=== PATIENT | male | born 1955 | race Caucasian/White ===

== ENCOUNTER 2017-08-19 23:14 | Inpatient (IN) | payer OTHER ==
[~2017-08-19] VITALS: Ht 175.3 cm; Wt 88.0 kg
--- NOTE | 2017-08-19 23:42 | ED GENERAL ADULT ---
History of Present Illness General Chief Complaint: Lower Extremity Problems Stated Complaint: BLEEDING RT LEG Source: patient Exam Limitations: no limitations Vital Signs & Intake/Output Vital Signs & Intake/Output Vital Signs Date Time Temp Pulse Resp B/P B/P Pulse O2 O2 Flow FiO2 Mean Ox Delivery Rate 08/20 0227 97 Room Air 08/19 2318 98.0 98 18 128/86 98 Room Air ED Intake and Output 08/20 0000 08/19 1200 Intake Total Output Total Balance Patient 195 lb Weight Allergies Coded Allergies: NO KNOWN ALLERGIES (11/24/11) NKA PER ANTIBIOTIC ORDER SHEET - S Triage Note: BIBA SPONTANEOUS BLEEDING FROM EXISTING LOWER LEG WOUND RIGHT LOWER LEG Triage Nurses Notes Reviewed? yes Onset: Gradual Duration: day(s): (1), changing over time, continues in ED, getting worse Timing: recent history Injury Environment: home Severity: moderate, severe Severity Numbers: 8 No Modifying Factors: none HPI: 62-year-old male past medical history of peripheral vascular disease and chronic right lower extremity wound presents for evaluation of uncontrolled bleeding to the right lower extremity. Patient states that he has had a wound on his right lower extremity for many years. He has been seen by vascular and wound care as well as plastic surgery. He has had multiple surgeries on the right lower extremity including angioplasties and skin grafts. He states that he has not been seen by a doctor for his leg since 2012. He states that from time to time it will start to bleed but usually he can control the bleeding with pressure. This time the bleeding started several hours ago and was more severe than usual. He was unable to stop it with pressure and elevation. He states that he keeps it dressed at home and changes it daily. He states that recently it has become more swollen than usual. He denies any fevers chest pain shortness of breath numbness or tingling. He walks with a walker. (Contreras Foster) Past History Travel History Traveled to [place] past 21 day No Medical History Any Pertinent Medical History? see below for history Surgical History Surgical History: vascular/plasitc surgery Psychosocial History What is your primary language Macanese Tobacco Use: Current Not Daily ETOH Use: occasional use Illicit Drug Use: denies illicit drug use Family History Hx Contributory? No (Contreras Foster) Review of Systems Review of Systems Constitutional: Reports: no symptoms. EENTM: Reports: no symptoms. Respiratory: Reports: no symptoms. Cardiovascular: Reports: no symptoms. GI: Reports: no symptoms. Genitourinary: Reports: no symptoms. Musculoskeletal: Reports: see HPI. Skin: Reports: see HPI (chronic wound ). Neurological/Psychological: Reports: no symptoms. Hematologic/Endocrine: Reports: no symptoms. Immunologic/Allergic: Reports: no symptoms. All Other Systems: Reviewed and Negative (Contreras Foster) Physical Exam Physical Exam General Appearance: well developed/nourished, no apparent distress, alert, awake Head: atraumatic, normal appearance Eyes: Bilateral: normal appearance, EOMI. Ears, Nose, Throat: normal pharynx, hearing grossly normal Neck: normal inspection, supple, full range of motion Respiratory: normal breath sounds, chest non-tender, no respiratory distress, lungs clear Cardiovascular: regular rate/rhythm Gastrointestinal: normal bowel sounds, soft, non-tender, no organomegaly Back: normal inspection, normal range of motion Extremities: right lower extremity: There is a large over 6 inches in verticle length circumferential ulcerated wound on the right lower extremity. There is exposed subcutaneous tissue no exposed bone. There are multiple areas of necrotic tissue. The right foot is edematous with 2+ pitting edema. The DP pulse is not palpable. Range of motion of the foot and ankle is intact. Remaining extremities are within normal limits Neurologic/Psych: no motor/sensory deficits, awake, alert, oriented x 3 Skin: intact, normal color, warm/dry, see extremities Core Measures ACS in differential dx? No CVA/TIA Diagnosis: No Sepsis Present: No Sepsis Focused Exam Completed? No (Contreras Foster) Progress Differential Diagnoses I considered the following diagnoses in my evaluation of the patient: [Chronic wound, infected wound, osteomyelitis, peripheral vascular disease, cellulitis, abscess, gas gangrene, necrotizing fasciitis] Plan of Care: Orders Procedure Date/time Status Nothing by Mouth 08/20 B Active CBC WITHOUT DIFFERENTIAL 08/20 0700 Active BASIC ELECTROLYTES PLUS BUN&CR 08/20 0700 Active LACTIC ACID 08/20 0237 Active Saline Lock 08/20 199 Active Pathway - chart 08/20 199 Active House Staff 08/20 199 Active PROTHROMBIN TIME 08/20 199 Active Saline Lock 08/20 144 Active Misc Message 08/20 144 Active ED Holding Orders 08/20 144 Active Admit to inpatient 01/13 0145 Active Vital Signs 08/20 0145 Active Code Status 08/20 0145 Active Patient Data 08/20 0141 Active Add-on Test (ER Only) 08/20 0126 Active BLOOD CULTURE 08/20 012 Active EKG 08/20 012 Active Intake & Output 08/20 0111 Active TROPONIN LEVEL 08/20 0027 Complete VTE Mechanical Prophylaxis 08/20 UNK Active LACTIC ACID 08/19 2337 Complete WESTERGREN SED RATE 08/19 2337 Complete C-REACTIVE PROTEIN 08/19 233 Complete COMPREHENSIVE METABOLIC PANEL 08/19 233 Complete CBC WITHOUT DIFFERENTIAL 08/19 2336 Complete Current Medications Sig/Alexus Start time Last Medication Dose Stop Time Status Admin Sodium Chloride 1,000 ML Q13H 08/20 0215 AC 08/20 (Normal Saline 0.9%) 0230 Laboratory Tests 08/20/17 0027: Anion Gap 14, Estimated GFR > 60, BUN/Creatinine Ratio 6.0 L, Glucose 112 H, Lactic Acid 5.1 H, Calcium 8.3 L, Total Bilirubin 0.3, AST 11 L, ALT 24, Alkaline Phosphatase 99, Troponin I < 0.01, C-Reactive Prot, Quant 3.8 H, Total Protein 5.9 L, Albumin 2.6 L, Globulin 3.3, Albumin/Globulin Ratio 0.8 L, CBC w Diff MAN DIFF ORDERED, RBC 2.95 L, MCV 98.9 H, MCH 33.4 H, RDW 15.2 H, MPV 7.6, Gran % 84.4 H, Lymphocytes % 11.6 L, Monocytes % 2.8, Eosinophils % 0.9, Basophils % 0.3, Absolute Granulocytes 10.1 H, Absolute Lymphocytes 1.4, Absolute Monocytes 0.3, Absolute Eosinophils 0.1, Absolute Basophils 0, Platelet Estimate ADEQUATE, Normocytic RBCs VERIFIED, Normochromic RBCs VERIFIED, PUBS MCHC 33.8, ESR Westergren 50 H Microbiology 08/20 0203 BLOOD: Blood Culture - RECD 08/20 156 BLOOD: Blood Culture - RECD Patient seen and evaluated. he is currently actively bleeding. He has been applying pressure for greater than 3 hours without improvement. Blood is soaking through the dressing. Dressing was removed and calastat was placed over the bleeding part of the wound with good effect. Bleeding is controlled. He remains hemodynamically stable He has an extensive severe wound to the right lower extremity. It is likely related to chronic venous insufficiency/venous stasis. Patient has an extensive history of plastic surgery wound care and vascular surgery however he has not been seen in years. Patient is currently afebrile and nontoxic appearing however he has a lactic acidosis and leukocytosis. X-ray shows periosteal thickening. CRP is significantly elevated. Sedimentation rate is pending. He will require infectious disease consult, vascular surgery consult, wound care consult, general surgery consult, IV fluids, IV antibiotics, IV pain control, serial labs, MRI, CTA. The wound was dressed with Xeroform Kerlix and Lewis wrap. IV fluids and IV Tylenol started for pain control. Considered starting antibiotics however felt that it was better to wait for infectious disease consultation/follow-up cultures/possible bone biopsy. Case discussed with Dr. Palencia he agrees. Diagnostic Imaging: Viewed by Me: Radiology Read. Discussed w/RAD: Radiology Read. Radiology Impression: PATIENT: GRABIEL LIMON PRESENT AGE: 62 PATIENT ACCOUNT NO: [id number] : 56 LOCATION: [facility] ORDERING PHYSICIAN: Contreras PORTILLO SERVICE DATE: 08/19/17 EXAM TYPE: RAD - [id number], RIGHT EXAMINATION: XR TIBIA AND FIBULA, RIGHT CLINICAL INFORMATION: Chronic wound, getting worse. COMPARISON: None TECHNIQUE: AP and lateral views of the right tibia and fibula were obtained. FINDINGS: Soft tissue irregularity of the mid to distal lower leg. There is smooth periosteal thickening along the distal tibia and fibula with no erosive osseous changes. No acute fracture. Alignment at the knee and ankle is grossly anatomic. No definite soft tissue gas. IMPRESSION: Diffuse soft tissue irregularity at the mid to distal lower leg. Smooth periosteal thickening of the tibia and fibula is nonspecific, likely reactive. This can be seen in chronic infective process. No acute erosion or focal osseous abnormality. DICTATED BY: Ashley ROTHMAN,Amandeep DATE/TIME DICTATED:08/20/1710 COMPLIANCE ANALYST:LOLIS DATE/TIME TRANSCRIBED:08/20/1710 CONFIDENTIAL, DO NOT COPY WITHOUT APPROPRIATE AUTHORIZATION. Initial ED EKG: none (pending ) (Josef PORTILLO,Contreras) Initial ED EKG: borderline prolonged qt, no acute changes, nsr. (Slime ROTHMAN,Damian Milian) Departure Departure Disposition: STILL A PATIENT Condition: Stable Clinical Impression Primary Impression: Chronic wound of extremity Secondary Impressions: Lactic acidosis Referrals: Stanton Flannery MD (PCP/Family) Departure Forms: Customer Survey General Discharge Information Admission Note Spoke With: Bradley ROTHMAN,Pierre Serrano Documentation of Exam: Documentation of any treatments & extenuating circumstances including Concerns Regarding Discharge (functional status, medication knowledge or non-compliance, living conditions, etc.) that warrant an admission rather than observation: [ He will require infectious disease consult, vascular surgery consult, wound care consult, general surgery consult, IV fluids, IV antibiotics, IV pain control, serial labs, MRI, CTA. ] (Contreras Foster) PA/DISHWASHER BUSSER Co-Sign Statement Statement: ED Attending supervision documentation- [x] I saw and evaluated the patient. I have also reviewed all the pertinent lab results and diagnostic results. I agree with the findings and the plan of care as documented in the PA's/DISHWASHER BUSSER's documentation. 08/20/17, 0:40... pt with foul smelling open circumferential chronic wound with likely superimposed infection. Clinical concern for osteomyelitis. Pt merits admission for bone bx, id consult, consider abx. [] I have reviewed the ED Record and agree with the PA's/DISHWASHER BUSSER's documentation. [] Additions or exceptions (if any) to the PAs/DISHWASHER BUSSER's note and plan are summarized below: [] (Slime ROTHMAN,Damian Milian) Critical Care Note Critical Care Note Critical Care Time: non-applicable (Contreras Foster)
--- NOTE | 2017-08-20 00:16 | RADIOLOGY REPORT ---
EXAMINATION: XR TIBIA AND FIBULA, RIGHT CLINICAL INFORMATION: Chronic wound, getting worse. COMPARISON: None TECHNIQUE: AP and lateral views of the right tibia and fibula were obtained. FINDINGS: Soft tissue irregularity of the mid to distal lower leg. There is smooth periosteal thickening along the distal tibia and fibula with no erosive osseous changes. No acute fracture. Alignment at the knee and ankle is grossly anatomic. No definite soft tissue gas. IMPRESSION: Diffuse soft tissue irregularity at the mid to distal lower leg. Smooth periosteal thickening of the tibia and fibula is nonspecific, likely reactive. This can be seen in chronic infective process. No acute erosion or focal osseous abnormality.
[2017-08-20 00:40] LABS: ABSOLUTE BASOPHIL COUNT 0 /CUMM (0.0-0.2); ABSOLUTE EOSINOPHIL COUNT 0.1 /CUMM (0.0-0.7); ABSOLUTE GRANULOCYTE CT 10.1 /CUMM (1.4-6.5); ABSOLUTE LYMPH COUNT 1.4 /CUMM (1.2-3.4); ABSOLUTE MONOCYTE COUNT 0.3 /CUMM (0.10-0.60); BASOPHIL % 0.3 % (0.0-2.0); EOSINOPHIL % 0.9 % (0-5); GRANULOCYTE % 84.4 % (42.2-75.2); HEMATOCRIT 29.2 % (42-52); MEAN CORPUSCULAR HGB 33.4 PG (27.0-31.0); MEAN CORPUSCULAR HGB CONC 33.8 G/DL (33.0-37.0); MEAN CORPUSCULAR VOLUME 98.9 FL (80.0-94.0); MEAN PLATELET VOLUME 7.6 FL (7.4-10.4); PLATELET COUNT 291 /CUMM (130-400); RBC DISTRIBUTION WIDTH 15.2 % (11.5-14.5); RED BLOOD CELL CT 2.95 /CUMM (4.70-6.10); WHITE BLOOD CELL COUNT 11.9 /CUMM (4.8-10.8)
--- NOTE | 2017-08-20 01:55 | History & Physical ---
[facility]: General Information and HPI MD Statement: I have seen and personally examined GRABIEL LIMON and documented this H&P. The patient is a 62 year old M who presented with a patient stated chief complaint of [RIGHT lower extrimity bleeding]. Source of Information: patient, old records Exam Limitations: no limitations History of Present Illness: Mr. Limon is a 62 yo man with PMHx of PVD, BPH, postnasal drip, mediterrian anemia Hx. of debridement and skin graft, left lower leg wound, chronic right lower extrimity ulcer presented to ED with a c/o bleeding from multiple vein at the right lower extrimity. Patient is accompanied by his , history obtained from both of them, they report that the patient has bleeding from his right lower extrimity on and off over the last month, they have been managing that by themselves, he didn't follow with a vascular surgeon, he report that he has this chronic ulcer on his right lower extrmity for years, today he noticed that his right lower extrimity edema is getting worse and all of the sudden he started to bleed, his applied pressure on the spot but then another spot started to bleed, every time she tried to stop the bleed at one spot another spot will start bleeding so they decided to come to ED. He report pain in the area, no fever, chills BUT he throw up once today. No chest pain, dizziness, SOB, trauma and there is no change in urinary or bowel habits. He actively drinks beers every day, about 4-5 beers, denies any history of alcohol withdrawal. Offnote: Patient only see's his PCP , Last year he was seen by Dr. Santiago for BPH and was started on Flomax. He denies any other medical illness, no chronic disease such as DM, or HTN. Allergies/Medications Allergies: Coded Allergies: NO KNOWN ALLERGIES (11/24/11) NKA PER ANTIBIOTIC ORDER SHEET - [facility] Home Med list Fluoxetine HCl (Prozac) 10 MG CAPSULE 1 CAP PO DAILY ANXIETY (Reported) Tamsulosin HCl (Flomax) 0.4 MG CAP.ER.24H 1 CAP PO DAILY BPH (Reported) Past History Travel History Traveled to [place] past 21 day No Medical History Blood Transfusion Hx: No Neurological: NONE EENT: Postnasal drip Cardiovascular: NONE Respiratory: NONE Gastrointestinal: NONE Hepatic: NONE Renal: NONE Musculoskeletal: NONE Blood Disorders: anemia Surgical History Surgical History: vascular/plasitc surgery Past Family/Social History Psychosocial History ETOH Use: occasional use Illicit Drug Use: denies illicit drug use Review of Systems Review of Systems Constitutional: Reports: no symptoms. EENTM: Reports: no symptoms. Cardiovascular: Reports: no symptoms. Respiratory: Reports: no symptoms. GI: Reports: vomiting. Genitourinary: Reports: no symptoms. Musculoskeletal: Reports: no symptoms. Skin: Reports: change in skin color. Neurological/Psychological: Reports: no symptoms. Hematologic/Endocrine: Reports: see HPI. Immunologic/Allergic: Reports: no symptoms. Exam & Diagnostic Data Last 24 Hrs of Vital Signs/I&O Vital Signs Date Time Temp Pulse Resp B/P B/P Pulse O2 O2 Flow FiO2 Mean Ox Delivery Rate 08/20 0231 98.4 101 18 116/82 96 Room Air 08/20 0227 97 Room Air 08/19 2318 98.0 98 18 128/86 98 Room Air Intake & Output 08/20 0800 08/20 0000 08/19 1600 Intake Total Output Total Balance Patient 195 lb Weight Physical Exam General Appearance Alert, Oriented X3, Cooperative, Mild Distress Last 24 Hrs of Labs/Lukas: Laboratory Tests 08/20/17 0027: Anion Gap 14, Estimated GFR > 60, BUN/Creatinine Ratio 6.0 L, Glucose 112 H, Lactic Acid 5.1 H, Calcium 8.3 L, Total Bilirubin 0.3, AST 11 L, ALT 24, Alkaline Phosphatase 99, Troponin I < 0.01, C-Reactive Prot, Quant 3.8 H, Total Protein 5.9 L, Albumin 2.6 L, Globulin 3.3, Albumin/Globulin Ratio 0.8 L, CBC w Diff MAN DIFF ORDERED, RBC 2.95 L, MCV 98.9 H, MCH 33.4 H, RDW 15.2 H, MPV 7.6, Gran % 84.4 H, Lymphocytes % 11.6 L, Monocytes % 2.8, Eosinophils % 0.9, Basophils % 0.3, Absolute Granulocytes 10.1 H, Absolute Lymphocytes 1.4, Absolute Monocytes 0.3, Absolute Eosinophils 0.1, Absolute Basophils 0, Platelet Estimate ADEQUATE, Normocytic RBCs VERIFIED, Normochromic RBCs VERIFIED, PUBS MCHC 33.8, ESR Westergren 50 H Microbiology 08/20 0203 BLOOD: Blood Culture - RECD 08/20 015 BLOOD: Blood Culture - RECD Assessment/Plan Assessment: Mr. Limon is a 62 yo man with PMHx of PVD, BPH, postnasal drip, mediterrian anemia Hx. of debridement and skin graft, left lower leg wound, chronic right lower extrimity ulcer presented to ED with a c/o bleeding from multiple vein at the right lower extrimity. Admitted for PVD with chronic ulcer actively bleeding Assessment: #Chronic Rt. lower extrmity ulcer and edema, now actively bleeding: #Lactic acidosis #Hx. of mediterrian anemia (Thalassemia) #BPH * Patient admitted to general medicine floor * Will place a vasculr surgery consult * Will hold on giving antibiotic for now, till ID evaluate the patient, as he may needs some bone biopsy * Blood culture was sent will f/u * Vascular surgery consult * Wound care * Will hydrate with NS * Will check Lactic acid again and trend if needed * Will order LE arterial doppler, his feet is pale and cold to touch with difficulty to assess the pulse * Will continue Flomax * Will continue prozac 20 mg daily DVT ppx: ALPS Full code As Ranked By This Provider Problem List: 1. Chronic wound of extremity 2. Lactic acidosis Core Measures/Misc (04/24) Acute Coronary Syndrome ACS Diagnosis: No Congestive Heart Failure Congestive Heart Failure Diagnosis No Cerebrovascular Accident CVA/TIA Diagnosis: No VTE (View Protocol) VTE Risk Factors Age>40 No Mechanical VTE Prophylaxis d/t N/A MechProphylax Ordered No VTE Pharm Prophylaxis d/t Bleeding (Active) Sepsis (View protocol) Sepsis Present: No [facility]: Attending MD Review Statement Attending Statement Attending MD Statement: examined this patient, discuss w/resident/PA/DIRECT CARE SUPERVISOR, agreed w/resident/PA/DIRECT CARE SUPERVISOR, discussed with family, reviewed EMR data (avail), discussed with nursing, discussed with case mgmt, reviewed images, amended to note Attending Assessment/Plan: Seen and examined independently Discussed with family at the bedside Real Estate Attorney notes reviewed and appretiated Ultrasound IMPRESSION: - No evidence of occlusion or focal high-grade stenosis of the femoral arteries. - Within the right lower extremity, the arterial waveforms become abnormal at the level of the popliteal artery and within the anterior tibial artery, consistent with hemodynamically significant disease. The right dorsalis pedis artery was not evaluated due to overlying bandage. - Within the left lower extremity, the waveforms are abnormal within the popliteal, anterior and posterior tibial arteries, consistent with hemodynamically significant peripheral vascular disease. For a more complete anatomic assessment of peripheral vessels, CT angiography-runoff examination could be performed. To further evaluate severity of peripheral vascular disease, CHUYITA measurements and pulse volume recordings may be obtained at a dedicated vascular lab. IMPRESSION 62-year-old man with a history of "Mediterranean anemia", peripheral vascular disease, venous insufficiency, and bilateral lower extremity ulcers for 10 years , status post debridement and skin grafts 5 years prior to admission, with healing on the left but with nonhealing on the right, with chronic edema and stinging pain of the right lower extremity, admitted on August 20 because of uncontrolled bleeding from the right leg wounds, with no change in his chronic "stinging" pain, fevers or chills, found to be afebrile with a mild leukocytosis. ISSUES Sig cellulitis of the leg NEcrotic ulcer leg which would need debridement soon and vascular surg has seen the patient PVD with sig hemodynamically sig stenosis BPH Mediterranian anemia Depression Anemia of chronic disease PLAN Cont iv abx Elevate leg Necrotic ulcer debridement and PVD mgt per vascular surg Start high dose statin PT would need asa for pvd, however due to sig bleed hold asa for today and start asa if vascular thinks he needs it IF he develops sig foot pain and worsening ischemia would need to go to the or emergently WIll follow
[2017-08-20 04:08] VITALS: BP 142/64
[2017-08-20 04:15] LABS: ABSOLUTE BASOPHIL COUNT 0 /CUMM (0.0-0.2); ABSOLUTE EOSINOPHIL COUNT 0 /CUMM (0.0-0.7); ABSOLUTE GRANULOCYTE CT 9.8 /CUMM (1.4-6.5); ABSOLUTE LYMPH COUNT 0.7 /CUMM (1.2-3.4); ABSOLUTE MONOCYTE COUNT 0.5 /CUMM (0.10-0.60); BASOPHIL % 0.3 % (0.0-2.0); EOSINOPHIL % 0.2 % (0-5); GRANULOCYTE % 88.5 % (42.2-75.2); HEMATOCRIT 27.2 % (42-52); MEAN CORPUSCULAR HGB 32.9 PG (27.0-31.0); MEAN CORPUSCULAR VOLUME 99.7 FL (80.0-94.0); MEAN PLATELET VOLUME 7.9 FL (7.4-10.4); PLATELET COUNT 289 /CUMM (130-400); RBC DISTRIBUTION WIDTH 15.3 % (11.5-14.5); RED BLOOD CELL CT 2.73 /CUMM (4.70-6.10); WHITE BLOOD CELL COUNT 11.1 /CUMM (4.8-10.8)
[2017-08-20] MEDS ORDERED: FLOMAX0.4 M1 PO (04:19)
[2017-08-20] MEDS ORDERED: PROZAC10 M1 PO (04:19)
[2017-08-20 04:26] LABS: PT 11.9 SEC (9.4-12.5)
[2017-08-20 07:05] VITALS: BP 114/60
[2017-08-20 08:00] VITALS: BP 144/78
--- NOTE | 2017-08-20 09:01 | Cons- Vascular Surgery ---
Damien Antoine 08/20/17 0856: General Information and HPI Consulting Request Date of Consult: 08/20/17 Requested By: Bradley ROTHMAN,Pierre Serrano Reason for Consult: RLE bleeding ulceration, chronic wound Source of Information: patient, old records Exam Limitations: no limitations History of Present Illness: This is 62-year-old male limited to the medical service to the emergency department with a chronic nonhealing ulcerative wound to the right medial lower leg that was bleeding uncontrollably started yesterday evening. Pressure dressing was applied he was admitted overnight for further evaluation. Vascular surgery was consulted for management of his bleeding and wound. Patient states approximately 10 years ago he started having chronic venous insufficiency with skin breakdown. This went approximately 5 years before he sought treatment. He was seen by Dr. Desai in 2011 who performed bilateral debridements of the wounds. He was then seen by Dr. Hernandez later in the year 2011 for skin grafts both sides and also treated in the wound care center. The left side heal well, he states the right side never completely healed and he did not continue with follow-up. He states over the last 5 years and is chronically been open and intermittently losing with skin breakdown. It has gotten larger, has a foul odor, it is impaired his activities of daily living, he no longer can walk for long distances, and avoids going at the public places because of the wound. He came into the emergency room last night, urged by his to get it evaluated due to the increased bleeding that they could not stop. He usually puts dressings on it himself and wash his wound with soap and water at home but has not had any previous medical care in the last 4-5 years. He denies any fever or flulike illness, he states that the right leg is always chronically swollen and is no worse. He denies any redness streaking up the leg Allergies/Medications Allergies: Coded Allergies: NO KNOWN ALLERGIES (11/24/11) NKA PER ANTIBIOTIC ORDER SHEET - [facility] Home Med List: Fluoxetine HCl (Prozac) 10 MG CAPSULE 1 CAP PO DAILY ANXIETY (Reported) Tamsulosin HCl (Flomax) 0.4 MG CAP.ER.24H 1 CAP PO DAILY BPH (Reported) Past History Medical History Blood Transfusion Hx: No Neurological: NONE EENT: Postnasal drip Cardiovascular: NONE Respiratory: NONE Gastrointestinal: NONE Hepatic: NONE Renal: NONE Musculoskeletal: NONE Blood Disorders: anemia Other Medical Hx: Chronic venous insufficiency, history of venous stasis ulcers, history of debridements and skin grafting bilateral lower extremity Surgical History Pertinent Surgical History: vascular/plasitc surgery Psychosocial History Where Do You Live? Home Smoking Status: Never Smoked ETOH Use: heavy use Illicit Drug Use: denies illicit drug use Functional Ability ADLs Independent: dressing, eating, toileting, bathing. Review of Systems Review of Systems: Review of systems: See HPI, all other systems negative. Constitutional: No chills fever or weight loss HEENT: No visual changes no sore throat no congestion Cardiovascular: No chest pain ,palpitation Skin: See HPI Respiratory: No dyspnea cough sputum or hemoptysis GI: No nausea no vomiting : No dysuria no hematuria Musclulo skeletal: No back pain no neck pain, Neurologic: No numbness no confusion Psych: No stress anxiety or depression,. Heme/endocrine: No bruising no bleeding no polyuria or polydipsia Immunology: No splenectomy or history of AIDS Exam & Diagnostic Data Vital Signs and I&O Vital Signs Date Time Temp Pulse Resp B/P B/P Pulse O2 O2 Flow FiO2 Mean Ox Delivery Rate 08/20 0705 98.5 72 18 114/60 93 Room Air 08/20 0408 98.3 67 20 142/64 97 Room Air 08/20 0231 98.4 101 18 116/82 96 Room Air 08/20 0227 97 Room Air 08/19 2318 98.0 98 18 128/86 98 Room Air Intake & Output 08/20 1600 08/20 0800 08/20 0000 08/19 1600 08/19 0800 08/19 0000 Intake Total 300 Output Total 400 Balance -100 Intake, IV 300 Number 1 Bowel Movements Output, Stool 200 Output, Urine 200 Patient 194 lb 195 lb Weight Weight Reported by Patient Measurement Method Physical Exam: Well-developed well-nourished no apparent distress. HEENT: Atraumatic, extraocular motion intact Neck: Supple, no lymphadenopathy Respiratory: No respiratory distress Extremities: Right lower extremity is edematous, 2+ pitting, there is a compression wrap to the right lower leg which was removed. Dressing in place with Kaltostat and Xeroform. There is no active bleeding. The wound is approximately 15 cm in length and 8 cm in width with irregular borders and large amounts of necrotic and purulent appearing tissue with a foul odor and thin serous sanguinous discharge. There is a mild surrounding induration. There is no significant erythema. There is mild warmth. The neurovascular status is that of the foot is intact with dorsal pedal 2+ pulse and capillary refill less than 2 seconds. Posterior tibial pulses could not be palpated due to the location of the wound. Neuro: Alert and oriented x3 Psych: Mood affect normal, normal memory normal judgment. Skin: Warm and dry, no rash on exposed skin Last 24 Hours of Labs: Laboratory Tests 08/20 08/20 0320 0320 Chemistry Sodium (137 - 145 mmol/L) 138 Potassium (3.5 - 5.1 mmol/L) 3.4 L Chloride (98 - 107 mmol/L) 106 Carbon Dioxide (22 - 30 mmol/L) 18 L Anion Gap (5 - 16) 14 BUN (9 - 20 mg/dL) 6 L Creatinine (0.7 - 1.2 mg/dL) 0.9 Estimated GFR (>60 ml/min) > 60 BUN/Creatinine Ratio (7 - 25 %) 6.7 L Lactic Acid (0.7 - 2.1 mmol/L) 2.1 Coagulation PT (9.4 - 12.5 SEC) 11.9 INR (0.90 - 1.17) 1.13 Hematology CBC w Diff MAN DIFF ORDERED WBC (4.8 - 10.8 /CUMM) 11.1 H RBC (4.70 - 6.10 /CUMM) 2.73 L Hgb (14.0 - 18.0 G/DL) 9.0 L Hct (42 - 52 %) 27.2 L MCV (80.0 - 94.0 FL) 99.7 H MCH (27.0 - 31.0 PG) 32.9 H RDW (11.5 - 14.5 %) 15.3 H Plt Count (130 - 400 /CUMM) 289 MPV (7.4 - 10.4 FL) 7.9 Gran % (42.2 - 75.2 %) 88.5 H Lymphocytes % (20.5 - 51.1 %) 6.7 L Monocytes % (1.7 - 9.3 %) 4.3 Eosinophils % (0 - 5 %) 0.2 Basophils % (0.0 - 2.0 %) 0.3 Absolute Granulocytes (1.4 - 6.5 /CUMM) 9.8 H Segmented Neutrophils (42.2 - 75.2 %) 97 H Band Neutrophils (0.0 - 5.0 %) 2 Absolute Lymphocytes (1.2 - 3.4 /CUMM) 0.7 L Lymphocytes (20.5 - 51.1 %) 1 L Absolute Monocytes (0.10 - 0.60 /CUMM) 0.5 Absolute Eosinophils (0.0 - 0.7 /CUMM) 0 Absolute Basophils (0.0 - 0.2 /CUMM) 0 Platelet Estimate (ADEQUATE) ADEQUATE Hypochromic-Microcytic 1+ Anisocytosis 1+ PUBS MCHC (33.0 - 37.0 G/DL) 33.0 08/20 0027 Chemistry Sodium (137 - 145 mmol/L) 134 L Potassium (3.5 - 5.1 mmol/L) 3.5 Chloride (98 - 107 mmol/L) 101 Carbon Dioxide (22 - 30 mmol/L) 19 L Anion Gap (5 - 16) 14 BUN (9 - 20 mg/dL) 6 L Creatinine (0.7 - 1.2 mg/dL) 1.0 Estimated GFR (>60 ml/min) > 60 BUN/Creatinine Ratio (7 - 25 %) 6.0 L Glucose (65 - 99 mg/dL) 112 H Hemoglobin A1c (4.2 - 5.8 %) Pending Lactic Acid (0.7 - 2.1 mmol/L) 5.1 H Calcium (8.4 - 10.2 mg/dL) 8.3 L Total Bilirubin (0.2 - 1.3 mg/dL) 0.3 AST (17 - 59 U/L) 11 L ALT (21 - 72 U/L) 24 Alkaline Phosphatase (< 127 U/L) 99 Troponin I (<0.11 ng/ml) < 0.01 C-Reactive Prot, Quant (<1.0 mg/dL) 3.8 H Total Protein (6.3 - 8.2 g/dL) 5.9 L Albumin (3.5 - 5.0 g/dL) 2.6 L Globulin (1.9 - 4.2 gm/dL) 3.3 Albumin/Globulin Ratio (1.1 - 2.2 %) 0.8 L Hematology CBC w Diff MAN DIFF ORDERED WBC (4.8 - 10.8 /CUMM) 11.9 H RBC (4.70 - 6.10 /CUMM) 2.95 L Hgb (14.0 - 18.0 G/DL) 9.9 L Hct (42 - 52 %) 29.2 L MCV (80.0 - 94.0 FL) 98.9 H MCH (27.0 - 31.0 PG) 33.4 H RDW (11.5 - 14.5 %) 15.2 H Plt Count (130 - 400 /CUMM) 291 MPV (7.4 - 10.4 FL) 7.6 Gran % (42.2 - 75.2 %) 84.4 H Lymphocytes % (20.5 - 51.1 %) 11.6 L Monocytes % (1.7 - 9.3 %) 2.8 Eosinophils % (0 - 5 %) 0.9 Basophils % (0.0 - 2.0 %) 0.3 Absolute Granulocytes (1.4 - 6.5 /CUMM) 10.1 H Absolute Lymphocytes (1.2 - 3.4 /CUMM) 1.4 Absolute Monocytes (0.10 - 0.60 /CUMM) 0.3 Absolute Eosinophils (0.0 - 0.7 /CUMM) 0.1 Absolute Basophils (0.0 - 0.2 /CUMM) 0 Platelet Estimate (ADEQUATE) ADEQUATE Normocytic RBCs VERIFIED Normochromic RBCs VERIFIED PUBS MCHC (33.0 - 37.0 G/DL) 33.8 ESR Westergren (0 - 10 MM) 50 H Imaging Results: PATIENT: GRABIEL LIMON PRESENT AGE: 62 PATIENT ACCOUNT NO: [id number] : 56 LOCATION: [facility] ORDERING PHYSICIAN: Contreras PORTILLO SERVICE DATE: 08/19/17 EXAM TYPE: RAD - [id number], RIGHT EXAMINATION: XR TIBIA AND FIBULA, RIGHT CLINICAL INFORMATION: Chronic wound, getting worse. COMPARISON: None TECHNIQUE: AP and lateral views of the right tibia and fibula were obtained. FINDINGS: Soft tissue irregularity of the mid to distal lower leg. There is smooth periosteal thickening along the distal tibia and fibula with no erosive osseous changes. No acute fracture. Alignment at the knee and ankle is grossly anatomic. No definite soft tissue gas. IMPRESSION: Diffuse soft tissue irregularity at the mid to distal lower leg. Smooth periosteal thickening of the tibia and fibula is nonspecific, likely reactive. This can be seen in chronic infective process. No acute erosion or focal osseous abnormality. Assessment/Plan Assessment/Plan Right lower extremity chronic venous insufficiency ulceration with necrotic foul -smelling tissue. Arterial Doppler pending to further evaluate arterial flow although appears though he clinically has adequate flow Continue compression wrap and elevation Discussed with Dr. Martínez due to the odor of the wound, he feels as though it may be Pseudomonas and would recommend Cipro 500 mg by mouth twice a day. ID consult pending wound care recommendations are for Kerlix dressings to the wound and Lewis wrap's from the toes to the knee, dressings to be changed twice daily When the clinical signs of infection and edema have subsided, he may be discharged per medicine and patient should follow-up in the office for further wound management and possible debridement at that time. No vascular surgical or debridement recommended at this time per Dr. Martínez Problem List: 1. Chronic wound of extremity 2. Stasis ulcer of right lower extremity Consult Acknowledgment - Thank you for your consult request. Allen Martínez MD 08/21/17 4216: Assessment/Plan Consult Acknowledgment - Thank you for your consult request. Attending MD Review Statement Attending Statement Attending MD Statement: examined this patient Attending Assessment/Plan: He has right leg edema with stasis skin changes and active stasis ulcer. He has malodor of the wound bed without evidence of systemic infection. He clearly has wound colonization, possibly pseudomonas based on odor. To heal his stasis ulcers, he needs control of edema, reduction in bacterial load, and meticulous wound care. Treat with suppressive antibiotics, he may benefit from intermediate term antibiotic suppression as an outpatient. Twice daily dressing changes with Kerlix. LEWIS wrap from foot to knee to control edema. Once edema and bacterial colonization has been controlled, he should notice progressive wound healing. I will follow him as outpatient.
--- NOTE | 2017-08-20 11:10 | ULTRASOUND REPORT ---
EXAMINATION: US LOWER EXTREMITY ARTERIAL DOPPLER, BILATERAL CLINICAL INFORMATION: 62-year-old male with pale, cold bleeding lower extremities. COMPARISON: None TECHNIQUE: Grayscale and pulsed color Doppler imaging with spectral waveform analysis of major vessels of lower extremities was performed using a linear 9 MHz transducer. FINDINGS: The peak systolic velocity measurements provided below are in cm/s. RIGHT - Common femoral artery, triphasic waveform - 212 Profunda femoris artery, biphasic waveform - 156 SFA proximal, triphasic waveform - 148 SFA mid, triphasic waveform - 152 SFA distal, biphasic waveform - 73 Popliteal proximal, triphasic waveform - 90 Popliteal distal, monophasic waveform - 51 Anterior tibial artery, monophasic waveform - 43 Posterior tibial artery, biphasic waveform - 94 Dorsalis pedis cannot be evaluated due to overlying bandage. LEFT: Common femoral artery, biphasic waveform - 259 Profunda femoris artery, biphasic waveform - 181 SFA proximal, triphasic waveform - 187 SFA mid, triphasic waveform - 168 SFA distal, triphasic waveform - 137 Popliteal proximal, biphasic waveform - 63 Popliteal distal, biphasic waveform - 51 Anterior tibial artery, monophasic waveform - 51 Posterior tibial artery, monophasic waveform - 41 Dorsalis pedis, monophasic waveform - 43 IMPRESSION: - No evidence of occlusion or focal high-grade stenosis of the femoral arteries. - Within the right lower extremity, the arterial waveforms become abnormal at the level of the popliteal artery and within the anterior tibial artery, consistent with hemodynamically significant disease. The right dorsalis pedis artery was not evaluated due to overlying bandage. - Within the left lower extremity, the waveforms are abnormal within the popliteal, anterior and posterior tibial arteries, consistent with hemodynamically significant peripheral vascular disease. For a more complete anatomic assessment of peripheral vessels, CT angiography-runoff examination could be performed. To further evaluate severity of peripheral vascular disease, CHUYITA measurements and pulse volume recordings may be obtained at a dedicated vascular lab.
--- NOTE | 2017-08-20 12:56 | Cons- Infect Disease ---
General Information and HPI Consulting Request Date of Consult: 08/20/17 Requested By: Bradley ROTHMAN,Pierre Serrano Reason for Consult: Nonhealing, bleeding ulcers on the right lower extremity Source of Information: patient, family History of Present Illness: This is a 62-year-old man with a history of "Mediterranean anemia", peripheral vascular disease, venous insufficiency, with bilateral lower extremity ulcers for 10 years, status post debridement and skin grafts 5 years prior to admission , with healing on the left but with nonhealing on the right, managed by his with local wound care and with no medical evaluation over the past 5 years, with chronic "stinging" pain and edema of the right lower extremity, admitted on August 20 because of uncontrolled bleeding from the right leg wounds, with no history of fevers or chills. On admission he was afebrile. Laboratory data revealed a white blood cell count of 12,000, BUN/creatinine 6 and 1.0, lactic acid 5.1, with normal liver enzymes, INR 1.13. X-ray of the right tibia/fibula revealed diffuse soft tissue irregularity at the mid to distal lower leg, with no acute erosion or focal osseous abnormality. He was followed off antibiotics and has remained afebrile overnight. The bleeding appears to have stopped and he offers no new complaints at this time. Allergies/Medications Allergies: Coded Allergies: NO KNOWN ALLERGIES (11/24/11) NKA PER ANTIBIOTIC ORDER SHEET - [facility] Home Med List: Fluoxetine HCl (Prozac) 10 MG CAPSULE 1 CAP PO DAILY ANXIETY (Reported) Tamsulosin HCl (Flomax) 0.4 MG CAP.ER.24H 1 CAP PO DAILY BPH (Reported) Past History Travel History Traveled to [place] past 21 day No Medical History Blood Transfusion Hx: No Neurological: NONE EENT: Postnasal drip Cardiovascular: chronic venous insuff, PVD Respiratory: NONE Gastrointestinal: NONE Hepatic: NONE Renal: NONE Musculoskeletal: NONE Blood Disorders: anemia Other Medical Hx: Chronic venous insufficiency, history of venous stasis ulcers, history of debridements and skin grafting bilateral lower extremity Isolation History: Standard Surgical History Surgical History: vascular/plasitc surgery Psychosocial History Where Do You Live? Home Smoking Status: Never Smoked ETOH Use: heavy use Illicit Drug Use: denies illicit drug use Functional Ability ADLs Independent: dressing, eating, toileting, bathing. Review of Systems Review of Systems Constitutional: Denies: chills, fever, malaise. Exam & Diagnostic Data Last 24 Hrs of Vital Signs/I&O Vital Signs Date Time Temp Pulse Resp B/P B/P Pulse O2 O2 Flow FiO2 Mean Ox Delivery Rate 08/20 1131 98.2 80 14 144/78 08/20 0800 98.2 80 14 144/78 08/20 0705 98.5 72 18 114/60 93 Room Air 08/20 0408 98.3 67 20 142/64 97 Room Air 08/20 0231 98.4 101 18 116/82 96 Room Air 08/20 0227 97 Room Air 08/19 2318 98.0 98 18 128/86 98 Room Air Intake & Output 08/20 1600 08/20 0800 08/20 0000 Intake Total 300 Output Total 400 Balance -100 Intake, IV 300 Number 1 Bowel Movements Output, Stool 200 Output, Urine 200 Patient 194 lb 195 lb Weight Weight Reported by Patient Measurement Method Physical Exam Other Physical Findings: Afebrile. He is awake and alert in no acute distress. Skin reveals no rash. HEENT negative. Neck is supple with no adenopathy. Lungs are clear. Heart regular rhythm with no murmur. Abdomen is soft, nontender with positive bowel sounds. Back no CVA tenderness. Extremities right leg swelling, with mild warmth compared to the left, minimal erythema, with a large ulcerating wound, with some necrosis and with a foul odor reported; pulses 1+ and equal; chronic venous stasis changes to both lower extremities. Neuro is without focality. Last 24 Hours of Lab Results: Laboratory Tests 08/20 08/20 0320 0320 Chemistry Sodium (137 - 145 mmol/L) 138 Potassium (3.5 - 5.1 mmol/L) 3.4 L Chloride (98 - 107 mmol/L) 106 Carbon Dioxide (22 - 30 mmol/L) 18 L Anion Gap (5 - 16) 14 BUN (9 - 20 mg/dL) 6 L Creatinine (0.7 - 1.2 mg/dL) 0.9 Estimated GFR (>60 ml/min) > 60 BUN/Creatinine Ratio (7 - 25 %) 6.7 L Lactic Acid (0.7 - 2.1 mmol/L) 2.1 Coagulation PT (9.4 - 12.5 SEC) 11.9 INR (0.90 - 1.17) 1.13 Hematology CBC w Diff MAN DIFF ORDERED WBC (4.8 - 10.8 /CUMM) 11.1 H RBC (4.70 - 6.10 /CUMM) 2.73 L Hgb (14.0 - 18.0 G/DL) 9.0 L Hct (42 - 52 %) 27.2 L MCV (80.0 - 94.0 FL) 99.7 H MCH (27.0 - 31.0 PG) 32.9 H RDW (11.5 - 14.5 %) 15.3 H Plt Count (130 - 400 /CUMM) 289 MPV (7.4 - 10.4 FL) 7.9 Gran % (42.2 - 75.2 %) 88.5 H Lymphocytes % (20.5 - 51.1 %) 6.7 L Monocytes % (1.7 - 9.3 %) 4.3 Eosinophils % (0 - 5 %) 0.2 Basophils % (0.0 - 2.0 %) 0.3 Absolute Granulocytes (1.4 - 6.5 /CUMM) 9.8 H Segmented Neutrophils (42.2 - 75.2 %) 97 H Band Neutrophils (0.0 - 5.0 %) 2 Absolute Lymphocytes (1.2 - 3.4 /CUMM) 0.7 L Lymphocytes (20.5 - 51.1 %) 1 L Absolute Monocytes (0.10 - 0.60 /CUMM) 0.5 Absolute Eosinophils (0.0 - 0.7 /CUMM) 0 Absolute Basophils (0.0 - 0.2 /CUMM) 0 Platelet Estimate (ADEQUATE) ADEQUATE Hypochromic-Microcytic 1+ Anisocytosis 1+ PUBS MCHC (33.0 - 37.0 G/DL) 33.0 08/20 0027 Chemistry Sodium (137 - 145 mmol/L) 134 L Potassium (3.5 - 5.1 mmol/L) 3.5 Chloride (98 - 107 mmol/L) 101 Carbon Dioxide (22 - 30 mmol/L) 19 L Anion Gap (5 - 16) 14 BUN (9 - 20 mg/dL) 6 L Creatinine (0.7 - 1.2 mg/dL) 1.0 Estimated GFR (>60 ml/min) > 60 BUN/Creatinine Ratio (7 - 25 %) 6.0 L Glucose (65 - 99 mg/dL) 112 H Hemoglobin A1c (4.2 - 5.8 %) Pending Lactic Acid (0.7 - 2.1 mmol/L) 5.1 H Calcium (8.4 - 10.2 mg/dL) 8.3 L Total Bilirubin (0.2 - 1.3 mg/dL) 0.3 AST (17 - 59 U/L) 11 L ALT (21 - 72 U/L) 24 Alkaline Phosphatase (< 127 U/L) 99 Troponin I (<0.11 ng/ml) < 0.01 C-Reactive Prot, Quant (<1.0 mg/dL) 3.8 H Total Protein (6.3 - 8.2 g/dL) 5.9 L Albumin (3.5 - 5.0 g/dL) 2.6 L Globulin (1.9 - 4.2 gm/dL) 3.3 Albumin/Globulin Ratio (1.1 - 2.2 %) 0.8 L Hematology CBC w Diff MAN DIFF ORDERED WBC (4.8 - 10.8 /CUMM) 11.9 H RBC (4.70 - 6.10 /CUMM) 2.95 L Hgb (14.0 - 18.0 G/DL) 9.9 L Hct (42 - 52 %) 29.2 L MCV (80.0 - 94.0 FL) 98.9 H MCH (27.0 - 31.0 PG) 33.4 H RDW (11.5 - 14.5 %) 15.2 H Plt Count (130 - 400 /CUMM) 291 MPV (7.4 - 10.4 FL) 7.6 Gran % (42.2 - 75.2 %) 84.4 H Lymphocytes % (20.5 - 51.1 %) 11.6 L Monocytes % (1.7 - 9.3 %) 2.8 Eosinophils % (0 - 5 %) 0.9 Basophils % (0.0 - 2.0 %) 0.3 Absolute Granulocytes (1.4 - 6.5 /CUMM) 10.1 H Absolute Lymphocytes (1.2 - 3.4 /CUMM) 1.4 Absolute Monocytes (0.10 - 0.60 /CUMM) 0.3 Absolute Eosinophils (0.0 - 0.7 /CUMM) 0.1 Absolute Basophils (0.0 - 0.2 /CUMM) 0 Platelet Estimate (ADEQUATE) ADEQUATE Normocytic RBCs VERIFIED Normochromic RBCs VERIFIED PUBS MCHC (33.0 - 37.0 G/DL) 33.8 ESR Westergren (0 - 10 MM) 50 H Last 24 Hours of [place] Results: Blood cultures 2 August 20 pending Diagnostic Data Recent Imaging Findings: X-ray of the right tibia/fibula August 19 reveals diffuse soft tissue irregularity at the mid to distal lower leg, with no acute erosion or focal osseous abnormality Bilateral arterial Dopplers August 20 reveals no evidence of occlusion or focal high-grade stenosis of the femoral artery; hemodynamically significant disease at the level of the popliteal artery and within the anterior tibial artery of the right leg; hemodynamically significant disease involving the popliteal, anterior and posterior tibial arteries of the left leg Assessment/Plan Assessment/Plan Impression: This is a 62-year-old man with a history of "Mediterranean anemia", peripheral vascular disease, venous insufficiency, and bilateral lower extremity ulcers for 10 years, status post debridement and skin grafts 5 years prior to admission, with healing on the left but with nonhealing on the right, with chronic edema and stinging pain of the right lower extremity, admitted on August 20 because of uncontrolled bleeding from the right leg wounds, with no change in his chronic "stinging" pain, fevers or chills, found to be afebrile with a mild leukocytosis. He does have mild warmth to the right lower extremity and, with his mild leukocytosis and foul odor, a superimposed cellulitis is possible. He may ultimately require debridement of the necrosis and will defer this to Vascular surgery, who has evaluated him. Of note his arterial Dopplers suggest hemodynamically significant stenosis, which may also warrant further evaluation. Suggestion: 1. Further management of his necrotic ulcers and evaluation of his peripheral vascular disease per Vascular Surgery 2. Elevation of the right leg 3. Begin Unasyn 1.5 g IV every 6 hours Consult Acknowledgment - Thank you for your consult request.
--- NOTE | 2017-08-20 13:27 | Admission Certification ---
Admission Certification Certification Statement - As attending physician, I certify that at the time of - admission, based on clinical presentation, severity of - symptoms, need for further diagnostic testing and - therapeutic interventions, and risk of adverse outcomes - without in-hospital treatment, in my clinical assessment, - this patient requires an acute hospital stay for a minimum - of two nights or longer. I have also considered psychsocial - factors such as support system, advanced age, financial - issues, cognitive issues, and failed out-patient treatments, - past re-admission history, safety of patient, and lack of - compliance as applicable. Specific rationale supporting this admission is: Sepsis and cellulitis
[2017-08-20 14:45] VITALS: BP 118/60
[2017-08-20 22:38] VITALS: BP 124/60
[2017-08-21 06:48] VITALS: BP 136/70
[2017-08-21 09:38] LABS: ABSOLUTE BASOPHIL COUNT 0 /CUMM (0.0-0.2); ABSOLUTE EOSINOPHIL COUNT 0.1 /CUMM (0.0-0.7); ABSOLUTE GRANULOCYTE CT 5.5 /CUMM (1.4-6.5); ABSOLUTE MONOCYTE COUNT 0.4 /CUMM (0.10-0.60); BASOPHIL % 0.6 % (0.0-2.0); EOSINOPHIL % 1.3 % (0-5); GRANULOCYTE % 79.2 % (42.2-75.2); HEMATOCRIT 24.6 % (42-52); MEAN CORPUSCULAR HGB 33.7 PG (27.0-31.0); MEAN CORPUSCULAR HGB CONC 33.9 G/DL (33.0-37.0); MEAN CORPUSCULAR VOLUME 99.2 FL (80.0-94.0); MEAN PLATELET VOLUME 7.8 FL (7.4-10.4); PLATELET COUNT 274 /CUMM (130-400); RBC DISTRIBUTION WIDTH 15.9 % (11.5-14.5); RED BLOOD CELL CT 2.48 /CUMM (4.70-6.10)
--- NOTE | 2017-08-21 12:54 | PN- Infect Dx ---
Subjective Subjective: No fever or new c/o. Denies n/v. one small loose BM today. Review of Systems Comments: 12 points reviewed as noted, otherwise negative. Objective Last 24 Hrs of Vital Signs/I&O Vital Signs Date Time Temp Pulse Resp B/P B/P Pulse O2 O2 Flow FiO2 Mean Ox Delivery Rate 08/21 1000 97.6 20 14 136/70 08/21 0648 97.6 77 20 136/70 99 Room Air 08/20 2238 98.0 78 20 124/60 99 Room Air 08/20 1445 98.5 75 20 118/60 100 Intake & Output 08/21 1600 08/21 0800 08/21 0000 Intake Total 500 500 150 Output Total 200 Balance 300 500 150 Intake, IV 500 150 Intake, Oral 500 Number 1 2 Bowel Movements Output, Urine 200 Physical Exam Other Physical Findings: Afebrile. He is awake and alert in no acute distress. Skin reveals no rash. HEENT negative. Neck is supple with no adenopathy. Lungs are clear. Heart regular rhythm with no murmur. Abdomen is soft, nontender with positive bowel sounds. Back no CVA tenderness. Extremities right leg swelling, with mild warmth compared to the left, minimal erythema, with a large ulcerating wound, The wound described approximately 15 cm in length and 8 cm in width with irregular borders and large amounts of necrotic and purulent appearing tissue with a foul odor and thin serous sanguinous discharge. There is a mild surrounding induration. There is no significant erythema. There is mild warmth. The neurovascular status is that of the foot is intact with dorsal pedal 2+ pulse and capillary refill less than 2 seconds. ; pulses 1+ and equal; chronic venous stasis changes to both lower extremities. Neuro is without focality. Results Last 24 Hours of Lab Results: Laboratory Tests 08/21 0813 Chemistry Sodium (137 - 145 mmol/L) 139 Potassium (3.5 - 5.1 mmol/L) 3.5 Chloride (98 - 107 mmol/L) 107 Carbon Dioxide (22 - 30 mmol/L) 23 Anion Gap (5 - 16) 9 BUN (9 - 20 mg/dL) 7 L Creatinine (0.7 - 1.2 mg/dL) 1.0 Estimated GFR (>60 ml/min) > 60 BUN/Creatinine Ratio (7 - 25 %) 7.0 Hematology CBC w Diff NO MAN DIFF REQ WBC (4.8 - 10.8 /CUMM) 7.0 RBC (4.70 - 6.10 /CUMM) 2.48 L Hgb (14.0 - 18.0 G/DL) 8.3 L Hct (42 - 52 %) 24.6 L MCV (80.0 - 94.0 FL) 99.2 H MCH (27.0 - 31.0 PG) 33.7 H RDW (11.5 - 14.5 %) 15.9 H Plt Count (130 - 400 /CUMM) 274 MPV (7.4 - 10.4 FL) 7.8 Gran % (42.2 - 75.2 %) 79.2 H Lymphocytes % (20.5 - 51.1 %) 13.8 L Monocytes % (1.7 - 9.3 %) 5.1 Eosinophils % (0 - 5 %) 1.3 Basophils % (0.0 - 2.0 %) 0.6 Absolute Granulocytes (1.4 - 6.5 /CUMM) 5.5 Absolute Lymphocytes (1.2 - 3.4 /CUMM) 1.0 L Absolute Monocytes (0.10 - 0.60 /CUMM) 0.4 Absolute Eosinophils (0.0 - 0.7 /CUMM) 0.1 Absolute Basophils (0.0 - 0.2 /CUMM) 0 PUBS MCHC (33.0 - 37.0 G/DL) 33.9 Last 24 Hours of Lukas Results: SPEC #: [id number] SINTIA: 08/21/17 STATUS: ORD RECD: - SUBM DR: Jose Angel ROTHMAN,[facility] SOURCE: STOOL ENTR: 08/21/17 [facility] [address]: Bradley [facility] SPD[facility] Prudencio ROTHMAN Stanton ORDERED: C.DIFFICILE EIA COMMENT: Has pt had antimicrobial/antineoplastic rx in past 4-6wks? N Has pt had abd pain, fever, or constipation? Y Procedure Result C.DIFFICILE EIA PENDING RECEIPT Recent Imaging Studies: IMPRESSION: Diffuse soft tissue irregularity at the mid to distal lower leg. Smooth periosteal thickening of the tibia and fibula is nonspecific, likely reactive. This can be seen in chronic infective process. No acute erosion or focal osseous abnormality. DICTATED BY: Ashley ROTHMAN,Amandeep DATE/TIME DICTATED:08/20/1710 PUNCH FINISHER:LOLIS DATE/TIME TRANSCRIBED:08/20/1710 Assessment/Plan Impression: 62-year-old man with a history of "Mediterranean anemia", peripheral vascular disease, venous insufficiency, and bilateral lower extremity ulcers for 10 years , status post debridement and skin grafts 5 years prior to admission, with healing on the left but with nonhealing on the right, with chronic edema and stinging pain of the right lower extremity, admitted on August 19 because of uncontrolled bleeding from the right leg wounds, with no change in his chronic "stinging" pain, fevers or chills, found to be afebrile with a mild leukocytosis. He does have mild warmth to the right lower extremity and, with his mild leukocytosis (now resolved) and foul odor, a superimposed cellulitis is possible. He may ultimately require debridement of the necrosis and will defer this to Vascular surgery, who has evaluated him. Of note his arterial Dopplers suggest hemodynamically significant stenosis, which may also warrant further evaluation. Suggestion: 1. Further management of his necrotic ulcers and evaluation of his peripheral vascular disease per Vascular Surgery 2. Elevation of the right leg 3. Cont Unasyn 1.5 g IV every 6 hours
--- NOTE | 2017-08-21 13:10 | PN- Pulmonary ---
Subjective HPI/Critical Care Issues: No fever or new c/o. Review of Systems Comments: 12 points reviewed as noted, otherwise negative. Objective Current Medications: Current Medications Sig/Alexus Start time Last Medication Dose Route Stop Time Status Admin Acetaminophen 1,000 MG Q6 08/20 0600 AC 08/21 IV 0508 Acetaminophen 650 MG Q6P PRN 08/20 0330 AC PO Ampicillin Sodium/ 1,500 MG Q6H 08/20 2100 AC 08/21 Sulbactam Sodium IV 0952 Sodium Chloride 100 ML Ampicillin Sodium/ 1,500 MG Q6 08/20 1309 DC 08/20 Sulbactam Sodium IV 1442 Sodium Chloride 100 ML Atorvastatin Calcium 40 MG 1700 08/20 1700 DC PO Atorvastatin Calcium 80 MG 1700 08/20 1700 AC 08/20 PO 1813 Fluoxetine HCl 20 MG DAILY 08/20 1000 AC 08/21 PO 1000 Sodium Chloride 1,000 ML Q13H 08/20 0215 DC 08/20 IV 0230 Tamsulosin HCl 0.4 MG DAILY 08/20 1000 AC 08/21 PO 1000 Trimethobenzamide HCl 200 MG ONCE ONE 08/21 1200 DC IM 08/21 1201 Vital Signs & I&O Last 24 Hrs of Vitals and I&O: Vital Signs Date Time Temp Pulse Resp B/P B/P Pulse O2 O2 Flow FiO2 Mean Ox Delivery Rate 08/21 1000 97.6 20 14 136/70 08/21 0648 97.6 77 20 136/70 99 Room Air 08/20 2238 98.0 78 20 124/60 99 Room Air 08/20 1445 98.5 75 20 118/60 100 Intake & Output 08/21 1600 08/21 0800 08/21 0000 Intake Total 500 500 150 Output Total 200 Balance 300 500 150 Intake, IV 500 150 Intake, Oral 500 Number 1 2 Bowel Movements Output, Urine 200 Laboratory Tests 08/21 08/20 0813 0320 Chemistry Sodium (137 - 145 mmol/L) 139 Potassium (3.5 - 5.1 mmol/L) 3.5 Chloride (98 - 107 mmol/L) 107 Carbon Dioxide (22 - 30 mmol/L) 23 Anion Gap (5 - 16) 9 BUN (9 - 20 mg/dL) 7 L Creatinine (0.7 - 1.2 mg/dL) 1.0 Estimated GFR (>60 ml/min) > 60 BUN/Creatinine Ratio (7 - 25 %) 7.0 Lactic Acid (0.7 - 2.1 mmol/L) 2.1 Hematology CBC w Diff NO MAN DIFF REQ WBC (4.8 - 10.8 /CUMM) 7.0 RBC (4.70 - 6.10 /CUMM) 2.48 L Hgb (14.0 - 18.0 G/DL) 8.3 L Hct (42 - 52 %) 24.6 L MCV (80.0 - 94.0 FL) 99.2 H MCH (27.0 - 31.0 PG) 33.7 H RDW (11.5 - 14.5 %) 15.9 H Plt Count (130 - 400 /CUMM) 274 MPV (7.4 - 10.4 FL) 7.8 Gran % (42.2 - 75.2 %) 79.2 H Lymphocytes % (20.5 - 51.1 %) 13.8 L Monocytes % (1.7 - 9.3 %) 5.1 Eosinophils % (0 - 5 %) 1.3 Basophils % (0.0 - 2.0 %) 0.6 Absolute Granulocytes (1.4 - 6.5 /CUMM) 5.5 Absolute Lymphocytes (1.2 - 3.4 /CUMM) 1.0 L Absolute Monocytes (0.10 - 0.60 /CUMM) 0.4 Absolute Eosinophils (0.0 - 0.7 /CUMM) 0.1 Absolute Basophils (0.0 - 0.2 /CUMM) 0 PUBS MCHC (33.0 - 37.0 G/DL) 33.9 08/20 08/20 0320 0027 Chemistry Sodium (137 - 145 mmol/L) 138 134 L Potassium (3.5 - 5.1 mmol/L) 3.4 L 3.5 Chloride (98 - 107 mmol/L) 106 101 Carbon Dioxide (22 - 30 mmol/L) 18 L 19 L Anion Gap (5 - 16) 14 14 BUN (9 - 20 mg/dL) 6 L 6 L Creatinine (0.7 - 1.2 mg/dL) 0.9 1.0 Estimated GFR (>60 ml/min) > 60 > 60 BUN/Creatinine Ratio (7 - 25 %) 6.7 L 6.0 L Glucose (65 - 99 mg/dL) 112 H Hemoglobin A1c (4.2 - 5.8 %) Pending Lactic Acid (0.7 - 2.1 mmol/L) 5.1 H Calcium (8.4 - 10.2 mg/dL) 8.3 L Total Bilirubin (0.2 - 1.3 mg/dL) 0.3 AST (17 - 59 U/L) 11 L ALT (21 - 72 U/L) 24 Alkaline Phosphatase (< 127 U/L) 99 Troponin I (<0.11 ng/ml) < 0.01 C-Reactive Prot, Quant (<1.0 mg/dL) 3.8 H Total Protein (6.3 - 8.2 g/dL) 5.9 L Albumin (3.5 - 5.0 g/dL) 2.6 L Globulin (1.9 - 4.2 gm/dL) 3.3 Albumin/Globulin Ratio (1.1 - 2.2 %) 0.8 L Coagulation PT (9.4 - 12.5 SEC) 11.9 INR (0.90 - 1.17) 1.13 Hematology CBC w Diff MAN DIFF ORDERED MAN DIFF ORDERED WBC (4.8 - 10.8 /CUMM) 11.1 H 11.9 H RBC (4.70 - 6.10 /CUMM) 2.73 L 2.95 L Hgb (14.0 - 18.0 G/DL) 9.0 L 9.9 L Hct (42 - 52 %) 27.2 L 29.2 L MCV (80.0 - 94.0 FL) 99.7 H 98.9 H MCH (27.0 - 31.0 PG) 32.9 H 33.4 H RDW (11.5 - 14.5 %) 15.3 H 15.2 H Plt Count (130 - 400 /CUMM) 289 291 MPV (7.4 - 10.4 FL) 7.9 7.6 Gran % (42.2 - 75.2 %) 88.5 H 84.4 H Lymphocytes % (20.5 - 51.1 %) 6.7 L 11.6 L Monocytes % (1.7 - 9.3 %) 4.3 2.8 Eosinophils % (0 - 5 %) 0.2 0.9 Basophils % (0.0 - 2.0 %) 0.3 0.3 Absolute Granulocytes (1.4 - 6.5 /CUMM) 9.8 H 10.1 H Segmented Neutrophils (42.2 - 75.2 %) 97 H Band Neutrophils (0.0 - 5.0 %) 2 Absolute Lymphocytes (1.2 - 3.4 /CUMM) 0.7 L 1.4 Lymphocytes (20.5 - 51.1 %) 1 L Absolute Monocytes (0.10 - 0.60 /CUMM) 0.5 0.3 Absolute Eosinophils (0.0 - 0.7 /CUMM) 0 0.1 Absolute Basophils (0.0 - 0.2 /CUMM) 0 0 Platelet Estimate (ADEQUATE) ADEQUATE ADEQUATE Normocytic RBCs VERIFIED Normochromic RBCs VERIFIED Hypochromic-Microcytic 1+ Anisocytosis 1+ PUBS MCHC (33.0 - 37.0 G/DL) 33.0 33.8 ESR Westergren (0 - 10 MM) 50 H Microbiology Date/Time Procedure - Status Source Growth 08/21 1151 Clostridium difficile Toxin A & B - ORD STOOL 08/20 0203 Blood Culture - RES BLOOD 08/20 0157 Blood Culture - RES BLOOD Impression/Plan Impression/Plan Impression/Plan: Afebrile. He is awake and alert in no acute distress. Skin reveals no rash. HEENT negative. Neck is supple with no adenopathy. Lungs are clear. Heart regular rhythm with no murmur. Abdomen is soft, nontender with positive bowel sounds. Back no CVA tenderness. Extremities right leg swelling, with mild warmth compared to the left, minimal erythema, with a large ulcerating wound, The wound described approximately 15 cm in length and 8 cm in width with irregular borders and large amounts of necrotic and purulent appearing tissue with a foul odor and thin serous sanguinous discharge. There is a mild surrounding induration. There is no significant erythema. There is mild warmth. The neurovascular status is that of the foot is intact with dorsal pedal 2+ pulse and capillary refill less than 2 seconds. ; pulses 1+ and equal; chronic venous stasis changes to both lower extremities. Neuro is without focality. IMPRESSION 62-year-old man with a history of "Mediterranean anemia", peripheral vascular disease, venous insufficiency, and bilateral lower extremity ulcers for 10 years , status post debridement and skin grafts 5 years prior to admission, with healing on the left but with nonhealing on the right, with chronic edema and stinging pain of the right lower extremity, admitted on August 20 because of uncontrolled bleeding from the right leg wounds, with no change in his chronic "stinging" pain, fevers or chills, found to be afebrile with a mild leukocytosis. ISSUES Sig cellulitis of the leg NEcrotic ulcer leg which would need debridement soon and vascular surg has seen the patient PVD with sig hemodynamically sig stenosis BPH Mediterranian anemia Depression Anemia of chronic disease PLAN Cont iv abx Elevate leg Necrotic ulcer debridement and PVD mgt per vascular surg Start high dose statin Start asa for pvd, however due to sig bleed hold asa for today and start asa if vascular thinks he needs it IF he develops sig foot pain and worsening ischemia would need to go to the or emergently WIll follow
--- NOTE | 2017-08-21 15:28 | PN- Vascular Surgery ---
Subjective Subjective: Patient was seen by Dr. Martínez earlier today. Objective Vital Signs and I&Os Vital Signs Date Time Temp Pulse Resp B/P B/P Pulse O2 O2 Flow FiO2 Mean Ox Delivery Rate 08/21 1000 97.6 20 14 136/70 08/21 0648 97.6 77 20 136/70 99 Room Air 08/20 2238 98.0 78 20 124/60 99 Room Air Intake & Output 08/21 1600 08/21 0800 08/21 0000 08/20 1600 08/20 0800 08/20 0000 Intake Total 860 500 150 160 300 Output Total 200 400 Balance 660 500 150 160 -100 Intake, IV 500 150 100 300 Intake, Oral 860 60 Number 1 2 1 Bowel Movements Output, Stool 200 Output, Urine 200 200 Patient 194 lb 195 lb Weight Weight Reported by Patient Measurement Method Assessment/Plan Assessment/Plan Per Dr. Martínez patient can be discharged on po keflex for a period of two weeks. He would like the patient to follow up in his office in one week from hospital discharge.
[2017-08-21 15:49] VITALS: BP 140/60
[2017-08-21 22:45] VITALS: BP 138/80
[2017-08-22 06:30] VITALS: BP 146/78
--- NOTE | 2017-08-22 07:35 | PN- Housestaff ---
[facility] 0735: Subjective Follow-up For: Right leg cellilitis with chronic venous ulcers Subjective: No overnight events. Patient remained afebrile overnight. Seen and examined this morning. Patient denied any chest pain, short of breath, nausea, vomiting, chills, fever, abdominal pain and dysuria. Patient has right leg dressing. He denied any pain in the right leg. Review of Systems Constitutional: Reports: no symptoms. EENTM: Reports: no symptoms. Cardiovascular: Reports: no symptoms. Respiratory: Reports: no symptoms. Gastrointestinal: Reports: no symptoms. Genitourinary: Reports: no symptoms. Musculoskeletal: Reports: no symptoms. Neurological/Psychological: Reports: no symptoms. Objective Last 24 Hrs of Vital Signs/I&O Vital Signs Date Time Temp Pulse Resp B/P B/P Pulse O2 O2 Flow FiO2 Mean Ox Delivery Rate 08/22 0811 98.1 70 16 146/78 08/22 0630 98.1 70 20 146/78 99 Room Air 08/21 2245 98.3 76 19 138/80 98 Room Air 08/21 1549 98.0 79 20 140/60 99 Intake & Output 08/22 1600 08/22 0800 08/22 0000 Intake Total 400 780 Output Total 250 400 Balance 150 380 Intake, IV 400 300 Intake, Oral 480 Number 1 1 Bowel Movements Output, Urine 250 400 Physical Exam General Appearance: Alert, Oriented X3, Cooperative, No Acute Distress Skin Temp/Moisture Exam: Warm/Dry HEENT: Atraumatic, PERRLA, EOMI Neck: Supple Cardiovascular: Normal S1, Normal S2 Lungs: Clear to Auscultation Abdomen: Soft, No Tenderness Neurological: Normal Speech, Normal Tone, Sensation Intact Extremities: right leg edema Assessment/Plan Assessment: 62-year-old man with a history of "Mediterranean anemia", peripheral vascular disease, venous insufficiency, and bilateral lower extremity ulcers for 10 years , status post debridement and skin grafts 5 years prior to admission, with healing on the left but with nonhealing on the right, with chronic edema and stinging pain of the right lower extremity, admitted on August 20 because of uncontrolled bleeding from the right leg wounds, with no change in his chronic "stinging" pain, fevers or chills, found to be afebrile with a mild leukocytosis. Right leg cellulitis with chronic venous ulcers with PVD: -We will continue IV Unasyn -Right leg elevation to decrease the swelling. -Daily dressing -Cleaning of wound -We will follow vascular surgery recommendations. -If patient develops severe right leg pain due to worsening ischemia then patient may need an emergency procedure. -We'll continue atorvastatin high-dose considering his peripheral vascular disease. -Patient was asked to stay one more day for iv antibiotics but he refused to stay and he wants to leave today. We already discussed all risks of leaving today but patient wants to leave anyways. History of BPH: -Continue Flomax DVT prophylaxis: Mechanical CODE STATUS: Full code Problem List: 1. Cellulitis of right leg Pain Ratin Pain Location: none Pain Goal: Remain pain free Pain Plan: tyelnol for mild pain Tomorrow's Labs & Rationales: none Bradley ROTHMAN,Pierre 08/22/17 1353: Attending MD Review Statement Attending Statement Attending MD Statement: examined this patient, discuss w/resident/PA/CALENDER ROLL OPERATOR, agreed w/resident/PA/CALENDER ROLL OPERATOR, discussed with family, reviewed EMR data (avail), discussed with nursing, discussed with case mgmt, reviewed images, amended to note Attending Assessment/Plan: Seen and examined discussed with pt and in detail Afebrile. He is awake and alert in no acute distress. Skin reveals no rash. HEENT negative. Neck is supple with no adenopathy. Lungs are clear. Heart regular rhythm with no murmur. Abdomen is soft, nontender with positive bowel sounds. Back no CVA tenderness. Extremities right leg swelling, with mild warmth compared to the left, minimal erythema, with a large ulcerating wound, The wound described approximately 15 cm in length and 8 cm in width with irregular borders and large amounts of necrotic and purulent appearing tissue with a foul odor and thin serous sanguinous discharge. There is a mild surrounding induration. There is no significant erythema. There is mild warmth. The neurovascular status is that of the foot is intact with dorsal pedal 2+ pulse and capillary refill less than 2 seconds. ; pulses 1+ and equal; chronic venous stasis changes to both lower extremities. Neuro is without focality. IMPRESSION 62-year-old man with a history of "Mediterranean anemia", peripheral vascular disease, venous insufficiency, and bilateral lower extremity ulcers for 10 years , status post debridement and skin grafts 5 years prior to admission, with healing on the left but with nonhealing on the right, with chronic edema and stinging pain of the right lower extremity, admitted on August 20 because of uncontrolled bleeding from the right leg wounds, with no change in his chronic "stinging" pain, fevers or chills, found to be afebrile with a mild leukocytosis. ISSUES Sig cellulitis of the leg from a nonhealing ulcer NEcrotic ulcer leg which is followed by vascular surg and they feel that this is chronic and should be followed as out pt PVD with sig hemodynamically sig stenosis BPH Mediterranian anemia Depression Anemia of chronic disease PLAN I recommended to Cont iv abx for one more day and pt and wishes to be dcd home and they wish to go on po abx per vascular rec. They understands the risks and benefits of my decision but wishes to go home per vasc rec. They accepts all risks about the decision Elevate leg Necrotic ulcer debridement and PVD mgt per vascular surg Start high dose statin aand asa on dc IF he develops sig foot pain and worsening ischemia would need to comeback to the hospital emergently Will follow Follow up with PCP, vascular, and ID
[2017-08-22 08:11] VITALS: BP 146/78
[2017-08-22 09:25] LABS: ABSOLUTE BASOPHIL COUNT 0.1 /CUMM (0.0-0.2); ABSOLUTE EOSINOPHIL COUNT 0.2 /CUMM (0.0-0.7); ABSOLUTE GRANULOCYTE CT 3.8 /CUMM (1.4-6.5); ABSOLUTE LYMPH COUNT 1.1 /CUMM (1.2-3.4); ABSOLUTE MONOCYTE COUNT 0.2 /CUMM (0.10-0.60); BASOPHIL % 2.3 % (0.0-2.0); EOSINOPHIL % 2.8 % (0-5); GRANULOCYTE % 71.3 % (42.2-75.2); HEMATOCRIT 25.5 % (42-52); MEAN CORPUSCULAR HGB 33.3 PG (27.0-31.0); MEAN CORPUSCULAR HGB CONC 33.7 G/DL (33.0-37.0); MEAN CORPUSCULAR VOLUME 98.8 FL (80.0-94.0); MEAN PLATELET VOLUME 8.2 FL (7.4-10.4); PLATELET COUNT 286 /CUMM (130-400); RBC DISTRIBUTION WIDTH 14.9 % (11.5-14.5); RED BLOOD CELL CT 2.58 /CUMM (4.70-6.10); WHITE BLOOD CELL COUNT 5.4 /CUMM (4.8-10.8)
[2017-08-22] MEDS ORDERED: AUGMENTIN 875-1 EACH PO (11:40)
[2017-08-22] MEDS ORDERED: ATORVASTATIN CA80 M1 PO ×2 (11:41→13:50)
[2017-08-22] MEDS ORDERED: KEFLEX500 M1 PO ×2 (11:44→13:50)
--- NOTE | 2017-08-22 11:50 | Patient Discharge Instructions ---
Discharge Instructions General Discharge Information You were seen/treated for: Right leg cellulitis with chronic leg ulcers. PVD Watch for these problems: Pain in right leg, redness and swelling, increased pain in right leg with change in color, fever and chills. If you experience any of these symptoms call to pcp or come to ED. Special Instructions: Follow up with vascular surgery in one week. Follow up with pcp in one week. Elevation of right leg. Diet Recommended Diet: Regular Activity Activity Self Limited: Yes Acute Coronary Syndrome Inclusion Criteria At DC or during hospital stay patient has or had the following: ACS DIAGNOSIS No Discharge Core Measures Meds if any: Prescribed or Continued at Discharge Meds if any: NOT Prescribed or Continued at Discharge Congestive Heart Failure Inclusion Criteria At DC or during hospital stay patient has or had the following: CHF DIAGNOSIS No Discharge Core Measures Meds if any: Prescribed or Continued at Discharge Meds if any: NOT Prescribed or Continued at Discharge Cerebrovascular accident Inclusion Criteria At DC or during hospital stay patient has or had the following: CVA/TIA Diagnosis No Discharge Core Measures Meds if any: Prescribed or Continued at Discharge Meds if any: NOT Prescribed or Continued at Discharge Venous thromboembolism Inclusion Criteria VTE Diagnosis No VTE Type NONE VTE Confirmed by (Test) NONE Discharge Core Measures - Per Current guidelines, there needs to be overlap - treatment for the first 5 days of Warfarin therapy. - If discharged on Warfarin prior to 5 days of - overlap therapy, the patient will need to be - assessed for post discharge needs including - *Post discharge parental anticoagulation - *Warfarin and/or parental anticoagulation education - *Follow up date to check INR post discharge At least 5 days overlap therapy as Inpatient No Meds if any: Prescribed or Continued at Discharge Note: Overlap Therapy is Warfarin and Anticoagulant Meds if any: NOT Prescribed or Continued at Discharge
--- NOTE | 2017-08-22 14:52 | PN- Infect Dx ---
Subjective Subjective: Feeling better; decreased drainage. No fever. Review of Systems Comments: 12 points reviewed as notyed, otherwise negative. Objective Last 24 Hrs of Vital Signs/I&O Vital Signs Date Time Temp Pulse Resp B/P B/P Pulse O2 O2 Flow FiO2 Mean Ox Delivery Rate 08/22 0811 98.1 70 16 146/78 08/22 0630 98.1 70 20 146/78 99 Room Air 08/21 2245 98.3 76 19 138/80 98 Room Air 08/21 1549 98.0 79 20 140/60 99 Intake & Output 08/22 1600 08/22 0800 08/22 0000 Intake Total 360 400 780 Output Total 250 400 Balance 360 150 380 Intake, IV 400 300 Intake, Oral 360 480 Number 1 1 Bowel Movements Output, Urine 250 400 Physical Exam Other Physical Findings: Afebrile. He is awake and alert in no acute distress. Skin reveals no rash. HEENT negative. Neck is supple with no adenopathy. Lungs are clear. Heart regular rhythm with no murmur. Abdomen is soft, nontender with positive bowel sounds. Back no CVA tenderness. Extremities right leg swelling, with mild warmth compared to the left, minimal erythema, with a large ulcerating wound, The wound described approximately 15 cm in length and 8 cm in width and thin serous sanguinous discharge. There is a mild surrounding induration. There is no significant erythema. There is mild warmth. Chronic venous stasis changes to both lower extremities. Neuro is without focality. Results Last 24 Hours of Lab Results: Laboratory Tests 08/22 0800 Chemistry Sodium (137 - 145 mmol/L) 137 Potassium (3.5 - 5.1 mmol/L) 3.4 L Chloride (98 - 107 mmol/L) 106 Carbon Dioxide (22 - 30 mmol/L) 20 L Anion Gap (5 - 16) 11 BUN (9 - 20 mg/dL) 5 L Creatinine (0.7 - 1.2 mg/dL) 1.0 Estimated GFR (>60 ml/min) > 60 BUN/Creatinine Ratio (7 - 25 %) 5.0 L Hematology CBC w Diff NO MAN DIFF REQ WBC (4.8 - 10.8 /CUMM) 5.4 RBC (4.70 - 6.10 /CUMM) 2.58 L Hgb (14.0 - 18.0 G/DL) 8.6 L Hct (42 - 52 %) 25.5 L MCV (80.0 - 94.0 FL) 98.8 H MCH (27.0 - 31.0 PG) 33.3 H RDW (11.5 - 14.5 %) 14.9 H Plt Count (130 - 400 /CUMM) 286 MPV (7.4 - 10.4 FL) 8.2 Gran % (42.2 - 75.2 %) 71.3 Lymphocytes % (20.5 - 51.1 %) 19.6 L Monocytes % (1.7 - 9.3 %) 4.0 Eosinophils % (0 - 5 %) 2.8 Basophils % (0.0 - 2.0 %) 2.3 H Absolute Granulocytes (1.4 - 6.5 /CUMM) 3.8 Absolute Lymphocytes (1.2 - 3.4 /CUMM) 1.1 L Absolute Monocytes (0.10 - 0.60 /CUMM) 0.2 Absolute Eosinophils (0.0 - 0.7 /CUMM) 0.2 Absolute Basophils (0.0 - 0.2 /CUMM) 0.1 PUBS MCHC (33.0 - 37.0 G/DL) 33.7 Last 24 Hours of Lukas Results: SPEC #: [id number] SINTIA: 08/21/17 STATUS: COMP RECD: 08/21/[address]: Jose Angel ROTHMAN,[facility] SOURCE: STOOL ENTR: 08/21/17-[address] [facility] [address]: Bradley ROTHMAN,[facility] Zach SPDESC: Prudencio ROTHMAN, Toyah ORDERED: C.DIFFICILE EIA COMMENT: Has pt had antimicrobial/antineoplastic rx in past 4-6wks? N Has pt had abd pain, fever, or constipation? Y Procedure Result > C. DIFFICILE TOXIN A & B EIA Final 08/22/17-1243 NEGATIVE FOR CLOSTRIDIUM DIFFICILE TOXINS A & B BY EIA Recent Imaging Studies: IMPRESSION: - No evidence of occlusion or focal high-grade stenosis of the femoral arteries. Within the right lower extremity, the arterial waveforms become abnormal at the level of the popliteal artery and within the anterior tibial artery, consistent with hemodynamically significant disease. The right dorsalis pedis artery was not evaluated due to overlying bandage. - Within the left lower extremity, the waveforms are abnormal within the popliteal, anterior and posterior tibial arteries, consistent with hemodynamically significant peripheral vascular disease. For a more complete anatomic assessment of peripheral vessels, CT angiography-runoff examination could be performed. To further evaluate severity of peripheral vascular disease, CHUYITA measurements and pulse volume recordings may be obtained at a dedicated vascular lab. DICTATED BY: Jordy Bo MD DATE/TIME DICTATED:08/20/174 MANAGER MATERIALS MANAGEMENT:LOLIS Assessment/Plan Impression: 62-year-old man with a history of "Mediterranean anemia", peripheral vascular disease, venous insufficiency, and bilateral lower extremity ulcers for 10 years , status post debridement and skin grafts 5 years prior to admission, with healing on the left but with nonhealing on the right, with chronic edema and stinging pain of the right lower extremity, admitted on August 19 because of uncontrolled bleeding from the right leg wounds, with no change in his chronic "stinging" pain, fevers or chills, found to be afebrile with a mild leukocytosis. He does have mild warmth to the right lower extremity and, leukocytosis resolved. Suggestion: 1. Further management of his necrotic ulcers and evaluation of his peripheral vascular disease per Vascular Surgery; of note his arterial Dopplers findings warrant further evaluation. 2. Elevation of the right leg 3. Per vasc sx patient d/c home on oral Keflex; if developing diarrhea he is to notify his PCP.
== END 2017-08-22 15:00 | DRG 603 ==
LOC: ERH 23:14 → ERHI 08-20 01:45 → 2NA 08-20 01:45 → ENRESERV 08-20 02:28 → 2NA 08-20 03:12 → ENPENDDIS 08-22 13:56 → ENTRNSPT 08-22 14:41 → 2NA 08-22 15:00 → EDTRNSPTSTS 08-23 07:07 → CMPTRNSPT 08-23 07:08
PROVIDERS: Physician Assistant Medical; Student in an Organized Health Care Education/Training Program
DX: L03.115 Cellulitis of right lower limb (principal); E87.2 Acidosis; L97.819 Non-pressure chronic ulcer of other part of right lower leg with unspecified severity; I87.2 Venous insufficiency (chronic) (peripheral); I73.9 Peripheral vascular disease, unspecified; N40.0 Benign prostatic hyperplasia without lower urinary tract symptoms; D56.9 Thalassemia, unspecified; F32.9 Major depressive disorder, single episode, unspecified
CPT/HCPCS: 2NASP; 36415; 73590-RT; 82436; 87040; 93005; 93010; 93925; 96374; J0131; J3250; Q2036

== ENCOUNTER 2018-01-05 18:20 | Inpatient (IN) | payer OTHER ==
[~2018-01-05] VITALS: Ht 175.3 cm; Wt 90.7 kg
[~2018-01-05 18:20] MED LIST: ATORVASTATIN CA80 M1 PO; AUGMENTIN 875-1 EACH PO; FLOMAX0.4 M1 PO; KEFLEX500 M1 PO; PROZAC10 M1 PO
--- NOTE | 2018-01-05 18:47 | ED UPPER/LOWER EXTREMITY COMPL ---
History of Present Illness General Chief Complaint: Lower Extremity Problems Stated Complaint: BIBA FOR INFECTION R LEG,L HIP PAIN Source: patient, family, old records Exam Limitations: no limitations Allergies Coded Allergies: NO KNOWN ALLERGIES (11/24/11) NKA PER ANTIBIOTIC ORDER SHEET - [facility] Triage Nurses Notes Reviewed? yes Onset: Abrupt Duration: YEARS Timing: recent history Severity: moderate, severe Pain/Injury Location: Right: Leg. No Modifying Factors: none HPI: 62-year-old male comes into the emergency room for further evaluation of open wounds to right lower extremity. Patient has had open wounds there for many years. He's had skin grafts previously. The family reports that it looks significantly better. Patient has had increased swelling to the right lower leg. No fever. No vomiting. (Elliott PORTILLO,Magdi) Vital Signs & Intake/Output Vital Signs & Intake/Output Vital Signs Date Time Temp Pulse Resp B/P B/P Pulse O2 O2 Flow FiO2 Mean Ox Delivery Rate 01/06 0702 97.8 98 20 112/62 100 01/06 0042 97.6 100 20 113/66 91 01/05 2357 100 Room Air 01/05 2344 97.3 87 18 132/71 99 Room Air 01/05 1827 98.3 86 20 138/83 100 Room Air ED Intake and Output 01/06 0000 01/05 1200 Intake Total 280 Output Total 300 Balance -20 Intake, Oral 280 Output, Urine 300 Reconcile Medications Aspirin (Ecotrin*) 81 MG TABLET.DR 1 TAB PO DAILY HEART/BLOOD (Reported) Atorvastatin Calcium 80 MG TABLET 1 TAB PO 1700 PVD . Fluoxetine HCl 20 MG CAPSULE 1 CAP PO DAILY MENTAL HEALTH (Reported) Ibuprofen 800 MG TABLET 1 TAB PO BID PAIN/INFLAMMATION (Reported) Oxycodone HCl 5 MG TABLET 1-2 TAB PO Q4-6H PRN PAIN (Reported) Tamsulosin HCl (Flomax) 0.4 MG CAP.ER.24H 1 CAP PO DAILY BPH (Reported) (Elba ROTHMAN,Hong Werner) Past History Travel History Traveled to [place] past 21 day No Medical History Any Pertinent Medical History? see below for history Neurological: NONE EENT: Postnasal drip Cardiovascular: chronic venous insuff, PVD Respiratory: NONE Gastrointestinal: NONE Hepatic: NONE Renal: NONE Musculoskeletal: NONE Blood Disorders: anemia Other Medical Hx: Chronic venous insufficiency, history of venous stasis ulcers, history of debridements and skin grafting bilateral lower extremity History of MRSA: No History of VRE: No History of CDIFF: No Influenza Vaccine: 08/20/17 Surgical History Surgical History: vascular/plasitc surgery Psychosocial History Who do you live with Spouse What is your primary language Montserratian Family History Hx Contributory? No (Magdi Bartholomew) Review of Systems Review of Systems Constitutional: Reports: no symptoms. EENTM: Reports: no symptoms. Respiratory: Reports: no symptoms. Cardiovascular: Reports: no symptoms. Gastrointestinal/Abdominal: Reports: no symptoms. Genitourinary: Reports: no symptoms. Musculoskeletal: Reports: see HPI. Skin: Reports: see HPI. Neurological/Psychological: Reports: no symptoms. Hematologic/Endocrine: Reports: no symptoms. Immunological: Reports: no symptoms. All Other Systems: Reviewed and Negative (Magdi Bartholomew) Physical Exam Physical Exam General Appearance: well developed/nourished, mild distress Head: atraumatic Eyes: Bilateral: normal appearance. Ears, Nose, Throat: normal ENT inspection, hearing grossly normal Neck: normal inspection Cardiovascular/Respiratory: no respiratory distress Back: normal inspection Leg Left: 3+ PEDAL EDEMA LEFT FOOT Leg Right: OPEN WOUNDS TO RIGHT LOWER LEG, ERYTHEMA, PITTING EDEMA IN FOOT 3+, 3 + PITTING EDEMA AND RIGHT UPPER CALF, OPEN WOUNDS EXTENDING FROM BELOW THE KNEE DOWN TO ANKLE, TISSUE GRANULATION, SOME DISCHARGE, Skin: intact, normal color, warm/dry (Magdi Bartholomew) Progress Differential Diagnosis: CHF, contusion, dislocation, DVT, fracture, gout, septic arthritis, sprain, tendon injury Diagnostic Imaging: Viewed by Me: Radiology Read, Ultrasound. Discussed w/RAD: Radiology Read, Ultrasound. Comments: 01/05/2018 7:53:24 PM Spoke with the vascular surgeon Dr. youssef. He agrees with plan of admitting the patient for IV antibiotics and IV diuresis. (Magdi Bartholomew) Plan of Care: Orders Procedure Date/time Status Heart Healthy Diet 01/06 B Active CORTISOL AM 01/06 600 Active CBC WITHOUT DIFFERENTIAL 01/06 600 Active BASIC ELECTROLYTES PLUS BUN&CR 01/06 600 Active Skin/Pressure Ulcer Assess (Sk 01/06 0254 Active Turn and Reposition 01/06 247 Active Skin Integrity Protocol 01/06 247 Active Weight 01/06 0150 Active Vital Signs 01/06 0150 Complete Teach/Educate 01/06 015 Active Pain Treatment and Response 01/06 0150 Active Nutritional Intake, Monitor 01/06 015 Active Isolation 01/06 015 Active Intake & Output 01/06 0150 Active Patient Care Conference 01/06 0150 Active Activity/Ambulation 01/06 0150 Active Lab Add-on Test 01/06 UNK Active Pathway - chart 01/05 2314 Active URINE OSMOLALITY 01/05 231 Complete URINE LYTES, SPOT 01/05 2314 Complete URINALYSIS 01/05 2314 Complete Pathway - chart 01/05 2249 Active House Staff 01/05 224 Active Intake & Output 01/06 2128 Active Misc Message 01/05 2119 Active ED Holding Orders 01/05 2119 Active Admit to inpatient 01/05 2119 Active Vital Signs 01/05 2119 Active Code Status 01/05 2119 Active Patient Data 01/06 2116 Active THYROID STIMULATING HORMONE 01/06 1952 Complete SERUM OSMOLALITY 01/05 195 Complete FREE T4 01/06 1952 Complete BLOOD CULTURE 01/05 184 Active WESTERGREN SED RATE 01/05 1845 Complete C-REACTIVE PROTEIN 01/05 184 Complete COMPREHENSIVE METABOLIC PANEL 01/05 184 Complete CBC WITHOUT DIFFERENTIAL 01/05 184 Complete EKG 01/05 184 Active Lab Add-on Test 01/05 UNK Active Nursing Misc 01/05 UNK Active Elevate 01/05 UNK Active PHYSICIAN CONSULT 01/05 UNK Active Current Medications Sig/Alexus Start time Last Medication Dose Stop Time Status Admin Atorvastatin Calcium 80 MG 1700 01/06 1700 AC (Lipitor) Aspirin Buffered 81 MG DAILY 01/06 09 AC (Ecotrin) Enoxaparin Sodium 40 MG DAILY 01/06 09 AC (Lovenox) Fluoxetine HCl 20 MG DAILY 01/06 09 AC (Prozac) Tamsulosin HCl 0.4 MG DAILY 01/06 900 AC (Flomax) Acetaminophen 650 MG Q6 01/05 2359 AC 01/06 (Tylenol) 0555 Furosemide 20 MG ONCE ONE 01/05 2345 CAN (Lasix) 01/05 2346 Ibuprofen 600 MG Q6P PRN 01/05 2315 AC (Motrin) Oxycodone/ 1 TAB Q6P PRN 01/05 2315 AC Acetaminophen (Percocet) Laboratory Tests 01/06/18 0310: Urine Color STRAW, Urine Clarity HAZY H, Urine pH 6.0, Ur Specific Blaine <= 1.005, Urine Protein NEG, Urine Ketones NEG, Urine Nitrite POS H, Urine Bilirubin NEG, Urine Urobilinogen 0.2, Ur Leukocyte Esterase MOD H, Ur Microscopic SEDIMENT EXAMINED, Urine RBC RARE, Urine WBC 15-25 H, Ur Epithelial Cells FEW, Urine Bacteria PACKD H, Urine Mucus RARE, Urine Hemoglobin TRACE- INTACT H, Urine Glucose NEG 01/06/18309: Urine Osmolality 133 L, Ur Random Creatinine 18.3, Ur Random Sodium 28 L, Ur Random Potassium 12.6, Fraction Sodium Excret 1.0 01/05/181951: Anion Gap 13, Estimated GFR > 60, BUN/Creatinine Ratio 6.3 L, Glucose 94, Serum Osmolality 274 L, Calcium 8.6, Total Bilirubin 0.8, AST 10 L, ALT 23, Alkaline Phosphatase 125, C-Reactive Prot, Quant 4.0 H, Total Protein 6.5, Albumin 2.7 L, Globulin 3.8, Albumin/Globulin Ratio 0.7 L, TSH 2.750, Free T4 2.41, CBC w Diff NO MAN DIFF REQ, RBC 3.05 L, MCV 94.0, MCH 31.1 H, MCHC 33.1, RDW 16.8 H , MPV 7.2 L, Gran % 80.3 H, Lymphocytes % 11.0 L, Monocytes % 7.0, Eosinophils % 0.9, Basophils % 0.8, Absolute Granulocytes 7.4 H, Absolute Lymphocytes 1.0 L, Absolute Monocytes 0.6, Absolute Eosinophils 0.1, Absolute Basophils 0.1, ESR Westergren 73 H Microbiology 01/05 2038 BLOOD: Blood Culture - RECD 01/06 1952 BLOOD: Blood Culture - RECD Comments: 01/05/2018 8:33:08 PM patient signed out 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 Correction to the above note, the surgeon's name is Martínez. 01/05/2018 8:46:30 PM patient's case discussed with Dr. Flannery. (Elba ROTHMAN,Hong Werner) Departure Departure Condition: Stable Referrals: Stanton Flannery MD (PCP/Family) Departure Forms: Customer Survey General Discharge Information (Magdi Bartholomew) Departure Disposition: STILL A PATIENT Clinical Impression Primary Impression: Osteomyelitis Qualifiers: Osteomyelitis type: other chronic Osteomyelitis location: tibia Laterality: right Qualified Code: M86.661 - Other chronic osteomyelitis, right tibia and fibula Secondary Impressions: Hyponatremia, Peripheral edema Admission Note Spoke With: Stanton Flannery MD Documentation of Exam: Documentation of any treatments & extenuating circumstances including Concerns Regarding Discharge (functional status, medication knowledge or non-compliance, living conditions, etc.) that warrant an admission rather than observation: Patient presents for evaluation of worsening swelling associated with a chronic right anterior leg wound. Patient is having increasing pain as well. His evaluation reveals worsening subperiosteal reaction of the tibia and fibula consistent with chronic osteomyelitis. The patient also has chronic peripheral edema that is inhibiting his healing process. In addition the patient also has hyponatremia placing him at risk of generalized weakness, muscle fasciculations and spasms and possible seizures. I do not feel he is a good candidate for outpatient management at this time. I feel he would have great difficulty in compliance with outpatient treatment and would likely return in worse clinical condition. I feel he now requires a more aggressive management of his chronic osteomyelitis and peripheral edema to enhance wound healing (both the chronic osteomyelitis and chronic peripheral edema will inhibit his healing pacing him and ongoing risk of cellulitis, abscess worsening osteomyelitis and sepsis). Vascular surgical consultation should be considered (for the peripheral edema and possible peripheral vascular disease) along with orthopedic consultation for the treatment of the osteomyelitis. If the patient's hyponatremia does not respond to normal saline then nephrology consultation should be considered. I feel this patient will require a multiple day hospitalization. (Elba ROTHMAN,Hong Wenrer) Critical Care Note Critical Care Note Critical Care Time: 30-74 min (Hong Arreola MD)
[2018-01-05 20:05] LABS: ABSOLUTE BASOPHIL COUNT 0.1 /CUMM (0.0-0.2); ABSOLUTE EOSINOPHIL COUNT 0.1 /CUMM (0.0-0.7); ABSOLUTE GRANULOCYTE CT 7.4 /CUMM (1.4-6.5); ABSOLUTE MONOCYTE COUNT 0.6 /CUMM (0.10-0.60); BASOPHIL % 0.8 % (0.0-2.0); EOSINOPHIL % 0.9 % (0-5); GRANULOCYTE % 80.3 % (42.2-75.2); HEMATOCRIT 28.7 % (42-52); MEAN CORPUSCULAR HGB 31.1 PG (27.0-31.0); MEAN CORPUSCULAR HGB CONC 33.1 G/DL (33.0-37.0); MEAN PLATELET VOLUME 7.2 FL (7.4-10.4); PLATELET COUNT 418 /CUMM (130-400); RBC DISTRIBUTION WIDTH 16.8 % (11.5-14.5); RED BLOOD CELL CT 3.05 /CUMM (4.70-6.10); WHITE BLOOD CELL COUNT 9.2 /CUMM (4.8-10.8)
--- NOTE | 2018-01-05 20:12 | RADIOLOGY REPORT ---
EXAMINATION: XR TIBIA AND FIBULA, RIGHT CLINICAL INFORMATION: Chronic wound. Concern for osteomyelitis. COMPARISON: 08/19/2017. TECHNIQUE: AP and lateral views of the right tibia and fibula were obtained. FINDINGS: There is again noted to be subperiosteal new bone formation along the shafts of the tibia and fibula. This is slightly progressed in comparison to prior exam. No acute bony destruction is identified. There is no ankle joint effusion. IMPRESSION: More prominent subperiosteal new bone formation along the shafts of the right tibia and fibula. There is no demonstrable bony destruction. This appearance is nonspecific, though could be indicative of chronic osteomyelitis. If there is clinical concern for osteomyelitis, consider correlation with MRI.
--- NOTE | 2018-01-05 20:53 | ULTRASOUND REPORT ---
EXAMINATION: US TRIPLEX LOWER EXTREMITY, RIGHT CLINICAL INFORMATION: 62-year-old man with right leg swelling. COMPARISON: None TECHNIQUE: Color-flow triplex imaging with spectral analysis and compression Doppler were performed on the lower extremity. FINDINGS: The study is felt to be extremely limited. Respiratory variation, normal compression and augmented flow are noted throughout the lower extremity. The visualized common femoral vein, superficial femoral vein, and profunda femoral vein show no evidence of deep venous thrombosis. The popliteal vein and calf veins were not well visualized. There is no Grimaldo's cyst. IMPRESSION: Limited exam demonstrates no evidence of deep venous thrombosis.
[2018-01-05] MEDS ORDERED: IBUPROFEN800 M1 PO (21:14)
[2018-01-05] MEDS ORDERED: ASPIRIN EC81 M1 PO (21:15)
[2018-01-05] MEDS ORDERED: FLUOXETINE HCL20 M2 PO (21:16)
[2018-01-05] MEDS ORDERED: OXYCODONE HCL5 M1 PO (21:16)
--- NOTE | 2018-01-05 21:24 | History & Physical ---
Neeraj ROTHMAN,Contreras 01/05/182123: General Information and HPI History of Present Illness: Mr. Jaimes is a 62-year-old male with past medical history of peripheral vascular disease, Mediterranean anemia, chronic bilateral lower extremity ulcer status post debridement and skin graft 5 years [address] Dr[address] Saini, and steroid-induced avascular necrosis of bilateral hips followed by Dr. Han who presents with leg ulcers. The patient notes that he has had these leg ulcers for many years but that in the past week they have been getting worse. He started noticing green discharge. He has been immobile for the past month mostly sitting in a chair with his legs not elevated. His helps him wrap his legs twice a day. He denies any fever, chills, nausea, vomiting, dysuria, or pain in the leg. He is a never smoker but does drink 2-3 beers per day and occasionally uses cannabis but no other recreational drugs. Allergies/Medications Allergies: Coded Allergies: NO KNOWN ALLERGIES (11/24/11) NKA PER ANTIBIOTIC ORDER SHEET - [facility] Home Med list Aspirin (Ecotrin*) 81 MG TABLET.DR 1 TAB PO DAILY HEART/BLOOD (Reported) Atorvastatin Calcium 80 MG TABLET 1 TAB PO 1700 PVD . Fluoxetine HCl 20 MG CAPSULE 1 CAP PO DAILY MENTAL HEALTH (Reported) Ibuprofen 800 MG TABLET 1 TAB PO BID PAIN/INFLAMMATION (Reported) Oxycodone HCl 5 MG TABLET 1-2 TAB PO Q4-6H PRN PAIN (Reported) Tamsulosin HCl (Flomax) 0.4 MG CAP.ER.24H 1 CAP PO DAILY BPH (Reported) Past History Travel History Traveled to [place] past 21 day No Medical History Neurological: NONE EENT: Postnasal drip Cardiovascular: chronic venous insuff, PVD Respiratory: NONE Gastrointestinal: NONE Hepatic: NONE Renal: NONE Musculoskeletal: NONE Blood Disorders: anemia Other Medical Hx: Chronic venous insufficiency, history of venous stasis ulcers, history of debridements and skin grafting bilateral lower extremity History of MRSA: No History of VRE: No History of CDIFF: No Surgical History Surgical History: vascular/plasitc surgery Past Family/Social History Functional Ability ADLs Independent: dressing, eating, toileting, bathing. Review of Systems Review of Systems Constitutional: Reports: no symptoms. EENTM: Reports: no symptoms. Cardiovascular: Reports: no symptoms. Respiratory: Reports: no symptoms. GI: Reports: no symptoms. Genitourinary: Reports: no symptoms. Musculoskeletal: Reports: no symptoms, see HPI. Skin: Reports: no symptoms. Neurological/Psychological: Reports: no symptoms. Hematologic/Endocrine: Reports: no symptoms. Immunologic/Allergic: Reports: no symptoms. All Other Systems: Reviewed and Negative Exam & Diagnostic Data Last 24 Hrs of Vital Signs/I&O Vital Signs Date Time Temp Pulse Resp B/P B/P Pulse O2 O2 Flow FiO2 Mean Ox Delivery Rate 01/05 1827 98.3 86 20 138/83 100 Room Air Physical Exam General Appearance Alert, Oriented X3, Cooperative, No Acute Distress Skin Extensive circumferential ucleration extending from R ankle to below R knee with evidence of necrosis and edema. HEENT Atraumatic, PERRLA, EOMI Cardiovascular Regular Rate, Normal S1, Normal S2 Lungs Clear to Auscultation Abdomen Normal Bowel Sounds, Soft, No Tenderness Extremities Bilateral pitting edema Last 24 Hrs of Labs/Lukas: Laboratory Tests 01/05/181951: Anion Gap 13, Estimated GFR > 60, BUN/Creatinine Ratio 6.3 L, Glucose 94, Calcium 8.6, Total Bilirubin 0.8, AST 10 L, ALT 23, Alkaline Phosphatase 125, C -Reactive Prot, Quant 4.0 H, Total Protein 6.5, Albumin 2.7 L, Globulin 3.8, Albumin/Globulin Ratio 0.7 L, CBC w Diff NO MAN DIFF REQ, RBC 3.05 L, MCV 94.0 , MCH 31.1 H, MCHC 33.1, RDW 16.8 H, MPV 7.2 L, Gran % 80.3 H, Lymphocytes % 11.0 L, Monocytes % 7.0, Eosinophils % 0.9, Basophils % 0.8, Absolute Granulocytes 7.4 H, Absolute Lymphocytes 1.0 L, Absolute Monocytes 0.6, Absolute Eosinophils 0.1, Absolute Basophils 0.1, ESR Westergren 73 H Microbiology 01/05 2038 BLOOD: Blood Culture - RECD 01/06 1952 BLOOD: Blood Culture - RECD Assessment/Plan Assessment: Mr. Jaimes is a 62-year-old male with past medical history of peripheral vascular disease, Mediterranean anemia, chronic bilateral lower extremity ulcer status post debridement and skin graft 5 years ago followed by Dr. Saini, and steroid-induced avascular necrosis of bilateral hips followed by Dr. Han who presents with leg ulcers. On presentation, vital signs were T 98.3, HR 86, RR 20, BP 130/83, saturating 100% room air. Records are significant for hemoglobin 9.5, MCV 94.0, ESR 73, sodium 124, chloride 91, carbon dioxide 20, LFTs negative, CRP 4.0. X-ray of the right tibia/fibula shows questionable chronic osteomyelitis and Doppler of the right lower extremity shows negative DVT. He will be admitted to general medicine and treated for the following problems: 1. Right lower extremity ulceration with necrosis 2. Acute hyponatremia #Right lower extremity ulceration with necrosis: Patient has history of chronic leg ulcerations and has received debridement with skin graft 5 years ago. He is followed by Dr. Saini. He is afebrile without leukocytosis and his legs do not seem infected at this time. However there is concern for chronic osteomyelitis given imaging and elevated ESR/CRP. -Consider MRI tomorrow -Vascular surgery consult -Hold antibiotics for now -Wound consult -ID consult -Leg elevation #Acute hyponatremia: Sodium 124, unclear etiology. Patient is asymptomatic. -Urine analysis, urine electrolytes, urine osmolality, TSH, free T4, a.m. cortisol -IV furosemide 20 mg 1 #Chronic medical problems: -Continue other medications DVT prophylaxis with enoxaparin Regular diet Full code As Ranked By This Provider Problem List: 1. Chronic wound of extremity Core Measures/Misc (04/24) Acute Coronary Syndrome ACS Diagnosis: No Congestive Heart Failure Congestive Heart Failure Diagnosis No Cerebrovascular Accident CVA/TIA Diagnosis: No VTE (View Protocol) VTE Risk Factors Age>40 No Mechanical VTE Prophylaxis d/t Medical Contraindication No VTE Pharm Prophylaxis d/t NA PharmProphylax ordered Sepsis (View protocol) Sepsis Present: No If YES complete Sepsis Event Note If YES complete Sepsis Event Note Michael Bonilla 01/06/18 0025: Core Measures/Misc (04/24) Sepsis (View protocol) If YES complete Sepsis Event Note If YES complete Sepsis Event Note Resident Review Statement Resident Statement: examined this patient, discussed with risk management internship, agreed with risk management internship, discussed with family, reviewed EMR data (avail), reviewed images, amended to note Other Findings: This is a 62 years old man who presented to [facility] because he does not like the way his legs look. He has past medical history of peripheral vascular disease, BPH, Mediterranean anemia, lower limb ulcers for many years which he has been following up with vascular surgeon Dr. Saini. Patient reports that for the past couple of weeks his legs has been getting worse appearing swollen more than usual and releasing a greenish discharge. He has also been experiencing hip pain mostly on his left hip which he sustained avascular necrosis of the head of the acetabulum many years ago and about 1 month he tweaked the hip joint and ever since has been very tender and because of that he has been predominantly seeking even spending the night seated on the couch with his legs in dependent position. She denies any fevers chills nausea vomiting he is eating and tolerating his meals very well. She has no urinary symptoms abdominal pain dizziness or lightheadedness. On presentation the patient was afebrile 98.3 heart rate of 86 respiration of 20 blood pressure 138/83 and saturating 100% on room were. Physical examination: Patient seated comfortably on the bed by bedside noting an acute distress a later and oriented to time place and person. Extremities: The right lower limb is more swollen than the left there is a circumferential wound extending from the ankle joint to fdc on the leg about 25 cm in length, it sloughs, dark in color with some greenish discharge the edema is pitting and the dorsalis pulse is very weak Head and neck: Multiple dental caries weight mucous membrane nondistended neck vessels CVS: Regular rate and rhythm normal S1-S2 no murmurs Chest: Clear lungs bilaterally Labs: Has no leukocytosis WBC of 9.2 anemia with H&H of 9.5 and 28.7 normal renal function with creatinine of 0.8, ESR 73 Doppler ultrasound: No evidence of DVT X-ray of tibia and fibula no evidence of osteomyelitis Problem list Worsening right lower extremity ulcer Peripheral vascular disease Hyponatremia Admit the patient to general medicine floor Vitals every shift Elevate the leg at all times when the patient on bed Mild diuresis with Lasix 20 mg IV Wound care consult ID consult Vascular surgery consult Heart health diet Continue home medication atorvastatin 80 mg daily, Flovent presenting 20 mg daily and tamsulosin 0.4 mg daily Patient is full code Lovenox for DVT prophylaxis
[2018-01-06 00:42] VITALS: BP 113/66
[2018-01-06 07:02] VITALS: BP 112/62
--- NOTE | 2018-01-06 07:23 | PN- Housestaff ---
Subjective Follow-up For: -R LE cullulitis -Right suspected OM -hyponatremia -HL Complaints: no complaints Subjective: I have seen and examined the patient today morning, examined his open wounds, the wounds look very dirty with circumferential ulceration around the right lower extremity, overlying pus present. Review of Systems Constitutional: Reports: see HPI. Objective Last 24 Hrs of Vital Signs/I&O Vital Signs Date Time Temp Pulse Resp B/P B/P Pulse O2 O2 Flow FiO2 Mean Ox Delivery Rate 01/06 0702 97.8 98 20 112/62 100 01/06 0042 97.6 100 20 113/66 91 01/05 2357 100 Room Air 01/05 2344 97.3 87 18 132/71 99 Room Air 01/05 1827 98.3 86 20 138/83 100 Room Air Intake & Output 01/06 0800 01/06 0000 01/05 1600 Intake Total 280 Output Total 300 300 Balance -300 -20 Intake, Oral 280 Output, Urine 300 300 Patient 90.718 kg Weight Physical Exam General Appearance: Alert, Oriented X3, Mild Distress Skin: superficial ulceration all aroudn the right lower extremtiy below the knee ,overlyign pus present, surroundign swelling + HEENT: Atraumatic, PERRLA, EOMI Neck: Supple, No JVD Cardiovascular: Normal S1, Normal S2, No Murmurs Lungs: Clear to Auscultation, Normal Air Movement Abdomen: Normal Bowel Sounds, Soft, No Tenderness Extremities: as above Vascular: Normal Pulses Current Medications: Current Medications Sig/Alexus Start time Last Medication Dose Route Stop Time Status Admin Acetaminophen 1,000 MG ONCE ONE 01/06 215 DC 01/06 N/A 1 UNIT IV 01/06 229 0215 Acetaminophen 650 MG Q6 01/05 2359 AC 01/06 PO 0555 Aspirin Buffered 81 MG DAILY 01/06 900 AC PO Atorvastatin Calcium 80 MG 1700 01/06 1700 AC PO Enoxaparin Sodium 40 MG DAILY 01/06 900 AC SC Fluoxetine HCl 20 MG DAILY 01/06 900 AC PO Furosemide 20 MG ONCE ONE 01/05 2345 CAN PO 01/05 234 Furosemide 20 MG ONCE ONE 01/05 2345 DC 01/06 IV 01/05 234 0122 Ibuprofen 600 MG Q6P PRN 01/05 2315 AC PO Oxycodone/ 1 TAB Q6P PRN 01/05 2315 AC Acetaminophen PO Oxycodone/ 0 .STK-MED ONE 01/05 2129 DC Acetaminophen PO Oxycodone/ 1 TAB ONCE ONE 01/05 2045 DC 01/05 Acetaminophen PO 01/05 Sodium Chloride 1,000 ML ONCE ONE 01/05 2045 DC 01/05 IV 01/06 Tamsulosin HCl 0.4 MG DAILY 01/06 0900 AC PO Last 24 Hrs of Lab/Lukas Results Last 24 Hrs of Labs/Mics: Laboratory Tests 01/06/18 0310: Urine Color STRAW, Urine Clarity HAZY H, Urine pH 6.0, Ur Specific [place] <= 1.005, Urine Protein NEG, Urine Ketones NEG, Urine Nitrite POS H, Urine Bilirubin NEG, Urine Urobilinogen 0.2, Ur Leukocyte Esterase MOD H, Ur Microscopic SEDIMENT EXAMINED, Urine RBC RARE, Urine WBC 15-25 H, Ur Epithelial Cells FEW, Urine Bacteria PACKD H, Urine Mucus RARE, Urine Hemoglobin TRACE- INTACT H, Urine Glucose NEG 01/06/18309: Urine Osmolality 133 L, Ur Random Creatinine 18.3, Ur Random Sodium 28 L, Ur Random Potassium 12.6, Fraction Sodium Excret 1.0 01/05/181951: Anion Gap 13, Estimated GFR > 60, BUN/Creatinine Ratio 6.3 L, Glucose 94, Serum Osmolality 274 L, Calcium 8.6, Total Bilirubin 0.8, AST 10 L, ALT 23, Alkaline Phosphatase 125, C-Reactive Prot, Quant 4.0 H, Total Protein 6.5, Albumin 2.7 L, Globulin 3.8, Albumin/Globulin Ratio 0.7 L, TSH 2.750, Free T4 2.41, CBC w Diff NO MAN DIFF REQ, RBC 3.05 L, MCV 94.0, MCH 31.1 H, MCHC 33.1, RDW 16.8 H , MPV 7.2 L, Gran % 80.3 H, Lymphocytes % 11.0 L, Monocytes % 7.0, Eosinophils % 0.9, Basophils % 0.8, Absolute Granulocytes 7.4 H, Absolute Lymphocytes 1.0 L, Absolute Monocytes 0.6, Absolute Eosinophils 0.1, Absolute Basophils 0.1, ESR Westergren 73 H Microbiology 01/05 2038 BLOOD: Blood Culture - RECD 01/06 1952 BLOOD: Blood Culture - RECD Lines/Diet/Fluids Restraints: none Assessment/Plan Assessment: Mr leal is 62-year-old male with past medical history of peripheral vascular disease, Mediterranean anemia, chronic bilateral lower extremity ulcers status post a and skin graft 5 years ago followed by dr Saini, 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 Han came in with chief complaint of worsening leg ulcers since a few weeks prior to presentation associated with greenish discharge. He was afebrile, pulse of 86, respiration of 20, blood pressure 138/83, he was saturating 100% on room air. On presentation he had a white count of 9.2, with 80% granulocytes, ESR of 73, C -reactive protein of 4, electrolytes sodium of 124, potassium of 4, urine/ creatinine of 5/0.8 X-ray tibia/fibula showed or prominent subperiosteal new bone formation along the shaft of the right tibia and fibula demonstrating bony destruction, indicative of chronic osteomyelitis. Lower extremity venous Doppler did not show any evidence of deep vein thrombosis. He was admitted to general medicine floor for treatment of following problems. Problem #1 right lower extremity ulceration with necrosis, possible cellulitis. We will start the patient on IV Unasyn, continue to follow cultures, we will also get vascular surgery consult for chronic venous ulcers. Continue wound care. # suspected osteomyelitis. As per the x-ray, findings were suggestive of chronic osteomyelitis, we will obtain an MRI of the right lower extremities to rule out osteomyelitis. Baseline ESR and CRP elevated. Will obtain MRI report and further management based on the findings on MRI. Continue to elevate legs. Continue local wound care. #3 hyponatremia : He was found to be 124, patient did not have any symptoms, and time IV furosemide 20 mg was given, continue to monitor sodium, get urinary lites, serum osmolality to find out the etiology of hyponatremia. #4 hyperlipidemia : ct lipitor Ct prozac, flomax,ecotrin that are home medications. DVT Px with enoxaparin. Regular diet. Full code. Problem List: 1. Peripheral edema 2. Hyponatremia 3. Osteomyelitis 4. Cellulitis of right leg 5. Stasis ulcer of right lower extremity 6. Lactic acidosis 7. Chronic wound of extremity Pain Ratin Pain Location: rle Pain Goal: Remain pain free Pain Plan: current plan Tomorrow's Labs & Rationales: cbc. bep
--- NOTE | 2018-01-06 08:48 | Cons- Wound Care ---
General Information and HPI Consulting Request Date of Consult: 01/06/18 Requested By: Stanton Flannery MD Reason for Consult: Right lower extremity ulcer present on admission History of Present Illness: Patient is a 62-year-old nondiabetic with history of chronic venous insufficiency peripheral vaccines disease admitted with worsening right lower extremity ulcer which has been present for many years. Patient was hospitalized in August at which time his found to have peripheral vascular disease and nonhealing right lower extremity ulcer. Reports having been followed by vascular surgery but is not been seen in over a month and has been sedentary without effective elevation or compression. He is admitted because of increasing drainage or odor and pain. X-ray continues to show abnormal bony findings of uncertain significance raising the possibility of osteomyelitis in view of sedimentation rate of 73 Allergies/Medications Allergies: Coded Allergies: NO KNOWN ALLERGIES (11/24/11) NKA PER ANTIBIOTIC ORDER SHEET - [facility] Home Med List: Aspirin (Ecotrin*) 81 MG TABLET.DR 1 TAB PO DAILY HEART/BLOOD (Reported) Atorvastatin Calcium 80 MG TABLET 1 TAB PO 1700 PVD . Fluoxetine HCl 20 MG CAPSULE 1 CAP PO DAILY MENTAL HEALTH (Reported) Ibuprofen 800 MG TABLET 1 TAB PO BID PAIN/INFLAMMATION (Reported) Oxycodone HCl 5 MG TABLET 1-2 TAB PO Q4-6H PRN PAIN (Reported) Tamsulosin HCl (Flomax) 0.4 MG CAP.ER.24H 1 CAP PO DAILY BPH (Reported) Review of Systems Review of Systems: Patient is for the most part nonambulatory secondary to avascular necrosis of the hips Past History Travel History Traveled to [place] past 21 day No Medical History Blood Transfusion Hx: No Neurological: NONE EENT: Postnasal drip Cardiovascular: chronic venous insuff, PVD Respiratory: NONE Gastrointestinal: NONE Hepatic: NONE Renal: NONE Musculoskeletal: NONE Psychiatric: NONE Endocrine: NONE Blood Disorders: anemia Cancer(s): NONE Other Medical Hx: Chronic venous insufficiency, history of venous stasis ulcers, history of debridements and skin grafting bilateral lower extremity Surgical History Surgical History: vascular/plasitc surgery Psychosocial History Where Do You Live? Home Smoking Status: Never Smoked Functional Ability ADLs Independent: dressing, eating, toileting, bathing. Exam & Diagnostic Data Vital Signs and I&O Vital Signs Result Date Time Pulse Ox 100 01/06 702 B/P 112/62 01/06 07 Temp 97.8 06/01 0702 Pulse 98 01/06 0702 Resp 20 01/06 0702 O2 Delivery Room Air 01/05 2357 Intake & Output 01/06 0000 01/05 1600 01/05 0800 Intake Total 280 Output Total 300 Balance -20 Intake, Oral 280 Output, Urine 300 Physical Exam: Distal pulses are unable to be palpated. There is extensive right lower extremity ulceration measuring approximately 20 cm by circumferential, the wound has 100% yellow slough and adherent black eschar, there is periwound erythema, there is significant serous drainage, Assessment/Plan Impression/Plan: 62-year-old with chronic lower extremity ulcer of mixed etiology. There is evidence of venous insufficiency and peripheral arterial disease. Whether there is complicating osteomyelitis present is uncertain. Recommend aggressive leg elevation. Vascular surgery evaluation for debridement and evaluation of distal circulation. Patient will require further imaging to exclude osteomyelitis such as MRI or 3-phase bone scan. Full nutritional evaluation in view of reduced albumin. Recommend wound cleansing cover with Adaptic and then quarter strength Dakin moistened gauze changed twice daily pending vascular evaluation for debridement. Consult Acknowledgment - Thank you for your consult request.
[2018-01-06 09:52] LABS: ABSOLUTE BASOPHIL COUNT 0 /CUMM (0.0-0.2); ABSOLUTE EOSINOPHIL COUNT 0 /CUMM (0.0-0.7); ABSOLUTE GRANULOCYTE CT 13.1 /CUMM (1.4-6.5); ABSOLUTE LYMPH COUNT 0.3 /CUMM (1.2-3.4); ABSOLUTE MONOCYTE COUNT 0 /CUMM (0.10-0.60); BASOPHIL % 0 % (0.0-2.0); EOSINOPHIL % 0.1 % (0-5); GRANULOCYTE % 97.3 % (42.2-75.2); MEAN CORPUSCULAR HGB 31.7 PG (27.0-31.0); MEAN CORPUSCULAR HGB CONC 33.9 G/DL (33.0-37.0); MEAN CORPUSCULAR VOLUME 93.4 FL (80.0-94.0); MEAN PLATELET VOLUME 8.1 FL (7.4-10.4); PLATELET COUNT 378 /CUMM (130-400); RBC DISTRIBUTION WIDTH 17.3 % (11.5-14.5); RED BLOOD CELL CT 3.21 /CUMM (4.70-6.10); WHITE BLOOD CELL COUNT 13.4 /CUMM (4.8-10.8)
--- NOTE | 2018-01-06 11:25 | Admission Certification ---
Admission Certification Certification Statement - As attending physician, I certify that at the time of - admission, based on clinical presentation, severity of - symptoms, need for further diagnostic testing and - therapeutic interventions, and risk of adverse outcomes - without in-hospital treatment, in my clinical assessment, - this patient requires an acute hospital stay for a minimum - of two nights or longer. I have also considered psychsocial - factors such as support system, advanced age, financial - issues, cognitive issues, and failed out-patient treatments, - past re-admission history, safety of patient, and lack of - compliance as applicable. Specific rationale supporting this admission is: Leg ulcers, progressively worse, hyponatremia and now also a decubitus ulcer in the sacrum
--- NOTE | 2018-01-06 11:29 | PN- Att Addend ---
Attending Addendum Attending Brief Note 62-year-old white male with chronic problems with his legs follows with specialists and has been less active for the last month or so. Now comes in with the legs looking worse, also found to be hyponatremic in the emergency room , weak, normal white count on admission but the next morning slightly elevated appreciate also follows with vascular issue will be admitted will have a wound consult infectious diseases consultation, probably vascular follow-up to assess what kind of x-rays he needs to rule out any osteomyelitis, and assess if he needs any antibiotic therapy patient also has a decubitus in his coccyx area Current Medications Sig/Alexus Start time Last Medication Dose Route Stop Time Status Admin Acetaminophen 1,000 MG ONCE ONE 01/06 021 DC 01/06 N/A 1 UNIT IV 01/06 022 021 Acetaminophen 650 MG Q6 01/05 2359 AC 01/06 PO 1113 Aspirin Buffered 81 MG DAILY 01/06 09 AC 01/06 PO 0845 Atorvastatin Calcium 80 MG 1700 01/06 1700 AC PO Enoxaparin Sodium 40 MG DAILY 01/06 09 AC 01/06 SC 0845 Fluoxetine HCl 20 MG DAILY 01/06 09 AC 01/06 PO 0845 Furosemide 40 MG .STK-MED ONE 01/06 0118 DC IV 01/06 0119 Furosemide 20 MG ONCE ONE 01/05 2345 CAN PO 01/05 2346 Furosemide 20 MG ONCE ONE 01/05 2345 DC 01/06 IV 01/05 2346 0122 Ibuprofen 600 MG Q6P PRN 01/05 2315 AC 01/06 PO 0845 Oxycodone/ 1 TAB Q6P PRN 01/05 2315 AC Acetaminophen PO Oxycodone/ 0 .STK-MED ONE 01/05 2129 DC Acetaminophen PO Oxycodone/ 1 TAB ONCE ONE 01/05 2045 DC 01/05 Acetaminophen PO 01/05 2046 2148 Sodium Chloride 1,000 ML ONCE ONE 01/05 2045 DC 01/05 IV 01/06 0324 2148 Sodium Hypochlorite 1 JANAE DAILY 01/06 1024 AC TOP Tamsulosin HCl 0.4 MG DAILY 01/06 09 AC 01/06 PO 0845 Laboratory Tests 01/06/18 0804: Anion Gap 14, Estimated GFR > 60, BUN/Creatinine Ratio 7.8, Cortisol AM Sample 31.0 H, CBC w Diff MAN DIFF ORDERED, RBC 3.21 L, MCV 93.4, MCH 31.7 H, MCHC 33.9, RDW 17.3 H, MPV 8.1, Gran % 97.3 H, Lymphocytes % 2.4 L, Monocytes % 0.2 L, Eosinophils % 0.1, Basophils % 0, Absolute Granulocytes 13.1 H, Segmented Neutrophils 85 H, Band Neutrophils 12 H, Absolute Lymphocytes 0.3 L , Lymphocytes 3 L, Absolute Monocytes 0 L, Absolute Eosinophils 0, Absolute Basophils 0, Platelet Estimate VERIFIED BY SMEAR, Polychromasia 1+, Poikilocytosis 1+, Anisocytosis 1+ 01/06/18309: Urine Color STRAW, Urine Clarity HAZY H, Urine pH 6.0, Ur Specific [place] <= 1.005, Urine Protein NEG, Urine Ketones NEG, Urine Nitrite POS H, Urine Bilirubin NEG, Urine Urobilinogen 0.2, Ur Leukocyte Esterase MOD H, Ur Microscopic SEDIMENT EXAMINED, Urine RBC RARE, Urine WBC 15-25 H, Ur Epithelial Cells FEW, Urine Bacteria PACKD H, Urine Mucus RARE, Urine Hemoglobin TRACE- INTACT H, Urine Glucose NEG 01/06/18309: Urine Osmolality 133 L, Ur Random Creatinine 18.3, Ur Random Sodium 28 L, Ur Random Potassium 12.6, Fraction Sodium Excret 1.0 01/05/181951: Anion Gap 13, Estimated GFR > 60, BUN/Creatinine Ratio 6.3 L, Glucose 94, Serum Osmolality 274 L, Calcium 8.6, Total Bilirubin 0.8, AST 10 L, ALT 23, Alkaline Phosphatase 125, C-Reactive Prot, Quant 4.0 H, Total Protein 6.5, Albumin 2.7 L, Globulin 3.8, Albumin/Globulin Ratio 0.7 L, TSH 2.750, Free T4 2.41, CBC w Diff NO MAN DIFF REQ, RBC 3.05 L, MCV 94.0, MCH 31.1 H, MCHC 33.1, RDW 16.8 H , MPV 7.2 L, Gran % 80.3 H, Lymphocytes % 11.0 L, Monocytes % 7.0, Eosinophils % 0.9, Basophils % 0.8, Absolute Granulocytes 7.4 H, Absolute Lymphocytes 1.0 L, Absolute Monocytes 0.6, Absolute Eosinophils 0.1, Absolute Basophils 0.1, ESR Westergren 73 H Vital Signs Date Time Temp Pulse Resp B/P B/P Pulse O2 O2 Flow FiO2 Mean Ox Delivery Rate 01/06 0845 98 112/62 01/06 0702 97.8 98 20 100 Patient also would have some diuresis to see if we can decrease some of the edema.
--- NOTE | 2018-01-06 13:21 | Cons- Infect Disease ---
General Information and HPI Consulting Request Date of Consult: 01/06/18 Requested By: Stanton Flannery MD Reason for Consult: Rule out cellulitis of the right leg Source of Information: patient, family, old records History of Present Illness: This is a 62-year-old male with a history of chronic venous insufficiency, with bilateral lower extremity ulcers for over 10 years, status post debridement and skin grafts over 5 years prior to admission with eventual healing on the left but with a nonhealing ulcer on the right, hospitalized nearly 6 months prior to admission with bleeding from the right leg ulcer, treated for a cellulitis, followed by Vascular surgery since then with local wound care, admitted on January 05 with discoloration and edema of the right leg, associated with increased pain and drainage, with no fevers, chills or other constitutional symptoms. On admission he was afebrile. Laboratory data revealed a white blood cell count of 9000, BUN/creatinine 5 and 0.8, sodium 124, with normal liver enzymes. Urinalysis rare RBC/15-25 WBCs. X-ray of the right tibia and fibula revealed more prominent subperiosteal new bone formation along the shafts of the right tibia and fibula, with no bone destruction. Doppler of the right leg was negative. He was followed off antibiotics and has remained afebrile overnight with no new complaints. Allergies/Medications Allergies: Coded Allergies: NO KNOWN ALLERGIES (11/24/11) NKA PER ANTIBIOTIC ORDER SHEET - [facility] Home Med List: Aspirin (Ecotrin*) 81 MG TABLET.DR 1 TAB PO DAILY HEART/BLOOD (Reported) Atorvastatin Calcium 80 MG TABLET 1 TAB PO 1700 PVD . Fluoxetine HCl 20 MG CAPSULE 1 CAP PO DAILY MENTAL HEALTH (Reported) Ibuprofen 800 MG TABLET 1 TAB PO BID PAIN/INFLAMMATION (Reported) Oxycodone HCl 5 MG TABLET 1-2 TAB PO Q4-6H PRN PAIN (Reported) Tamsulosin HCl (Flomax) 0.4 MG CAP.ER.24H 1 CAP PO DAILY BPH (Reported) Past History Travel History Traveled to [place] past 21 day No Medical History Blood Transfusion Hx: No Neurological: Arreola's palsy Cardiovascular: chronic venous insuff, PVD Respiratory: NONE Gastrointestinal: NONE Hepatic: NONE Renal: NONE Musculoskeletal: Avascular necrosis both hips Psychiatric: NONE Endocrine: NONE Blood Disorders: anemia Cancer(s): NONE History of MRSA: No History of VRE: No History of CDIFF: No Isolation History: Standard Surgical History Surgical History: vascular/plasitc surgery Psychosocial History Where Do You Live? Home Smoking Status: Never Smoked Functional Ability ADLs Independent: dressing, eating, toileting, bathing. Review of Systems Review of Systems All Other Systems: Reviewed and Negative Exam & Diagnostic Data Last 24 Hrs of Vital Signs/I&O Vital Signs Date Time Temp Pulse Resp B/P B/P Pulse O2 O2 Flow FiO2 Mean Ox Delivery Rate 01/06 0845 98 112/62 01/06 0702 97.8 98 20 112/62 100 01/06 0042 97.6 100 20 113/66 91 01/05 2357 100 Room Air 01/05 2344 97.3 87 18 132/71 99 Room Air 01/05 1827 98.3 86 20 138/83 100 Room Air Intake & Output 01/06 1600 01/06 0800 01/06 0000 Intake Total 280 Output Total 1000 300 Balance -1000 -20 Intake, Oral 280 Output, Urine 1000 300 Patient 200 lb Weight Physical Exam Other Physical Findings: He is awake and alert in no acute distress. He is afebrile. Skin reveals no rash. HEENT exam is negative. Neck is supple with no adenopathy. Lungs are clear. Heart regular rhythm with no murmur. Abdomen is soft, nontender with positive bowel sounds. Back no CVA tenderness. Extremities right leg edema with mild erythema, tender to palpation, with a large circumferential ulceration above the ankle, with necrotic eschars laterally. Neuro is without focality. Last 24 Hours of Lab Results: Laboratory Tests 01/06 0804 Chemistry Sodium (137 - 145 mmol/L) 128 L Potassium (3.5 - 5.1 mmol/L) 3.5 Chloride (98 - 107 mmol/L) 93 L Carbon Dioxide (22 - 30 mmol/L) 21 L Anion Gap (5 - 16) 14 BUN (9 - 20 mg/dL) 7 L Creatinine (0.7 - 1.2 mg/dL) 0.9 Estimated GFR (>60 ml/min) > 60 BUN/Creatinine Ratio (7 - 25 %) 7.8 Cortisol AM Sample (4.46 - 22.7 ug/dL) 31.0 H Hematology CBC w Diff MAN DIFF ORDERED WBC (4.8 - 10.8 /CUMM) 13.4 H RBC (4.70 - 6.10 /CUMM) 3.21 L Hgb (14.0 - 18.0 G/DL) 10.2 L Hct (42 - 52 %) 30.0 L MCV (80.0 - 94.0 FL) 93.4 MCH (27.0 - 31.0 PG) 31.7 H MCHC (33.0 - 37.0 G/DL) 33.9 RDW (11.5 - 14.5 %) 17.3 H Plt Count (130 - 400 /CUMM) 378 MPV (7.4 - 10.4 FL) 8.1 Gran % (42.2 - 75.2 %) 97.3 H Lymphocytes % (20.5 - 51.1 %) 2.4 L Monocytes % (1.7 - 9.3 %) 0.2 L Eosinophils % (0 - 5 %) 0.1 Basophils % (0.0 - 2.0 %) 0 Absolute Granulocytes (1.4 - 6.5 /CUMM) 13.1 H Segmented Neutrophils (42.2 - 75.2 %) 85 H Band Neutrophils (0.0 - 5.0 %) 12 H Absolute Lymphocytes (1.2 - 3.4 /CUMM) 0.3 L Lymphocytes (20.5 - 51.1 %) 3 L Absolute Monocytes (0.10 - 0.60 /CUMM) 0 L Absolute Eosinophils (0.0 - 0.7 /CUMM) 0 Absolute Basophils (0.0 - 0.2 /CUMM) 0 Platelet Estimate (ADEQUATE) VERIFIED BY SMEAR Polychromasia 1+ Poikilocytosis 1+ Anisocytosis 1+ 01/06 01/06 0310 0310 Urines Urine Color (YEL,AMB,STR) STRAW Urine Clarity (CLEAR) HAZY H Urine pH (5.0 - 8.0) 6.0 Ur Specific [place] (1.001 - 1.035) <= 1.005 Urine Protein (NEG,<30 MG/DL) NEG Urine Ketones (NEG) NEG Urine Nitrite (NEG) POS H Urine Bilirubin (NEG) NEG Urine Urobilinogen (0.1 - 1.0 EU/dl) 0.2 Ur Leukocyte Esterase (NEG) MOD H Ur Microscopic SEDIMENT EXAMINED Urine RBC (0 - 5 /HPF) RARE Urine WBC (0 - 2 /HPF) 15-25 H Ur Epithelial Cells (NONE,FEW) FEW Urine Bacteria (NEG/NONE) PACKD H Urine Mucus (FEW,NONE) RARE Urine Hemoglobin (NEG) TRACE-INTACT H Urine Osmolality (300 - 1000 MOSM/KG) 133 L Ur Random Creatinine (mg/dL) 18.3 Ur Random Sodium (30 - 90 mmol/L) 28 L Ur Random Potassium (mmol/L) 12.6 Fraction Sodium Excret (<1% %) 1.0 Urine Glucose (N MG/DL) NEG 01/06 1952 Chemistry Sodium (137 - 145 mmol/L) 124 L Potassium (3.5 - 5.1 mmol/L) 4.0 Chloride (98 - 107 mmol/L) 91 L Carbon Dioxide (22 - 30 mmol/L) 20 L Anion Gap (5 - 16) 13 BUN (9 - 20 mg/dL) 5 L Creatinine (0.7 - 1.2 mg/dL) 0.8 Estimated GFR (>60 ml/min) > 60 BUN/Creatinine Ratio (7 - 25 %) 6.3 L Glucose (65 - 99 mg/dL) 94 Serum Osmolality (285 - 295 MOSM/KG) 274 L Calcium (8.4 - 10.2 mg/dL) 8.6 Total Bilirubin (0.2 - 1.3 mg/dL) 0.8 AST (17 - 59 U/L) 10 L ALT (21 - 72 U/L) 23 Alkaline Phosphatase (< 127 U/L) 125 C-Reactive Prot, Quant (<1.0 mg/dL) 4.0 H Total Protein (6.3 - 8.2 g/dL) 6.5 Albumin (3.5 - 5.0 g/dL) 2.7 L Globulin (1.9 - 4.2 gm/dL) 3.8 Albumin/Globulin Ratio (1.1 - 2.2 %) 0.7 L TSH (0.270 - 4.200 uIU/mL) 2.750 Free T4 (0.78 - 2.44 ng/dL) 2.41 Hematology CBC w Diff NO MAN DIFF REQ WBC (4.8 - 10.8 /CUMM) 9.2 RBC (4.70 - 6.10 /CUMM) 3.05 L Hgb (14.0 - 18.0 G/DL) 9.5 L Hct (42 - 52 %) 28.7 L MCV (80.0 - 94.0 FL) 94.0 MCH (27.0 - 31.0 PG) 31.1 H MCHC (33.0 - 37.0 G/DL) 33.1 RDW (11.5 - 14.5 %) 16.8 H Plt Count (130 - 400 /CUMM) 418 H MPV (7.4 - 10.4 FL) 7.2 L Gran % (42.2 - 75.2 %) 80.3 H Lymphocytes % (20.5 - 51.1 %) 11.0 L Monocytes % (1.7 - 9.3 %) 7.0 Eosinophils % (0 - 5 %) 0.9 Basophils % (0.0 - 2.0 %) 0.8 Absolute Granulocytes (1.4 - 6.5 /CUMM) 7.4 H Absolute Lymphocytes (1.2 - 3.4 /CUMM) 1.0 L Absolute Monocytes (0.10 - 0.60 /CUMM) 0.6 Absolute Eosinophils (0.0 - 0.7 /CUMM) 0.1 Absolute Basophils (0.0 - 0.2 /CUMM) 0.1 ESR Westergren (0 - 10 MM) 73 H Last 24 Hours of Lukas Results: Blood cultures 2 January 05 negative Diagnostic Data Recent Imaging Findings: X-ray of the right tibia and fibula revealed more prominent subperiosteal new bone formation along the shafts of the right tibia and fibula, with no bone destruction. Doppler of the right leg was negative. Assessment/Plan Assessment/Plan Impression: This is a 62-year-old male with a history of chronic venous insufficiency, with a nonhealing right leg ulcer for over 10 years, managed with local wound care, admitted on January 05 with discoloration and edema of the right leg, associated with increased pain and drainage, found to be afebrile with a normal white blood cell count but with an increase in his white blood cell count with bandemia today. I am concerned about a cellulitis of his right lower extremity given the erythema and edema, and, given his increased white blood cell count with bandemia, feel that antibiotics should be started. He may require debridement of the necrotic eschars and vascular surgery evaluation would be helpful. The plain x-rays suggest the possibility of chronic osteomyelitis and, though this is unusual with venous ulcers, an MRI could be considered. Suggestion: 1. Vascular surgery evaluation 2. Would pursue an MRI of the right leg 3. Elevation of the right leg 4. Local wound care for his coccygeal decubitus 5. Begin Unasyn 1.5 g IV every 6 hours Consult Acknowledgment - Thank you for your consult request.
[2018-01-06 14:47] VITALS: BP 99/55
[2018-01-06 14:50] VITALS: BP 107/55
--- NOTE | 2018-01-06 19:31 | PN- Vascular Surgery ---
Surgical Brief Attending Note Brief Attending Note: Patient seen on behalf of Dr Allen Martínez. This is a 62yo male with a Hx of Longstanding Chronic Venous and Lymphatic insufficiency with a Nonhealing Circumferential Right LE wound. Pt had been treated with Unna boot compression with noted contracture of his wound prior to being lost to follow up over the last month. He is currently admitted to [facility] for managment of a RLE cellulits after presenting with worening pain, edema, and malodorous drainage. Pt seen upon return from MRI which was obtained to r/o tibial Osteo...Radiologist interpretation is still pending. He complains of RLE tibial/calf pain. He denies pedal rest pain or claudication. He denies fever, chills, Chest pain, SOB, Nausea, vomiting, diarrhea, dysuria, or arthralgias. Pt is Afebrile with WBC of 13.2 RLE is moderately edematous upon exam. Circumferential tibal/calf wound observed. Significant exudate observed across the wound base with areas of Eschar. +Malodorous drainage Periwound indurated, erythemaous...No necrosis. No Ascending Erythema. Despite absence of pedal pulses, Distal extremity is warm with gross sensory motor fxn intact. Care discussed with Dr Martínez Continue existing local wound care and suppressive Antibiotics per infectious disease. Elevate Legs at rest No acute vascular intevention Pt should f/u wiht Dr Martínez in the [place] office once discharged. Please call with any Questions
--- NOTE | 2018-01-06 20:50 | MRI REPORT ---
EXAMINATION: MRI RIGHT TIB-FIB WITHOUT GADOLINIUM CLINICAL INFORMATION: Infection. Assess for osteomyelitis COMPARISON: Radiographs 01/05/2018 TECHNIQUE: Multiplanar multisequence MRI of the right tib-fib without contrast. FINDINGS: Lack of contrast limits evaluation. There is no bone marrow signal edema or periosteal reaction to indicate osteomyelitis. T1 signal is preserved throughout. There is considerable atrophy of the musculature as well as significant edema subcutaneously especially posteriorly without any organized fluid collection. No soft tissue mass. IMPRESSION: Limited imaging as above without IV contrast. There is no bone marrow edema or replacement to suggest infection or focal lesion. Nonspecific subcutaneous edema which may related to soft tissue infection. No fluid collection. The recent plain radiographic finding may related to periosteal new bone formation secondary to venous stasis disease as well as possiblyhypertrophic pulmonary osteopathy.
[2018-01-06 22:00] VITALS: BP 101/61
[2018-01-07 06:34] VITALS: BP 112/62
[2018-01-07 09:13] LABS: ABSOLUTE BASOPHIL COUNT 0 /CUMM (0.0-0.2); ABSOLUTE EOSINOPHIL COUNT 0.1 /CUMM (0.0-0.7); ABSOLUTE GRANULOCYTE CT 31.2 /CUMM (1.4-6.5); ABSOLUTE LYMPH COUNT 0.4 /CUMM (1.2-3.4); ABSOLUTE MONOCYTE COUNT 0.3 /CUMM (0.10-0.60); BASOPHIL % 0 % (0.0-2.0); EOSINOPHIL % 0.3 % (0-5); GRANULOCYTE % 97.5 % (42.2-75.2); HEMATOCRIT 26.1 % (42-52); MEAN CORPUSCULAR HGB 31.5 PG (27.0-31.0); MEAN CORPUSCULAR HGB CONC 34.2 G/DL (33.0-37.0); MEAN PLATELET VOLUME 8.2 FL (7.4-10.4); PLATELET COUNT 374 /CUMM (130-400); RBC DISTRIBUTION WIDTH 17.5 % (11.5-14.5); RED BLOOD CELL CT 2.84 /CUMM (4.70-6.10)
--- NOTE | 2018-01-07 11:43 | PN- Pulmonary ---
Subjective HPI/Critical Care Issues: Had a bowel movement today. Appears loose. Still has pain in the leg. No other significant complaints. Vital signs have been stable afebrile Blood work reviewed showed that the sodium is low still at 127 anion gap is normal white count up to 32 from 13 stool for C. difficile pending blood culture so far negative MR Stephany showed no bone marrow edema nonspecific subcutaneous edema probable soft tissue infection Objective Current Medications: Current Medications Sig/Alexus Start time Last Medication Dose Route Stop Time Status Admin Acetaminophen 650 MG Q6 01/05 2359 AC 01/07 PO 0628 Ampicillin Sodium/ 1,500 MG Q6H 01/07 0100 AC 01/07 Sulbactam Sodium IV 0629 Sodium Chloride 100 ML Ampicillin Sodium/ 1,500 MG Q6H 01/06 1700 DC 01/06 Sulbactam Sodium IV 1914 Sodium Chloride 100 ML Ampicillin Sodium/ 1,500 MG Q6H 01/06 1424 DC Sulbactam Sodium IV Sodium Chloride 100 ML Aspirin Buffered 81 MG DAILY 01/06 09 AC 01/07 PO 0917 Atorvastatin Calcium 80 MG 1700 01/06 1700 AC 01/06 PO 1544 Enoxaparin Sodium 40 MG DAILY 01/06 0900 AC 01/07 SC 0917 Fluoxetine HCl 20 MG DAILY 01/06 0900 AC 01/07 PO 0917 Ibuprofen 600 MG Q6P PRN 01/05 2315 AC 01/07 PO 0918 Oxycodone/ 1 TAB Q6P PRN 01/05 2315 AC 01/06 Acetaminophen PO 1954 Patient Medication 1 ED ONE ONE 01/06 1530 DC Teaching ED 01/06 1531 Sodium Hypochlorite 1 JANAE DAILY 01/06 1024 01/07 TOP 0918 Tamsulosin HCl 0.4 MG DAILY 01/06 0900 AC 01/07 PO 0917 Vital Signs & I&O Last 24 Hrs of Vitals and I&O: Vital Signs Date Time Temp Pulse Resp B/P B/P Pulse O2 O2 Flow FiO2 Mean Ox Delivery Rate 01/07 0917 80 112/62 06/02 0634 97.6 80 20 112/62 99 /01 2200 98.3 80 18 101/61 100 06/01 1450 97.6 90 16 107/55 100 Room Air Intake & Output 01/07 1600 / 0800 06 0000 Intake Total 100 580 Output Total 250 Balance 100 330 Intake, IV 100 100 Intake, Oral 480 Number 1 Bowel Movements Output, Urine 250 Impression/Plan Impression/Plan Impression/Plan: This is a 62yo male with a Hx of Longstanding Chronic Venous and Lymphatic insufficiency, with a Nonhealing Circumferential Right LE wound. Has sig cellulitis of his leg Sacral decub Djd Hip Ongoing cellulitis with sepsis MRI non revealing BPH, depression stable PLAN Cont all meds Stool for cdiff Cont wound care ID/vascular/Wound care team involved
[2018-01-07 14:40] VITALS: BP 122/70
[2018-01-07 22:00] VITALS: BP 106/58
[2018-01-08 06:54] VITALS: BP 115/63
[2018-01-08 08:17] LABS: ABSOLUTE BASOPHIL COUNT 0 /CUMM (0.0-0.2); ABSOLUTE EOSINOPHIL COUNT 0.1 /CUMM (0.0-0.7); ABSOLUTE GRANULOCYTE CT 16.8 /CUMM (1.4-6.5); ABSOLUTE LYMPH COUNT 0.8 /CUMM (1.2-3.4); ABSOLUTE MONOCYTE COUNT 0.6 /CUMM (0.10-0.60); BASOPHIL % 0.1 % (0.0-2.0); EOSINOPHIL % 0.8 % (0-5); GRANULOCYTE % 91.8 % (42.2-75.2); HEMATOCRIT 25.2 % (42-52); MEAN CORPUSCULAR HGB 32.2 PG (27.0-31.0); MEAN CORPUSCULAR HGB CONC 35.1 G/DL (33.0-37.0); MEAN CORPUSCULAR VOLUME 91.7 FL (80.0-94.0); MEAN PLATELET VOLUME 7.9 FL (7.4-10.4); PLATELET COUNT 366 /CUMM (130-400); RBC DISTRIBUTION WIDTH 17.3 % (11.5-14.5); RED BLOOD CELL CT 2.75 /CUMM (4.70-6.10); WHITE BLOOD CELL COUNT 18.3 /CUMM (4.8-10.8)
--- NOTE | 2018-01-08 08:35 | PN- Infect Dx ---
Subjective Subjective: Afebrile without complaints. He had one loose stool reported yesterday but denies any further diarrhea and has had no nausea, vomiting or abdominal pain. He has no dysuria but reports decreased urine output. He does not report any significant pain in his right leg. Objective Last 24 Hrs of Vital Signs/I&O Vital Signs Date Time Temp Pulse Resp B/P B/P Pulse O2 O2 Flow FiO2 Mean Ox Delivery Rate 01/08 0654 97.7 73 20 115/63 92 Room Air 01/07 2200 97.7 72 20 106/58 100 Room Air 01/07 1440 98.3 88 20 122/70 100 Room Air 01/07 0917 80 112/62 Intake & Output 01/08 1600 01/08 0800 01/08 0000 Intake Total 540 240 Output Total 400 350 Balance 140 -110 Intake, IV 300 Intake, Oral 240 240 Output, Urine 400 350 Patient 200 lb Weight Physical Exam Other Physical Findings: He appears comfortable in no acute distress Lungs are clear Heart regular rhythm with no murmur Abdomen is soft, nontender with positive bowel sounds Extremities right leg with decreased edema and erythema; ulcer unchanged Results Last 24 Hours of Lab Results: Laboratory Tests 01/08 0720 Chemistry Sodium Pending Potassium Pending Chloride Pending Carbon Dioxide Pending Anion Gap Pending BUN Pending Creatinine Pending BUN/Creatinine Ratio Pending Hematology CBC w Diff Pending WBC Pending RBC Pending Hgb Pending Hct Pending MCV Pending MCH Pending MCHC Pending RDW Pending Plt Count Pending MPV Pending Gran % Pending Lymphocytes % Pending Monocytes % Pending Eosinophils % Pending Basophils % Pending Absolute Granulocytes Pending Absolute Lymphocytes Pending Absolute Monocytes Pending Absolute Eosinophils Pending Absolute Basophils Pending Last 24 Hours of [place] Results: Blood cultures January 05 negative Stool C. difficile January 07 pending Recent Imaging Studies: MRI of the right tibia/fibula January 06 no evidence for osteomyelitis or fluid collection Assessment/Plan ID Impression: Stable, with temperatures remaining normal, on Unasyn Day 2 of treatment for cellulitis of the right leg secondary to a chronic, nonhealing ulcer. His white blood cell count yesterday was markedly elevated, with no obvious explanation, and a repeat CBC from today is pending. He did have one episode of diarrhea yesterday and a C. difficile is also pending. Suggestion: 1. Follow-up today's CBC 2. Follow-up stool for C. difficile 3. Further management of his right leg ulcer per Vascular surgery 4. Continue Unasyn
--- NOTE | 2018-01-08 09:39 | PN- Pulmonary ---
Subjective HPI/Critical Care Issues: Afebrile without complaints. He had one loose stool reported yesterday but denies any further diarrhea and has had no nausea, vomiting or abdominal pain. He has no dysuria but reports decreased urine output. He does not report any significant pain in his right leg. Objective Current Medications: Current Medications Sig/Alexus Start time Last Medication Dose Route Stop Time Status Admin Acetaminophen 650 MG Q6 01/05 2359 AC 01/08 PO 0617 Ampicillin Sodium/ 1,500 MG Q6H 01/07 0100 AC 01/08 Sulbactam Sodium IV 0616 Sodium Chloride 100 ML Aspirin Buffered 81 MG DAILY 01/06 09 AC 01/08 PO 0906 Atorvastatin Calcium 80 MG 1700 01/06 1700 AC 01/07 PO 1711 Enoxaparin Sodium 40 MG DAILY 01/06 09 AC 01/08 SC 0906 Fluoxetine HCl 20 MG DAILY 01/06 0900 AC 01/08 PO 0906 Ibuprofen 600 MG Q6P PRN 01/05 2315 AC 01/08 PO 0906 Oxycodone/ 1 TAB Q6P PRN 01/05 2315 AC 01/07 Acetaminophen PO 2134 Sodium Hypochlorite 1 JANAE BID 01/08 2100 AC TOP Sodium Hypochlorite 1 JANAE DAILY 01/06 1024 DC 01/08 TOP 0907 Tamsulosin HCl 0.4 MG DAILY 01/06 09 AC 01/08 PO 0906 Vital Signs & I&O Last 24 Hrs of Vitals and I&O: Vital Signs Date Time Temp Pulse Resp B/P B/P Pulse O2 O2 Flow FiO2 Mean Ox Delivery Rate 01/08 0906 73 115/63 / 0654 97.7 73 20 115/63 92 Room Air 01/07 2200 97.7 72 20 106/58 100 Room Air 01/07 1440 98.3 88 20 122/70 100 Room Air Intake & Output 01/08 1600 / 0800 01/08 0000 Intake Total 540 240 Output Total 400 350 Balance 140 -110 Intake, IV 300 Intake, Oral 240 240 Output, Urine 400 350 Patient 200 lb Weight Laboratory Tests 01/08 0720 Chemistry Sodium (137 - 145 mmol/L) 133 L Potassium (3.5 - 5.1 mmol/L) 3.4 L Chloride (98 - 107 mmol/L) 98 Carbon Dioxide (22 - 30 mmol/L) 24 Anion Gap (5 - 16) 11 BUN (9 - 20 mg/dL) 18 Creatinine (0.7 - 1.2 mg/dL) 1.0 Estimated GFR (>60 ml/min) > 60 BUN/Creatinine Ratio (7 - 25 %) 18.0 Hematology CBC w Diff MAN DIFF ORDERED WBC (4.8 - 10.8 /CUMM) 18.3 H RBC (4.70 - 6.10 /CUMM) 2.75 L Hgb (14.0 - 18.0 G/DL) 8.8 L Hct (42 - 52 %) 25.2 L MCV (80.0 - 94.0 FL) 91.7 MCH (27.0 - 31.0 PG) 32.2 H MCHC (33.0 - 37.0 G/DL) 35.1 RDW (11.5 - 14.5 %) 17.3 H Plt Count (130 - 400 /CUMM) 366 MPV (7.4 - 10.4 FL) 7.9 Gran % (42.2 - 75.2 %) 91.8 H Lymphocytes % (20.5 - 51.1 %) 4.1 L Monocytes % (1.7 - 9.3 %) 3.2 Eosinophils % (0 - 5 %) 0.8 Basophils % (0.0 - 2.0 %) 0.1 Absolute Granulocytes (1.4 - 6.5 /CUMM) 16.8 H Segmented Neutrophils (42.2 - 75.2 %) 85 H Band Neutrophils (0.0 - 5.0 %) 8 H Absolute Lymphocytes (1.2 - 3.4 /CUMM) 0.8 L Lymphocytes (20.5 - 51.1 %) 5 L Monocytes (1.7 - 9.3 %) 2 Absolute Monocytes (0.10 - 0.60 /CUMM) 0.6 Absolute Eosinophils (0.0 - 0.7 /CUMM) 0.1 Absolute Basophils (0.0 - 0.2 /CUMM) 0 Platelet Estimate (ADEQUATE) VERIFIED BY SMEAR Polychromasia 1+ Poikilocytosis 2+ Anisocytosis 1+ Jarrod Cells 2+ / 0830 Chemistry Sodium (137 - 145 mmol/L) 127 L Potassium (3.5 - 5.1 mmol/L) 3.6 Chloride (98 - 107 mmol/L) 94 L Carbon Dioxide (22 - 30 mmol/L) 21 L Anion Gap (5 - 16) 12 BUN (9 - 20 mg/dL) 14 Creatinine (0.7 - 1.2 mg/dL) 1.2 Estimated GFR (>60 ml/min) > 60 BUN/Creatinine Ratio (7 - 25 %) 11.7 Hematology CBC w Diff MAN DIFF ORDERED WBC (4.8 - 10.8 /CUMM) 32.0 *H RBC (4.70 - 6.10 /CUMM) 2.84 L Hgb (14.0 - 18.0 G/DL) 8.9 L Hct (42 - 52 %) 26.1 L MCV (80.0 - 94.0 FL) 92.0 MCH (27.0 - 31.0 PG) 31.5 H MCHC (33.0 - 37.0 G/DL) 34.2 RDW (11.5 - 14.5 %) 17.5 H Plt Count (130 - 400 /CUMM) 374 MPV (7.4 - 10.4 FL) 8.2 Gran % (42.2 - 75.2 %) 97.5 H Lymphocytes % (20.5 - 51.1 %) 1.3 L Monocytes % (1.7 - 9.3 %) 0.9 L Eosinophils % (0 - 5 %) 0.3 Basophils % (0.0 - 2.0 %) 0 Absolute Granulocytes (1.4 - 6.5 /CUMM) 31.2 H Segmented Neutrophils (42.2 - 75.2 %) 81 H Band Neutrophils (0.0 - 5.0 %) 14 H Absolute Lymphocytes (1.2 - 3.4 /CUMM) 0.4 L Lymphocytes (20.5 - 51.1 %) 4 L Monocytes (1.7 - 9.3 %) 1 L Absolute Monocytes (0.10 - 0.60 /CUMM) 0.3 Absolute Eosinophils (0.0 - 0.7 /CUMM) 0.1 Absolute Basophils (0.0 - 0.2 /CUMM) 0 Platelet Estimate (ADEQUATE) VERIFIED BY SMEAR Polychromasia 1+ Poikilocytosis 2+ Anisocytosis 1+ [place] Cells 2+ Microbiology Date/Time Procedure - Status Source Growth 01/07 1416 Clostridium difficile Toxin A & B - COLB STOOL 01/07 1131 Clostridium difficile Toxin A & B - RECD STOOL 01/05 2038 Blood Culture - RES BLOOD 01/06 1952 Blood Culture - RES BLOOD Impression/Plan Impression/Plan Impression/Plan: This is a 62yo male with a Hx of Longstanding Chronic Venous and Lymphatic insufficiency, with a Nonhealing Circumferential Right LE wound. Has sig cellulitis of his leg Sacral decub Djd Hip Ongoing cellulitis with sepsis MRI non revealing BPH, depression stable Elevated wbc Loose stool yesterday PLAN Cont all meds and unasyn Stool for cdiff Cont wound care ID/vascular/Wound care team involved
--- NOTE | 2018-01-08 12:56 | PN- Housestaff ---
Subjective Follow-up For: -R LE cullulitis -Right suspected OM -hyponatremia -HL Subjective: Seen and examined be resting comfortably. White count improving. Afebrile overnight.He had one loose stool reported yesterday but denies any further diarrhea and has had no nausea, vomiting or abdominal pain. Review of Systems Constitutional: Reports: see HPI. Objective Last 24 Hrs of Vital Signs/I&O Vital Signs Date Time Temp Pulse Resp B/P B/P Pulse O2 O2 Flow FiO2 Mean Ox Delivery Rate 01/08 0906 73 115/63 01/08 0654 97.7 73 20 115/63 92 Room Air 01/07 2200 97.7 72 20 106/58 100 Room Air 01/07 1440 98.3 88 20 122/70 100 Room Air Intake & Output 01/08 1600 01/08 0800 01/08 0000 Intake Total 540 240 Output Total 400 350 Balance 140 -110 Intake, IV 300 Intake, Oral 240 240 Output, Urine 400 350 Patient 200 lb Weight Physical Exam General Appearance: Alert, Oriented X3, Cooperative Other Physical Findings: Lungs are clear Heart regular rhythm with no murmur Abdomen is soft, nontender with positive bowel sounds Extremities right leg with decreased edema and erythema; ulcer unchanged Last 24 Hrs of Lab/Lukas Results Last 24 Hrs of Labs/Mics: Laboratory Tests 01/08/18 0720: Anion Gap 11, Estimated GFR > 60, BUN/Creatinine Ratio 18.0, CBC w Diff MAN DIFF ORDERED, RBC 2.75 L, MCV 91.7, MCH 32.2 H, MCHC 35.1, RDW 17.3 H, MPV 7.9, Gran % 91.8 H, Lymphocytes % 4.1 L, Monocytes % 3.2, Eosinophils % 0.8, Basophils % 0.1, Absolute Granulocytes 16.8 H, Segmented Neutrophils 85 H, Band Neutrophils 8 H, Absolute Lymphocytes 0.8 L, Lymphocytes 5 L, Monocytes 2, Absolute Monocytes 0.6, Absolute Eosinophils 0.1, Absolute Basophils 0, Platelet Estimate VERIFIED BY SMEAR, Polychromasia 1+, Poikilocytosis 2+, Anisocytosis 1+, Jarrod Cells 2+ Microbiology 01/07 1416 STOOL: Clostridium difficile Toxin A & B - COLB Assessment/Plan Assessment: He was admitted to general medicine floor for treatment of following problems. # right lower extremity ulceration with necrosis, possible cellulitis. suspected osteomyelitis. As per the x-ray, findings were suggestive of chronic osteomyelitis, we will obtain an MRI of the right lower extremities to rule out osteomyelitis. -Baseline ESR and CRP elevated. - Continue IV Unasyn -MRI negative for osteoarthritis -Continue to elevate legs. Continue local wound care. #hyponatremia He was found to be 124, patient did not have any symptoms, and time IV furosemide 20 mg was given, continue to monitor sodium, get urinary lites, serum osmolality to find out the etiology of hyponatremia. -Today's sodium is 133 #hyperlipidemia : ct lipitor Ct prozac, flomax,ecotrin that are home medications. Problem List: 1. Chronic wound of extremity Pain Ratin Pain Location: legs Pain Goal: Pain 4 or less Pain Plan: prn Tomorrow's Labs & Rationales: cbc bep
[2018-01-08 14:49] VITALS: BP 120/60
[2018-01-08 21:44] VITALS: BP 130/50
[2018-01-09 07:00] VITALS: BP 135/63
[2018-01-09 08:44] LABS: ABSOLUTE BASOPHIL COUNT 0.1 /CUMM (0.0-0.2); ABSOLUTE EOSINOPHIL COUNT 0.1 /CUMM (0.0-0.7); ABSOLUTE LYMPH COUNT 0.9 /CUMM (1.2-3.4); ABSOLUTE MONOCYTE COUNT 0.5 /CUMM (0.10-0.60); BASOPHIL % 0.5 % (0.0-2.0); EOSINOPHIL % 0.9 % (0-5); GRANULOCYTE % 85.6 % (42.2-75.2); HEMATOCRIT 24.3 % (42-52); MEAN CORPUSCULAR HGB 30.9 PG (27.0-31.0); MEAN CORPUSCULAR HGB CONC 33.7 G/DL (33.0-37.0); MEAN CORPUSCULAR VOLUME 91.8 FL (80.0-94.0); MEAN PLATELET VOLUME 7.6 FL (7.4-10.4); PLATELET COUNT 355 /CUMM (130-400); RBC DISTRIBUTION WIDTH 17.5 % (11.5-14.5); RED BLOOD CELL CT 2.65 /CUMM (4.70-6.10); WHITE BLOOD CELL COUNT 10.5 /CUMM (4.8-10.8)
--- NOTE | 2018-01-09 11:11 | PN- Att Addend ---
Attending Addendum Attending Brief Note No major issues over the weekend. Vital signs are stable no fever last white count 10,500. Appreciate Dr. Neumann's input and recommendations. Vascular Dr. to see patient before discharge to write a note so he can be able later on to have orthopedic procedure for his hip problem. Check with ID regarding if the patient needs home antibiotic therapy patient also to follow with wound Center patient wishes no rehabilitation despite being weak and one half physical therapy check the patient before discharge. Intake & Output 01/09 1600 01/09 0400 01/08 1600 01/08 0400 01/07 1600 01/07 0400 Intake Total 149 920 5960 240 1010 580 Output Total 350 350 925 350 550 250 Balance 250 -100 525 -110 460 330 Intake, IV 200 130 410 210 100 Intake, Oral 128 101 7137 240 800 480 Number 1 1 1 Bowel Movements Output, Urine 350 350 925 350 550 250 Patient 200 lb Weight Current Medications Sig/Alexus Start time Last Medication Dose Route Stop Time Status Admin Acetaminophen 650 MG Q6 01/05 2359 AC 01/09 PO 0609 Ampicillin Sodium/ 1,500 MG Q6H 01/07 0100 AC 01/09 Sulbactam Sodium IV 0609 Sodium Chloride 100 ML Aspirin Buffered 81 MG DAILY 01/06 09 AC 01/09 PO 0920 Atorvastatin Calcium 80 MG 1700 01/06 1700 AC 01/08 PO 1650 Enoxaparin Sodium 40 MG DAILY 01/06 0900 AC 01/09 SC 0920 Fluoxetine HCl 20 MG DAILY 01/06 0900 AC 01/09 PO 0920 Ibuprofen 600 MG .STK-MED ONE 01/09 0258 DC PO 01/09 0259 Ibuprofen 600 MG .STK-MED ONE 01/08 1649 DC PO 01/08 1650 Ibuprofen 600 MG Q6P PRN 01/05 2315 AC 01/09 PO 0920 Oxycodone/ 1 TAB Q6P PRN 01/05 2315 AC 01/08 Acetaminophen PO 2114 Potassium Chloride 60 MEQ 1115 01/09 1115 AC PO 01/09 1116 Potassium Chloride 40 MEQ ONCE ONE 01/09 0715 DC 01/09 PO 01/09 0716 0920 Sodium Hypochlorite 1 JANAE BID 01/08 2100 AC 01/09 TOP 0922 Tamsulosin HCl 0.4 MG DAILY 01/06 09 AC 01/09 PO 0920 Laboratory Tests 01/09/18 0656: Anion Gap 9, Estimated GFR > 60, BUN/Creatinine Ratio 16.7, CBC w Diff NO MAN DIFF REQ, RBC 2.65 L, MCV 91.8, MCH 30.9, MCHC 33.7, RDW 17.5 H, MPV 7.6, Gran % 85.6 H, Lymphocytes % 8.5 L, Monocytes % 4.5, Eosinophils % 0.9, Basophils % 0.5, Absolute Granulocytes 9.0 H, Absolute Lymphocytes 0.9 L, Absolute Monocytes 0.5, Absolute Eosinophils 0.1, Absolute Basophils 0.1 01/08/18 0720: Anion Gap 11, Estimated GFR > 60, BUN/Creatinine Ratio 18.0, CBC w Diff MAN DIFF ORDERED, RBC 2.75 L, MCV 91.7, MCH 32.2 H, MCHC 35.1, RDW 17.3 H, MPV 7.9, Gran % 91.8 H, Lymphocytes % 4.1 L, Monocytes % 3.2, Eosinophils % 0.8, Basophils % 0.1, Absolute Granulocytes 16.8 H, Segmented Neutrophils 85 H, Band Neutrophils 8 H, Absolute Lymphocytes 0.8 L, Lymphocytes 5 L, Monocytes 2, Absolute Monocytes 0.6, Absolute Eosinophils 0.1, Absolute Basophils 0, Platelet Estimate VERIFIED BY SMEAR, Polychromasia 1+, Poikilocytosis 2+, Anisocytosis 1+, [place] Cells 2+ 01/07/18 0830: Anion Gap 12, Estimated GFR > 60, BUN/Creatinine Ratio 11.7, CBC w Diff MAN DIFF ORDERED, RBC 2.84 L, MCV 92.0, MCH 31.5 H, MCHC 34.2, RDW 17.5 H, MPV 8.2, Gran % 97.5 H, Lymphocytes % 1.3 L, Monocytes % 0.9 L, Eosinophils % 0.3, Basophils % 0, Absolute Granulocytes 31.2 H, Segmented Neutrophils 81 H, Band Neutrophils 14 H, Absolute Lymphocytes 0.4 L, Lymphocytes 4 L, Monocytes 1 L , Absolute Monocytes 0.3, Absolute Eosinophils 0.1, Absolute Basophils 0, Platelet Estimate VERIFIED BY SMEAR, Polychromasia 1+, Poikilocytosis 2+, Anisocytosis 1+, [place] Cells 2+ Microbiology 01/07 1416 STOOL: Clostridium difficile Toxin A & B - CAN Cancelled: 01/07 113 STOOL: Clostridium difficile Toxin A & B - COMP Microbiology 01/07 1416 STOOL: Clostridium difficile Toxin A & B - CAN Cancelled: 01/07 1131 STOOL: Clostridium difficile Toxin A & B - COMP Vital Signs Date Time Temp Pulse Resp B/P B/P Pulse O2 O2 Flow FiO2 Mean Ox Delivery Rate 01/09 0920 71 135/63 01/09 0700 97.6 71 20 135/63 100 Room Air 01/08 2144 97.6 81 20 130/50 98 Room Air 01/08 1449 98.0 81 20 120/60 100 Room Air
--- NOTE | 2018-01-09 11:34 | PN- Housestaff ---
Subjective Follow-up For: -R LE cullulitis -Right suspected OM -hyponatremia -HL -chronic venous insufficiency b/l LE -Chronic venour ulcers - nonhealing Subjective: I have seen and examined the patient today morning. He seems to be doing okay ,however is adamant not to go to STR, even though he is assist of 2 and doesn't have any help. Mysleves along with kennel manager Zaki and her Najma has an extensive discussion, about how unsafe it is for him to go home and he needs to seriously consider STR for physical therapy to get him more stronger, and then go home. After prolonged discussion , he was agreeable and anticpate d/c to STR tmrw. Review of Systems Constitutional: Reports: see HPI. Objective Last 24 Hrs of Vital Signs/I&O Vital Signs Date Time Temp Pulse Resp B/P B/P Pulse O2 O2 Flow FiO2 Mean Ox Delivery Rate 01/09 0920 71 135/63 01/09 0700 97.6 71 20 135/63 100 Room Air 01/08 2144 97.6 81 20 130/50 98 Room Air 01/08 1449 98.0 81 20 120/60 100 Room Air Intake & Output 01/09 1600 04 0800 06/ 0000 Intake Total 600 250 Output Total 350 350 Balance 250 -100 Intake, IV 200 130 Intake, Oral 400 120 Number 1 Bowel Movements Output, Urine 350 350 Physical Exam General Appearance: Alert, Oriented X3, Cooperative, No Acute Distress Skin: superficial ulceration all around the right lower extremity below the knee , overlyign pus,surrounding swelling +, stage 1 pressure ulcers at the coccygeal area Neck: Supple, No JVD Lymphatic: Axillary nl Cardiovascular: Regular Rate, Normal S1, Normal S2, No Murmurs Lungs: Clear to Auscultation, Normal Air Movement Abdomen: Normal Bowel Sounds, Soft, No Tenderness Extremities: No Clubbing, No Cyanosis, No Edema, Normal Pulses Current Medications: Current Medications Sig/Alexus Start time Last Medication Dose Route Stop Time Status Admin Acetaminophen 650 MG Q6 01/05 2359 AC 01/09 PO 1703 Amoxicillin/ 875 MG Q12 01/09 1300 AC / Clavulanate Potassium PO 1435 Ampicillin Sodium/ 1,500 MG Q6H 01/07 0100 DC 01/09 Sulbactam Sodium IV 1239 Sodium Chloride 100 ML Aspirin Buffered 81 MG DAILY 06/01 0900 AC 01/09 PO 0920 Atorvastatin Calcium 80 MG 1700 01/06 1700 AC 01/09 PO 1702 Enoxaparin Sodium 40 MG DAILY 01/06 900 AC 01/09 SC 0920 Fluoxetine HCl 20 MG DAILY 01/06 09 AC 01/09 PO 0920 Ibuprofen 600 MG .STK-MED ONE 01/09 0917 DC PO 01/09 0918 Ibuprofen 600 MG .STK-MED ONE 01/09 0258 DC PO 01/09 0259 Ibuprofen 600 MG Q6P PRN 01/05 2315 AC 01/09 PO 0920 Oxycodone/ 1 TAB Q6P PRN 01/05 2315 AC 01/09 Acetaminophen PO 1439 Potassium Chloride 40 MEQ ONCE ONE 01/09 1145 DC 01/09 PO 01/09 1146 1142 Potassium Chloride 60 MEQ 1115 01/09 1115 DC PO 01/09 1116 Potassium Chloride 40 MEQ ONCE ONE 01/09 0715 DC 01/09 PO 01/09 0716 0920 Sodium Hypochlorite 1 JANAE BID 01/08 2100 AC 01/09 TOP 0922 Tamsulosin HCl 0.4 MG DAILY 01/06 09 AC 01/09 PO 0920 Last 24 Hrs of Lab/Lukas Results Last 24 Hrs of Labs/Mics: Laboratory Tests 01/09/18 0656: Anion Gap 9, Estimated GFR > 60, BUN/Creatinine Ratio 16.7, CBC w Diff NO MAN DIFF REQ, RBC 2.65 L, MCV 91.8, MCH 30.9, MCHC 33.7, RDW 17.5 H, MPV 7.6, Gran % 85.6 H, Lymphocytes % 8.5 L, Monocytes % 4.5, Eosinophils % 0.9, Basophils % 0.5, Absolute Granulocytes 9.0 H, Absolute Lymphocytes 0.9 L, Absolute Monocytes 0.5, Absolute Eosinophils 0.1, Absolute Basophils 0.1 Lines/Diet/Fluids Restraints: none Assessment/Plan Assessment: Mr leal is 62-year-old male with past medical history of peripheral vascular disease, Mediterranean anemia, chronic bilateral lower extremity ulcers status post a and skin graft 5 years ago followed by dr Saini, 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 Han came in with chief complaint of worsening leg ulcers since a few weeks prior to presentation associated with greenish discharge. He was afebrile, pulse of 86, respiration of 20, blood pressure 138/83, he was saturating 100% on room air. On presentation he had a white count of 9.2, with 80% granulocytes, ESR of 73, C -reactive protein of 4, electrolytes sodium of 124, potassium of 4, urine/ creatinine of 5/0.8 X-ray tibia/fibula showed or prominent subperiosteal new bone formation along the shaft of the right tibia and fibula demonstrating bony destruction, indicative of chronic osteomyelitis. Lower extremity venous Doppler did not show any evidence of deep vein thrombosis. He was admitted to general medicine floor for treatment of following problems. Problem #1 right lower extremity ulceration with necrosis associated cellulitis. * continue to follow cultures * Vascular surgery consult appreciated for chronic venous ulcers. * They recommend venography and intravascular ultrasound of his deep venous system as OP as recent venous ultrasoudn didnot show any superficial reflex. #2 Avascular necrosis of B/l Hip 2/2 to steroid Usage * Vascular surgery saw him today. * As per Dr Desai - He will be high risk for hip surgery due to open wound and therefore risks benefits and alternatives would need to be weighed by the orthopedic service and the patient, however this will done as OP and they recommend a tissue culture prior to intervention in addition to a course at the wound Center to help the wound granulate better if surgery can be deferred. #3 Right Lower extremity Cellultis * continue local wound care by placing Aquacel on the wounds and wrapping the patient circumferentially with Kerlix and Lewis. * to be changed every 2 days. * Ct iv Ax, will switch to PO to complete total of 5 days * ID consult appreciated. #4 suspected osteomyelitis - ruled out by MRI * As per the x-ray, findings were suggestive of chronic osteomyelitis, we will obtain an MRI of the right lower extremities to rule out osteomyelitis. Baseline ESR and CRP elevated. Will obtain MRI report and further management based on the findings on MRI. Continue to elevate legs. Continue local wound care. #5 hyponatremia * He was found to be 124, patient did not have any symptoms, and time IV furosemide 20 mg was given, continue to monitor sodium, get urinary lites, serum osmolality to find out the etiology of hyponatremia. #6 hyperlipidemia : ct lipitor Ct prozac, flomax,ecotrin that are home medications. DVT Px with enoxaparin. Regular diet. Full code. Problem List: 1. Peripheral edema 2. Hyponatremia 3. Osteomyelitis 4. Cellulitis of right leg 5. Stasis ulcer of right lower extremity 6. Chronic wound of extremity Pain Ratin Pain Location: lower extremity Pain Goal: Remain pain free Pain Plan: current mx Tomorrow's Labs & Rationales: hypokalemia Discharge Plan Discharge Disposition: STR/NH Stable for Discharge? No Anticipated Discharge (Day): tomorrow If Discharged Today/In 24 Hrs: enter [facility] discharge ord, W-10/discharge paper done, DC summary done, CMR done
--- NOTE | 2018-01-09 11:52 | PN- Infect Dx ---
Subjective Subjective: Afebrile without complaints Objective Last 24 Hrs of Vital Signs/I&O Vital Signs Date Time Temp Pulse Resp B/P B/P Pulse O2 O2 Flow FiO2 Mean Ox Delivery Rate 01/09 0920 71 135/63 01/09 0700 97.6 71 20 135/63 100 Room Air 01/08 2144 97.6 81 20 130/50 98 Room Air 01/08 1449 98.0 81 20 120/60 100 Room Air Intake & Output 01/09 1600 01/09 0800 01/09 0000 Intake Total 600 250 Output Total 350 350 Balance 250 -100 Intake, IV 200 130 Intake, Oral 400 120 Number 1 Bowel Movements Output, Urine 350 350 Physical Exam Other Physical Findings: He appears comfortable in no acute distress Extremities right leg ulcer clean, with no surrounding erythema and with decreased edema; necrotic eschars remain Results Last 24 Hours of Lab Results: Laboratory Tests 01/09 0656 Chemistry Sodium (137 - 145 mmol/L) 133 L Potassium (3.5 - 5.1 mmol/L) 3.2 L Chloride (98 - 107 mmol/L) 102 Carbon Dioxide (22 - 30 mmol/L) 23 Anion Gap (5 - 16) 9 BUN (9 - 20 mg/dL) 15 Creatinine (0.7 - 1.2 mg/dL) 0.9 Estimated GFR (>60 ml/min) > 60 BUN/Creatinine Ratio (7 - 25 %) 16.7 Hematology CBC w Diff NO MAN DIFF REQ WBC (4.8 - 10.8 /CUMM) 10.5 RBC (4.70 - 6.10 /CUMM) 2.65 L Hgb (14.0 - 18.0 G/DL) 8.2 L Hct (42 - 52 %) 24.3 L MCV (80.0 - 94.0 FL) 91.8 MCH (27.0 - 31.0 PG) 30.9 MCHC (33.0 - 37.0 G/DL) 33.7 RDW (11.5 - 14.5 %) 17.5 H Plt Count (130 - 400 /CUMM) 355 MPV (7.4 - 10.4 FL) 7.6 Gran % (42.2 - 75.2 %) 85.6 H Lymphocytes % (20.5 - 51.1 %) 8.5 L Monocytes % (1.7 - 9.3 %) 4.5 Eosinophils % (0 - 5 %) 0.9 Basophils % (0.0 - 2.0 %) 0.5 Absolute Granulocytes (1.4 - 6.5 /CUMM) 9.0 H Absolute Lymphocytes (1.2 - 3.4 /CUMM) 0.9 L Absolute Monocytes (0.10 - 0.60 /CUMM) 0.5 Absolute Eosinophils (0.0 - 0.7 /CUMM) 0.1 Absolute Basophils (0.0 - 0.2 /CUMM) 0.1 Last 24 Hours of Lukas Results: Blood cultures January 05 negative Stool C. difficile January 07 negative Assessment/Plan ID Impression: Stable, with temperatures remaining normal and white blood cell count also now normal, on Unasyn Day 3 of treatment for cellulitis of the right leg secondary to a chronic, nonhealing ulcer. The elevated white blood cell count over 30,000 2 days ago is difficult to explain but suspect that it was real as it remained elevated, though decreased, yesterday and, therefore, suspect that it was secondary to his right leg inflammation. Suggestion: 1. Discontinue Unasyn 2. Begin Augmentin 875 mg p.o. every 12 hours for 4 days
[2018-01-09] MEDS ORDERED: AUGMENTIN 875-1 EACH PO (12:53)
--- NOTE | 2018-01-09 12:54 | Patient Discharge Instructions ---
Discharge Instructions General Discharge Information You were seen/treated for: cellulitis Special Instructions: please follow up with your PCP within one week of discharge. please continue to take your antibiocis as prescribed. please continue wound care. Diet Continue normal diet: Yes Acute Coronary Syndrome Inclusion Criteria At DC or during hospital stay patient has or had the following: ACS DIAGNOSIS No Discharge Core Measures Meds if any: Prescribed or Continued at Discharge Meds if any: NOT Prescribed or Continued at Discharge Congestive Heart Failure Inclusion Criteria At DC or during hospital stay patient has or had the following: CHF DIAGNOSIS No Discharge Core Measures Meds if any: Prescribed or Continued at Discharge Meds if any: NOT Prescribed or Continued at Discharge Cerebrovascular accident Inclusion Criteria At DC or during hospital stay patient has or had the following: CVA/TIA Diagnosis No Discharge Core Measures Meds if any: Prescribed or Continued at Discharge Meds if any: NOT Prescribed or Continued at Discharge Venous thromboembolism Inclusion Criteria VTE Diagnosis No VTE Type NONE VTE Confirmed by (Test) NONE Discharge Core Measures - Per Current guidelines, there needs to be overlap - treatment for the first 5 days of Warfarin therapy. - If discharged on Warfarin prior to 5 days of - overlap therapy, the patient will need to be - assessed for post discharge needs including - *Post discharge parental anticoagulation - *Warfarin and/or parental anticoagulation education - *Follow up date to check INR post discharge At least 5 days overlap therapy as Inpatient No Meds if any: Prescribed or Continued at Discharge Note: Overlap Therapy is Warfarin and Anticoagulant Meds if any: NOT Prescribed or Continued at Discharge
--- NOTE | 2018-01-09 13:28 | Discharge Summary ---
Visit Information Visit Dates Admission Date: 01/05/18 Discharge Date: 01/10 Hospital Course Course Attending Physician: Stanton Flannery MD Primary Care Physician: Stanton Flannery MD Hospital Course: Mr. Jaimes is a 62-year-old man with past medical history of peripheral vascular disease, Mediterranean anemia chronic bilateral lower extremity ulcer status post debridement and skin graft 5 years [address] followed by Dr. Saini , and steroid-induced avascular necrosis of bilateral hips followed by Dr. Han, presented to [place] emergency department with chronic leg ulcers bilaterally with the right lower extremity ulceration and worsening swelling associated with greenish discharge. On presentation he was afebrile with temperature of 98.3, heart rate of 86, respiratory rate of 20, blood pressure 130/83, he was saturating 100% on room air. He was found to have a white count of 13.4, H/H of 10.2/13.0, platelet of 378. He was also found to have a sodium of 124, bicarbonate of 91, carbon dioxide of 20, LFTs were negative, C-reactive protein was 4.0, H/H was 9.5. X-ray of the right tibia and fibula showed questionable chronic osteomyelitis. Doppler of the right lower extremity ruled out any deep vein thrombosis. He was admitted to general medicine floor for the treatment of following problems. Problem #1 right lower extremity ulceration with necrosis, possible cellulitis. Patient's right lower extremities was found to be swollen with pus along the circumferential Chronic venous ulceration that he had below the right knee almost onto the ankle in a circumferential manner. Due to infected-looking wound and slightly elevated white count he was started on IV Unasyn for treatment of right lower extremity cellulitis. Infectious disease was consulted. There was a concern for osteomyelitis therefore an MRI tibia/fibula was done. The MRI did not show any bone marrow edema or any fluid collection and did not show any evidence of osteomyelitis, even though the study was limited due to being done without contrast. Repeat CBCs on day 2 did show an elevated white count up to 32.0, however there was no obvious explanation and subsequent white count continued to trend down while on IV Unasyn. He did not show any growth on blood cultures until day 1 and the cultures will be monitored continuously for a total of 5 days. The Unasyn was changed to by mouth by mouth Augmentin to complete reamaining two and half days for a total of 7 days of antibiotic course. #2 Suspected osteomyelitis. As per x-ray tibia fibula of the right side, there was finding suggestive of chronic osteomyelitis however MRI without contrast did not show any specific findings indicating osteomyelitis. Baseline ESR and CRP were elevated however in absence of any bone involvement, he was treated for cellulitis and suspicion of osteomyelitis was ruled out. #3 hyponatremia. He was found to be hyponatremic with a sodium of 124, on presentation he was given one time of IV Lasix, he was continued on IV hydration, sodium continued to improve and was elevated up to 133 on the day of discharge. #4 hypokalemia. Patient was found to be hypokalemic during the hospital course was repleted and continuously monitored for hypokalemia. The reason for hypokalemia was not very clear, his kidney functions were within normal limits, potassium was monitored and repleted as needed. He was full code while in hospital. DVT prophylaxis was given with Lovenox. He was continued on heart healthy diet. Allergies: Coded Allergies: NO KNOWN ALLERGIES (11/24/11) NKA PER ANTIBIOTIC ORDER SHEET - SJS Pertinent Lab Results: SERVICE DATE: 01/05/18 EXAM TYPE: RAD - [id number], RIGHT EXAMINATION: XR TIBIA AND FIBULA, RIGHT CLINICAL INFORMATION: Chronic wound. Concern for osteomyelitis. COMPARISON: 08/19/2017. TECHNIQUE: AP and lateral views of the right tibia and fibula were obtained. FINDINGS: There is again noted to be subperiosteal new bone formation along the shafts of the tibia and fibula. This is slightly progressed in comparison to prior exam. No acute bony destruction is identified. There is no ankle joint effusion. IMPRESSION: More prominent subperiosteal new bone formation along the shafts of the right tibia and fibula. There is no demonstrable bony destruction. This appearance is nonspecific, though could be indicative of chronic osteomyelitis. If there is clinical concern for osteomyelitis, consider correlation with MRI. SERVICE DATE: 01/05/18 EXAM TYPE: US - US-UNILATERAL VENOUS DOPPLER EXAMINATION: US TRIPLEX LOWER EXTREMITY, RIGHT CLINICAL INFORMATION: 62-year-old man with right leg swelling. COMPARISON: None TECHNIQUE: Color-flow triplex imaging with spectral analysis and compression Doppler were performed on the lower extremity. FINDINGS: The study is felt to be extremely limited. Respiratory variation, normal compression and augmented flow are noted throughout the lower extremity. The visualized common femoral vein, superficial femoral vein, and profunda femoral vein show no evidence of deep venous thrombosis. The popliteal vein and calf veins were not well visualized. There is no Grimaldo's cyst. IMPRESSION: Limited exam demonstrates no evidence of deep venous thrombosis. SERVICE DATE: 01/06/18- EXAM TYPE: MRI - MRI-RT TIBIA-FIBULA W/O CAR EXAMINATION: MRI RIGHT TIB-FIB WITHOUT GADOLINIUM CLINICAL INFORMATION: Infection. Assess for osteomyelitis COMPARISON: Radiographs 01/05/2018 TECHNIQUE: Multiplanar multisequence MRI of the right tib-fib without contrast. FINDINGS: Lack of contrast limits evaluation. There is no bone marrow signal edema or periosteal reaction to indicate osteomyelitis. T1 signal is preserved throughout. There is considerable atrophy of the musculature as well as significant edema subcutaneously especially posteriorly without any organized fluid collection. No soft tissue mass. IMPRESSION: Limited imaging as above without IV contrast. There is no bone marrow edema or replacement to suggest infection or focal lesion. Nonspecific subcutaneous edema which may related to soft tissue infection. No fluid collection. The recent plain radiographic finding may related to periosteal new bone formation secondary to venous stasis disease as well as possiblyhypertrophic pulmonary osteopathy. Disposition Summary Disposition Principal Diagnosis: #Right lower extremtiy cellultis #chronic venous ulceration b/l #hyponatremia #hypokalemia Additional Diagnosis: #hyperlipidemia Discharge Disposition: SNF Discharge Instructions General Discharge Information Code Status: Full Code Patient's Diet: heart healthy diet Patient's Activity: As Tolerated. Follow-Up Instructions/Appts: please follow up with your PCP within one week of discharge. please follow up with vscular surgery as outpatient. please continue to take your medications as prescribed. Medications at Discharge Discharge Medications: Continue taking these medications: Tamsulosin HCl (Flomax) 0.4 MG CAP.ER.24H 1 Capsule ORAL DAILY Comments: Last Taken: 08/22/17 Time: 0811 Atorvastatin Calcium (Atorvastatin Calcium) 80 MG TABLET 1 Tablet ORAL 5 PM Qty = 60 Instructions: . Comments: Last Taken: 08/21/17 Time: 1635 Ibuprofen (Ibuprofen) 800 MG TABLET 1 Tablet ORAL TWICE DAILY Qty = 60 Aspirin (Ecotrin*) 81 MG TABLET.DR 1 Tablet ORAL DAILY Fluoxetine HCl (Fluoxetine HCl) 20 MG CAPSULE 1 Capsule ORAL DAILY Qty = 90 Oxycodone HCl (Oxycodone HCl) 5 MG TABLET 1-2 Tablet ORAL Q4-6H as needed for PAIN Qty = 36 Start taking the following new medications: Amoxicillin/Potassium Clav (Augmentin 875-125 Tablet) 875 MG-125 MG TABLET 1 Tablet ORAL TWICE DAILY Qty = 2 No Refills Copies To: Erlinda ROTHMAN,Sukhi Deng; Stanton Flannery MD; Lloyd ROTHMAN,Damien Attending MD Review Statement Documenting Attending: Stanton Flannery MD, MD, Carlos
[2018-01-09 14:00] VITALS: BP 135/70
--- NOTE | 2018-01-09 15:44 | PN- Vascular Surgery ---
Subjective Subjective: 62-year-old male with a history of extensive venous insufficiency here for evaluation. He has had a normal arterial workup in the past. He has been admitted with cellulitis and necrosis of his right leg wound. He was seen by my services several years ago and did not follow-up. He now presents for continued wound care . He states his wound began several months ago and is been seen by our services recently. He denies claudication or rest pain. He also is being considered for hip surgery due to degenerative joint disease. There is concern for ongoing infection. He was seen by Dr. Martínez recently in our [place] office. Objective Vital Signs and I&Os Vital Signs Date Time Temp Pulse Resp B/P B/P Pulse O2 O2 Flow FiO2 Mean Ox Delivery Rate 01/09 1141 Room Air 01/09 0920 71 135/63 01/09 0700 97.6 71 20 135/63 100 Room Air 01/08 2144 97.6 81 20 130/50 98 Room Air Intake & Output 01/09 1600 01/09 0800 01/09 0000 01/08 1600 01/08 0800 01/08 0000 Intake Total 800 600 250 910 540 240 Output Total 700 350 350 525 400 350 Balance 100 250 -100 385 140 -110 Intake, IV 200 130 110 300 Intake, Oral 800 400 120 800 240 240 Number 1 1 Bowel Movements Output, Urine 700 350 350 525 400 350 Patient 200 lb Weight Physical Exam: Physical exam reveals a male in no apparent distress. Bilateral lower extremities are well perfused. He has extensive venous stasis changes. He has a near circumferential right leg wound with demented areas of necrosis. He has lipodermatosclerosis consistent with severe venous insufficiency. Assessment/Plan Assessment/Plan 62-year-old male with progressive venous insufficiency and ulceration. 1.) He will be high risk for hip surgery due to open wound. Risks benefits and alternatives would need to be weighed by the orthopedic service and the patient. 2.) Would recommend a tissue culture prior to intervention in addition to a course at the wound Center to help the wound granulate better if surgery can be deferred 3.) Recent venous ultrasound has demonstrated no major superficial reflux. Would benefit from venography and intravascular ultrasound of his deep venous system. If the patient is to be discharged this can be done as an outpatient. 4.) Would continue local wound care by placing Aquacel on the wounds and wrapping the patient circumferentially with Kerlix and Lewis. This likely will need to be changed every 2 days. 5.) This care was discussed with the patient and his who wish to consider these options and follow-up with their decision with Dr. Martínez or at the [facility] [place].
[2018-01-09 22:47] VITALS: BP 130/73
[2018-01-10 07:11] VITALS: BP 138/64
--- NOTE | 2018-01-10 08:07 | PN- Housestaff ---
Subjective Follow-up For: LE cellulitis Complaints: no complaints Subjective: I have seen and examined the patient today morning. stable on po ax today, d/c to STR. Review of Systems Constitutional: Reports: see HPI. Objective Last 24 Hrs of Vital Signs/I&O Vital Signs Date Time Temp Pulse Resp B/P B/P Pulse O2 O2 Flow FiO2 Mean Ox Delivery Rate 01/10 1225 98.0 79 20 138/64 06/05 0922 79 138/64 06/05 0711 98.0 79 20 138/64 100 06/04 2247 98.0 81 20 130/73 100 Room Air Intake & Output 01/10 1600 06/ 0800 06/05 0000 Intake Total 740 240 840 Output Total 700 400 300 Balance 40 -160 540 Intake, Oral 740 240 840 Number 4 Bowel Movements Output, Urine 700 400 300 Physical Exam General Appearance: Alert, Oriented X3, Cooperative Skin: No Significant Lesion Cardiovascular: Normal S1, Normal S2, No Murmurs Lungs: Clear to Auscultation, Normal Air Movement Abdomen: Normal Bowel Sounds, Soft, No Tenderness Extremities: No Clubbing, No Cyanosis, No Edema, Normal Pulses Vascular: Normal Pulses Current Medications: Current Medications Sig/Alxeus Start time Last Medication Dose Route Stop Time Status Admin Acetaminophen 650 MG Q6 01/05 2359 DCD 01/10 PO 1200 Amoxicillin/ 875 MG Q12 01/09 1300 DCD 06 Clavulanate Potassium PO 0921 Aspirin Buffered 81 MG DAILY 01/06 0900 DCD 06 PO 0922 Atorvastatin Calcium 80 MG 1700 01/06 1700 DCD 01/09 PO 1702 Enoxaparin Sodium 40 MG DAILY 01/06 09 DCD 01/10 SC 0923 Fluoxetine HCl 20 MG DAILY 01/06 0900 DCD 06 PO 0921 Ibuprofen 600 MG Q6P PRN 01/05 2315 DCD 01/10 PO 0902 Oxycodone/ 1 TAB Q6P PRN 01/05 2315 DCD 01/10 Acetaminophen PO 0507 Sodium Hypochlorite 1 JANAE BID 01/08 2100 DCD 01/10 TOP 0922 Tamsulosin HCl 0.4 MG DAILY 01/06 0900 DCD 01/10 PO 0922 Assessment/Plan Assessment: Mr leal is 62-year-old male with past medical history of peripheral vascular disease, Mediterranean anemia, chronic bilateral lower extremity ulcers status post a and skin graft 5 years ago followed by dr Saini, 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 Han came in with chief complaint of worsening leg ulcers since a few weeks prior to presentation associated with greenish discharge. He was afebrile, pulse of 86, respiration of 20, blood pressure 138/83, he was saturating 100% on room air. On presentation he had a white count of 9.2, with 80% granulocytes, ESR of 73, C -reactive protein of 4, electrolytes sodium of 124, potassium of 4, urine/ creatinine of 5/0.8 X-ray tibia/fibula showed or prominent subperiosteal new bone formation along the shaft of the right tibia and fibula demonstrating bony destruction, indicative of chronic osteomyelitis. Lower extremity venous Doppler did not show any evidence of deep vein thrombosis. He was admitted to general medicine floor for treatment of following problems. Problem #1 right lower extremity ulceration with necrosis associated cellulitis. * continue to follow cultures * Vascular surgery consult appreciated for chronic venous ulcers. * They recommend venography and intravascular ultrasound of his deep venous system as OP as recent venous ultrasoudn didnot show any superficial reflex. #2 Avascular necrosis of B/l Hip 2/2 to steroid Usage * Vascular surgery saw him today. * As per Dr Desai - He will be high risk for hip surgery due to open wound and therefore risks benefits and alternatives would need to be weighed by the orthopedic service and the patient, however this will done as OP and they recommend a tissue culture prior to intervention in addition to a course at the wound Center to help the wound granulate better if surgery can be deferred. #3 Right Lower extremity Cellultis * continue local wound care by placing Aquacel on the wounds and wrapping the patient circumferentially with Kerlix and Lewis. * to be changed every 2 days. * Ct iv Ax, will switch to PO augmentin to complete total of 7 days * ID consult appreciated. #4 suspected osteomyelitis - ruled out by MRI * As per the x-ray, findings were suggestive of chronic osteomyelitis, we will obtain an MRI of the right lower extremities to rule out osteomyelitis. Baseline ESR and CRP elevated. Will obtain MRI report and further management based on the findings on MRI. Continue to elevate legs. Continue local wound care. #6 hyperlipidemia : ct lipitor Ct prozac, flomax,ecotrin that are home medications. FC heart healthy diet dvt px lovenox Problem List: 1. Peripheral edema 2. Hyponatremia 3. Cellulitis of right leg 4. Stasis ulcer of right lower extremity 5. Chronic wound of extremity Pain Ratin Pain Location: .. Pain Goal: Remain pain free Pain Plan: .. Tomorrow's Labs & Rationales: .. Discharge Plan Discharge Disposition: STR/NH Stable for Discharge? Yes Anticipated Discharge (Day): today If Discharged Today/In 24 Hrs: enter [facility] discharge ord, W-10/discharge paper done, DC summary done, CMR done
--- NOTE | 2018-01-10 10:11 | PN- Att Addend ---
Attending Addendum Attending Brief Note Patient comfortable in bed Vital signs are stable and no fever. Major changes on physical. Patient did not leave the hospital yesterday because physical therapy but it wasn't safe for him to go home area case resolution specialist resident had a long discussion with the patient , and now he agrees to short-term rehabilitation, as soon as bed is available will transfer so will follow sent to the vascular and infectious diseases recommendations Intake & Output 01/10 1600 01/10 0400 01/09 1600 01/09 04001/08 1600 01/08 0400 Intake Total 090 748 1240 250 1450 240 Output Total 789 248 3651 350 925 350 Balance -160 540 350 -100 525 -110 Intake, IV 200 130 410 Intake, Oral 214 103 3490 120 1040 240 Number 1 1 Bowel Movements Output, Urine 218 417 0862 350 925 350 Patient 200 lb Weight Current Medications Sig/Alexus Start time Last Medication Dose Route Stop Time Status Admin Acetaminophen 650 MG Q6 01/05 2359 AC 01/10 PO 0036 Amoxicillin/ 875 MG Q12 01/09 1300 AC 01/10 Clavulanate Potassium PO 0921 Ampicillin Sodium/ 1,500 MG Q6H 01/07 0100 DC 01/09 Sulbactam Sodium IV 1239 Sodium Chloride 100 ML Aspirin Buffered 81 MG DAILY 01/06 09 AC 01/10 PO 0922 Atorvastatin Calcium 80 MG 1700 01/06 1700 AC 01/09 PO 1702 Enoxaparin Sodium 40 MG DAILY 01/06 09 AC 01/10 SC 0923 Fluoxetine HCl 20 MG DAILY 01/06 09 AC 01/10 PO 0921 Ibuprofen 600 MG Q6P PRN 01/05 2315 01/10 PO 0902 Oxycodone/ 1 TAB Q6P PRN 01/05 2315 AC 01/10 Acetaminophen PO 0507 Potassium Chloride 40 MEQ ONCE ONE 01/09 1145 DC 01/09 PO 01/09 1146 1142 Potassium Chloride 60 MEQ 1115 01/09 1115 DC PO 01/09 1116 Sodium Hypochlorite 1 JANAE BID 01/08 2100 01/10 TOP 0922 Tamsulosin HCl 0.4 MG DAILY 01/06 09 AC 01/10 PO 0922 Laboratory Tests 01/09/18 0656: Anion Gap 9, Estimated GFR > 60, BUN/Creatinine Ratio 16.7, CBC w Diff NO MAN DIFF REQ, RBC 2.65 L, MCV 91.8, MCH 30.9, MCHC 33.7, RDW 17.5 H, MPV 7.6, Gran % 85.6 H, Lymphocytes % 8.5 L, Monocytes % 4.5, Eosinophils % 0.9, Basophils % 0.5, Absolute Granulocytes 9.0 H, Absolute Lymphocytes 0.9 L, Absolute Monocytes 0.5, Absolute Eosinophils 0.1, Absolute Basophils 0.1 01/08/18 0720: Anion Gap 11, Estimated GFR > 60, BUN/Creatinine Ratio 18.0, CBC w Diff MAN DIFF ORDERED, RBC 2.75 L, MCV 91.7, MCH 32.2 H, MCHC 35.1, RDW 17.3 H, MPV 7.9, Gran % 91.8 H, Lymphocytes % 4.1 L, Monocytes % 3.2, Eosinophils % 0.8, Basophils % 0.1, Absolute Granulocytes 16.8 H, Segmented Neutrophils 85 H, Band Neutrophils 8 H, Absolute Lymphocytes 0.8 L, Lymphocytes 5 L, Monocytes 2, Absolute Monocytes 0.6, Absolute Eosinophils 0.1, Absolute Basophils 0, Platelet Estimate VERIFIED BY SMEAR, Polychromasia 1+, Poikilocytosis 2+, Anisocytosis 1+, Jarrod Cells 2+ Microbiology 01/07 1416 STOOL: Clostridium difficile Toxin A & B - CAN Cancelled: 01/07 113 STOOL: Clostridium difficile Toxin A & B - COMP Microbiology 01/07 141 STOOL: Clostridium difficile Toxin A & B - CAN Cancelled: 01/07 113 STOOL: Clostridium difficile Toxin A & B - COMP Vital Signs Date Time Temp Pulse Resp B/P B/P Pulse O2 O2 Flow FiO2 Mean Ox Delivery Rate 01/10 0922 79 138/64 01/10 0711 98.0 79 20 138/64 100 /04 2247 98.0 81 20 130/73 100 Room Air / 1400 97.6 79 20 135/70 100 Room Air 01/09 1141 Room Air Follow-up his potassium.
[2018-01-10] MEDS ORDERED: AUGMENTIN 875-1 EACH PO ×2 (10:15→12:11)
--- NOTE | 2018-01-10 11:57 | PN- Infect Dx ---
Subjective Subjective: Afebrile without complaints Objective Last 24 Hrs of Vital Signs/I&O Vital Signs Date Time Temp Pulse Resp B/P B/P Pulse O2 O2 Flow FiO2 Mean Ox Delivery Rate 01/10 0922 79 138/64 01/10 0711 98.0 79 20 138/64 100 01/09 2247 98.0 81 20 130/73 100 Room Air 01/09 1400 97.6 79 20 135/70 100 Room Air Intake & Output 01/10 1600 01/10 0800 01/10 0000 Intake Total 240 840 Output Total 200 400 300 Balance -200 -160 540 Intake, Oral 240 840 Number 1 Bowel Movements Output, Urine 200 400 300 Physical Exam Other Physical Findings: He appears comfortable in no acute distress Extremities right ankle dressing intact; no significant erythema or edema of the right leg, but with some bilateral venous stasis changes Results Last 24 Hours of Lab Results: Laboratory Tests 01/10 1038 Chemistry Sodium (137 - 145 mmol/L) 129 L Potassium (3.5 - 5.1 mmol/L) 3.8 Chloride (98 - 107 mmol/L) 99 Carbon Dioxide (22 - 30 mmol/L) 22 Anion Gap (5 - 16) 8 BUN (9 - 20 mg/dL) 15 Creatinine (0.7 - 1.2 mg/dL) 0.8 Estimated GFR (>60 ml/min) > 60 BUN/Creatinine Ratio (7 - 25 %) 18.8 Last 24 Hours of Lukas Results: No recent cultures Assessment/Plan ID Impression: Stable, with temperatures and white blood cell count normal, now on Augmentin, Day 4 of treatment for cellulitis of the right leg secondary to a chronic, nonhealing ulcer. Vascular surgery evaluation noted and appreciated. Suggestion: 1. Continue Augmentin for 3 more days
[2018-01-10 12:25] VITALS: BP 138/64
== END 2018-01-10 15:00 | DRG 603 ==
LOC: ERH 18:20 → 2NB 21:19 → ERHI 21:19 → ENRESERV 21:54 → 2NB 01-06 00:27 → ENPENDDIS 01-10 13:13 → 2NB 01-10 15:00
PROVIDERS: Internal Medicine; Physician Assistant Medical; Preventive Medicine Public Health & General Preventive Medicine
DX: L03.115 Cellulitis of right lower limb (principal); L97.819 Non-pressure chronic ulcer of other part of right lower leg with unspecified severity; E87.1 Hypo-osmolality and hyponatremia; I83.218 Varicose veins of right lower extremity with both ulcer of other part of lower extremity and inflammation; M86.661 Other chronic osteomyelitis, right tibia and fibula; E78.5 Hyperlipidemia, unspecified; E87.6 Hypokalemia; Z79.82 Long term (current) use of aspirin; D56.9 Thalassemia, unspecified; I73.9 Peripheral vascular disease, unspecified; I87.2 Venous insufficiency (chronic) (peripheral); L89.309 Pressure ulcer of unspecified buttock, unspecified stage; F12.90 Cannabis use, unspecified, uncomplicated; N40.0 Benign prostatic hyperplasia without lower urinary tract symptoms
CPT/HCPCS: 2NBP; 75654; 84133; 84300; ERO; 36415; 36592; 73590-RT; 81001; 82436; 82570; 87040; 93005; 93010; 97110-GO; 97162-GP; 97530-GO; 99291; J0131; J1650; J1940

== ENCOUNTER 2018-02-13 18:03 | Inpatient (IN) | payer OTHER ==
[~2018-02-13] VITALS: Ht 175.3 cm; Wt 79.4 kg
[~2018-02-13 18:03] MED LIST changes: +ASPIRIN EC81 M1 PO; +FLUOXETINE HCL20 M2 PO; +IBUPROFEN800 M1 PO; +OXYCODONE HCL5 M1 PO
--- NOTE | 2018-02-13 18:28 | ED GENERAL ADULT ---
History of Present Illness General Chief Complaint: General Adult Stated Complaint: ANEMIA/LOW NA Source: patient, family, old records, PCP Exam Limitations: no limitations Vital Signs & Intake/Output Vital Signs & Intake/Output Vital Signs Date Time Temp Pulse Resp B/P B/P Pulse O2 O2 Flow FiO2 Mean Ox Delivery Rate 02/13 1901 Room Air 02/13 1859 75 119/57 02/13 1810 97.5 78 16 125/68 100 Allergies Coded Allergies: NO KNOWN ALLERGIES (11/24/11) NKA PER ANTIBIOTIC ORDER SHEET - SJS Reconcile Medications Amoxicillin/Potassium Clav (Augmentin 875-125 Tablet) 875 MG-125 MG TABLET 1 TAB PO BID cellulitis Aspirin (Ecotrin*) 81 MG TABLET.DR 1 TAB PO DAILY HEART/BLOOD (Reported) Atorvastatin Calcium 80 MG TABLET 1 TAB PO 1700 PVD . Fluoxetine HCl 20 MG CAPSULE 1 CAP PO DAILY MENTAL HEALTH (Reported) Ibuprofen 800 MG TABLET 1 TAB PO BID PAIN/INFLAMMATION (Reported) Oxycodone HCl 5 MG TABLET 1-2 TAB PO Q4-6H PRN PAIN (Reported) Tamsulosin HCl (Flomax) 0.4 MG CAP.ER.24H 1 CAP PO DAILY BPH (Reported) Core Measure Meds Pre-Hospital aspirin Triage Note: PT BIBA A/P DR JACOBO CALLED TO TELL PT TO GO TO THE ER FOR SEVER ANEMIA AND SEVER LOW SODIUM.. PT IS PALE ON ARRIVAL AND [place] PER .. PT ALSO STATES THAT PT HAS HAD DARK BLACK LOOSE STOOL FOR 3 DAYS.. EASILY BRUISING AND LOSS OF APPETITE. PT STATES HE FEELS LIKE ALL HIS BED SORES ARE BACK... PT IS BEDBOUND MONTHS PER DUE TO NEEDING A HIP REPLACEMENT. PT WENT TO PCP TO CLEAR FOR SURGERY. Triage Nurses Notes Reviewed? yes Onset: Just prior to arrival Duration: minute(s):, constant, continues in ED Timing: recent history Injury Environment: home Severity: severe No Modifying Factors: none HPI: Prior to admission patient was at his physician's office for preoperative check. Labs performed and patient called with abnormalities of sodium 117 hemoglobin 15. The patient reports difficulties moving about secondary to hip pain with frequent falls due to inability family to properly assist him. He has also had black tarry stools. He denies fever chills nausea vomiting diarrhea abdominal pain chest pain shortness breath headache dysuria rash. Past History Travel History Traveled to [place] past 21 day No Medical History Any Pertinent Medical History? see below for history Neurological: Arreola's palsy Cardiovascular: chronic venous insuff, PVD Respiratory: NONE Gastrointestinal: NONE Hepatic: NONE Renal: NONE Musculoskeletal: Avascular necrosis both hips Psychiatric: NONE Endocrine: NONE Blood Disorders: anemia Cancer(s): NONE History of MRSA: No History of VRE: No History of CDIFF: No Surgical History Surgical History: vascular/plasitc surgery Psychosocial History Who do you live with Spouse What is your primary language Sammarinese Tobacco Use: Never used Family History Hx Contributory? No Review of Systems Review of Systems Constitutional: Reports: see HPI, weakness. EENTM: Reports: no symptoms. Respiratory: Reports: no symptoms. Cardiovascular: Reports: no symptoms. GI: Reports: see HPI, melena, changes in stool. Genitourinary: Reports: no symptoms. Musculoskeletal: Reports: see HPI, joint pain. Skin: Reports: see HPI. Neurological/Psychological: Reports: no symptoms. Hematologic/Endocrine: Reports: no symptoms. Immunologic/Allergic: Reports: no symptoms. All Other Systems: Reviewed and Negative Physical Exam Physical Exam General Appearance: well developed/nourished, alert, awake, moderate distress Head: atraumatic, normal appearance Eyes: Bilateral: PERRL, EOMI, other (pale conjunctiva). Ears, Nose, Throat: normal pharynx, normal ENT inspection Neck: normal inspection, supple, full range of motion, no midline tenderness Respiratory: normal breath sounds, chest non-tender, no respiratory distress, quiet respiration, lungs clear Cardiovascular: regular rate/rhythm, normal peripheral pulses, norml femoral pulses equa Peripheral Pulses: 4+ carotid (R), 4+ carotid (L) Gastrointestinal: normal bowel sounds, soft, non-tender, no organomegaly Back: decreased range of motion, no vertebral tenderness Extremities: limited range of motion, pedal edema Neurologic/Psych: awake, alert, oriented x 3, normal mood/affect Reflexes: 2+: bicep (R), bicep (L). Skin: ecchymosis, scattered ecchymosis and bruising to forearms legs knees pretibial areas Lymphatic: no anterior cervical chris Core Measures ACS in differential dx? No CVA/TIA Diagnosis: No Sepsis Present: No Sepsis Focused Exam Completed? No Progress Differential Diagnoses I considered the following diagnoses in my evaluation of the patient: Hyponatremia anemia GI bleed Plan of Care: Orders Procedure Date/time Status TYPE & SCREEN (NOT X-MATCH) 02/13 184 Active Patient Data 02/13 1835 Active Admit to inpatient 02/13 1823 Active Current Medications Sig/Alexus Start time Last Medication Dose Stop Time Status Admin Pantoprazole Sodium 40 MG Q5H 02/13 183 UNVr 02/13 (Protonix) 184 Sodium Chloride 100 ML (Normal Saline 0.9%) Sodium Chloride 1,000 ML BOLUS ONE 02/13 1830 AC 02/13 (Normal Saline 0.9%) 02/13 192 184 Diagnostic Imaging: Viewed by Me: Radiology Read. Discussed w/RAD: Radiology Read. Radiology Impression: no acute abnormality Initial ED EKG: none Departure Departure Time of Disposition: 1918 Disposition: HOME OR SELF CARE Condition: Stable Clinical Impression Primary Impression: Hyponatremia Secondary Impressions: JOVANY (acute kidney injury), GI bleed, Symptomatic anemia Referrals: Stanton Flannery MD (PCP/Family) Departure Forms: Customer Survey General Discharge Information Admission Note Spoke With: Stanton Flannery MD Documentation of Exam: Documentation of any treatments & extenuating circumstances including Concerns Regarding Discharge (functional status, medication knowledge or non-compliance, living conditions, etc.) that warrant an admission rather than observation: Transfusion packed red blood cells electrolyte replacement serial lab exam medication adjustment physical therapy ICU monitoring continuing care discharge planning Critical Care Note Critical Care Note Critical Care Time: 30-74 min (40)
--- NOTE | 2018-02-13 18:35 | History & Physical ---
General Information and HPI MD Statement: I have seen and personally examined GRABIEL LIMON and documented this H&P. The patient is a 62 year old M who presented with a patient stated chief complaint of [low sodium and Hb]. Source of Information: patient, family Exam Limitations: no limitations History of Present Illness: Mr. Limon is a 62-year-old man with past medical history of peripheral vascular disease, Mediterranean anemia, chronic bilateral lower extremity ulcer status post debridement and skin graft 5 years [address] Dr[address] Saini , and steroid-induced avascular necrosis of bilateral hips followed by Dr. Han was sent in to [facility] by his PCP after he was found to low H&H and Na on his blood work. Most of the history has been obtained from the . The patient apparently went today to his PCP for a preop clearance for hip replacement for which he was ordered blood work. At baseline, the patient is mostly bed and wheelchair bound due to his hips. The patient was admitted to [facility] last month where he was seen for lower extremity ulceration/cellulitis. He was discharged to [facility] for 2 weeks and he was doing better after that. He has visiting nurses twice/week to change his dressings for his ulcers on lower extremities. For the past week, however, the patient has had a poor appetite and oral intake. He has also been experiencing loose foul smelling black stools for the past week. States taking Ibuprofen and Tramadol for his hip pain. Allergies/Medications Allergies: Coded Allergies: NO KNOWN ALLERGIES (11/24/11) NKA PER ANTIBIOTIC ORDER SHEET - S Home Med list Aspirin (Ecotrin*) 81 MG TABLET.DR 1 TAB PO DAILY HEART/BLOOD (Reported) Atorvastatin Calcium 80 MG TABLET 1 TAB PO 1700 PVD . Fluoxetine HCl 20 MG CAPSULE 1 CAP PO DAILY MENTAL HEALTH (Reported) Ibuprofen 800 MG TABLET 1 TAB PO BID PAIN/INFLAMMATION (Reported) Tamsulosin HCl (Flomax) 0.4 MG CAP.ER.24H 1 CAP PO DAILY BPH (Reported) Tramadol HCl 50 MG TABLET 1 TAB PO Q6P PRN Hip Pain (Reported) Past History Travel History Traveled to [place] past 21 day No Medical History Cardiovascular: chronic venous insuff, PVD Respiratory: NONE Gastrointestinal: NONE Hepatic: NONE Renal: NONE Musculoskeletal: Avascular necrosis both hips Psychiatric: NONE Endocrine: NONE Blood Disorders: anemia Cancer(s): NONE History of MRSA: No History of VRE: No History of CDIFF: No Surgical History Surgical History: vascular/plasitc surgery Past Family/Social History Functional Ability ADLs Independent: dressing, eating, toileting, bathing. Review of Systems Review of Systems Constitutional: Reports: weakness. Denies: chills, fever. EENTM: Reports: no symptoms. Cardiovascular: Reports: peripheral edema. Denies: chest pain. Respiratory: Denies: cough, short of breath. GI: Denies: abdominal pain. Genitourinary: Reports: no symptoms. Musculoskeletal: Reports: joint pain. Skin: Reports: change in skin color, lesions. Neurological/Psychological: Reports: no symptoms. Exam & Diagnostic Data Last 24 Hrs of Vital Signs/I&O Vital Signs Date Time Temp Pulse Resp B/P B/P Pulse O2 O2 Flow FiO2 Mean Ox Delivery Rate 02/13 190 Room Air 02/13 1859 75 119/57 02/13 1810 97.5 78 16 125/68 100 Physical Exam General Appearance Alert, Oriented X3, Cooperative, Mild Distress Skin multiple lesions and oozing wounds on bilateral lower extremities and right upper arm, stage I pressure ulcer involving the sacrum Skin Temp/Moisture Exam: Warm/Dry Sepsis Skin Exam (color): Normal for Ethnicity HEENT Atraumatic Cardiovascular Normal S1, Normal S2, No Murmurs Lungs Normal Air Movement Abdomen Soft, No Tenderness Neurological Normal Speech Extremities bilateral pedal edema Last 24 Hrs of Labs/Lukas: Laboratory Tests 02/13/18 1830: Anion Gap 18 H, Estimated GFR 41 L, BUN/Creatinine Ratio 17.1, TSH 4.980 H, Serum Alcohol Pending Microbiology 02/13 2133 UPPER RESP: Surveillance Culture - RECD 02/13 2130 GI: Surveillance Culture - RECD Assessment/Plan Assessment: Mr. Limon is a 62-year-old man with past medical history of peripheral vascular disease, Mediterranean anemia, chronic bilateral lower extremity ulcer status post debridement and skin graft 5 years ago followed by Dr[address] Saini , and steroid-induced avascular necrosis of bilateral hips followed by Dr. Han was sent in to [facility] by his PCP after he was found to low H&H and Na on his blood work. Assessment: 1. Acute on Chronic Anemia 2. Severe Hyponatremia 3. Hypokalemia 4. JOVANY 5. Lower Extremity Wounds 6. Stage I Pressure Ulcer of the Sacrum Plan: * Admit patient to ICU. * Patient reports using Ibuprofen for pain which could have caused NSAID induced gastritis/ulcers. He does have a history of chronic anemia but has not received transfusions in the past. * Type and Screen * Transfuse 2 units pRBC * IV Protonix BID * GI consult in am with possible endoscopy. Talked to Dr Grant on the phone with recommendations to keep the patient NPO overnight. If the patient deteriorates or becomes hemodynamically unstable, GI to be notified stat. * Patient was given 1L NS in the ER * Goal Na correction would be 6-8meq/24 hours. He is asymptomatic and no need for hypertonic saline currently. * Spoke to Dr Freeman on the phone with recommendations to start the patient on Na tablets 2g TID and 800cc fluid restriction with monitoring of Na q6. * Check UA and Urine osmolality * Of note, his initial labs showing Na of 117 was done at 12.30am on 02/12/18. * Would hold Fluoxetine for now. This can be restarted at a later time. The has concerns for stopping the medication for more than 2 days. * Check am cortisol. * His TSH is slightly elevated. * Trend Renal function * Hold NSAIDS and avoid nephrotoxic agents. * Replete electrolytes as needed. * Wound consult in am. * Diet: Regular - NPO for now. * DVT Prophylaxis: ALPS only * Code: Full Code As Ranked By This Provider Problem List: 1. JOVANY (acute kidney injury) Core Measures/Misc (04/24) Acute Coronary Syndrome ACS Diagnosis: No Congestive Heart Failure Congestive Heart Failure Diagnosis No Cerebrovascular Accident CVA/TIA Diagnosis: No VTE (View Protocol) VTE Risk Factors Age>40 No Mechanical VTE Prophylaxis d/t N/A MechProphylax Ordered No VTE Pharm Prophylaxis d/t Medical Contraindication Sepsis (View protocol) Sepsis Present: No If YES complete Sepsis Event Note If YES complete Sepsis Event Note
[2018-02-13] MEDS ORDERED: TRAMADOL HCL50 M1 PO (19:39)
--- NOTE | 2018-02-13 20:13 | Admission Certification ---
Admission Certification Certification Statement - As attending physician, I certify that at the time of - admission, based on clinical presentation, severity of - symptoms, need for further diagnostic testing and - therapeutic interventions, and risk of adverse outcomes - without in-hospital treatment, in my clinical assessment, - this patient requires an acute hospital stay for a minimum - of two nights or longer. I have also considered psychsocial - factors such as support system, advanced age, financial - issues, cognitive issues, and failed out-patient treatments, - past re-admission history, safety of patient, and lack of - compliance as applicable. Specific rationale supporting this admission is: Severe anemia probble loss anemia ?GI origen,hyponatremia hip pain
--- NOTE | 2018-02-13 20:24 | PN- Att Addend ---
Attending Addendum Attending Brief Note 62 year old male home bound,having visitingnurses check leg wounds, was getting ready for elective hip replacement, today came to my office in a wheelchair with his looked a little pale ,was sent for preop work up and found to be profound anemic and hyponatremic , i called and recommended to the patient to come in to the hospital for work up and transfusions. patient states has heartburn and the stools may be dark. has some alcohol. Will admit patient to ICU get GI and nephrology consults, transfuse check blood for occult blood . Current Medications Sig/Alexus Start time Last Medication Dose Route Stop Time Status Admin Acetaminophen 650 MG Q6P PRN 02/13 1945 UNVr PO Aspirin Buffered 81 MG DAILY 02/14 900 UNVr PO Atorvastatin Calcium 80 MG 1700 02/14 1700 UNVr PO Morphine Sulfate 2 MG Q4P PRN 02/13 1945 UNVr IV Morphine Sulfate 0 .STK-MED ONE 02/13 184 DC .ROUTE Morphine Sulfate 4 MG ONCE ONE 02/13 183 DC 02/13 IV 02/13 183 184 Pantoprazole Sodium 0 .STK-MED ONE 02/13 184 DC IV Pantoprazole Sodium 40 MG ONCE ONE 02/13 1830 DC 02/13 IV 02/13 183 184 Pantoprazole Sodium 40 MG Q5H 02/13 183 UNVr 02/13 Sodium Chloride 100 ML IV 184 Sodium Chloride 2,000 MG TID 02/13 2100 UNVr PO Sodium Chloride 1,000 ML BOLUS ONE 02/13 1830 DC 02/13 IV 02/13 192 1845 Tamsulosin HCl 0.4 MG DAILY 02/13 1939 UNVr PO Tramadol HCl 50 MG Q6-PRN PRN 02/13 194 UNVr PO Laboratory Tests 02/13/18 183: Sodium Pending, Potassium Pending, Chloride Pending, Carbon Dioxide Pending, Anion Gap Pending, BUN Pending, Creatinine Pending, BUN/Creatinine Ratio Pending , TSH Pending Vital Signs Date Time Temp Pulse Resp B/P B/P Pulse O2 O2 Flow FiO2 Mean Ox Delivery Rate 02/13 1901 Room Air 02/13 1859 75 119/57 02/13 1810 97.5 78 16 125/68 100 Glucose 109, BUN 29 Cr 1.6 [place] 117, Potassium 3.4 CL 87 WBC 15.4 HGB 5.7 HCT: 17.1 MCV 93.1 PTS: 789 INR 1.09 PTT 26 CXR: ? COPD, no infitrates.
[2018-02-13 22:00] VITALS: BP 137/65
[2018-02-14] VITALS (9 sets, daily range): BP systolic 98–130; BP diastolic 51–89
[2018-02-14 06:12] LABS: ABSOLUTE BASOPHIL COUNT 0 /CUMM (0.0-0.2); ABSOLUTE EOSINOPHIL COUNT 0 /CUMM (0.0-0.7); ABSOLUTE GRANULOCYTE CT 13.3 /CUMM (1.4-6.5); ABSOLUTE LYMPH COUNT 0.4 /CUMM (1.2-3.4); ABSOLUTE MONOCYTE COUNT 0.8 /CUMM (0.10-0.60); BASOPHIL % 0.2 % (0.0-2.0); EOSINOPHIL % 0.2 % (0-5); HEMATOCRIT 21.8 % (42-52); MEAN CORPUSCULAR HGB CONC 33.7 G/DL (33.0-37.0); MEAN CORPUSCULAR VOLUME 89.2 FL (80.0-94.0); MEAN PLATELET VOLUME 6.6 FL (7.4-10.4); PLATELET COUNT 618 /CUMM (130-400); RBC DISTRIBUTION WIDTH 17.5 % (11.5-14.5); WHITE BLOOD CELL COUNT 14.6 /CUMM (4.8-10.8)
[2018-02-14 06:15] LABS: RED BLOOD CELL CT 2.44 /CUMM (4.70-6.10)
--- NOTE | 2018-02-14 07:29 | PN- Resident CRCU ---
Royce Wynn 02/14/18 0727: Subjective HPI/CRCU Issues: Mr. 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 He was admitted to the ICU for management of hyponatremia. Objective Vital Signs & I&O Last 8 Hrs of Vitals and I&O: Intake & Output 02/14 1600 02/14 0800 02/14 0000 Intake Total 450 1410 Output Total 450 200 Balance 0 1210 Intake, Blood 350 350 Product Intake, IV 1000 Intake, Oral 100 60 Output, Urine 450 200 Patient 175 lb 175 lb Weight Weight Estimated Measurement Method Laboratory Tests 02/14 02/14 02/14 1230 0945 0918 Chemistry Sodium (137 - 145 mmol/L) 124 L Cancelled 124 L Potassium (3.5 - 5.1 mmol/L) 3.8 Cancelled 4.4 Chloride (98 - 107 mmol/L) 101 Cancelled 98 Carbon Dioxide (22 - 30 mmol/L) 12 L Cancelled 15 L Anion Gap (5 - 16) 12 Cancelled 11 BUN (9 - 20 mg/dL) 23 H Cancelled 24 H Creatinine (0.7 - 1.2 mg/dL) 1.2 Cancelled 1.4 H Estimated GFR (>60 ml/min) > 60 52 L BUN/Creatinine Ratio (7 - 25 %) 19.2 Cancelled 17.1 02/14 02/14 02/14 0830 0830 0545 Chemistry Cortisol AM Sample (4.46 - 22.7 ug/dL) 32.0 H Urines Urine Color (YEL,AMB,STR) YEL Urine Clarity (CLEAR) CLEAR Urine pH (5.0 - 8.0) 6.0 Ur Specific [place] (1.001 - 1.035) 1.010 Urine Protein (NEG,<30 MG/DL) NEG Urine Ketones (NEG) NEG Urine Nitrite (NEG) NEG Urine Bilirubin (NEG) NEG Urine Urobilinogen (0.1 - 1.0 EU/dl) 0.2 Ur Leukocyte Esterase (NEG) NEG Ur Microscopic SEDIMENT EXAMINED Urine RBC (0 - 5 /HPF) 1-3 Urine WBC (0 - 2 /HPF) RARE Ur Epithelial Cells (NONE,FEW) FEW Urine Bacteria (NEG/NONE) FEW H Hyaline Casts (0/LPF) RARE H Urine Hemoglobin (NEG) SMALL H Urine Osmolality (300 - 1000 MOSM/KG) 225 L Ur Random Creatinine (mg/dL) 38.5 Ur Random Sodium (30 - 90 mmol/L) < 5 L Ur Random Potassium (mmol/L) 26.4 Fraction Sodium Excret (<1% %) Urine Glucose (N MG/DL) NEG 02/14 02/14 02/13 0545 0200 1830 Chemistry Sodium (137 - 145 mmol/L) 122 L 121 L 115 *L Potassium (3.5 - 5.1 mmol/L) 4.2 3.7 3.1 L Chloride (98 - 107 mmol/L) 96 L 94 L 85 L Carbon Dioxide (22 - 30 mmol/L) 13 L 12 L 12 L Anion Gap (5 - 16) 14 15 18 H BUN (9 - 20 mg/dL) 25 H 27 H 29 H Creatinine (0.7 - 1.2 mg/dL) 1.4 H 1.4 H 1.7 H Estimated GFR (>60 ml/min) 52 L 52 L 41 L BUN/Creatinine Ratio (7 - 25 %) 19.3 17.1 Glucose (65 - 99 mg/dL) 95 Calcium (8.4 - 10.2 mg/dL) 7.9 L Phosphorus (2.5 - 4.5 mg/dL) 4.3 Magnesium (1.6 - 2.3 mg/dL) 2.3 2.5 H Total Bilirubin (0.2 - 1.3 mg/dL) 2.9 H AST (17 - 59 U/L) 15 L ALT (21 - 72 U/L) 30 Albumin (3.5 - 5.0 g/dL) 2.3 L TSH (0.270 - 4.200 uIU/mL) 4.980 H Free T4 (0.78 - 2.44 ng/dL) 1.46 Hematology CBC w Diff MAN DIFF ORDERED WBC (4.8 - 10.8 /CUMM) 14.6 H RBC (4.70 - 6.10 /CUMM) 2.44 L Hgb (14.0 - 18.0 G/DL) 7.3 *L Hct (42 - 52 %) 21.8 L MCV (80.0 - 94.0 FL) 89.2 MCH (27.0 - 31.0 PG) 30.0 MCHC (33.0 - 37.0 G/DL) 33.7 RDW (11.5 - 14.5 %) 17.5 H Plt Count (130 - 400 /CUMM) 618 H MPV (7.4 - 10.4 FL) 6.6 L Gran % (42.2 - 75.2 %) 91.0 H Lymphocytes % (20.5 - 51.1 %) 3.0 L Monocytes % (1.7 - 9.3 %) 5.6 Eosinophils % (0 - 5 %) 0.2 Basophils % (0.0 - 2.0 %) 0.2 Absolute Granulocytes (1.4 - 6.5 /CUMM) 13.3 H Segmented Neutrophils (42.2 - 75.2 %) 94 H Absolute Lymphocytes (1.2 - 3.4 /CUMM) 0.4 L Lymphocytes (20.5 - 51.1 %) 4 L Monocytes (1.7 - 9.3 %) 2 Absolute Monocytes (0.10 - 0.60 /CUMM) 0.8 H Absolute Eosinophils (0.0 - 0.7 /CUMM) 0 Absolute Basophils (0.0 - 0.2 /CUMM) 0 Platelet Estimate (ADEQUATE) INCREASED Polychromasia 1+ Poikilocytosis 2+ Ovalocytes 1+ Jarrod Cells 1+ Other Body Source Fld Total RBCs Counted (%) 100 Toxicology Serum Alcohol (<10 MG/DL) 46.0 Microbiology Date/Time Procedure - Status Source Growth 02/13 2133 Surveillance Culture - RECD UPPER RESP 02/13 2130 Surveillance Culture - RECD GI Intake & Output 02/14 1600 Intake Total Output Total Balance Patient 175 lb Weight Exam General Appearance: alert, awake, anxious, moderate distress, thin Head: atraumatic, normal appearance Neck: normal inspection, supple Respiratory: normal breath sounds, chest non-tender, no respiratory distress Cardiovascular: regular rate/rhythm, edema Gastrointestinal: normal bowel sounds, soft, non-tender Extremities: tenderness, smooth, brittle, skin, loss of hair, multiple ecchymoses, eschars and ulcers distally B/L with a circumferential injury on R LE. UE seen with multiple ecchymoses and a mixture of old/new lesions. , pt with clean dressing B/L over knees Skin: multiple ecchymoses on Upper and Lower extremities, old/new wounds coexisting Skin Temp/Moisture Exam: Warm/Dry Back: decubitus ulcer on sacrum, with green central decoloration covered with foam dressing Current Medications: Current Medications Sig/Alexus Start time Last Medication Dose Route Stop Time Status Admin Acetaminophen 650 MG Q6P PRN 02/13 2030 AC PO Acetaminophen 650 MG Q6P PRN 02/13 1945 DC PO Aspirin Buffered 81 MG DAILY 02/14 900 DC PO Aspirin Buffered 81 MG DAILY 02/14 900 DC PO Atorvastatin Calcium 80 MG 1700 02/14 1700 DC PO Atorvastatin Calcium 80 MG 02/14 AC PO Calcium Carbonate 500 MG ONCE ONE 02/13 2045 DC PO 02/13 2046 Morphine Sulfate 2 MG Q4P PRN 02/13 2030 AC IV Morphine Sulfate 2 MG Q4P PRN 02/13 1945 DC IV Morphine Sulfate 0 .STK-MED ONE 02/13 184 DC .ROUTE Morphine Sulfate 4 MG ONCE ONE 02/13 183 DC 02/13 IV 02/13 1831 1845 Multivitamins 1 TAB DAILY 02/15 900 AC PO Pantoprazole Sodium 40 MG BID 02/13 2100 AC 02/14 IV 1018 Pantoprazole Sodium 0 .STK-MED ONE 02/13 184 DC IV Pantoprazole Sodium 40 MG ONCE ONE 02/13 1830 DC 02/13 IV 02/13 1831 1845 Pantoprazole Sodium 40 MG Q5H 02/13 1830 DC 02/13 Sodium Chloride 100 ML IV 1845 Potassium Chloride 40 MEQ ONCE ONE 02/13 2145 DC 02/13 PO 02/13 2146 2338 Potassium Chloride 60 MEQ ONCE ONE 02/13 2145 DC 02/13 PO 02/13 2146 2338 Sodium Chloride 2,000 MG TID 02/13 2100 DC PO Sodium Chloride 2,000 MG TID 02/13 2100 AC 02/13 PO 2226 Sodium Chloride 1,000 ML BOLUS ONE 02/13 1830 DC 02/13 IV 02/13 1929 1845 Tamsulosin HCl 0.4 MG DAILY 02/13 2030 AC PO Tamsulosin HCl 0.4 MG DAILY 02/13 1939 DC PO Tramadol HCl 50 MG Q6-PRN PRN 02/13 2030 AC 02/14 PO 1019 Tramadol HCl 50 MG Q6-PRN PRN 02/13 1945 DC PO CXR Findings: 02/13 EXAMINATION: CR CHEST IMPRESSION: Chest configuration suspicious for obstructive lung disease. No focal acute process. Impression/Plan Impression/Problem List Impression: Mr. 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 At baseline the patient is mostly bed-bound or sometimes ambulating using a wheelchair. Recently , he has complained of poor appetite and burning, intermitting epigastric pain with no radiation. As per , pt has had episodes of black tarry stools, though denies N/V, constipation or diarrhea. He was admitted to the ICU for management of hyponatremia. Of note, the patient has had prior admits to [facility] inpatient service: most recently (01/05) he was admitted to [facility] for management of a necrotic L ulcer and, concerning for cellulitis that was treated with unasyn, as well as hyponatremia. ASSESSMENT AND PLAN Respiratory Pt is breathing comfortably on room air with 99% O2 Sat. There is no evidence of acute respiratory pathology at the moment. Infection Pt's condition of thalassemia major, peripheral artery disease and repeated skin ulcers with prior admits concerning for cellulitis make this patient particularly prone to developing infections. The patient has remained afebrile so far, but with a leukocytosis of 14.6 which can be due to his multiple concurrent inflammatory process or due to underlying infection. His lesions ooze greenish discharge with erythema surrounding them, but there is no increased warmth. Close inspection of wounds is warranted. No antibiotics as of now. Wound care will see the patient in the am to assess lesions and ulcers. -f/u CBC -wound care in the am Hematology On admit, the pt's H/H was 7.3/21.8. The patient has a history of thalassemia major, explaining his chronic anemia with elevated RDW. However, his MCV/MCHC do not fit a typical thalassemia picture. This, coupled with the h/o of tarry stools are concerning for a an acute blood loss on topic of his chronic anemia. EGD is planned for tomorrow to assess for esophageal/gastric pathology, guaiac is being done on stools to evaluate lower GI bleed. He has received 2 units PRBC with appropiate increase in Hb. -keep Hb>8 -CBCs q12 Metabolic Pt's admitting Na of 115 was corrected 9 mEq to 124 over 24hr with fluid restriction of 800 mL. No more aggresive restitution of Na is recommended to avoid appereance of ODS. As such, sodium tabs were held. -f/u Bun/Cr -F/u BEP Alimentary Pt will be NPO after midnight for endoscopy in the am of 02/15. Dietary recommendations included multivitamins tabs with minerals which were ordered. Gastro is following -IV protonix 40 mg BID Neuro Pt is AAOx3. He is talkative and cooperative. His muscle strength was not assessed due to pain, but sensation was diminished in R foot. Propioception B/L was preserved. FULL CODE DVT PPX Problem List: 1. Chronic wound of extremity 2. Hyponatremia 3. Symptomatic anemia Pain Ratin Pain Location: B/L Lower Extremities Tomorrow's Labs & Rationales: BEP CBC Plan DVT/Prophylaxis: mechanical Bradley ROTHMAN,[facility] 02/14/18 0942: Attending MD Review Statement Attending Sign Off Attending Cosign Statement: I have: examined this patient, reviewed [facility] EMR data, personally reviewd images, discussd w/resident/PA/PHARMACIST TECHNICIAN, discussed mgmt plan w/ana rosa, discussed mgmt plan w/CM, discussed mgmt plan w/pt, agreed w/resident/PA/PHARMACIST TECHNICIAN, amended to note. Other Findings: This is a 62yo male with a Hx of Longstanding Chronic Venous and Lymphatic insufficiency, with a Nonhealing Circumferential LE wound, recurrent cellulitis , DJD hip pending surg, BPH, depression, Sacral decub, BPH, Mediterranian anemia , Avascular necrosis of the hip, now with Severe hyponatremia, appears normovoluemic Acute on chronic anemia with prob slow gi bleed, recent NSAID use JOVANY LE ulcers with venous insuff Sig Sacral ulcer Avascular necrosis of the hip Depression HLD REC Cont to monitor, in ICU REnal to see and manage Sodium, now slowly better, slow increase is the goal Transfuse to keep hgb more than 8 GI to see IV ppi Cortisol level and othe plan per H and P note Gen surg to see for sacral decub Vascular to follow for leg ulcer Follow tsh in a few weeks Will follow Pt in icu tts 39 mins
--- NOTE | 2018-02-14 12:01 | Cons- Gastroenterology ---
General Information and HPI Consulting Request Date of Consult: 02/14/18 Requested By: Stanton Flannery MD Reason for Consult: Anemia, melena. Source of Information: patient Exam Limitations: no limitations History of Present Illness: Mr. 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 The patient complains of some intermittent heartburn that responds to Tums as needed. He has been without any significant abdominal pain with eating, vomiting or dysphagia. The patient notes that he was told by his that his stool was black a few days ago, but he did not notice this. He also reports that he has normal bowel movements and he is without any constipation, diarrhea, or rectal bleeding. In the ER he was afebrile and hemodynamically stable. He was found to be hyponatremic with a sodium of 115 and a hemoglobin of 5.9. He was admitted to the ICU and volume repleted overnight with some improvement in his hyponatremia and he is also been transfused with 2 units of packed red blood cells with appropriate correction of his hemoglobin. Allergies/Medications Allergies: Coded Allergies: NO KNOWN ALLERGIES (11/24/11) NKA PER ANTIBIOTIC ORDER SHEET - [facility] Home Med List: Aspirin (Ecotrin*) 81 MG TABLET.DR 1 TAB PO DAILY HEART/BLOOD (Reported) Atorvastatin Calcium 80 MG TABLET 1 TAB PO 1700 PVD . Fluoxetine HCl 20 MG CAPSULE 1 CAP PO DAILY MENTAL HEALTH (Reported) Ibuprofen 800 MG TABLET 1 TAB PO BID PAIN/INFLAMMATION (Reported) Tamsulosin HCl (Flomax) 0.4 MG CAP.ER.24H 1 CAP PO DAILY BPH (Reported) Tramadol HCl 50 MG TABLET 1 TAB PO Q6P PRN Hip Pain (Reported) Current Medications: Current Medications Sig/Alexus Start time Last Medication Dose Route Stop Time Status Admin Acetaminophen 650 MG Q6P PRN 02/13 2030 AC PO Acetaminophen 650 MG Q6P PRN 02/13 1945 DC PO Aspirin Buffered 81 MG DAILY 02/14 900 DC PO Aspirin Buffered 81 MG DAILY 02/14 900 DC PO Atorvastatin Calcium 80 MG 1700 02/14 1700 DC PO Atorvastatin Calcium 80 MG 1700 02/14 1700 AC PO Calcium Carbonate 500 MG ONCE ONE 02/13 2045 DC PO 02/13 2046 Morphine Sulfate 2 MG Q4P PRN 02/13 2030 AC IV Morphine Sulfate 2 MG Q4P PRN 02/13 1945 DC IV Morphine Sulfate 0 .STK-MED ONE 02/13 184 DC .ROUTE Morphine Sulfate 4 MG ONCE ONE 02/13 1830 DC 02/13 IV 02/13 183 1845 Multivitamins 1 TAB DAILY 02/15 900 AC PO Pantoprazole Sodium 40 MG BID 02/13 2100 AC 02/14 IV 1018 Pantoprazole Sodium 0 .STK-MED ONE 02/13 184 DC IV Pantoprazole Sodium 40 MG ONCE ONE 02/13 1830 DC 02/13 IV 02/13 183 184 Pantoprazole Sodium 40 MG Q5H 02/13 183 DC 02/13 Sodium Chloride 100 ML IV 1845 Potassium Chloride 40 MEQ ONCE ONE 02/13 2145 DC 02/13 PO 02/13 2146 2338 Potassium Chloride 60 MEQ ONCE ONE 02/13 2145 DC 02/13 PO 02/13 2146 2338 Sodium Chloride 2,000 MG TID 02/13 2100 DC PO Sodium Chloride 2,000 MG TID 02/13 2100 AC 02/13 PO 2226 Sodium Chloride 1,000 ML BOLUS ONE 02/13 1830 DC 02/13 IV 02/13 192 1845 Tamsulosin HCl 0.4 MG DAILY 02/13 2030 AC PO Tamsulosin HCl 0.4 MG DAILY 02/13 1939 DC PO Tramadol HCl 50 MG Q6-PRN PRN 02/13 2030 AC 02/14 PO 1019 Tramadol HCl 50 MG Q6-PRN PRN 02/13 194 DC PO Past History Travel History Traveled to [place] past 21 day No Medical History Blood Transfusion Hx: Yes Cardiovascular: chronic venous insuff, PVD Respiratory: NONE Gastrointestinal: NONE Hepatic: NONE Renal: NONE Musculoskeletal: Avascular necrosis both hips Psychiatric: NONE Endocrine: NONE Blood Disorders: anemia Cancer(s): NONE Surgical History Surgical History: vascular/plastic surgery Psychosocial History Where Do You Live? Home Smoking Status: Never Smoked Functional Ability ADLs Independent: dressing, eating, toileting, bathing. Review of Systems Review of Systems Constitutional: Reports: malaise, weakness. Denies: diaphoresis, fever. EENTM: Denies: no symptoms. Cardiovascular: Denies: no symptoms. Respiratory: Denies: no symptoms. GI: Reports: see HPI. Genitourinary: Denies: no symptoms. Musculoskeletal: Reports: joint pain, joint swelling, muscle pain, muscle stiffness. Skin: Denies: no symptoms. Neurological/Psychological: Reports: confusion. Hematologic/Endocrine: Denies: no symptoms. Immunologic/Allergic: Denies: no symptoms. All Other Systems: Reviewed and Negative Exam & Diagnostic Data Vital Signs and I&O Vital Signs Date Time Temp Pulse Resp B/P B/P Pulse O2 O2 Flow FiO2 Mean Ox Delivery Rate / 1000 68 18 105/56 07/10 0800 98.6 70 16 101/56 07/10 0800 98.6 70 16 112/64 100 Room Air 07/10 0800 100 Room Air 07/10 0600 70 20 119/89 07/10 0400 96.1 78 18 130/60 07/10 0400 100 Room Air 07/10 0200 76 16 109/57 07/10 0000 6.2 76 18 122/80 07/10 0000 100 Room Air 07/10 0000 96.2 76 18 122/80 100 Room Air 07/09 2200 96.5 81 18 137/65 07/09 2027 98.9 89 16 123/58 99 Room Air 07/09 1930 98.3 79 16 118/63 99 Room Air 07/09 1901 Room Air 07/09 1859 75 119/57 07/09 1810 97.5 78 16 125/68 100 Intake & Output 02/14 1600 07/10 0400 07/09 1600 07/09 0400 07/08 1600 07/08 0400 Intake Total 450 1410 Output Total 450 200 Balance 0 1210 Intake, Blood 350 350 Product Intake, IV 1000 Intake, Oral 100 60 Output, Urine 450 200 Patient 175 lb 175 lb Weight Weight Estimated Measurement Method Physical Exam General Appearance: well developed/nourished, no apparent distress, alert, comfortable Head: atraumatic, normal appearance Eyes: Bilateral: normal appearance. Ears, Nose, Throat: normal pharynx, normal ENT inspection Neck: normal inspection, supple, full range of motion Respiratory: normal breath sounds, chest non-tender, no respiratory distress, quiet respiration Cardiovascular: regular rate/rhythm Gastrointestinal: normal bowel sounds, soft, non-tender, no organomegaly Back: normal inspection Extremities: pedal edema Neurologic/Psych: no motor/sensory deficits, awake, alert Results Pertinent Lab Results: Laboratory Tests 02/14 02/14 02/14 1230 0945 0918 Chemistry Sodium (137 - 145 mmol/L) 124 L Cancelled 124 L Potassium (3.5 - 5.1 mmol/L) 3.8 Cancelled 4.4 Chloride (98 - 107 mmol/L) 101 Cancelled 98 Carbon Dioxide (22 - 30 mmol/L) 12 L Cancelled 15 L Anion Gap (5 - 16) 12 Cancelled 11 BUN (9 - 20 mg/dL) 23 H Cancelled 24 H Creatinine (0.7 - 1.2 mg/dL) 1.2 Cancelled 1.4 H Estimated GFR (>60 ml/min) > 60 52 L BUN/Creatinine Ratio (7 - 25 %) 19.2 Cancelled 17.1 02/14 02/14 02/14 0830 0830 0545 Chemistry Cortisol AM Sample (4.46 - 22.7 ug/dL) 32.0 H Urines Urine Color (YEL,AMB,STR) YEL Urine Clarity (CLEAR) CLEAR Urine pH (5.0 - 8.0) 6.0 Ur Specific [place] (1.001 - 1.035) 1.010 Urine Protein (NEG,<30 MG/DL) NEG Urine Ketones (NEG) NEG Urine Nitrite (NEG) NEG Urine Bilirubin (NEG) NEG Urine Urobilinogen (0.1 - 1.0 EU/dl) 0.2 Ur Leukocyte Esterase (NEG) NEG Ur Microscopic SEDIMENT EXAMINED Urine RBC (0 - 5 /HPF) 1-3 Urine WBC (0 - 2 /HPF) RARE Ur Epithelial Cells (NONE,FEW) FEW Urine Bacteria (NEG/NONE) FEW H Hyaline Casts (0/LPF) RARE H Urine Hemoglobin (NEG) SMALL H Urine Osmolality (300 - 1000 MOSM/KG) 225 L Ur Random Creatinine (mg/dL) 38.5 Ur Random Sodium (30 - 90 mmol/L) < 5 L Ur Random Potassium (mmol/L) 26.4 Fraction Sodium Excret (<1% %) Urine Glucose (N MG/DL) NEG 02/14 02/14 02/13 0545 0200 1830 Chemistry Sodium (137 - 145 mmol/L) 122 L 121 L 115 *L Potassium (3.5 - 5.1 mmol/L) 4.2 3.7 3.1 L Chloride (98 - 107 mmol/L) 96 L 94 L 85 L Carbon Dioxide (22 - 30 mmol/L) 13 L 12 L 12 L Anion Gap (5 - 16) 14 15 18 H BUN (9 - 20 mg/dL) 25 H 27 H 29 H Creatinine (0.7 - 1.2 mg/dL) 1.4 H 1.4 H 1.7 H Estimated GFR (>60 ml/min) 52 L 52 L 41 L BUN/Creatinine Ratio (7 - 25 %) 19.3 17.1 Glucose (65 - 99 mg/dL) 95 Calcium (8.4 - 10.2 mg/dL) 7.9 L Phosphorus (2.5 - 4.5 mg/dL) 4.3 Magnesium (1.6 - 2.3 mg/dL) 2.3 2.5 H Total Bilirubin (0.2 - 1.3 mg/dL) 2.9 H AST (17 - 59 U/L) 15 L ALT (21 - 72 U/L) 30 Albumin (3.5 - 5.0 g/dL) 2.3 L TSH (0.270 - 4.200 uIU/mL) 4.980 H Free T4 (0.78 - 2.44 ng/dL) 1.46 Hematology CBC w Diff MAN DIFF ORDERED WBC (4.8 - 10.8 /CUMM) 14.6 H RBC (4.70 - 6.10 /CUMM) 2.44 L Hgb (14.0 - 18.0 G/DL) 7.3 *L Hct (42 - 52 %) 21.8 L MCV (80.0 - 94.0 FL) 89.2 MCH (27.0 - 31.0 PG) 30.0 MCHC (33.0 - 37.0 G/DL) 33.7 RDW (11.5 - 14.5 %) 17.5 H Plt Count (130 - 400 /CUMM) 618 H MPV (7.4 - 10.4 FL) 6.6 L Gran % (42.2 - 75.2 %) 91.0 H Lymphocytes % (20.5 - 51.1 %) 3.0 L Monocytes % (1.7 - 9.3 %) 5.6 Eosinophils % (0 - 5 %) 0.2 Basophils % (0.0 - 2.0 %) 0.2 Absolute Granulocytes (1.4 - 6.5 /CUMM) 13.3 H Segmented Neutrophils (42.2 - 75.2 %) 94 H Absolute Lymphocytes (1.2 - 3.4 /CUMM) 0.4 L Lymphocytes (20.5 - 51.1 %) 4 L Monocytes (1.7 - 9.3 %) 2 Absolute Monocytes (0.10 - 0.60 /CUMM) 0.8 H Absolute Eosinophils (0.0 - 0.7 /CUMM) 0 Absolute Basophils (0.0 - 0.2 /CUMM) 0 Platelet Estimate (ADEQUATE) INCREASED Polychromasia 1+ Poikilocytosis 2+ Ovalocytes 1+ [place] Cells 1+ Other Body Source Fld Total RBCs Counted (%) 100 Toxicology Serum Alcohol (<10 MG/DL) 46.0 Assessment/Plan Assessment/Recommendations: Assessment: Mr. Jaimes is 62-year-old male with multiple medical problems who was admitted yesterday with hyponatremia and worsening anemia with reports of melena. His hemoglobin has corrected appropriately with transfusion and he is without any active GI bleeding while in house so while it would be appropriate to pursue a upper endoscopy to evaluate the etiology of his anemia and the reported melena I do not feel it is urgent. He does take NSAIDs and is not on a PPI so it is possible that he may have developed peptic ulcer disease contributed to his anemia. He has also had heartburn so he may have erosive esophagitis as well. Of note, I am not certain as to the etiology of his hyponatremia, but it may be secondary to alcohol consideration of a positive alcohol level on admission. Recommendations: 1. Continue IV Protonix twice a day for now. 2. Would avoid [id number] NSAIDs for now. 3. Maintain 2 large-bore IVs at all times. 4. Follow CBCs every 12 hours and transfuse as needed to maintain his hemoglobin greater than 8 or as per cardiology recommendations. 5. Correction of hyponatremia as per critical care team. 6. Notify GI for signs of overt GI bleeding. 7. Oral diet as tolerated for now and would keep nothing by mouth after midnight for a diagnostic upper endoscopy to be performed tomorrow, but will do sooner if hemodynamically significant bleeding ensues in the interim time period. 8. Monitor for signs of alcohol withdrawal and treat with benzodiazepines as needed. I will continue to follow this patient and make further recommendations based on his clinical course and the results of the endoscopy to be done tomorrow. Problem List: 1. GI bleed 2. Symptomatic anemia Copies To: Stanton Flannery MD Consult Acknowledgment - Thank you for your consult request.
--- NOTE | 2018-02-14 13:08 | PN- Att Addend ---
Attending Addendum Attending Brief Note Patient discussed in rounds patient laying in bed complaining of pains. Skin integrity evaluated by the nurse and a lot of open areas that need follow-up by wound center and vascular diseases. Also need a special [place] bed to avoid more open areas. His vital signs are stable no fever. No major changes on physical. Patient is n.p.o. for GI to evaluate and consider an upper endoscopy limits up to 124, BUN 21 creatinine 1.4, potassium 4.4. WBCs 14,600, hemoglobin 7.3 hematocrit 21.8. His albumin is low. We will get a nutritional consult and replace protein. Continue to treat the hyponatremia check the urine electrolytes and osmolality. Follow up closely with CBCs and might need more transfusions.. 24 TOTALS 02/14 0000 02/13 0000 Intake Total 1410 Output Total 200 Balance 1210 Intake, Blood 350 Product Intake, IV 1000 Intake, Oral 60 Output, Urine 200 Patient 175 lb Weight Weight Estimated Measurement Method Current Medications Sig/Aleuxs Start time Last Medication Dose Route Stop Time Status Admin Acetaminophen 650 MG Q6P PRN 02/13 2030 AC PO Acetaminophen 650 MG Q6P PRN 02/13 194 DC PO Aspirin Buffered 81 MG DAILY 02/14 900 DC PO Aspirin Buffered 81 MG DAILY 02/14 900 DC PO Atorvastatin Calcium 80 MG 1700 02/14 1700 DC PO Atorvastatin Calcium 80 MG 1700 02/14 1700 AC PO Calcium Carbonate 500 MG ONCE ONE 02/13 204 DC PO 02/13 204 Morphine Sulfate 2 MG Q4P PRN 02/13 2030 AC IV Morphine Sulfate 2 MG Q4P PRN 02/13 194 DC IV Morphine Sulfate 0 .STK-MED ONE 02/13 184 DC .ROUTE Morphine Sulfate 4 MG ONCE ONE 02/13 1830 DC 02/13 IV 02/13 1831 1845 Multivitamins 1 TAB DAILY 02/15 900 AC PO Pantoprazole Sodium 40 MG BID 02/13 2100 AC 02/14 IV 1018 Pantoprazole Sodium 0 .STK-MED ONE 02/13 184 DC IV Pantoprazole Sodium 40 MG ONCE ONE 02/13 1830 DC 02/13 IV 02/13 1831 1845 Pantoprazole Sodium 40 MG Q5H 02/13 1830 DC 02/13 Sodium Chloride 100 ML IV 1845 Potassium Chloride 40 MEQ ONCE ONE 02/135 DC 02/13 PO 02/13 2146 2338 Potassium Chloride 60 MEQ ONCE ONE 02/13 2145 DC 02/13 PO 02/13 2146 2338 Sodium Chloride 2,000 MG TID 02/13 2100 DC PO Sodium Chloride 2,000 MG TID 02/13 2100 AC 02/13 PO 2226 Sodium Chloride 1,000 ML BOLUS ONE 02/13 1830 DC 02/13 IV 02/13 192 184 Tamsulosin HCl 0.4 MG DAILY 02/13 2030 AC PO Tamsulosin HCl 0.4 MG DAILY 02/13 1939 DC PO Tramadol HCl 50 MG Q6-PRN PRN 02/13 2030 AC 02/14 PO 1019 Tramadol HCl 50 MG Q6-PRN PRN 02/13 194 DC PO Laboratory Tests 02/14/18 1230: Sodium Pending, Potassium Pending, Chloride Pending, Carbon Dioxide Pending, Anion Gap Pending, BUN Pending, Creatinine Pending, BUN/Creatinine Ratio Pending 02/14/18 0945: Sodium Cancelled, Potassium Cancelled, Chloride Cancelled, Carbon Dioxide Cancelled, Anion Gap Cancelled, BUN Cancelled, Creatinine Cancelled, BUN/ Creatinine Ratio Cancelled 02/14/18 0918: Anion Gap 11, Estimated GFR 52 L, BUN/Creatinine Ratio 17.1 02/14/18 0830: Urine Color YEL, Urine Clarity CLEAR, Urine pH 6.0, Ur Specific [place] 1.010, Urine Protein NEG, Urine Ketones NEG, Urine Nitrite NEG, Urine Bilirubin NEG, Urine Urobilinogen 0.2, Ur Leukocyte Esterase NEG, Ur Microscopic SEDIMENT EXAMINED, Urine RBC 1-3, Urine WBC RARE, Ur Epithelial Cells FEW, Urine Bacteria FEW H, Hyaline Casts RARE H, Urine Hemoglobin SMALL H, Urine Glucose NEG 02/14/18 0830: Urine Osmolality 225 L, Ur Random Creatinine 38.5, Ur Random Sodium < 5 L, Ur Random Potassium 26.4, Fraction Sodium Excret 02/14/18 0545: Cortisol AM Sample 32.0 H 02/14/18 0545: Anion Gap 14, Estimated GFR 52 L, Glucose 95, Calcium 7.9 L, Phosphorus 4.3, Magnesium 2.3, Total Bilirubin 2.9 H, AST 15 L, ALT 30, Albumin 2.3 L, CBC w Diff MAN DIFF ORDERED, RBC 2.44 L, MCV 89.2, MCH 30.0, MCHC 33.7, RDW 17.5 H, MPV 6.6 L, Gran % 91.0 H, Lymphocytes % 3.0 L, Monocytes % 5.6, Eosinophils % 0.2, Basophils % 0.2, Absolute Granulocytes 13.3 H, Segmented Neutrophils 94 H , Absolute Lymphocytes 0.4 L, Lymphocytes 4 L, Monocytes 2, Absolute Monocytes 0.8 H, Absolute Eosinophils 0, Absolute Basophils 0, Platelet Estimate INCREASED, Polychromasia 1+, Poikilocytosis 2+, Ovalocytes 1+, [place] Cells 1+, Fld Total RBCs Counted 100 02/14/18 0200: Anion Gap 15, Estimated GFR 52 L, BUN/Creatinine Ratio 19.3 02/13/18 1830: Anion Gap 18 H, Estimated GFR 41 L, BUN/Creatinine Ratio 17.1, Magnesium 2.5 H, TSH 4.980 H, Free T4 1.46, Serum Alcohol 46.0 Microbiology Date/Time Procedure - Status Source Growth 02/13 2133 Surveillance Culture - RECD UPPER RESP 02/13 2130 Surveillance Culture - RECD GI Vital Signs Date Time Temp Pulse Resp B/P B/P Pulse O2 O2 Flow FiO2 Mean Ox Delivery Rate 02/14 1000 68 18 105/56 07/10 0800 98.6 70 16 101/56 07/10 0800 98.6 70 16 112/64 100 Room Air 07/10 0800 100 Room Air 07/10 0600 70 20 119/89 07/10 0400 96.1 78 18 130/60 07/10 0400 100 Room Air 07/10 0200 76 16 109/57 07/10 0000 6.2 76 18 122/80 07/10 0000 100 Room Air 07/10 0000 96.2 76 18 122/80 100 Room Air 07/09 2200 96.5 81 18 137/65 07/09 7 98.9 89 16 123/58 99 Room Air 07/09 1930 98.3 79 16 118/63 99 Room Air 07/09 1901 Room Air 07/09 1859 75 119/57 07/09 1810 97.5 78 16 125/68 100
[2018-02-14 19:55] LABS: ABSOLUTE BASOPHIL COUNT 0.1 /CUMM (0.0-0.2); ABSOLUTE EOSINOPHIL COUNT 0 /CUMM (0.0-0.7); ABSOLUTE GRANULOCYTE CT 10.6 /CUMM (1.4-6.5); ABSOLUTE LYMPH COUNT 0.6 /CUMM (1.2-3.4); ABSOLUTE MONOCYTE COUNT 0 /CUMM (0.10-0.60); BASOPHIL % 0.4 % (0.0-2.0); EOSINOPHIL % 0.2 % (0-5); HEMATOCRIT 23.8 % (42-52); MEAN CORPUSCULAR HGB 29.3 PG (27.0-31.0); MEAN CORPUSCULAR VOLUME 88.9 FL (80.0-94.0); MEAN PLATELET VOLUME 6.7 FL (7.4-10.4); PLATELET COUNT 571 /CUMM (130-400); RBC DISTRIBUTION WIDTH 17.9 % (11.5-14.5); RED BLOOD CELL CT 2.68 /CUMM (4.70-6.10); WHITE BLOOD CELL COUNT 11.3 /CUMM (4.8-10.8)
[2018-02-14 20:28] LABS: GRANULOCYTE % 93.7 % (42.2-75.2)
--- NOTE | 2018-02-14 23:29 | Cons- Nephrology ---
General Information and HPI Consulting Request Date of Consult: 02/14/18 Requested By: Stanton Flannery MD Reason for Consult: Hyponatremia Source of Information: patient, old records Exam Limitations: poor historian History of Present Illness: The patient is a 62-year-old man with a background that includes peripheral vascular disease with chronic lower extremity ulcerations that have required debridement and skin grafting in the past, avascular necrosis (steroid-induced) of both hips and thalassemia. He was admitted on 02/13/18 because he was found by his primary care physician to have a very low hemoglobin and low sodium as well. There was a report of melena. The hemoglobin was as low as 5.7 and the sodium as low as 115. The patient was placed on sodium chloride tablets and an 800 cc per day fluid restriction. Serum sodium has come up to 124 as of early this morning. The patient has had no neurologic or other associated symptoms. His outpatient medication regimen included aspirin and ibuprofen. He was not on any thiazide or SSRI medications. He was placed on IV Protonix and there does not appear to be any active bleeding since admission. Past medical history is as noted above. Medications: See below Allergies: No known drug allergies Family history negative for any known kidney disease Social history negative for cigarette smoking, alcohol or drug abuse Allergies/Medications Allergies: Coded Allergies: NO KNOWN ALLERGIES (11/24/11) NKA PER ANTIBIOTIC ORDER SHEET - [facility] Home Med List: Aspirin (Ecotrin*) 81 MG TABLET.DR 1 TAB PO DAILY HEART/BLOOD (Reported) Atorvastatin Calcium 80 MG TABLET 1 TAB PO 1700 PVD . Fluoxetine HCl 20 MG CAPSULE 1 CAP PO DAILY MENTAL HEALTH (Reported) Ibuprofen 800 MG TABLET 1 TAB PO BID PAIN/INFLAMMATION (Reported) Tamsulosin HCl (Flomax) 0.4 MG CAP.ER.24H 1 CAP PO DAILY BPH (Reported) Tramadol HCl 50 MG TABLET 1 TAB PO Q6P PRN Hip Pain (Reported) Review of Systems Review of Systems: Constitutional: Reports: weakness. Denies: chills, fever. EENTM: Reports: no symptoms. Cardiovascular: Reports: peripheral edema. Denies: chest pain. Respiratory: Denies: cough, short of breath. GI: Denies: abdominal pain. Genitourinary: Reports: no symptoms. Musculoskeletal: Reports: joint pain. Skin: Reports: change in skin color, lesions. Neurological/Psychological: Reports: no symptoms. Past History Travel History Traveled to [place] past 21 day No Medical History Blood Transfusion Hx: Yes Cardiovascular: chronic venous insuff, PVD Respiratory: NONE Gastrointestinal: NONE Hepatic: NONE Renal: NONE Musculoskeletal: Avascular necrosis both hips Psychiatric: NONE Endocrine: NONE Blood Disorders: anemia Cancer(s): NONE Surgical History Surgical History: vascular/plastic surgery Psychosocial History Where Do You Live? Home Smoking Status: Never Smoked Functional Ability ADLs Independent: dressing, eating, toileting, bathing. Exam & Diagnostic Data Vital Signs and I&O Vital Signs Date Time Temp Pulse Resp B/P B/P Pulse O2 O2 Flow FiO2 Mean Ox Delivery Rate 02/15 08 97.4 76 18 140/62 100 Room Air 02/15 0600 73 16 143/65 02/15 0400 96.0 75 18 120/60 02/15 0400 99 Room Air 02/15 0200 80 20 11/56 02/15 0000 98.0 72 22 122/60 02/15 0000 96 Room Air 02/15 0000 98.0 72 20 122/60 96 Room Air 02/14 1800 75 20 98/51 02/14 1600 98.0 78 20 102/56 02/14 1600 98.0 78 20 102/56 99 Room Air 10 1600 99 Room Air Intake & Output 02/15 1600 02/15 0400 02/14 1600 02/14 0400 02/13 1600 02/13 0400 Intake Total 600 129 265 6387 Output Total 300 700 850 200 Balance 300 20 -30 1210 Intake, Blood 700 350 Product Intake, IV 665 287 0360 Intake, Oral 120 120 60 Output, Urine 300 700 850 200 Patient 175 lb 175 lb Weight Weight Estimated Measurement Method Physical Exam: General: Chronically ill, somewhat emaciated appearing white male in NAD Skin: No rash or jaundice but multiple ecchymoses and abrasions on both arms and right lower extremity HEENT: Conjunctivae pale, sclerae anicteric, mucous membranes dry Neck: Without masses or thyromegaly, no supraclavicular or cervical adenopathy Chest: Clear to P&A Heart: Regular rate and rhythm without S3 or rub Abdomen: Soft and nontender without palpable masses or organomegaly Extremities: Without cyanosis or edema (see "Skin" above) Neuro: Cognitively intact, no focal findings, no asterixis or myoclonus Assessment/Plan Assessment/Recommendations Assessment: 62 yo man with profound hyponatremia secondary to chronic debilitation and modest volme depletion as suggested by his history, physical exam, serum creatinine elevated above his baseline and renal sodium retention (Sonido <5). Complicating features are severe anemia with h/o melena and use of NSAID's, and significant metabolic acidosis (CO 12-15). Therapy should be aimed at gradually reconstituting extracellular volume with alkalinizing crystalloids, as well as with PRBC transfusions as needed. Recommendations: 1. IV 1/2NS + 75 mEq of NaHCO3/L at 75cc/hr 2. Supplement K+ 3. Monitor lytes q6h today to avoid over-rapid correction. Goal is an increase in serum Na by less than 8-10mEq/24hrs. Can use D5W if needed. 4. GI following Thank you. Will followup.
[2018-02-15] VITALS (8 sets, daily range): BP systolic 11–143; BP diastolic 56–68
[2018-02-15 06:01] LABS: ABSOLUTE BASOPHIL COUNT 0 /CUMM (0.0-0.2); ABSOLUTE EOSINOPHIL COUNT 0 /CUMM (0.0-0.7); ABSOLUTE GRANULOCYTE CT 9.2 /CUMM (1.4-6.5); ABSOLUTE LYMPH COUNT 0.7 /CUMM (1.2-3.4); ABSOLUTE MONOCYTE COUNT 0.8 /CUMM (0.10-0.60); BASOPHIL % 0.1 % (0.0-2.0); EOSINOPHIL % 0.4 % (0-5); GRANULOCYTE % 85.6 % (42.2-75.2); HEMATOCRIT 24.2 % (42-52); MEAN CORPUSCULAR HGB 29.4 PG (27.0-31.0); MEAN CORPUSCULAR HGB CONC 32.9 G/DL (33.0-37.0); MEAN CORPUSCULAR VOLUME 89.5 FL (80.0-94.0); MEAN PLATELET VOLUME 6.6 FL (7.4-10.4); PLATELET COUNT 591 /CUMM (130-400); RBC DISTRIBUTION WIDTH 17.9 % (11.5-14.5); WHITE BLOOD CELL COUNT 10.8 /CUMM (4.8-10.8)
--- NOTE | 2018-02-15 08:38 | PN- Resident CRCU ---
Royce Wynn 02/15/18 0838: Subjective HPI/CRCU Issues: Mr. 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 He was admitted to the ICU for management of hyponatremia. 24 Hour Events: Pt was seen and examined at bedside in the am. He states there is much better pain control, though no BMs have been noted as of now. Objective Vital Signs & I&O Last 8 Hrs of Vitals and I&O: Laboratory Tests 02/15 02/15 02/14 0515 0130 2100 Chemistry Sodium (137 - 145 mmol/L) 129 L 129 L Cancelled Potassium (3.5 - 5.1 mmol/L) 3.9 3.9 Cancelled Chloride (98 - 107 mmol/L) 102 102 Cancelled Carbon Dioxide (22 - 30 mmol/L) 17 L 16 L Cancelled Anion Gap (5 - 16) 10 10 Cancelled BUN (9 - 20 mg/dL) 17 19 Cancelled Creatinine (0.7 - 1.2 mg/dL) 1.0 1.1 Cancelled Estimated GFR (>60 ml/min) > 60 > 60 BUN/Creatinine Ratio (7 - 25 %) 17.0 17.3 Cancelled Hematology CBC w Diff MAN DIFF ORDERED WBC (4.8 - 10.8 /CUMM) 10.8 RBC (4.70 - 6.10 /CUMM) 2.70 L Hgb (14.0 - 18.0 G/DL) 7.9 L Hct (42 - 52 %) 24.2 L MCV (80.0 - 94.0 FL) 89.5 MCH (27.0 - 31.0 PG) 29.4 MCHC (33.0 - 37.0 G/DL) 32.9 L RDW (11.5 - 14.5 %) 17.9 H Plt Count (130 - 400 /CUMM) 591 H MPV (7.4 - 10.4 FL) 6.6 L Gran % (42.2 - 75.2 %) 85.6 H Lymphocytes % (20.5 - 51.1 %) 6.1 L Monocytes % (1.7 - 9.3 %) 7.8 Eosinophils % (0 - 5 %) 0.4 Basophils % (0.0 - 2.0 %) 0.1 Absolute Granulocytes (1.4 - 6.5 /CUMM) 9.2 H Segmented Neutrophils (42.2 - 75.2 %) 89 H Band Neutrophils (0.0 - 5.0 %) 1 Absolute Lymphocytes (1.2 - 3.4 /CUMM) 0.7 L Lymphocytes (20.5 - 51.1 %) 5 L Monocytes (1.7 - 9.3 %) 5 Absolute Monocytes (0.10 - 0.60 /CUMM) 0.8 H Absolute Eosinophils (0.0 - 0.7 /CUMM) 0 Absolute Basophils (0.0 - 0.2 /CUMM) 0 Platelet Estimate (ADEQUATE) INCREASED Polychromasia 1+ Hypochromic-Microcytic 1+ Poikilocytosis 1+ Ovalocytes 1+ [place] Cells FEW Other Body Source Fld Total RBCs Counted (%) 100 02/14 02/14 1855 1230 Chemistry Sodium (137 - 145 mmol/L) 127 L 124 L Potassium (3.5 - 5.1 mmol/L) 3.4 L 3.8 Chloride (98 - 107 mmol/L) 100 101 Carbon Dioxide (22 - 30 mmol/L) 14 L 12 L Anion Gap (5 - 16) 13 12 BUN (9 - 20 mg/dL) 21 H 23 H Creatinine (0.7 - 1.2 mg/dL) 1.1 1.2 Estimated GFR (>60 ml/min) > 60 > 60 BUN/Creatinine Ratio (7 - 25 %) 19.1 19.2 Serum Osmolality (285 - 295 MOSM/KG) 263 L Hematology CBC w Diff NO MAN DIFF REQ WBC (4.8 - 10.8 /CUMM) 11.3 H RBC (4.70 - 6.10 /CUMM) 2.68 L Hgb (14.0 - 18.0 G/DL) 7.8 L Hct (42 - 52 %) 23.8 L MCV (80.0 - 94.0 FL) 88.9 MCH (27.0 - 31.0 PG) 29.3 MCHC (33.0 - 37.0 G/DL) 33.0 RDW (11.5 - 14.5 %) 17.9 H Plt Count (130 - 400 /CUMM) 571 H MPV (7.4 - 10.4 FL) 6.7 L Gran % (42.2 - 75.2 %) 93.7 H Lymphocytes % (20.5 - 51.1 %) 5.6 L Monocytes % (1.7 - 9.3 %) 0.1 L Eosinophils % (0 - 5 %) 0.2 Basophils % (0.0 - 2.0 %) 0.4 Absolute Granulocytes (1.4 - 6.5 /CUMM) 10.6 H Absolute Lymphocytes (1.2 - 3.4 /CUMM) 0.6 L Absolute Monocytes (0.10 - 0.60 /CUMM) 0 L Absolute Eosinophils (0.0 - 0.7 /CUMM) 0 Absolute Basophils (0.0 - 0.2 /CUMM) 0.1 Microbiology Date/Time Procedure - Status Source Growth 02/13 2133 Surveillance Culture - COMP UPPER RESP METH RESIST STAPH AUREUS 02/13 2130 Surveillance Culture - COMP GI Microbiology 02/13 2133 UPPER RESP: Surveillance Culture - COMP METH RESIST STAPH AUREUS 02/13 2130 GI: Surveillance Culture - COMP Vital Signs Date Time Temp Pulse Resp B/P B/P Pulse O2 O2 Flow FiO2 Mean Ox Delivery Rate 02/15 08 97.4 76 18 140/62 100 Room Air 02/15 0600 73 16 143/65 02/15 0400 96.0 75 18 120/60 02/15 0400 99 Room Air 02/15 0200 80 20 11/56 02/15 0000 98.0 72 22 122/60 02/15 0000 96 Room Air 02/15 0000 98.0 72 20 122/60 96 Room Air /10 1800 75 20 98/51 /10 1600 98.0 78 20 102/56 /10 1600 98.0 78 20 102/56 99 Room Air / 1600 99 Room Air / 1200 97.9 70 20 99/54 /10 1200 100 Room Air /10 1000 68 18 105/56 Intake & Output 02/15 1600 /11 0800 02/15 0000 Intake Total 600 720 Output Total 300 700 Balance 300 20 Intake, IV 600 600 Intake, Oral 120 Output, Urine 300 700 Exam General Appearance: alert, awake, thin Head: atraumatic, normal appearance Ears, Nose, Throat: poor dentition Neck: normal inspection, supple Respiratory: normal breath sounds, chest non-tender, lungs clear Cardiovascular: regular rate/rhythm Gastrointestinal: normal bowel sounds, soft, non-tender, no organomegaly Extremities: limited range of motion, tenderness Skin: multiple ecchymoses B/L on lower and upper extremities. Ulcers in different stages of healing. Dressings are dry and intact. Skin Temp/Moisture Exam: Warm/Dry Current Medications: Current Medications Sig/Alexus Start time Last Medication Dose Route Stop Time Status Admin Acetaminophen 650 MG Q6P PRN 02/13 2030 AC PO Aspirin Buffered 81 MG DAILY 02/14 900 DC PO Atorvastatin Calcium 80 MG 1700 02/14 170 DC PO Atorvastatin Calcium 80 MG 17002/14 1700 AC 02/14 PO 1710 Morphine Sulfate 2 MG Q4P PRN 02/13 2030 AC 02/15 IV 0456 Multivitamins 1 TAB DAILY 02/15 900 AC PO Pantoprazole Sodium 40 MG BID 02/13 2100 AC 02/14 IV 2032 Potassium Chloride 40 MEQ ONCE ONE 02/14 2315 DC 02/14 PO 02/14 2316 2329 Sodium Bicarbonate 75 MEQ Q13H 02/14 1515 DC 02/14 Sodium Chloride 1,000 ML IV 1745 Sodium Chloride 2,000 MG TID 02/13 2100 DC 02/13 PO 2226 Tamsulosin HCl 0.4 MG DAILY 02/13 2030 AC PO Tramadol HCl 50 MG Q6-PRN PRN 02/13 2030 AC 02/14 PO 1019 Impression/Plan Impression/Problem List Impression: Mr. 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 At baseline the patient is mostly bed-bound or sometimes ambulating using a wheelchair. Recently , he has complained of poor appetite and burning, intermitting epigastric pain with no radiation. As per , pt has had episodes of black tarry stools, though denies N/V, constipation or diarrhea. He was admitted to the ICU for management of hyponatremia. Of note, the patient has had prior admits to [facility] inpatient service: most recently (01/05) he was admitted to [facility] for management of a necrotic L ulcer and, concerning for cellulitis that was treated with unasyn, as well as hyponatremia. ASSESSMENT AND PLAN VS: BP: 140/62 // HR: 76 // RR: 18 O2 sat: 100% on Room Air // T:97.4 Respiratory Pt is breathing comfortably on room air with 99% O2 Sat. There is no evidence of acute respiratory pathology at the moment. Infection Pt's condition of thalassemia major, peripheral artery disease and repeated skin ulcers with prior admits concerning for cellulitis make this patient particularly prone to developing infections. The patient has remained afebrile so far, but with a leukocytosis of 14.6->11.3->10.3 which can be due to his multiple concurrent inflammatory process or due to underlying infection, though now showing a downward trend; pt has remained afebrile. His lesions ooze greenish discharge with erythema surrounding them, but there is no increased warmth. Close inspection of wounds is warranted. No antibiotics as of now. Wound care will see the patient to assess lesions and ulcers. -f/u CBC Hematology On admit, the pt's H/H was 7.9/24.2. The patient has a history of thalassemia major, explaining his chronic anemia with elevated RDW. However, his MCV/MCHC do not fit a typical thalassemia picture. This, coupled with the h/o of tarry stools are concerning fo blood loss on top of his chronic anemia. guaiac is being done on stools to evaluate lower GI bleed. He has received 3 units PRBC. Pt went for EGD today showing erosive gastritis and nonerosive reflux disease. -keep Hb>8 -CBCs q12 Metabolic Pt's admitting Na of 115 was corrected 9 mEq to 124 over 24hr with fluid restriction of 800 mL. No more aggresive restitution of Na is recommended to avoid appereance of ODS. As such, sodium tabs were held. Nephrology is following - as per their recommendations, pt is now on half NS with 75 mEq of sodium bicarb at 75 cc/hr -f/u Bun/Cr -F/u BEP Alimentary Pt will be NPO after midnight for endoscopy in the am of 02/15. Dietary recommendations included multivitamins tabs with minerals which were ordered. Gastro is following, and switched from IV PPI to PO PPI BID -Omeprazole 20 mg BID Neuro Pt is AAOx3. He is talkative and cooperative. His muscle strength was not assessed due to pain, but sensation was diminished in R foot. Propioception B/L was preserved. FULL CODE DVT PPX Problem List: 1. Chronic wound of extremity 2. Hyponatremia Pain Ratin Pain Location: Lower extremities b/l Tomorrow's Labs & Rationales: BEP CBC Plan DVT/Prophylaxis: mechanical Bradley ROTHMAN,[facility] 02/15/18 1005: Attending MD Review Statement Attending Sign Off Attending Cosign Statement: I have: examined this patient, reviewed [employer] EMR data, personally reviewd images, discussd w/resident/PA/STEAM CONDITIONING OPERATOR, discussed mgmt plan w/ana rosa, discussed mgmt plan w/CM, discussed mgmt plan w/pt, agreed w/resident/PA/STEAM CONDITIONING OPERATOR, amended to note. Other Findings: This is a 62yo male with a Hx of Longstanding Chronic Venous and Lymphatic insufficiency, with a Nonhealing Circumferential LE wound, recurrent cellulitis , DJD hip pending surg, BPH, depression, Sacral decub, BPH, Mediterranian anemia , Avascular necrosis of the hip, now with Resolving Severe hyponatremia, appears normovoluemic Acute on chronic anemia with prob slow gi bleed, recent NSAID use JOVANY LE ulcers with venous insuff Sig Sacral ulcer Avascular necrosis of the hip Depression HLD History of sig etoh use REC Stable with improving sodium now For egd today Renal and GI following IV ppi Cortisol level and othe plan per H and P note Other plan as above Ok to the floor is ok later Ok to the floor is ok later
--- NOTE | 2018-02-15 13:01 | PN- Nephrology ---
Assessment/Plan Nephrology Assessment: 1. Hyponatremia secondary to chronic debilitation plus volume depletion - slowly improving 2. JOVANY - resolved with IV fluids 3. Metabolic acidosis improving with sodium bicarbonate infusion and improvement in renal function 4. Hypokalemia 5. Severe anemia secondary to GI blood loss - stable, with history of thalassemia 6. Chronic debilitation with history of recent falls resulting in multiple ecchymoses and abrasions 7. Steroid-induced avascular necrosis both hips Suggestion: 1. Would continue slow infusion of isotonic bicarbonate but can begin oral sodium bicarbonate 1300 mg p.o. twice daily 2. Continue to supplement potassium 3. Can monitor electrolytes every 12 hours 4. Social service and case management follow-up. In my view, he will need at least short-term rehab Subjective Subjective: Patient feels much better with better pain control. He insists to me that he has safe at home and denies that he will need short-term rehab. Plans for hip replacement are on hold for now. Serum sodium is slowly improving as his creatinine has come down to near baseline. Serum bicarbonate also slowly improving on isotonic sodium bicarbonate drip at 50 cc/h. Objective Vital Signs and I&Os Vital Signs Date Time Temp Pulse Resp B/P B/P Pulse O2 O2 Flow FiO2 Mean Ox Delivery Rate 02/15 1200 98.0 75 18 114/56 02/15 0800 97.4 76 18 140/62 100 Room Air 02/15 0600 73 16 143/65 02/15 0400 96.0 75 18 120/60 02/15 0400 99 Room Air 02/15 0200 80 20 11/56 02/15 0000 98.0 72 22 122/60 02/15 0000 96 Room Air 02/15 0000 98.0 72 20 122/60 96 Room Air 02/14 1800 75 20 98/51 07 1600 98.0 78 20 102/56 07 1600 98.0 78 20 102/56 99 Room Air 02/14 1600 99 Room Air Intake & Output 02/15 1600 02/15 0400 02/14 1600 02/14 0400 02/13 1600 02/13 0400 Intake Total 600 864 923 3434 Output Total 300 700 850 200 Balance 300 20 -30 1210 Intake, Blood 700 350 Product Intake, IV 336 100 0987 Intake, Oral 120 120 60 Output, Urine 300 700 850 200 Patient 175 lb 175 lb Weight Weight Estimated Measurement Method Physical Exam: General: Chronically ill, somewhat emaciated appearing white male in NAD Skin: No rash or jaundice but multiple ecchymoses and abrasions on both arms and lower extremities HEENT: Conjunctivae pale, sclerae anicteric, mucous membranes dry Neck: Without masses or thyromegaly, no supraclavicular or cervical adenopathy Chest: Clear anterolaterally Heart: Regular rate and rhythm without S3 or rub Abdomen: Soft and nontender without palpable masses or organomegaly Extremities: Without cyanosis or edema (see "Skin" above) Neuro: Cognitively intact, no focal findings, no asterixis or myoclonus Results Pertinent Lab Results: Laboratory Tests 02/15 02/15 02/15 1039 0515 0130 Chemistry Sodium (137 - 145 mmol/L) 132 L 129 L 129 L Potassium (3.5 - 5.1 mmol/L) 3.4 L 3.9 3.9 Chloride (98 - 107 mmol/L) 104 102 102 Carbon Dioxide (22 - 30 mmol/L) 17 L 17 L 16 L Anion Gap (5 - 16) 11 10 10 BUN (9 - 20 mg/dL) 16 17 19 Creatinine (0.7 - 1.2 mg/dL) 0.9 1.0 1.1 Estimated GFR (>60 ml/min) > 60 > 60 > 60 BUN/Creatinine Ratio (7 - 25 %) 17.8 17.0 17.3 Magnesium (1.6 - 2.3 mg/dL) 2.0 Hematology CBC w Diff MAN DIFF ORDERED WBC (4.8 - 10.8 /CUMM) 10.8 RBC (4.70 - 6.10 /CUMM) 2.70 L Hgb (14.0 - 18.0 G/DL) 7.9 L Hct (42 - 52 %) 24.2 L MCV (80.0 - 94.0 FL) 89.5 MCH (27.0 - 31.0 PG) 29.4 MCHC (33.0 - 37.0 G/DL) 32.9 L RDW (11.5 - 14.5 %) 17.9 H Plt Count (130 - 400 /CUMM) 591 H MPV (7.4 - 10.4 FL) 6.6 L Gran % (42.2 - 75.2 %) 85.6 H Lymphocytes % (20.5 - 51.1 %) 6.1 L Monocytes % (1.7 - 9.3 %) 7.8 Eosinophils % (0 - 5 %) 0.4 Basophils % (0.0 - 2.0 %) 0.1 Absolute Granulocytes (1.4 - 6.5 /CUMM) 9.2 H Segmented Neutrophils (42.2 - 75.2 %) 89 H Band Neutrophils (0.0 - 5.0 %) 1 Absolute Lymphocytes (1.2 - 3.4 /CUMM) 0.7 L Lymphocytes (20.5 - 51.1 %) 5 L Monocytes (1.7 - 9.3 %) 5 Absolute Monocytes (0.10 - 0.60 /CUMM) 0.8 H Absolute Eosinophils (0.0 - 0.7 /CUMM) 0 Absolute Basophils (0.0 - 0.2 /CUMM) 0 Platelet Estimate (ADEQUATE) INCREASED Polychromasia 1+ Hypochromic-Microcytic 1+ Poikilocytosis 1+ Ovalocytes 1+ [place] Cells FEW Other Body Source Fld Total RBCs Counted (%) 100 02/14 02/14 02/14 2100 1855 1230 Chemistry Sodium (137 - 145 mmol/L) Cancelled 127 L 124 L Potassium (3.5 - 5.1 mmol/L) Cancelled 3.4 L 3.8 Chloride (98 - 107 mmol/L) Cancelled 100 101 Carbon Dioxide (22 - 30 mmol/L) Cancelled 14 L 12 L Anion Gap (5 - 16) Cancelled 13 12 BUN (9 - 20 mg/dL) Cancelled 21 H 23 H Creatinine (0.7 - 1.2 mg/dL) Cancelled 1.1 1.2 Estimated GFR (>60 ml/min) > 60 > 60 BUN/Creatinine Ratio (7 - 25 %) Cancelled 19.1 19.2 Serum Osmolality (285 - 295 MOSM/KG) 263 L Hematology CBC w Diff NO MAN DIFF REQ WBC (4.8 - 10.8 /CUMM) 11.3 H RBC (4.70 - 6.10 /CUMM) 2.68 L Hgb (14.0 - 18.0 G/DL) 7.8 L Hct (42 - 52 %) 23.8 L MCV (80.0 - 94.0 FL) 88.9 MCH (27.0 - 31.0 PG) 29.3 MCHC (33.0 - 37.0 G/DL) 33.0 RDW (11.5 - 14.5 %) 17.9 H Plt Count (130 - 400 /CUMM) 571 H MPV (7.4 - 10.4 FL) 6.7 L Gran % (42.2 - 75.2 %) 93.7 H Lymphocytes % (20.5 - 51.1 %) 5.6 L Monocytes % (1.7 - 9.3 %) 0.1 L Eosinophils % (0 - 5 %) 0.2 Basophils % (0.0 - 2.0 %) 0.4 Absolute Granulocytes (1.4 - 6.5 /CUMM) 10.6 H Absolute Lymphocytes (1.2 - 3.4 /CUMM) 0.6 L Absolute Monocytes (0.10 - 0.60 /CUMM) 0 L Absolute Eosinophils (0.0 - 0.7 /CUMM) 0 Absolute Basophils (0.0 - 0.2 /CUMM) 0.1 02/14 02/14 02/14 0945 0918 0830 Chemistry Sodium (137 - 145 mmol/L) Cancelled 124 L Potassium (3.5 - 5.1 mmol/L) Cancelled 4.4 Chloride (98 - 107 mmol/L) Cancelled 98 Carbon Dioxide (22 - 30 mmol/L) Cancelled 15 L Anion Gap (5 - 16) Cancelled 11 BUN (9 - 20 mg/dL) Cancelled 24 H Creatinine (0.7 - 1.2 mg/dL) Cancelled 1.4 H Estimated GFR (>60 ml/min) 52 L BUN/Creatinine Ratio (7 - 25 %) Cancelled 17.1 Urines Urine Color (YEL,AMB,STR) YEL Urine Clarity (CLEAR) CLEAR Urine pH (5.0 - 8.0) 6.0 Ur Specific [place] (1.001 - 1.035) 1.010 Urine Protein (NEG,<30 MG/DL) NEG Urine Ketones (NEG) NEG Urine Nitrite (NEG) NEG Urine Bilirubin (NEG) NEG Urine Urobilinogen (0.1 - 1.0 EU/dl) 0.2 Ur Leukocyte Esterase (NEG) NEG Ur Microscopic SEDIMENT EXAMINED Urine RBC (0 - 5 /HPF) 1-3 Urine WBC (0 - 2 /HPF) RARE Ur Epithelial Cells (NONE,FEW) FEW Urine Bacteria (NEG/NONE) FEW H Hyaline Casts (0/LPF) RARE H Urine Hemoglobin (NEG) SMALL H Urine Glucose (N MG/DL) NEG 02/14 02/14 02/14 0830 0524 0541 Chemistry Sodium (137 - 145 mmol/L) 122 L Potassium (3.5 - 5.1 mmol/L) 4.2 Chloride (98 - 107 mmol/L) 96 L Carbon Dioxide (22 - 30 mmol/L) 13 L Anion Gap (5 - 16) 14 BUN (9 - 20 mg/dL) 25 H Creatinine (0.7 - 1.2 mg/dL) 1.4 H Estimated GFR (>60 ml/min) 52 L Glucose (65 - 99 mg/dL) 95 Calcium (8.4 - 10.2 mg/dL) 7.9 L Phosphorus (2.5 - 4.5 mg/dL) 4.3 Magnesium (1.6 - 2.3 mg/dL) 2.3 Total Bilirubin (0.2 - 1.3 mg/dL) 2.9 H AST (17 - 59 U/L) 15 L ALT (21 - 72 U/L) 30 Albumin (3.5 - 5.0 g/dL) 2.3 L Cortisol AM Sample (4.46 - 22.7 ug/dL) 32.0 H Hematology CBC w Diff MAN DIFF ORDERED WBC (4.8 - 10.8 /CUMM) 14.6 H RBC (4.70 - 6.10 /CUMM) 2.44 L Hgb (14.0 - 18.0 G/DL) 7.3 *L Hct (42 - 52 %) 21.8 L MCV (80.0 - 94.0 FL) 89.2 MCH (27.0 - 31.0 PG) 30.0 MCHC (33.0 - 37.0 G/DL) 33.7 RDW (11.5 - 14.5 %) 17.5 H Plt Count (130 - 400 /CUMM) 618 H MPV (7.4 - 10.4 FL) 6.6 L Gran % (42.2 - 75.2 %) 91.0 H Lymphocytes % (20.5 - 51.1 %) 3.0 L Monocytes % (1.7 - 9.3 %) 5.6 Eosinophils % (0 - 5 %) 0.2 Basophils % (0.0 - 2.0 %) 0.2 Absolute Granulocytes (1.4 - 6.5 /CUMM) 13.3 H Segmented Neutrophils (42.2 - 75.2 %) 94 H Absolute Lymphocytes (1.2 - 3.4 /CUMM) 0.4 L Lymphocytes (20.5 - 51.1 %) 4 L Monocytes (1.7 - 9.3 %) 2 Absolute Monocytes (0.10 - 0.60 /CUMM) 0.8 H Absolute Eosinophils (0.0 - 0.7 /CUMM) 0 Absolute Basophils (0.0 - 0.2 /CUMM) 0 Platelet Estimate (ADEQUATE) INCREASED Polychromasia 1+ Poikilocytosis 2+ Ovalocytes 1+ [place] Cells 1+ Other Body Source Fld Total RBCs Counted (%) 100 Urines Urine Osmolality (300 - 1000 MOSM/KG) 225 L Ur Random Creatinine (mg/dL) 38.5 Ur Random Sodium (30 - 90 mmol/L) < 5 L Ur Random Potassium (mmol/L) 26.4 Fraction Sodium Excret (<1% %) 02/14 02/13 02/13 02/13 0200 1936 1936 1830 Chemistry Sodium (137 - 145 mmol/L) 121 L 115 *L Potassium (3.5 - 5.1 mmol/L) 3.7 3.1 L Chloride (98 - 107 mmol/L) 94 L 85 L Carbon Dioxide (22 - 30 mmol/L) 12 L 12 L Anion Gap (5 - 16) 15 18 H BUN (9 - 20 mg/dL) 27 H 29 H Creatinine (0.7 - 1.2 mg/dL) 1.4 H 1.7 H Estimated GFR (>60 ml/min) 52 L 41 L BUN/Creatinine Ratio (7 - 25 %) 19.3 17.1 Magnesium (1.6 - 2.3 mg/dL) 2.5 H TSH (0.270 - 4.200 uIU/mL) 4.980 H Free T4 (0.78 - 2.44 ng/dL) 1.46 Toxicology Serum Alcohol (<10 MG/DL) 46.0 Urines Urine Color Cancelled Urine Clarity Cancelled Urine pH Cancelled Ur Specific [place] Cancelled Urine Protein Cancelled Urine Ketones Cancelled Urine Nitrite Cancelled Urine Bilirubin Cancelled Urine Urobilinogen Cancelled Ur Leukocyte Esterase Cancelled Ur Microscopic Cancelled Urine Hemoglobin Cancelled Urine Osmolality Cancelled Ur Random Creatinine Cancelled Ur Random Sodium Cancelled Ur Random Potassium Cancelled Fraction Sodium Excret Cancelled Urine Glucose Cancelled
--- NOTE | 2018-02-15 13:48 | PN- Att Addend ---
Attending Addendum Attending Brief Note Patient in bed. His collar slowly improved. Vital signs are stable no fever. No major changes on physical examination. Appreciate all the consultants recommendations. Upper endoscopy was deferred by anesthesiology until the patient is more "stable". His H&H is a little improved his sodium is a little improved his potassium is definitely improved. Also monitoring his wounds. Patient on IV PPIs twice a day Intake & Output 02/15 1600 02/15 0400 02/14 1600 02/14 0400 02/13 1600 02/13 0400 Intake Total 600 [phone] Output Total 300 700 850 200 Balance 300 20 -30 1210 Intake, Blood 700 350 Product Intake, IV [phone] Intake, Oral 120 120 60 Output, Urine 300 700 850 200 Patient 175 lb 175 lb Weight Weight Estimated Measurement Method Current Medications Sig/Alexus Start time Last Medication Dose Route Stop Time Status Admin Acetaminophen 650 MG Q6P PRN 02/13 2030 AC PO Atorvastatin Calcium 80 MG 1700 02/14 1700 DC PO Atorvastatin Calcium 80 MG 1700 02/14 1700 AC 02/14 PO 1710 Morphine Sulfate 4 MG .STK-MED ONE 02/15 0455 DC IM 02/15 0456 Morphine Sulfate 2 MG Q4P PRN 02/13 2030 AC 02/15 IV 1039 Multivitamins 1 TAB DAILY 02/15 900 AC PO Pantoprazole Sodium 40 MG BID 02/13 2100 AC 02/15 IV 1009 Potassium Chloride 40 MEQ ONCE ONE 02/14 2315 DC 02/14 PO 02/14 2316 2329 Sodium Bicarbonate 75 MEQ Q13H 02/15 1400 AC Sodium Chloride 1,000 ML IV Sodium Bicarbonate 75 MEQ Q13H 02/14 1515 DC 02/14 Sodium Chloride 1,000 ML IV 1745 Sodium Chloride 2,000 MG TID 02/13 2100 DC 02/13 PO 2226 Tamsulosin HCl 0.4 MG DAILY 02/13 2030 AC PO Tramadol HCl 50 MG Q6-PRN PRN 02/13 2030 AC 02/14 PO 1019 Laboratory Tests 02/15/18 1039: Anion Gap 11, Estimated GFR > 60, BUN/Creatinine Ratio 17.8, Magnesium 2.0 02/15/18 0515: Anion Gap 10, Estimated GFR > 60, BUN/Creatinine Ratio 17.0, CBC w Diff MAN DIFF ORDERED, RBC 2.70 L, MCV 89.5, MCH 29.4, MCHC 32.9 L, RDW 17.9 H, MPV 6.6 L, Gran % 85.6 H, Lymphocytes % 6.1 L, Monocytes % 7.8, Eosinophils % 0.4, Basophils % 0.1, Absolute Granulocytes 9.2 H, Segmented Neutrophils 89 H, Band Neutrophils 1, Absolute Lymphocytes 0.7 L, Lymphocytes 5 L, Monocytes 5, Absolute Monocytes 0.8 H, Absolute Eosinophils 0, Absolute Basophils 0, Platelet Estimate INCREASED, Polychromasia 1+, Hypochromic-Microcytic 1+, Poikilocytosis 1+, Ovalocytes 1+, Jay Em Cells FEW, Fld Total RBCs Counted 100 02/15/18 0130: Anion Gap 10, Estimated GFR > 60, BUN/Creatinine Ratio 17.3 02/14/18 2100: Sodium Cancelled, Potassium Cancelled, Chloride Cancelled, Carbon Dioxide Cancelled, Anion Gap Cancelled, BUN Cancelled, Creatinine Cancelled, BUN/ Creatinine Ratio Cancelled 02/14/18 1855: Anion Gap 13, Estimated GFR > 60, BUN/Creatinine Ratio 19.1, Serum Osmolality 263 L, CBC w Diff NO MAN DIFF REQ, RBC 2.68 L, MCV 88.9, MCH 29.3, MCHC 33.0, RDW 17.9 H, MPV 6.7 L, Gran % 93.7 H, Lymphocytes % 5.6 L, Monocytes % 0.1 L, Eosinophils % 0.2, Basophils % 0.4, Absolute Granulocytes 10.6 H, Absolute Lymphocytes 0.6 L, Absolute Monocytes 0 L, Absolute Eosinophils 0, Absolute Basophils 0.1 02/14/18 1230: Anion Gap 12, Estimated GFR > 60, BUN/Creatinine Ratio 19.2 02/14/18 0945: Sodium Cancelled, Potassium Cancelled, Chloride Cancelled, Carbon Dioxide Cancelled, Anion Gap Cancelled, BUN Cancelled, Creatinine Cancelled, BUN/ Creatinine Ratio Cancelled 02/14/18 0918: Anion Gap 11, Estimated GFR 52 L, BUN/Creatinine Ratio 17.1 02/14/18 0830: Urine Color YEL, Urine Clarity CLEAR, Urine pH 6.0, Ur Specific [place] 1.010, Urine Protein NEG, Urine Ketones NEG, Urine Nitrite NEG, Urine Bilirubin NEG, Urine Urobilinogen 0.2, Ur Leukocyte Esterase NEG, Ur Microscopic SEDIMENT EXAMINED, Urine RBC 1-3, Urine WBC RARE, Ur Epithelial Cells FEW, Urine Bacteria FEW H, Hyaline Casts RARE H, Urine Hemoglobin SMALL H, Urine Glucose NEG 02/14/18 0830: Urine Osmolality 225 L, Ur Random Creatinine 38.5, Ur Random Sodium < 5 L, Ur Random Potassium 26.4, Fraction Sodium Excret 02/14/18 0545: Cortisol AM Sample 32.0 H 02/14/18 0545: Anion Gap 14, Estimated GFR 52 L, Glucose 95, Calcium 7.9 L, Phosphorus 4.3, Magnesium 2.3, Total Bilirubin 2.9 H, AST 15 L, ALT 30, Albumin 2.3 L, CBC w Diff MAN DIFF ORDERED, RBC 2.44 L, MCV 89.2, MCH 30.0, MCHC 33.7, RDW 17.5 H, MPV 6.6 L, Gran % 91.0 H, Lymphocytes % 3.0 L, Monocytes % 5.6, Eosinophils % 0.2, Basophils % 0.2, Absolute Granulocytes 13.3 H, Segmented Neutrophils 94 H , Absolute Lymphocytes 0.4 L, Lymphocytes 4 L, Monocytes 2, Absolute Monocytes 0.8 H, Absolute Eosinophils 0, Absolute Basophils 0, Platelet Estimate INCREASED, Polychromasia 1+, Poikilocytosis 2+, Ovalocytes 1+, Jarrod Cells 1+, Fld Total RBCs Counted 100 02/14/18 0200: Anion Gap 15, Estimated GFR 52 L, BUN/Creatinine Ratio 19.3 02/13/18 193: Urine Color Cancelled, Urine Clarity Cancelled, Urine pH Cancelled, Ur Specific [place] Cancelled, Urine Protein Cancelled, Urine Ketones Cancelled, Urine Nitrite Cancelled, Urine Bilirubin Cancelled, Urine Urobilinogen Cancelled, Ur Leukocyte Esterase Cancelled, Ur Microscopic Cancelled, Urine Hemoglobin Cancelled, Urine Glucose Cancelled 02/13/18 193: Urine Osmolality Cancelled, Ur Random Creatinine Cancelled, Ur Random Sodium Cancelled, Ur Random Potassium Cancelled, Fraction Sodium Excret Cancelled 02/13/18 1830: Anion Gap 18 H, Estimated GFR 41 L, BUN/Creatinine Ratio 17.1, Magnesium 2.5 H, TSH 4.980 H, Free T4 1.46, Serum Alcohol 46.0 Microbiology 02/13 2133 UPPER RESP: Surveillance Culture - COMP METH RESIST STAPH AUREUS 02/13 2130 GI: Surveillance Culture - COMP Microbiology 02/13 2133 UPPER RESP: Surveillance Culture - COMP METH RESIST STAPH AUREUS 02/13 2130 GI: Surveillance Culture - COMP Vital Signs Date Time Temp Pulse Resp B/P B/P Pulse O2 O2 Flow FiO2 Mean Ox Delivery Rate 02/15 1200 98.0 75 18 114/56 07/ 0800 97.4 76 18 140/62 100 Room Air 02/15 0600 73 16 143/65 07/ 0400 96.0 75 18 120/60 07/ 0400 99 Room Air / 0200 80 20 11/56 07/11 0000 98.0 72 22 122/60 07/11 0000 96 Room Air 07/ 0000 98.0 72 20 122/60 96 Room Air 07/10 1800 75 20 98/51 07/10 1600 98.0 78 20 102/56 07/10 1600 98.0 78 20 102/56 99 Room Air 07/10 1600 99 Room Air
--- NOTE | 2018-02-15 14:35 | Proc Note Endoscopy ---
Endoscopy Procedure Medical History: unchanged (see medtiech consult) Mental Status: alert/oriented Heart/Lung Eval Prior to Sedation: within normal limits Candidate for Sedation? Yes Procedure Date: 02/15/18 Procedure Type: EGD w/biopsy Hide Buyer: Alfredo Penaloza MD ASA Classification: III Indications: Melena, anemia. Instrument: diagnostic gastroscope Meds Received: MAC Patient's Tolerance: good Complications: none Extent Reached: second part of duodenum Procedure: After getting written informed consent the patient was placed in the left lateral decubitus position with pulse oximetry, cardiac monitoring, and supplemental oxygen given. A bite block was inserted and IV sedation was given until the desired effect was achieved. A high definition upper Olympus endoscope was then inserted into the mouth and advanced to the second portion of the duodenum with little difficulty. Retroflexed views and photodocumentation was obtained. Findings: Esophagus: The upper esophageal mucosa was grossly normal appearance. At 35 cm from the incisors was a 5 mm erythematous nodule which was biopsied and essentially removed with cold biopsy forceps and was sent to pathology for further evaluation. There were circumferential erythematous changes at the Z line located at 38 cm from the incisors and the mucosa was nodular and irregular in appearance, but there were no obvious masses or strictures appreciated. Biopsies were obtained from the Z line with cold biopsy forceps and were sent to pathology for further valuation. Stomach: The antral mucosa was mildly erythematous and there were a few prominent erosions, but there were no ulcers or masses appreciated. Distention and peristalsis of stomach appeared normal. Retroflexed views revealed a small hiatal hernia. Random biopsies were obtained from the antrum with cold biopsy forceps and were sent to pathology for further evaluation. Duodenum: The duodenal bulb, sweep, and folds were grossly normal in appearance. Impression: 1. Nonerosive reflux disease with possible underlying Raymond's esophagus status post biopsies. 2. Erythematous 5 mm esophageal nodule status post biopsies. 3. Erosive gastritis status post antral biopsies. 4. No active bleeding appreciated. 5. Small hiatal hernia. Recommendations: 1. She placed on oral PPI twice a day for now. 2. He should follow an antireflux regimen. 3. He should follow up the pathology results me as an outpatient. 4. He should avoid drgi-aof-vddzidu NSAIDs. 5. Based on the results of the pathology consideration will be given to repeat his upper endoscopy 3-6 months to confirm healing of his esophagitis and rule out underlying Raymond's esophagus. CC: Prudencio ROTHMAN,[place]
[2018-02-16] VITALS (8 sets, daily range): BP systolic 95–124; BP diastolic 56–70
[2018-02-16 05:14] LABS: ABSOLUTE BASOPHIL COUNT 0 /CUMM (0.0-0.2); ABSOLUTE EOSINOPHIL COUNT 0.1 /CUMM (0.0-0.7); ABSOLUTE GRANULOCYTE CT 8.3 /CUMM (1.4-6.5); ABSOLUTE LYMPH COUNT 1.1 /CUMM (1.2-3.4); ABSOLUTE MONOCYTE COUNT 0.6 /CUMM (0.10-0.60); BASOPHIL % 0.3 % (0.0-2.0); EOSINOPHIL % 1.2 % (0-5); GRANULOCYTE % 82.4 % (42.2-75.2); HEMATOCRIT 22.6 % (42-52); MEAN CORPUSCULAR HGB 28.9 PG (27.0-31.0); MEAN CORPUSCULAR HGB CONC 32.5 G/DL (33.0-37.0); MEAN CORPUSCULAR VOLUME 89.1 FL (80.0-94.0); MEAN PLATELET VOLUME 6.6 FL (7.4-10.4); PLATELET COUNT 525 /CUMM (130-400); RED BLOOD CELL CT 2.53 /CUMM (4.70-6.10); WHITE BLOOD CELL COUNT 10.1 /CUMM (4.8-10.8)
--- NOTE | 2018-02-16 07:22 | PN- Resident CRCU ---
Subjective HPI/CRCU Issues: Mr. 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 He was admitted to the ICU for management of hyponatremia. 24 Hour Events: Pt was seen and examined at bedside. Pt states feeling well, no c/o N/V. He was awake and alert, not looking in acute distress. Objective Vital Signs & I&O Last 8 Hrs of Vitals and I&O: Vital Signs Date Time Temp Pulse Resp B/P B/P Pulse O2 O2 Flow FiO2 Mean Ox Delivery Rate 02/16 1600 97.8 72 20 110/60 98 Room Air 02/16 1200 978.0 76 20 103/58 02/16 0800 97.8 74 18 124/70 98 Room Air 02/16 0600 68 16 102/56 02/16 0400 97.1 68 16 95/61 02/16 0400 100 Room Air 02/16 0200 60 13 99/58 / 0000 97.1 72 22 100/70 07/ 0000 97.1 72 22 100/70 100 Room Air / 0000 100 Room Air 02/16 2000 97.2 68 16 102/60 02/15 2000 97 Room Air Laboratory Tests 02/168 2029 Chemistry Sodium (137 - 145 mmol/L) 132 L 130 L Potassium (3.5 - 5.1 mmol/L) 3.5 3.2 L Chloride (98 - 107 mmol/L) 103 104 Carbon Dioxide (22 - 30 mmol/L) 20 L 18 L Anion Gap (5 - 16) 9 9 BUN (9 - 20 mg/dL) 14 15 Creatinine (0.7 - 1.2 mg/dL) 0.9 0.9 Estimated GFR (>60 ml/min) > 60 > 60 BUN/Creatinine Ratio (7 - 25 %) 15.6 16.7 Hematology CBC w Diff NO MAN DIFF REQ WBC (4.8 - 10.8 /CUMM) 10.1 RBC (4.70 - 6.10 /CUMM) 2.53 L Hgb (14.0 - 18.0 G/DL) 7.3 *L Hct (42 - 52 %) 22.6 L MCV (80.0 - 94.0 FL) 89.1 MCH (27.0 - 31.0 PG) 28.9 MCHC (33.0 - 37.0 G/DL) 32.5 L RDW (11.5 - 14.5 %) 19.0 H Plt Count (130 - 400 /CUMM) 525 H MPV (7.4 - 10.4 FL) 6.6 L Gran % (42.2 - 75.2 %) 82.4 H Lymphocytes % (20.5 - 51.1 %) 10.5 L Monocytes % (1.7 - 9.3 %) 5.6 Eosinophils % (0 - 5 %) 1.2 Basophils % (0.0 - 2.0 %) 0.3 Absolute Granulocytes (1.4 - 6.5 /CUMM) 8.3 H Absolute Lymphocytes (1.2 - 3.4 /CUMM) 1.1 L Absolute Monocytes (0.10 - 0.60 /CUMM) 0.6 Absolute Eosinophils (0.0 - 0.7 /CUMM) 0.1 Absolute Basophils (0.0 - 0.2 /CUMM) 0 Intake & Output 02/16 1600 Intake Total 1635 Output Total Balance 1635 Intake, Blood 350 Product Intake, IV 405 Intake, Oral 880 Number 0 Bowel Movements Exam General Appearance: alert, awake, mild distress, thin Head: atraumatic, normal appearance Neck: normal inspection, supple, poor dentition Respiratory: normal breath sounds, chest non-tender, no respiratory distress, lungs clear Cardiovascular: regular rate/rhythm, tachycardia Gastrointestinal: normal bowel sounds, soft, non-tender, no organomegaly Extremities: normal inspection, no edema Cranial Nerves: normal hearing, normal speech Skin: multiple ecchymoses, eschars, ulcers B/L in LE and UE. Intact dressings B/ L on knees and back Current Medications: Current Medications Sig/Alexus Start time Last Medication Dose Route Stop Time Status Admin Acetaminophen 650 MG Q6P PRN 02/13 2030 AC PO Atorvastatin Calcium 80 MG 1700 02/14 1700 AC 02/15 PO 1656 Chlorhexidine 1 GM .STK-MED ONE 02/15 1523 DC Gluconate TOP 02/15 1524 Enoxaparin Sodium 40 MG DAILY 02/16 0900 AC 02/16 SC 0839 Morphine Sulfate 4 MG ONCE ONE 02/16 0900 DC 02/16 IV 02/16 0901 0910 Morphine Sulfate 2 MG Q4P PRN 02/13 2030 DC 02/15 IV 1439 Multivitamins 1 TAB DAILY 02/15 0900 AC 02/16 PO 1059 Omeprazole 20 MG BID 02/15 2100 AC 02/16 PO 0839 Oxycodone/ 2 TAB ONCE ONE 02/15 1700 DC 02/15 Acetaminophen PO 02/15 1701 1659 Oxycodone/ 2 TAB Q6P PRN 02/15 1700 AC 02/16 Acetaminophen PO 0848 Pantoprazole Sodium 40 MG BID 02/13 2100 DC 02/15 IV 1009 Potassium Chloride 40 MEQ ONCE ONE 02/16 0800 DC 02/16 PO 02/16 0801 0838 Potassium Chloride 60 MEQ ONCE ONE 02/15 2215 DC 02/15 PO 02/15 2216 2345 Sodium Bicarbonate 1,300 MG BID 02/15 2100 AC 02/16 PO 0839 Sodium Bicarbonate 75 MEQ Q13H 02/15 1400 AC 02/16 Sodium Chloride 1,000 ML IV 0419 Tamsulosin HCl 0.4 MG DAILY 02/13 2030 AC 02/16 PO 1059 Tramadol HCl 50 MG Q6-PRN PRN 02/13 2030 AC 02/14 PO 1019 Impression/Plan Impression/Problem List Impression: Mr. 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 At baseline the patient is mostly bed-bound or sometimes ambulating using a wheelchair. Recently , he has complained of poor appetite and burning, intermitting epigastric pain with no radiation. As per , pt has had episodes of black tarry stools, though denies N/V, constipation or diarrhea. He was admitted to the ICU for management of hyponatremia. Of note, the patient has had prior admits to [facility] inpatient service: most recently (01/05) he was admitted to [facility] for management of a necrotic L ulcer and, concerning for cellulitis that was treated with unasyn, as well as hyponatremia. ASSESSMENT AND PLAN VS: T:97.8 // HR:76 // RR:20, 98% O2 sat on room air // BP:103/58 Respiratory Pt is breathing comfortably on room air with 99% O2 Sat. There is no evidence of acute respiratory pathology at the moment. Infection Pt's condition of thalassemia major, peripheral artery disease and repeated skin ulcers with prior admits concerning for cellulitis make this patient particularly prone to developing infections. The patient has remained afebrile so far, but with a leukocytosis of 14.6->11.3->10.3 which can be due to his multiple concurrent inflammatory process or due to underlying infection, though now showing a downward trend; pt has remained afebrile. His lesions ooze greenish discharge with erythema surrounding them, but there is no increased warmth. Close inspection of wounds is warranted. No antibiotics as of now. Wound care saw the patient and reported slight improvement from last tuesday on his stage 3 pressure ulcer. -f/u CBC -f/u wound care recommendations Hematology On admit, the pt's H/H was 7.3/22.6. The patient has a history of thalassemia major, explaining his chronic anemia with elevated RDW. However, his MCV/MCHC do not fit a typical thalassemia picture. This, coupled with the h/o of tarry stools are concerning fo blood loss on top of his chronic anemia. guaiac is being done on stools to evaluate lower GI bleed. He has received 3 units PRBC. Pt went for EGD on 02/15 showing erosive gastritis and nonerosive reflux disease. -keep Hb>8 -CBCs q12 Metabolic Pt's admitting Na of 115 was corrected 9 mEq to 124 over 24hr with fluid restriction of 800 mL, now up to 132. Nephrology is following - as per their recommendations, pt is now sodium bicarb PO, with fluids dc'd. -F/u BEP Alimentary Pt is tolerating PO well. Dietary recommendations included multivitamins tabs with minerals which were ordered. As per gastro's recommendation, he was switched from IV PPI to PO PPI BID -Omeprazole 20 mg BID Neuro Pt is AAOx3. He is talkative and cooperative. His muscle strength was not assessed due to pain, but sensation was diminished in R foot. Propioception B/L was preserved. FULL CODE DVT PPX Problem List: 1. Chronic wound of extremity Pain Ratin Tomorrow's Labs & Rationales: cbc Plan DVT/Prophylaxis: mechanical
--- NOTE | 2018-02-16 11:36 | PN- Nephrology ---
Assessment/Plan Nephrology Assessment: 1. Hyponatremia secondary to chronic debilitation plus volume depletion - continues to slowly improve 2. JOVANY - resolved with IV fluids 3. Metabolic acidosis, much improved 4. Hypokalemia, improved 5. Severe anemia secondary to GI blood loss -relatively stable, with history of thalassemia 6. Chronic debilitation with history of recent falls resulting in multiple ecchymoses and abrasions 7. Steroid-induced avascular necrosis both hips Suggestion: 1. Continue oral sodium bicarbonate but discontinue IV bicarbonate 2. Supplement potassium as needed Subjective Subjective: Seems relatively comfortable today with no specific complaints. Creatinine stable at 0.9, serum sodium 132, potassium 3.5, serum CO2 up to 20. Objective Vital Signs and I&Os Vital Signs Date Time Temp Pulse Resp B/P B/P Pulse O2 O2 Flow FiO2 Mean Ox Delivery Rate 02/16 0800 97.8 74 18 124/70 98 Room Air 02/16 0600 68 16 102/56 02/16 0400 97.1 68 16 95/61 02/16 0400 100 Room Air 02/16 0200 60 13 99/58 02/16 0000 97.1 72 22 100/70 07/12 0000 97.1 72 22 100/70 100 Room Air 02/16 0000 100 Room Air 02/15 2000 97.2 68 16 102/60 02/15 2000 97 Room Air 02/15 1600 98.2 78 20 128/68 /11 1600 97.8 78 20 128/68 93 Nasal 2.0L Cannula 02/15 1200 98.0 75 18 114/56 Intake & Output 02/16 1600 02/16 0400 02/15 1600 02/15 0400 02/14 1600 02/14 0400 Intake Total 1111 1280 620 576 075 2254 Output Total 400 0 900 700 850 200 Balance 711 1280 -280 20 -30 1210 Intake, Blood 700 350 Product Intake, IV 631 730 094 295 7643 Intake, Oral 480 550 0 120 120 60 Number 1 0 0 Bowel Movements Output, Urine 400 0 900 700 850 200 Patient 175 lb 175 lb Weight Weight Estimated Measurement Method Physical Exam: General: Chronically ill, somewhat emaciated appearing white male in NAD Skin: No rash or jaundice but multiple ecchymoses and abrasions on both arms and lower extremities HEENT: Conjunctivae pale, sclerae anicteric, mucous membranes dry Neck: Without masses or thyromegaly, no supraclavicular or cervical adenopathy Chest: Clear anterolaterally Heart: Regular rate and rhythm without S3 or rub Abdomen: Soft and nontender without palpable masses or organomegaly Extremities: Without cyanosis or edema (see "Skin" above) Neuro: Cognitively intact, no focal findings, no asterixis or myoclonus Results Pertinent Lab Results: Laboratory Tests 02/16 02/15 02/15 0428 2030 1039 Chemistry Sodium (137 - 145 mmol/L) 132 L 130 L 132 L Potassium (3.5 - 5.1 mmol/L) 3.5 3.2 L 3.4 L Chloride (98 - 107 mmol/L) 103 104 104 Carbon Dioxide (22 - 30 mmol/L) 20 L 18 L 17 L Anion Gap (5 - 16) 9 9 11 BUN (9 - 20 mg/dL) 14 15 16 Creatinine (0.7 - 1.2 mg/dL) 0.9 0.9 0.9 Estimated GFR (>60 ml/min) > 60 > 60 > 60 BUN/Creatinine Ratio (7 - 25 %) 15.6 16.7 17.8 Magnesium (1.6 - 2.3 mg/dL) 2.0 Hematology CBC w Diff NO MAN DIFF REQ WBC (4.8 - 10.8 /CUMM) 10.1 RBC (4.70 - 6.10 /CUMM) 2.53 L Hgb (14.0 - 18.0 G/DL) 7.3 *L Hct (42 - 52 %) 22.6 L MCV (80.0 - 94.0 FL) 89.1 MCH (27.0 - 31.0 PG) 28.9 MCHC (33.0 - 37.0 G/DL) 32.5 L RDW (11.5 - 14.5 %) 19.0 H Plt Count (130 - 400 /CUMM) 525 H MPV (7.4 - 10.4 FL) 6.6 L Gran % (42.2 - 75.2 %) 82.4 H Lymphocytes % (20.5 - 51.1 %) 10.5 L Monocytes % (1.7 - 9.3 %) 5.6 Eosinophils % (0 - 5 %) 1.2 Basophils % (0.0 - 2.0 %) 0.3 Absolute Granulocytes (1.4 - 6.5 /CUMM) 8.3 H Absolute Lymphocytes (1.2 - 3.4 /CUMM) 1.1 L Absolute Monocytes (0.10 - 0.60 /CUMM) 0.6 Absolute Eosinophils (0.0 - 0.7 /CUMM) 0.1 Absolute Basophils (0.0 - 0.2 /CUMM) 0 02/15 02/15 02/14 0515 0130 2100 Chemistry Sodium (137 - 145 mmol/L) 129 L 129 L Cancelled Potassium (3.5 - 5.1 mmol/L) 3.9 3.9 Cancelled Chloride (98 - 107 mmol/L) 102 102 Cancelled Carbon Dioxide (22 - 30 mmol/L) 17 L 16 L Cancelled Anion Gap (5 - 16) 10 10 Cancelled BUN (9 - 20 mg/dL) 17 19 Cancelled Creatinine (0.7 - 1.2 mg/dL) 1.0 1.1 Cancelled Estimated GFR (>60 ml/min) > 60 > 60 BUN/Creatinine Ratio (7 - 25 %) 17.0 17.3 Cancelled Hematology CBC w Diff MAN DIFF ORDERED WBC (4.8 - 10.8 /CUMM) 10.8 RBC (4.70 - 6.10 /CUMM) 2.70 L Hgb (14.0 - 18.0 G/DL) 7.9 L Hct (42 - 52 %) 24.2 L MCV (80.0 - 94.0 FL) 89.5 MCH (27.0 - 31.0 PG) 29.4 MCHC (33.0 - 37.0 G/DL) 32.9 L RDW (11.5 - 14.5 %) 17.9 H Plt Count (130 - 400 /CUMM) 591 H MPV (7.4 - 10.4 FL) 6.6 L Gran % (42.2 - 75.2 %) 85.6 H Lymphocytes % (20.5 - 51.1 %) 6.1 L Monocytes % (1.7 - 9.3 %) 7.8 Eosinophils % (0 - 5 %) 0.4 Basophils % (0.0 - 2.0 %) 0.1 Absolute Granulocytes (1.4 - 6.5 /CUMM) 9.2 H Segmented Neutrophils (42.2 - 75.2 %) 89 H Band Neutrophils (0.0 - 5.0 %) 1 Absolute Lymphocytes (1.2 - 3.4 /CUMM) 0.7 L Lymphocytes (20.5 - 51.1 %) 5 L Monocytes (1.7 - 9.3 %) 5 Absolute Monocytes (0.10 - 0.60 /CUMM) 0.8 H Absolute Eosinophils (0.0 - 0.7 /CUMM) 0 Absolute Basophils (0.0 - 0.2 /CUMM) 0 Platelet Estimate (ADEQUATE) INCREASED Polychromasia 1+ Hypochromic-Microcytic 1+ Poikilocytosis 1+ Ovalocytes 1+ Pledger Cells FEW Other Body Source Fld Total RBCs Counted (%) 100 02/14 02/14 02/14 1855 1230 0945 Chemistry Sodium (137 - 145 mmol/L) 127 L 124 L Cancelled Potassium (3.5 - 5.1 mmol/L) 3.4 L 3.8 Cancelled Chloride (98 - 107 mmol/L) 100 101 Cancelled Carbon Dioxide (22 - 30 mmol/L) 14 L 12 L Cancelled Anion Gap (5 - 16) 13 12 Cancelled BUN (9 - 20 mg/dL) 21 H 23 H Cancelled Creatinine (0.7 - 1.2 mg/dL) 1.1 1.2 Cancelled Estimated GFR (>60 ml/min) > 60 > 60 BUN/Creatinine Ratio (7 - 25 %) 19.1 19.2 Cancelled Serum Osmolality (285 - 295 MOSM/KG) 263 L Hematology CBC w Diff NO MAN DIFF REQ WBC (4.8 - 10.8 /CUMM) 11.3 H RBC (4.70 - 6.10 /CUMM) 2.68 L Hgb (14.0 - 18.0 G/DL) 7.8 L Hct (42 - 52 %) 23.8 L MCV (80.0 - 94.0 FL) 88.9 MCH (27.0 - 31.0 PG) 29.3 MCHC (33.0 - 37.0 G/DL) 33.0 RDW (11.5 - 14.5 %) 17.9 H Plt Count (130 - 400 /CUMM) 571 H MPV (7.4 - 10.4 FL) 6.7 L Gran % (42.2 - 75.2 %) 93.7 H Lymphocytes % (20.5 - 51.1 %) 5.6 L Monocytes % (1.7 - 9.3 %) 0.1 L Eosinophils % (0 - 5 %) 0.2 Basophils % (0.0 - 2.0 %) 0.4 Absolute Granulocytes (1.4 - 6.5 /CUMM) 10.6 H Absolute Lymphocytes (1.2 - 3.4 /CUMM) 0.6 L Absolute Monocytes (0.10 - 0.60 /CUMM) 0 L Absolute Eosinophils (0.0 - 0.7 /CUMM) 0 Absolute Basophils (0.0 - 0.2 /CUMM) 0.1 02/14 02/14 02/14 0918 0830 0830 Chemistry Sodium (137 - 145 mmol/L) 124 L Potassium (3.5 - 5.1 mmol/L) 4.4 Chloride (98 - 107 mmol/L) 98 Carbon Dioxide (22 - 30 mmol/L) 15 L Anion Gap (5 - 16) 11 BUN (9 - 20 mg/dL) 24 H Creatinine (0.7 - 1.2 mg/dL) 1.4 H Estimated GFR (>60 ml/min) 52 L BUN/Creatinine Ratio (7 - 25 %) 17.1 Urines Urine Color (YEL,AMB,STR) YEL Urine Clarity (CLEAR) CLEAR Urine pH (5.0 - 8.0) 6.0 Ur Specific [place] (1.001 - 1.035) 1.010 Urine Protein (NEG,<30 MG/DL) NEG Urine Ketones (NEG) NEG Urine Nitrite (NEG) NEG Urine Bilirubin (NEG) NEG Urine Urobilinogen (0.1 - 1.0 EU/dl) 0.2 Ur Leukocyte Esterase (NEG) NEG Ur Microscopic SEDIMENT EXAMINED Urine RBC (0 - 5 /HPF) 1-3 Urine WBC (0 - 2 /HPF) RARE Ur Epithelial Cells (NONE,FEW) FEW Urine Bacteria (NEG/NONE) FEW H Hyaline Casts (0/LPF) RARE H Urine Hemoglobin (NEG) SMALL H Urine Osmolality (300 - 1000 MOSM/KG) 225 L Ur Random Creatinine (mg/dL) 38.5 Ur Random Sodium (30 - 90 mmol/L) < 5 L Ur Random Potassium (mmol/L) 26.4 Fraction Sodium Excret (<1% %) Urine Glucose (N MG/DL) NEG 0710 07/10 07/10 9681 0551 0200 Chemistry Sodium (137 - 145 mmol/L) 122 L 121 L Potassium (3.5 - 5.1 mmol/L) 4.2 3.7 Chloride (98 - 107 mmol/L) 96 L 94 L Carbon Dioxide (22 - 30 mmol/L) 13 L 12 L Anion Gap (5 - 16) 14 15 BUN (9 - 20 mg/dL) 25 H 27 H Creatinine (0.7 - 1.2 mg/dL) 1.4 H 1.4 H Estimated GFR (>60 ml/min) 52 L 52 L BUN/Creatinine Ratio (7 - 25 %) 19.3 Glucose (65 - 99 mg/dL) 95 Calcium (8.4 - 10.2 mg/dL) 7.9 L Phosphorus (2.5 - 4.5 mg/dL) 4.3 Magnesium (1.6 - 2.3 mg/dL) 2.3 Total Bilirubin (0.2 - 1.3 mg/dL) 2.9 H AST (17 - 59 U/L) 15 L ALT (21 - 72 U/L) 30 Albumin (3.5 - 5.0 g/dL) 2.3 L Cortisol AM Sample (4.46 - 22.7 ug/dL) 32.0 H Hematology CBC w Diff MAN DIFF ORDERED WBC (4.8 - 10.8 /CUMM) 14.6 H RBC (4.70 - 6.10 /CUMM) 2.44 L Hgb (14.0 - 18.0 G/DL) 7.3 *L Hct (42 - 52 %) 21.8 L MCV (80.0 - 94.0 FL) 89.2 MCH (27.0 - 31.0 PG) 30.0 MCHC (33.0 - 37.0 G/DL) 33.7 RDW (11.5 - 14.5 %) 17.5 H Plt Count (130 - 400 /CUMM) 618 H MPV (7.4 - 10.4 FL) 6.6 L Gran % (42.2 - 75.2 %) 91.0 H Lymphocytes % (20.5 - 51.1 %) 3.0 L Monocytes % (1.7 - 9.3 %) 5.6 Eosinophils % (0 - 5 %) 0.2 Basophils % (0.0 - 2.0 %) 0.2 Absolute Granulocytes (1.4 - 6.5 /CUMM) 13.3 H Segmented Neutrophils (42.2 - 75.2 %) 94 H Absolute Lymphocytes (1.2 - 3.4 /CUMM) 0.4 L Lymphocytes (20.5 - 51.1 %) 4 L Monocytes (1.7 - 9.3 %) 2 Absolute Monocytes (0.10 - 0.60 /CUMM) 0.8 H Absolute Eosinophils (0.0 - 0.7 /CUMM) 0 Absolute Basophils (0.0 - 0.2 /CUMM) 0 Platelet Estimate (ADEQUATE) INCREASED Polychromasia 1+ Poikilocytosis 2+ Ovalocytes 1+ Pledger Cells 1+ Other Body Source Fld Total RBCs Counted (%) 100 02/13 02/13 02/13 193 193 1830 Chemistry Sodium (137 - 145 mmol/L) 115 *L Potassium (3.5 - 5.1 mmol/L) 3.1 L Chloride (98 - 107 mmol/L) 85 L Carbon Dioxide (22 - 30 mmol/L) 12 L Anion Gap (5 - 16) 18 H BUN (9 - 20 mg/dL) 29 H Creatinine (0.7 - 1.2 mg/dL) 1.7 H Estimated GFR (>60 ml/min) 41 L BUN/Creatinine Ratio (7 - 25 %) 17.1 Magnesium (1.6 - 2.3 mg/dL) 2.5 H TSH (0.270 - 4.200 uIU/mL) 4.980 H Free T4 (0.78 - 2.44 ng/dL) 1.46 Toxicology Serum Alcohol (<10 MG/DL) 46.0 Urines Urine Color Cancelled Urine Clarity Cancelled Urine pH Cancelled Ur Specific [place] Cancelled Urine Protein Cancelled Urine Ketones Cancelled Urine Nitrite Cancelled Urine Bilirubin Cancelled Urine Urobilinogen Cancelled Ur Leukocyte Esterase Cancelled Ur Microscopic Cancelled Urine Hemoglobin Cancelled Urine Osmolality Cancelled Ur Random Creatinine Cancelled Ur Random Sodium Cancelled Ur Random Potassium Cancelled Fraction Sodium Excret Cancelled Urine Glucose Cancelled
--- NOTE | 2018-02-16 11:41 | PN- Att Addend ---
Attending Addendum Attending Brief Note Patient comfortable in bed, appreciate GIs input and recommendations findings of the upper endoscopies were appreciated biopsies were obtained we will wait for results and to continue the PPIs as directed Vital signs are stable no fever. Nurse and wound nurse checked his wounds this morning and they appear a little bit improved since admission .. Continue monitoring H&H and if necessary give another transfusion his sodium has improved to 132 appreciate Oscar Guerin MD's input and recommendations . Intake & Output 02/16 1600 02/16 0400 02/15 1600 02/15 0400 02/14 1600 02/14 0400 Intake Total 1111 1280 620 211 510 3947 Output Total 400 0 900 700 850 200 Balance 711 1280 -280 20 -30 1210 Intake, Blood 700 350 Product Intake, IV 631 730 772 037 5728 Intake, Oral 480 550 0 120 120 60 Number 1 0 0 Bowel Movements Output, Urine 400 0 900 700 850 200 Patient 175 lb 175 lb Weight Weight Estimated Measurement Method Current Medications Sig/Alexus Start time Last Medication Dose Route Stop Time Status Admin Acetaminophen 650 MG Q6P PRN 02/13 2030 AC PO Atorvastatin Calcium 80 MG 1700 02/14 1700 AC 02/15 PO 1656 Chlorhexidine 1 GM .STK-MED ONE 02/15 1523 DC Gluconate TOP 02/15 1524 Enoxaparin Sodium 40 MG DAILY 02/16 09 AC 02/16 SC 0839 Morphine Sulfate 4 MG ONCE ONE 02/16 09 DC 02/16 IV 02/16 0901 0910 Morphine Sulfate 2 MG Q4P PRN 02/13 2030 DC 02/15 IV 1439 Multivitamins 1 TAB DAILY 02/15 0900 AC 02/16 PO 1059 Omeprazole 20 MG BID 02/15 2100 AC 02/16 PO 0839 Oxycodone/ 2 TAB ONCE ONE 02/15 1700 DC 02/15 Acetaminophen PO 02/15 1701 1659 Oxycodone/ 2 TAB Q6P PRN 02/15 1700 AC 02/16 Acetaminophen PO 0848 Pantoprazole Sodium 40 MG BID 02/13 2100 DC 02/15 IV 1009 Potassium Chloride 40 MEQ ONCE ONE 02/16 0800 DC 02/16 PO 02/16 0801 0838 Potassium Chloride 60 MEQ ONCE ONE 02/15 2215 DC 02/15 PO 02/15 2216 2345 Sodium Bicarbonate 1,300 MG BID 072099 AC 02/16 PO 0839 Sodium Bicarbonate 75 MEQ Q13H 02/15 1400 AC 02/16 Sodium Chloride 1,000 ML IV 0419 Tamsulosin HCl 0.4 MG DAILY 02/13 2030 AC 02/16 PO 1059 Tramadol HCl 50 MG Q6-PRN PRN 02/13 2030 02/14 PO 1019 Laboratory Tests 02/16/18 0428: Anion Gap 9, Estimated GFR > 60, BUN/Creatinine Ratio 15.6, CBC w Diff NO MAN DIFF REQ, RBC 2.53 L, MCV 89.1, MCH 28.9, MCHC 32.5 L, RDW 19.0 H, MPV 6.6 L , Gran % 82.4 H, Lymphocytes % 10.5 L, Monocytes % 5.6, Eosinophils % 1.2, Basophils % 0.3, Absolute Granulocytes 8.3 H, Absolute Lymphocytes 1.1 L, Absolute Monocytes 0.6, Absolute Eosinophils 0.1, Absolute Basophils 0 02/15/182029: Anion Gap 9, Estimated GFR > 60, BUN/Creatinine Ratio 16.7 02/15/18 1039: Anion Gap 11, Estimated GFR > 60, BUN/Creatinine Ratio 17.8, Magnesium 2.0 02/15/18 0515: Anion Gap 10, Estimated GFR > 60, BUN/Creatinine Ratio 17.0, CBC w Diff MAN DIFF ORDERED, RBC 2.70 L, MCV 89.5, MCH 29.4, MCHC 32.9 L, RDW 17.9 H, MPV 6.6 L, Gran % 85.6 H, Lymphocytes % 6.1 L, Monocytes % 7.8, Eosinophils % 0.4, Basophils % 0.1, Absolute Granulocytes 9.2 H, Segmented Neutrophils 89 H, Band Neutrophils 1, Absolute Lymphocytes 0.7 L, Lymphocytes 5 L, Monocytes 5, Absolute Monocytes 0.8 H, Absolute Eosinophils 0, Absolute Basophils 0, Platelet Estimate INCREASED, Polychromasia 1+, Hypochromic-Microcytic 1+, Poikilocytosis 1+, Ovalocytes 1+, [place] Cells FEW, Fld Total RBCs Counted 100 02/15/18 0130: Anion Gap 10, Estimated GFR > 60, BUN/Creatinine Ratio 17.3 02/14/18 2100: Sodium Cancelled, Potassium Cancelled, Chloride Cancelled, Carbon Dioxide Cancelled, Anion Gap Cancelled, BUN Cancelled, Creatinine Cancelled, BUN/ Creatinine Ratio Cancelled 02/14/18 1855: Anion Gap 13, Estimated GFR > 60, BUN/Creatinine Ratio 19.1, Serum Osmolality 263 L, CBC w Diff NO MAN DIFF REQ, RBC 2.68 L, MCV 88.9, MCH 29.3, MCHC 33.0, RDW 17.9 H, MPV 6.7 L, Gran % 93.7 H, Lymphocytes % 5.6 L, Monocytes % 0.1 L, Eosinophils % 0.2, Basophils % 0.4, Absolute Granulocytes 10.6 H, Absolute Lymphocytes 0.6 L, Absolute Monocytes 0 L, Absolute Eosinophils 0, Absolute Basophils 0.1 02/14/18 1230: Anion Gap 12, Estimated GFR > 60, BUN/Creatinine Ratio 19.2 02/14/18 0945: Sodium Cancelled, Potassium Cancelled, Chloride Cancelled, Carbon Dioxide Cancelled, Anion Gap Cancelled, BUN Cancelled, Creatinine Cancelled, BUN/ Creatinine Ratio Cancelled 02/14/18 0918: Anion Gap 11, Estimated GFR 52 L, BUN/Creatinine Ratio 17.1 02/14/18 0830: Urine Color YEL, Urine Clarity CLEAR, Urine pH 6.0, Ur Specific [place] 1.010, Urine Protein NEG, Urine Ketones NEG, Urine Nitrite NEG, Urine Bilirubin NEG, Urine Urobilinogen 0.2, Ur Leukocyte Esterase NEG, Ur Microscopic SEDIMENT EXAMINED, Urine RBC 1-3, Urine WBC RARE, Ur Epithelial Cells FEW, Urine Bacteria FEW H, Hyaline Casts RARE H, Urine Hemoglobin SMALL H, Urine Glucose NEG 02/14/18 0830: Urine Osmolality 225 L, Ur Random Creatinine 38.5, Ur Random Sodium < 5 L, Ur Random Potassium 26.4, Fraction Sodium Excret 02/14/18 0545: Cortisol AM Sample 32.0 H 02/14/18 0545: Anion Gap 14, Estimated GFR 52 L, Glucose 95, Calcium 7.9 L, Phosphorus 4.3, Magnesium 2.3, Total Bilirubin 2.9 H, AST 15 L, ALT 30, Albumin 2.3 L, CBC w Diff MAN DIFF ORDERED, RBC 2.44 L, MCV 89.2, MCH 30.0, MCHC 33.7, RDW 17.5 H, MPV 6.6 L, Gran % 91.0 H, Lymphocytes % 3.0 L, Monocytes % 5.6, Eosinophils % 0.2, Basophils % 0.2, Absolute Granulocytes 13.3 H, Segmented Neutrophils 94 H , Absolute Lymphocytes 0.4 L, Lymphocytes 4 L, Monocytes 2, Absolute Monocytes 0.8 H, Absolute Eosinophils 0, Absolute Basophils 0, Platelet Estimate INCREASED, Polychromasia 1+, Poikilocytosis 2+, Ovalocytes 1+, Jarrod Cells 1+, Fld Total RBCs Counted 100 02/14/18 0200: Anion Gap 15, Estimated GFR 52 L, BUN/Creatinine Ratio 19.3 02/13/18 193: Urine Color Cancelled, Urine Clarity Cancelled, Urine pH Cancelled, Ur Specific [place] Cancelled, Urine Protein Cancelled, Urine Ketones Cancelled, Urine Nitrite Cancelled, Urine Bilirubin Cancelled, Urine Urobilinogen Cancelled, Ur Leukocyte Esterase Cancelled, Ur Microscopic Cancelled, Urine Hemoglobin Cancelled, Urine Glucose Cancelled 02/13/181935: Urine Osmolality Cancelled, Ur Random Creatinine Cancelled, Ur Random Sodium Cancelled, Ur Random Potassium Cancelled, Fraction Sodium Excret Cancelled 02/13/18 1830: Anion Gap 18 H, Estimated GFR 41 L, BUN/Creatinine Ratio 17.1, Magnesium 2.5 H, TSH 4.980 H, Free T4 1.46, Serum Alcohol 46.0 Microbiology 02/13 2133 UPPER RESP: Surveillance Culture - COMP METH RESIST STAPH AUREUS 02/13 2130 GI: Surveillance Culture - COMP Microbiology 02/13 2133 UPPER RESP: Surveillance Culture - COMP METH RESIST STAPH AUREUS 02/13 2130 GI: Surveillance Culture - COMP Vital Signs Date Time Temp Pulse Resp B/P B/P Pulse O2 O2 Flow FiO2 Mean Ox Delivery Rate 02/16 0800 97.8 74 18 124/70 98 Room Air 02/16 0600 68 16 102/56 /12 0400 97.1 68 16 95/61 /12 0400 100 Room Air / 0200 60 13 99/58 07/ 0000 97.1 72 22 100/70 07/12 0000 97.1 72 22 100/70 100 Room Air 07/12 0000 100 Room Air /1999 97.2 68 16 102/60 /1999 97 Room Air 02/15 1600 98.2 78 20 128/68 11 1600 97.8 78 20 128/68 93 Nasal 2.0L Cannula 02/15 1200 98.0 75 18 114/56
--- NOTE | 2018-02-16 11:54 | PN- Gastroenterology ---
Assessment/Plan GI Assessment/Recommendations: Assessment: Mr. Jaimes is 62-year-old male admitted with anemia, hyponatremia , and reports of melena who underwent an upper endoscopy yesterday which showed erosive gastritis and nonerosive reflux disease with a small hiatal hernia, but no active bleeding was appreciated. He is currently doing well from a GI standpoint and is without any evidence of active bleeding while an inpatient [facility]. He should stay on a PPI and based on the results of the biopsies consideration should be given to repeat his upper endoscopy in several months to rule out underlying Raymond's esophagus which can obviously be pursued as an outpatient as can a repeat colonoscopy for polyp surveillance and also for further evaluation of his anemia. Recommendations: 1. Advance diet as tolerated. 2. Follow up pathology results as an outpatient. 3. Avoid NSAIDs. 4. He should follow an antireflux regimen. 5. Follow CBCs and transfuse as needed to maintain his hemoglobin greater than 8. 6. Notify GI for signs of overt GI bleeding. 7. Continue oral omeprazole twice a day for now. I will sign off at this time and ask that GI be recontacted for any recurrent bleeding or new GI issues which may arise on this hospitalization. Problem List: 1. Symptomatic anemia 2. GI bleed Subjective Subjective: s/p EGD yesterday which showed erosive gastritis a hiatal hernia and non-erosive reflux disease, but no ulcers or active bleeding. he is without any GI complaints today. Objective Vital Signs and I&Os Vital Signs Date Time Temp Pulse Resp B/P B/P Pulse O2 O2 Flow FiO2 Mean Ox Delivery Rate 02/16 0800 97.8 74 18 124/70 98 Room Air 02/16 0600 68 16 102/56 02/16 0400 97.1 68 16 95/61 02/16 0400 100 Room Air 02/16 0200 60 13 99/58 07/12 0000 97.1 72 22 100/70 07/12 0000 97.1 72 22 100/70 100 Room Air 02/16 0000 100 Room Air 02/15 2000 97.2 68 16 102/60 07/11 1999 97 Room Air 02/15 1600 98.2 78 20 128/68 07/11 1600 97.8 78 20 128/68 93 Nasal 2.0L Cannula 02/15 1200 98.0 75 18 114/56 Intake & Output 02/16 1600 02/16 0400 07/11 1600 02/15 0400 02/14 1600 02/14 0400 Intake Total 1111 1280 620 434 172 9591 Output Total 400 0 900 700 850 200 Balance 711 1280 -280 20 -30 1210 Intake, Blood 700 350 Product Intake, IV 631 730 547 027 3744 Intake, Oral 480 550 0 120 120 60 Number 1 0 0 Bowel Movements Output, Urine 400 0 900 700 850 200 Patient 175 lb 175 lb Weight Weight Estimated Measurement Method Physical Exam General Appearance: well developed/nourished, no apparent distress Head: atraumatic, normal appearance Neck: normal inspection, supple Respiratory: normal breath sounds, chest non-tender, no respiratory distress Abdomen: normal bowel sounds, soft, non-tender Extremities: pedal edema Neurologic/Psychiatric: no motor/sensory deficits, awake, alert, oriented x 3 Current Medications: Current Medications Sig/Alexus Start time Last Medication Dose Route Stop Time Status Admin Acetaminophen 650 MG Q6P PRN 02/13 2030 AC PO Atorvastatin Calcium 80 MG 1700 02/14 1700 AC 02/15 PO 1656 Chlorhexidine 1 GM .STK-MED ONE 02/15 1523 DC Gluconate TOP 02/15 1524 Enoxaparin Sodium 40 MG DAILY 02/16 09 AC 02/16 SC 0839 Morphine Sulfate 4 MG ONCE ONE 02/16 09 DC 02/16 IV 02/16 09 0910 Morphine Sulfate 2 MG Q4P PRN 02/13 2030 DC 02/15 IV 1439 Multivitamins 1 TAB DAILY 02/15 0900 AC 02/16 PO 1059 Omeprazole 20 MG BID 02/15 2100 AC 02/16 PO 0839 Oxycodone/ 2 TAB ONCE ONE 02/15 1700 DC 02/15 Acetaminophen PO 02/15 1701 1659 Oxycodone/ 2 TAB Q6P PRN 02/15 1700 AC 02/16 Acetaminophen PO 0848 Pantoprazole Sodium 40 MG BID 02/13 2100 DC 02/15 IV 1009 Potassium Chloride 40 MEQ ONCE ONE 02/16 0800 DC 02/16 PO 02/16 0801 0838 Potassium Chloride 60 MEQ ONCE ONE 02/15 2215 DC 02/15 PO 02/15 2216 2345 Sodium Bicarbonate 1,300 MG BID 02/15 2100 AC 02/16 PO 0839 Sodium Bicarbonate 75 MEQ Q13H 02/15 1400 AC 02/16 Sodium Chloride 1,000 ML IV 0419 Tamsulosin HCl 0.4 MG DAILY 02/13 2030 AC 02/16 PO 1059 Tramadol HCl 50 MG Q6-PRN PRN 02/13 2030 AC 02/14 PO 1019 Results Pertinent Lab Results: Laboratory Tests 02/168 2029 1039 Chemistry Sodium (137 - 145 mmol/L) 132 L 130 L 132 L Potassium (3.5 - 5.1 mmol/L) 3.5 3.2 L 3.4 L Chloride (98 - 107 mmol/L) 103 104 104 Carbon Dioxide (22 - 30 mmol/L) 20 L 18 L 17 L Anion Gap (5 - 16) 9 9 11 BUN (9 - 20 mg/dL) 14 15 16 Creatinine (0.7 - 1.2 mg/dL) 0.9 0.9 0.9 Estimated GFR (>60 ml/min) > 60 > 60 > 60 BUN/Creatinine Ratio (7 - 25 %) 15.6 16.7 17.8 Magnesium (1.6 - 2.3 mg/dL) 2.0 Hematology CBC w Diff NO MAN DIFF REQ WBC (4.8 - 10.8 /CUMM) 10.1 RBC (4.70 - 6.10 /CUMM) 2.53 L Hgb (14.0 - 18.0 G/DL) 7.3 *L Hct (42 - 52 %) 22.6 L MCV (80.0 - 94.0 FL) 89.1 MCH (27.0 - 31.0 PG) 28.9 MCHC (33.0 - 37.0 G/DL) 32.5 L RDW (11.5 - 14.5 %) 19.0 H Plt Count (130 - 400 /CUMM) 525 H MPV (7.4 - 10.4 FL) 6.6 L Gran % (42.2 - 75.2 %) 82.4 H Lymphocytes % (20.5 - 51.1 %) 10.5 L Monocytes % (1.7 - 9.3 %) 5.6 Eosinophils % (0 - 5 %) 1.2 Basophils % (0.0 - 2.0 %) 0.3 Absolute Granulocytes (1.4 - 6.5 /CUMM) 8.3 H Absolute Lymphocytes (1.2 - 3.4 /CUMM) 1.1 L Absolute Monocytes (0.10 - 0.60 /CUMM) 0.6 Absolute Eosinophils (0.0 - 0.7 /CUMM) 0.1 Absolute Basophils (0.0 - 0.2 /CUMM) 0 02/15 02/15 02/14 0515 0130 2100 Chemistry Sodium (137 - 145 mmol/L) 129 L 129 L Cancelled Potassium (3.5 - 5.1 mmol/L) 3.9 3.9 Cancelled Chloride (98 - 107 mmol/L) 102 102 Cancelled Carbon Dioxide (22 - 30 mmol/L) 17 L 16 L Cancelled Anion Gap (5 - 16) 10 10 Cancelled BUN (9 - 20 mg/dL) 17 19 Cancelled Creatinine (0.7 - 1.2 mg/dL) 1.0 1.1 Cancelled Estimated GFR (>60 ml/min) > 60 > 60 BUN/Creatinine Ratio (7 - 25 %) 17.0 17.3 Cancelled Hematology CBC w Diff MAN DIFF ORDERED WBC (4.8 - 10.8 /CUMM) 10.8 RBC (4.70 - 6.10 /CUMM) 2.70 L Hgb (14.0 - 18.0 G/DL) 7.9 L Hct (42 - 52 %) 24.2 L MCV (80.0 - 94.0 FL) 89.5 MCH (27.0 - 31.0 PG) 29.4 MCHC (33.0 - 37.0 G/DL) 32.9 L RDW (11.5 - 14.5 %) 17.9 H Plt Count (130 - 400 /CUMM) 591 H MPV (7.4 - 10.4 FL) 6.6 L Gran % (42.2 - 75.2 %) 85.6 H Lymphocytes % (20.5 - 51.1 %) 6.1 L Monocytes % (1.7 - 9.3 %) 7.8 Eosinophils % (0 - 5 %) 0.4 Basophils % (0.0 - 2.0 %) 0.1 Absolute Granulocytes (1.4 - 6.5 /CUMM) 9.2 H Segmented Neutrophils (42.2 - 75.2 %) 89 H Band Neutrophils (0.0 - 5.0 %) 1 Absolute Lymphocytes (1.2 - 3.4 /CUMM) 0.7 L Lymphocytes (20.5 - 51.1 %) 5 L Monocytes (1.7 - 9.3 %) 5 Absolute Monocytes (0.10 - 0.60 /CUMM) 0.8 H Absolute Eosinophils (0.0 - 0.7 /CUMM) 0 Absolute Basophils (0.0 - 0.2 /CUMM) 0 Platelet Estimate (ADEQUATE) INCREASED Polychromasia 1+ Hypochromic-Microcytic 1+ Poikilocytosis 1+ Ovalocytes 1+ Jarrod Cells FEW Other Body Source Fld Total RBCs Counted (%) 100 02/14 02/14 02/14 1855 1230 0945 Chemistry Sodium (137 - 145 mmol/L) 127 L 124 L Cancelled Potassium (3.5 - 5.1 mmol/L) 3.4 L 3.8 Cancelled Chloride (98 - 107 mmol/L) 100 101 Cancelled Carbon Dioxide (22 - 30 mmol/L) 14 L 12 L Cancelled Anion Gap (5 - 16) 13 12 Cancelled BUN (9 - 20 mg/dL) 21 H 23 H Cancelled Creatinine (0.7 - 1.2 mg/dL) 1.1 1.2 Cancelled Estimated GFR (>60 ml/min) > 60 > 60 BUN/Creatinine Ratio (7 - 25 %) 19.1 19.2 Cancelled Serum Osmolality (285 - 295 MOSM/KG) 263 L Hematology CBC w Diff NO MAN DIFF REQ WBC (4.8 - 10.8 /CUMM) 11.3 H RBC (4.70 - 6.10 /CUMM) 2.68 L Hgb (14.0 - 18.0 G/DL) 7.8 L Hct (42 - 52 %) 23.8 L MCV (80.0 - 94.0 FL) 88.9 MCH (27.0 - 31.0 PG) 29.3 MCHC (33.0 - 37.0 G/DL) 33.0 RDW (11.5 - 14.5 %) 17.9 H Plt Count (130 - 400 /CUMM) 571 H MPV (7.4 - 10.4 FL) 6.7 L Gran % (42.2 - 75.2 %) 93.7 H Lymphocytes % (20.5 - 51.1 %) 5.6 L Monocytes % (1.7 - 9.3 %) 0.1 L Eosinophils % (0 - 5 %) 0.2 Basophils % (0.0 - 2.0 %) 0.4 Absolute Granulocytes (1.4 - 6.5 /CUMM) 10.6 H Absolute Lymphocytes (1.2 - 3.4 /CUMM) 0.6 L Absolute Monocytes (0.10 - 0.60 /CUMM) 0 L Absolute Eosinophils (0.0 - 0.7 /CUMM) 0 Absolute Basophils (0.0 - 0.2 /CUMM) 0.1 02/14 02/14 02/14 0918 0830 0830 Chemistry Sodium (137 - 145 mmol/L) 124 L Potassium (3.5 - 5.1 mmol/L) 4.4 Chloride (98 - 107 mmol/L) 98 Carbon Dioxide (22 - 30 mmol/L) 15 L Anion Gap (5 - 16) 11 BUN (9 - 20 mg/dL) 24 H Creatinine (0.7 - 1.2 mg/dL) 1.4 H Estimated GFR (>60 ml/min) 52 L BUN/Creatinine Ratio (7 - 25 %) 17.1 Urines Urine Color (YEL,AMB,STR) YEL Urine Clarity (CLEAR) CLEAR Urine pH (5.0 - 8.0) 6.0 Ur Specific Roff (1.001 - 1.035) 1.010 Urine Protein (NEG,<30 MG/DL) NEG Urine Ketones (NEG) NEG Urine Nitrite (NEG) NEG Urine Bilirubin (NEG) NEG Urine Urobilinogen (0.1 - 1.0 EU/dl) 0.2 Ur Leukocyte Esterase (NEG) NEG Ur Microscopic SEDIMENT EXAMINED Urine RBC (0 - 5 /HPF) 1-3 Urine WBC (0 - 2 /HPF) RARE Ur Epithelial Cells (NONE,FEW) FEW Urine Bacteria (NEG/NONE) FEW H Hyaline Casts (0/LPF) RARE H Urine Hemoglobin (NEG) SMALL H Urine Osmolality (300 - 1000 MOSM/KG) 225 L Ur Random Creatinine (mg/dL) 38.5 Ur Random Sodium (30 - 90 mmol/L) < 5 L Ur Random Potassium (mmol/L) 26.4 Fraction Sodium Excret (<1% %) Urine Glucose (N MG/DL) NEG 02/14 02/14 02/14 0545 0560 0200 Chemistry Sodium (137 - 145 mmol/L) 122 L 121 L Potassium (3.5 - 5.1 mmol/L) 4.2 3.7 Chloride (98 - 107 mmol/L) 96 L 94 L Carbon Dioxide (22 - 30 mmol/L) 13 L 12 L Anion Gap (5 - 16) 14 15 BUN (9 - 20 mg/dL) 25 H 27 H Creatinine (0.7 - 1.2 mg/dL) 1.4 H 1.4 H Estimated GFR (>60 ml/min) 52 L 52 L BUN/Creatinine Ratio (7 - 25 %) 19.3 Glucose (65 - 99 mg/dL) 95 Calcium (8.4 - 10.2 mg/dL) 7.9 L Phosphorus (2.5 - 4.5 mg/dL) 4.3 Magnesium (1.6 - 2.3 mg/dL) 2.3 Total Bilirubin (0.2 - 1.3 mg/dL) 2.9 H AST (17 - 59 U/L) 15 L ALT (21 - 72 U/L) 30 Albumin (3.5 - 5.0 g/dL) 2.3 L Cortisol AM Sample (4.46 - 22.7 ug/dL) 32.0 H Hematology CBC w Diff MAN DIFF ORDERED WBC (4.8 - 10.8 /CUMM) 14.6 H RBC (4.70 - 6.10 /CUMM) 2.44 L Hgb (14.0 - 18.0 G/DL) 7.3 *L Hct (42 - 52 %) 21.8 L MCV (80.0 - 94.0 FL) 89.2 MCH (27.0 - 31.0 PG) 30.0 MCHC (33.0 - 37.0 G/DL) 33.7 RDW (11.5 - 14.5 %) 17.5 H Plt Count (130 - 400 /CUMM) 618 H MPV (7.4 - 10.4 FL) 6.6 L Gran % (42.2 - 75.2 %) 91.0 H Lymphocytes % (20.5 - 51.1 %) 3.0 L Monocytes % (1.7 - 9.3 %) 5.6 Eosinophils % (0 - 5 %) 0.2 Basophils % (0.0 - 2.0 %) 0.2 Absolute Granulocytes (1.4 - 6.5 /CUMM) 13.3 H Segmented Neutrophils (42.2 - 75.2 %) 94 H Absolute Lymphocytes (1.2 - 3.4 /CUMM) 0.4 L Lymphocytes (20.5 - 51.1 %) 4 L Monocytes (1.7 - 9.3 %) 2 Absolute Monocytes (0.10 - 0.60 /CUMM) 0.8 H Absolute Eosinophils (0.0 - 0.7 /CUMM) 0 Absolute Basophils (0.0 - 0.2 /CUMM) 0 Platelet Estimate (ADEQUATE) INCREASED Polychromasia 1+ Poikilocytosis 2+ Ovalocytes 1+ Jarrod Cells 1+ Other Body Source Fld Total RBCs Counted (%) 100 02/13 02/13 02/13 1931935 183 Chemistry Sodium (137 - 145 mmol/L) 115 *L Potassium (3.5 - 5.1 mmol/L) 3.1 L Chloride (98 - 107 mmol/L) 85 L Carbon Dioxide (22 - 30 mmol/L) 12 L Anion Gap (5 - 16) 18 H BUN (9 - 20 mg/dL) 29 H Creatinine (0.7 - 1.2 mg/dL) 1.7 H Estimated GFR (>60 ml/min) 41 L BUN/Creatinine Ratio (7 - 25 %) 17.1 Magnesium (1.6 - 2.3 mg/dL) 2.5 H TSH (0.270 - 4.200 uIU/mL) 4.980 H Free T4 (0.78 - 2.44 ng/dL) 1.46 Toxicology Serum Alcohol (<10 MG/DL) 46.0 Urines Urine Color Cancelled Urine Clarity Cancelled Urine pH Cancelled Ur Specific Roff Cancelled Urine Protein Cancelled Urine Ketones Cancelled Urine Nitrite Cancelled Urine Bilirubin Cancelled Urine Urobilinogen Cancelled Ur Leukocyte Esterase Cancelled Ur Microscopic Cancelled Urine Hemoglobin Cancelled Urine Osmolality Cancelled Ur Random Creatinine Cancelled Ur Random Sodium Cancelled Ur Random Potassium Cancelled Fraction Sodium Excret Cancelled Urine Glucose Cancelled
[2018-02-16] MEDS ORDERED: OMEPRAZOLE40 M1 PO (16:57)
[2018-02-16 17:58] LABS: ABSOLUTE BASOPHIL COUNT 0 /CUMM (0.0-0.2); ABSOLUTE EOSINOPHIL COUNT 0.1 /CUMM (0.0-0.7); ABSOLUTE LYMPH COUNT 1.1 /CUMM (1.2-3.4); ABSOLUTE MONOCYTE COUNT 0.7 /CUMM (0.10-0.60); BASOPHIL % 0.3 % (0.0-2.0); EOSINOPHIL % 1.2 % (0-5); GRANULOCYTE % 80.5 % (42.2-75.2); MEAN CORPUSCULAR HGB 29.2 PG (27.0-31.0); MEAN CORPUSCULAR VOLUME 88.6 FL (80.0-94.0); MEAN PLATELET VOLUME 6.6 FL (7.4-10.4); PLATELET COUNT 456 /CUMM (130-400); RBC DISTRIBUTION WIDTH 16.7 % (11.5-14.5); RED BLOOD CELL CT 2.94 /CUMM (4.70-6.10)
[2018-02-17 04:20] LABS: ABSOLUTE BASOPHIL COUNT 0 /CUMM (0.0-0.2); ABSOLUTE EOSINOPHIL COUNT 0.2 /CUMM (0.0-0.7); ABSOLUTE GRANULOCYTE CT 9.1 /CUMM (1.4-6.5); ABSOLUTE LYMPH COUNT 1.2 /CUMM (1.2-3.4); ABSOLUTE MONOCYTE COUNT 0.7 /CUMM (0.10-0.60); BASOPHIL % 0.4 % (0.0-2.0); EOSINOPHIL % 1.4 % (0-5); GRANULOCYTE % 81.6 % (42.2-75.2); HEMATOCRIT 24.9 % (42-52); MEAN CORPUSCULAR HGB 29.6 PG (27.0-31.0); MEAN CORPUSCULAR HGB CONC 33.1 G/DL (33.0-37.0); MEAN CORPUSCULAR VOLUME 89.5 FL (80.0-94.0); MEAN PLATELET VOLUME 6.4 FL (7.4-10.4); PLATELET COUNT 465 /CUMM (130-400); RBC DISTRIBUTION WIDTH 17.7 % (11.5-14.5); RED BLOOD CELL CT 2.78 /CUMM (4.70-6.10); WHITE BLOOD CELL COUNT 11.2 /CUMM (4.8-10.8)
--- NOTE | 2018-02-17 07:19 | PN- Resident CRCU ---
Subjective HPI/CRCU Issues: Mr. 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 He was admitted to the ICU for management of hyponatremia. Latest Na 132. 24 Hour Events: Pt received another unit of PRBC and his Hb is now above 8. He has no acute complains, stating his pain is now at his baseline. Objective Vital Signs & I&O Last 8 Hrs of Vitals and I&O: Laboratory Tests 02/17 02/16 0354 1700 Chemistry Sodium (137 - 145 mmol/L) 132 L Potassium (3.5 - 5.1 mmol/L) 3.0 L Chloride (98 - 107 mmol/L) 103 Carbon Dioxide (22 - 30 mmol/L) 19 L Anion Gap (5 - 16) 9 BUN (9 - 20 mg/dL) 11 Creatinine (0.7 - 1.2 mg/dL) 0.8 Estimated GFR (>60 ml/min) > 60 BUN/Creatinine Ratio (7 - 25 %) 13.8 Magnesium (1.6 - 2.3 mg/dL) 1.6 Hematology CBC w Diff NO MAN DIFF REQ NO MAN DIFF REQ WBC (4.8 - 10.8 /CUMM) 11.2 H 10.0 RBC (4.70 - 6.10 /CUMM) 2.78 L 2.94 L Hgb (14.0 - 18.0 G/DL) 8.3 L 8.6 L Hct (42 - 52 %) 24.9 L 26.0 L MCV (80.0 - 94.0 FL) 89.5 88.6 MCH (27.0 - 31.0 PG) 29.6 29.2 MCHC (33.0 - 37.0 G/DL) 33.1 33.0 RDW (11.5 - 14.5 %) 17.7 H 16.7 H Plt Count (130 - 400 /CUMM) 465 H 456 H MPV (7.4 - 10.4 FL) 6.4 L 6.6 L Gran % (42.2 - 75.2 %) 81.6 H 80.5 H Lymphocytes % (20.5 - 51.1 %) 10.8 L 11.0 L Monocytes % (1.7 - 9.3 %) 5.8 7.0 Eosinophils % (0 - 5 %) 1.4 1.2 Basophils % (0.0 - 2.0 %) 0.4 0.3 Absolute Granulocytes (1.4 - 6.5 /CUMM) 9.1 H 8.0 H Absolute Lymphocytes (1.2 - 3.4 /CUMM) 1.2 1.1 L Absolute Monocytes (0.10 - 0.60 /CUMM) 0.7 H 0.7 H Absolute Eosinophils (0.0 - 0.7 /CUMM) 0.2 0.1 Absolute Basophils (0.0 - 0.2 /CUMM) 0 0 02/16 02/15 02/15 0428 2030 1039 Chemistry Sodium (137 - 145 mmol/L) 132 L 130 L 132 L Potassium (3.5 - 5.1 mmol/L) 3.5 3.2 L 3.4 L Chloride (98 - 107 mmol/L) 103 104 104 Carbon Dioxide (22 - 30 mmol/L) 20 L 18 L 17 L Anion Gap (5 - 16) 9 9 11 BUN (9 - 20 mg/dL) 14 15 16 Creatinine (0.7 - 1.2 mg/dL) 0.9 0.9 0.9 Estimated GFR (>60 ml/min) > 60 > 60 > 60 BUN/Creatinine Ratio (7 - 25 %) 15.6 16.7 17.8 Magnesium (1.6 - 2.3 mg/dL) 2.0 Hematology CBC w Diff NO MAN DIFF REQ WBC (4.8 - 10.8 /CUMM) 10.1 RBC (4.70 - 6.10 /CUMM) 2.53 L Hgb (14.0 - 18.0 G/DL) 7.3 *L Hct (42 - 52 %) 22.6 L MCV (80.0 - 94.0 FL) 89.1 MCH (27.0 - 31.0 PG) 28.9 MCHC (33.0 - 37.0 G/DL) 32.5 L RDW (11.5 - 14.5 %) 19.0 H Plt Count (130 - 400 /CUMM) 525 H MPV (7.4 - 10.4 FL) 6.6 L Gran % (42.2 - 75.2 %) 82.4 H Lymphocytes % (20.5 - 51.1 %) 10.5 L Monocytes % (1.7 - 9.3 %) 5.6 Eosinophils % (0 - 5 %) 1.2 Basophils % (0.0 - 2.0 %) 0.3 Absolute Granulocytes (1.4 - 6.5 /CUMM) 8.3 H Absolute Lymphocytes (1.2 - 3.4 /CUMM) 1.1 L Absolute Monocytes (0.10 - 0.60 /CUMM) 0.6 Absolute Eosinophils (0.0 - 0.7 /CUMM) 0.1 Absolute Basophils (0.0 - 0.2 /CUMM) 0 Vital Signs Date Time Temp Pulse Resp B/P B/P Pulse O2 O2 Flow FiO2 Mean Ox Delivery Rate 02/17 08 96.6 80 20 111/65 100 Room Air 02/17 0400 98 07 0000 98 Room Air 02/16 2343 98.2 66 9 112/60 97 Room Air 02/16 2000 98 Room Air 02/16 1600 97.8 72 20 110/60 98 Room Air 02/16 1200 978.0 76 20 103/58 Intake & Output 02/17 1600 02/17 0800 02/17 0000 Intake Total 480 920 Output Total 275 350 Balance 205 570 Intake, Oral 480 920 Output, Urine 275 350 Exam General Appearance: no apparent distress, alert, awake, comfortable Head: atraumatic, normal appearance Ears, Nose, Throat: poor dentition Neck: normal inspection, supple Respiratory: normal breath sounds, chest non-tender, no respiratory distress, lungs clear Cardiovascular: regular rate/rhythm Gastrointestinal: normal bowel sounds, soft, non-tender, no organomegaly Extremities: multiple ecchymoses, ulcers, eschars in B/L LE. Dressings on knees and back dry and intact Cranial Nerves: normal hearing, normal speech Current Medications: Current Medications Sig/Alexus Start time Last Medication Dose Route Stop Time Status Admin Acetaminophen 650 MG Q6P PRN 02/13 2030 AC PO Atorvastatin Calcium 80 MG 1700 02/14 1700 AC 02/16 PO 1604 Enoxaparin Sodium 40 MG DAILY 02/16 0900 AC 02/17 SC 0804 Fluoxetine HCl 20 MG DAILY 02/16 1735 AC 02/17 PO 0804 Magnesium Oxide 400 MG ONE ONE 02/17 0500 DC 02/17 PO 02/17 0501 0504 Morphine Sulfate 4 MG ONCE ONE 02/16 09 DC 02/16 IV 02/16 0901 0910 Multivitamins 1 TAB DAILY 02/15 0900 AC 02/17 PO 0804 Omeprazole 20 MG BID 02/15 2100 AC 02/17 PO 0804 Oxycodone/ 2 TAB Q6P PRN 02/15 1700 AC 02/17 Acetaminophen PO 0258 Potassium Chloride 40 MEQ ONCE ONE 02/17 0800 DC 02/17 PO 02/17 0801 0803 Potassium Chloride 40 MEQ ONCE ONE 02/17 0500 DC 02/17 PO 02/17 0501 0505 Sodium Bicarbonate 1,300 MG BID 02/15 2100 AC 02/17 PO 0804 Sodium Bicarbonate 75 MEQ Q13H 02/15 1400 DC 02/16 Sodium Chloride 1,000 ML IV 0419 Tamsulosin HCl 0.4 MG DAILY 02/13 2030 AC 02/17 PO 0804 Tramadol HCl 50 MG Q6-PRN PRN 02/13 2030 AC 02/14 PO 1019 Impression/Plan Impression/Problem List Impression: Mr. 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 At baseline the patient is mostly bed-bound or sometimes ambulating using a wheelchair. Recently , he has complained of poor appetite and burning, intermitting epigastric pain with no radiation. As per , pt has had episodes of black tarry stools, though denies N/V, constipation or diarrhea. He was admitted to the ICU for management of hyponatremia. Of note, the patient has had prior admits to [facility] inpatient service: most recently (01/05) he was admitted to [facility] for management of a necrotic L ulcer and, concerning for cellulitis that was treated with unasyn, as well as hyponatremia. ASSESSMENT AND PLAN VS: T:96.6 // HR:80 // RR: 20, O2 Sat: 100% on Room Air// BP:111/65 Respiratory Pt is breathing comfortably on room air with 100% O2 Sat. There is no evidence of acute respiratory pathology at the moment. Infection Pt's condition of thalassemia major, peripheral artery disease and repeated skin ulcers with prior admits concerning for cellulitis make this patient particularly prone to developing infections. The patient has remained afebrile so far, but with a leukocytosis of 14.6->11.3->10.3->11.2 which is likely due to his multiple concurrent inflammatory process, less likely due to underlying infection; pt has remained afebrile. His lesions ooze greenish discharge with erythema surrounding them, but there is no increased warmth. Close inspection of wounds is warranted. No antibiotics as of now. Wound care saw the patient and reported slight improvement from last tuesday on his stage 3 pressure ulcer. -f/u CBC -f/u wound care recommendations Hematology On admit, the pt's H/H was 7.3/22.6. The patient has a history of thalassemia major, explaining his chronic anemia with elevated RDW. However, his MCV/MCHC do not fit a typical thalassemia picture. This, coupled with the h/o of tarry stools is concerning for blood loss on top of his chronic anemia. He has received 4 units PRBC. Pt went for EGD on 02/15 showing erosive gastritis and nonerosive reflux disease. Pt will f/u as outpatient for biopsy results. -keep Hb>8 -CBCs q12 Metabolic Pt's admitting Na of 115 was corrected 9 mEq to 124 over 24hr with fluid restriction of 800 mL, now up to 132. Nephrology is following - as per their recommendations, pt is now sodium bicarb PO, with fluids dc'd. -F/u BEP Alimentary Pt is tolerating PO well. Dietary recommendations included multivitamins tabs with minerals which were ordered. As per gastro's recommendation, he was switched from IV PPI to PO PPI BID. -Omeprazole 20 mg BID Neuro Pt is AAOx3. He is talkative and cooperative. His muscle strength was not assessed due to pain, but sensation was diminished in R foot. Propioception B/L was preserved. FULL CODE DVT PPX: lovenox 40 mg sq daily Problem List: 1. Chronic wound of extremity 2. Hyponatremia Pain Ratin Pain Location: LE [facility] Labs & Rationales: . Plan DVT/Prophylaxis: pharmacological
[2018-02-17 08:00] VITALS: BP 111/65
--- NOTE | 2018-02-17 10:44 | PN- Att Addend ---
Attending Addendum Attending Brief Note Patient looking and feeling better. His vital signs are stable no fever. No major changes on physical examination. Still in the special bed and having wound care. His sodium slowly improving his potassium was low at 3.0 being replaced also was given some magnesium. Patient is stable to be transferred out of the intensive care unit. Intake & Output 02/17 1600 02/17 0400 02/16 1600 02/16 0400 02/15 1600 02/15 0400 Intake Total 020 585 3066 1280 620 720 Output Total 275 350 850 0 900 700 Balance 782 239 9898 1280 -280 20 Intake, Blood 350 Product Intake, IV 1036 730 620 600 Intake, Oral 108 524 8268 550 0 120 Number 1 0 0 Bowel Movements Output, Urine 275 350 850 0 900 700 Current Medications Sig/Alexus Start time Last Medication Dose Route Stop Time Status Admin Acetaminophen 650 MG Q6P PRN 02/13 2030 AC PO Atorvastatin Calcium 80 MG 1700 02/14 1700 AC 02/16 PO 1604 Enoxaparin Sodium 40 MG DAILY 02/16 0900 AC 02/17 SC 0804 Fluoxetine HCl 20 MG DAILY 02/16 1735 AC 02/17 PO 0804 Magnesium Oxide 400 MG ONE ONE 02/17 0500 DC 02/17 PO 02/17 0501 0504 Multivitamins 1 TAB DAILY 02/15 0900 AC 02/17 PO 0804 Omeprazole 20 MG BID 02/15 2100 AC 02/17 PO 0804 Oxycodone/ 2 TAB Q6P PRN 02/15 1700 AC 02/17 Acetaminophen PO 1014 Potassium Chloride 40 MEQ ONCE ONE 02/17 0800 DC 02/17 PO 02/17 0801 0803 Potassium Chloride 40 MEQ ONCE ONE 02/17 0500 DC 02/17 PO 02/17 0501 0505 Sodium Bicarbonate 1,300 MG BID 02/15 2100 AC 02/17 PO 0804 Sodium Bicarbonate 75 MEQ Q13H 02/15 1400 DC 02/16 Sodium Chloride 1,000 ML IV 0419 Tamsulosin HCl 0.4 MG DAILY 02/13 2030 AC 02/17 PO 0804 Tramadol HCl 50 MG Q6-PRN PRN 02/13 2030 AC 02/14 PO 1019 Laboratory Tests 02/17/18 0354: Anion Gap 9, Estimated GFR > 60, BUN/Creatinine Ratio 13.8, Magnesium 1.6, CBC w Diff NO MAN DIFF REQ, RBC 2.78 L, MCV 89.5, MCH 29.6, MCHC 33.1, RDW 17.7 H, MPV 6.4 L, Gran % 81.6 H, Lymphocytes % 10.8 L, Monocytes % 5.8, Eosinophils % 1.4, Basophils % 0.4, Absolute Granulocytes 9.1 H, Absolute Lymphocytes 1.2, Absolute Monocytes 0.7 H, Absolute Eosinophils 0.2, Absolute Basophils 0 02/16/18 1700: CBC w Diff NO MAN DIFF REQ, RBC 2.94 L, MCV 88.6, MCH 29.2, MCHC 33.0, RDW 16.7 H, MPV 6.6 L, Gran % 80.5 H, Lymphocytes % 11.0 L, Monocytes % 7.0, Eosinophils % 1.2, Basophils % 0.3, Absolute Granulocytes 8.0 H, Absolute Lymphocytes 1.1 L, Absolute Monocytes 0.7 H, Absolute Eosinophils 0.1, Absolute Basophils 0 02/16/18 0428: Anion Gap 9, Estimated GFR > 60, BUN/Creatinine Ratio 15.6, CBC w Diff NO MAN DIFF REQ, RBC 2.53 L, MCV 89.1, MCH 28.9, MCHC 32.5 L, RDW 19.0 H, MPV 6.6 L , Gran % 82.4 H, Lymphocytes % 10.5 L, Monocytes % 5.6, Eosinophils % 1.2, Basophils % 0.3, Absolute Granulocytes 8.3 H, Absolute Lymphocytes 1.1 L, Absolute Monocytes 0.6, Absolute Eosinophils 0.1, Absolute Basophils 0 02/15/18 2030: Anion Gap 9, Estimated GFR > 60, BUN/Creatinine Ratio 16.7 02/15/18 1039: Anion Gap 11, Estimated GFR > 60, BUN/Creatinine Ratio 17.8, Magnesium 2.0 02/15/18 0515: Anion Gap 10, Estimated GFR > 60, BUN/Creatinine Ratio 17.0, CBC w Diff MAN DIFF ORDERED, RBC 2.70 L, MCV 89.5, MCH 29.4, MCHC 32.9 L, RDW 17.9 H, MPV 6.6 L, Gran % 85.6 H, Lymphocytes % 6.1 L, Monocytes % 7.8, Eosinophils % 0.4, Basophils % 0.1, Absolute Granulocytes 9.2 H, Segmented Neutrophils 89 H, Band Neutrophils 1, Absolute Lymphocytes 0.7 L, Lymphocytes 5 L, Monocytes 5, Absolute Monocytes 0.8 H, Absolute Eosinophils 0, Absolute Basophils 0, Platelet Estimate INCREASED, Polychromasia 1+, Hypochromic-Microcytic 1+, Poikilocytosis 1+, Ovalocytes 1+, [place] Cells FEW, Fld Total RBCs Counted 100 02/15/18 0130: Anion Gap 10, Estimated GFR > 60, BUN/Creatinine Ratio 17.3 02/14/18 2100: Sodium Cancelled, Potassium Cancelled, Chloride Cancelled, Carbon Dioxide Cancelled, Anion Gap Cancelled, BUN Cancelled, Creatinine Cancelled, BUN/ Creatinine Ratio Cancelled 02/14/18 1855: Anion Gap 13, Estimated GFR > 60, BUN/Creatinine Ratio 19.1, Serum Osmolality 263 L, CBC w Diff NO MAN DIFF REQ, RBC 2.68 L, MCV 88.9, MCH 29.3, MCHC 33.0, RDW 17.9 H, MPV 6.7 L, Gran % 93.7 H, Lymphocytes % 5.6 L, Monocytes % 0.1 L, Eosinophils % 0.2, Basophils % 0.4, Absolute Granulocytes 10.6 H, Absolute Lymphocytes 0.6 L, Absolute Monocytes 0 L, Absolute Eosinophils 0, Absolute Basophils 0.1 02/14/18 1230: Anion Gap 12, Estimated GFR > 60, BUN/Creatinine Ratio 19.2 Vital Signs Date Time Temp Pulse Resp B/P B/P Pulse O2 O2 Flow FiO2 Mean Ox Delivery Rate 02/17 0800 96.6 80 20 111/65 100 Room Air 02/17 0400 98 02/17 0000 98 Room Air 02/16 2343 98.2 66 9 112/60 97 Room Air 02/16 2000 98 Room Air 02/16 1600 97.8 72 20 110/60 98 Room Air 02/16 1200 978.0 76 20 103/58
--- NOTE | 2018-02-17 11:28 | PN- Nephrology ---
Assessment/Plan Nephrology Assessment: 1. Hyponatremia secondary to chronic debilitation plus volume depletion - improved, mild and stable 2. JOVANY - resolved with IV fluids 3. Metabolic acidosis, much improved 4. Hypokalemia 5. Severe anemia secondary to GI blood loss and history of thalassemia- transfused again yesterday 6. Chronic debilitation with history of recent falls resulting in multiple ecchymoses and abrasions 7. Steroid-induced avascular necrosis both hips Suggestion: 1. Increase oral sodium bicarbonate to 1300 mg p.o. 3 times daily 2. Supplement potassium -suggest 40 mEq p.o. twice today and then 20 mEq p.o. 3 times daily 3. Recheck calcium and phosphorus levels Subjective Subjective: Insists that he wants to go home and refuses to consider short-term rehab. He has no specific medical complaints at this time. Serum sodium stable at 132, potassium low again at 3.0, bicarbonate 19. No vomiting or diarrhea. Was transfused 1 unit of packed RBCs yesterday. Endoscopy biopsy results pending. Objective Vital Signs and I&Os Vital Signs Date Time Temp Pulse Resp B/P B/P Pulse O2 O2 Flow FiO2 Mean Ox Delivery Rate 02/17 0800 96.6 80 20 111/65 100 Room Air 02/17 0400 98 02/17 0000 98 Room Air 02/16 2343 98.2 66 9 112/60 97 Room Air 02/16 2000 98 Room Air 02/16 1600 97.8 72 20 110/60 98 Room Air 02/16 1200 978.0 76 20 103/58 Intake & Output 02/17 1600 02/17 0400 02/16 1600 02/16 0400 02/15 1600 02/15 0400 Intake Total 161 313 4444 1280 620 720 Output Total 275 350 850 0 900 700 Balance 358 152 8039 1280 -280 20 Intake, Blood 350 Product Intake, IV 1036 730 620 600 Intake, Oral 363 658 0272 550 0 120 Number 1 0 0 Bowel Movements Output, Urine 275 350 850 0 900 700 Physical Exam: General: Chronically ill, somewhat emaciated appearing white male in NAD Skin: No rash or jaundice but multiple ecchymoses and abrasions on both arms and lower extremities HEENT: Conjunctivae pale, sclerae anicteric, mucous membranes moist Neck: Without masses or thyromegaly, no supraclavicular or cervical adenopathy Chest: Clear anterolaterally Heart: Regular rate and rhythm without S3 or rub Abdomen: Soft and nontender without palpable masses or organomegaly Extremities: Without cyanosis or edema (see "Skin" above) Neuro: Cognitively intact, no focal findings, no asterixis or myoclonus Results Pertinent Lab Results: Laboratory Tests 02/17 02/16 0354 1700 Chemistry Sodium (137 - 145 mmol/L) 132 L Potassium (3.5 - 5.1 mmol/L) 3.0 L Chloride (98 - 107 mmol/L) 103 Carbon Dioxide (22 - 30 mmol/L) 19 L Anion Gap (5 - 16) 9 BUN (9 - 20 mg/dL) 11 Creatinine (0.7 - 1.2 mg/dL) 0.8 Estimated GFR (>60 ml/min) > 60 BUN/Creatinine Ratio (7 - 25 %) 13.8 Magnesium (1.6 - 2.3 mg/dL) 1.6 Hematology CBC w Diff NO MAN DIFF REQ NO MAN DIFF REQ WBC (4.8 - 10.8 /CUMM) 11.2 H 10.0 RBC (4.70 - 6.10 /CUMM) 2.78 L 2.94 L Hgb (14.0 - 18.0 G/DL) 8.3 L 8.6 L Hct (42 - 52 %) 24.9 L 26.0 L MCV (80.0 - 94.0 FL) 89.5 88.6 MCH (27.0 - 31.0 PG) 29.6 29.2 MCHC (33.0 - 37.0 G/DL) 33.1 33.0 RDW (11.5 - 14.5 %) 17.7 H 16.7 H Plt Count (130 - 400 /CUMM) 465 H 456 H MPV (7.4 - 10.4 FL) 6.4 L 6.6 L Gran % (42.2 - 75.2 %) 81.6 H 80.5 H Lymphocytes % (20.5 - 51.1 %) 10.8 L 11.0 L Monocytes % (1.7 - 9.3 %) 5.8 7.0 Eosinophils % (0 - 5 %) 1.4 1.2 Basophils % (0.0 - 2.0 %) 0.4 0.3 Absolute Granulocytes (1.4 - 6.5 /CUMM) 9.1 H 8.0 H Absolute Lymphocytes (1.2 - 3.4 /CUMM) 1.2 1.1 L Absolute Monocytes (0.10 - 0.60 /CUMM) 0.7 H 0.7 H Absolute Eosinophils (0.0 - 0.7 /CUMM) 0.2 0.1 Absolute Basophils (0.0 - 0.2 /CUMM) 0 0 02/16 02/15 02/15 0428 2030 1039 Chemistry Sodium (137 - 145 mmol/L) 132 L 130 L 132 L Potassium (3.5 - 5.1 mmol/L) 3.5 3.2 L 3.4 L Chloride (98 - 107 mmol/L) 103 104 104 Carbon Dioxide (22 - 30 mmol/L) 20 L 18 L 17 L Anion Gap (5 - 16) 9 9 11 BUN (9 - 20 mg/dL) 14 15 16 Creatinine (0.7 - 1.2 mg/dL) 0.9 0.9 0.9 Estimated GFR (>60 ml/min) > 60 > 60 > 60 BUN/Creatinine Ratio (7 - 25 %) 15.6 16.7 17.8 Magnesium (1.6 - 2.3 mg/dL) 2.0 Hematology CBC w Diff NO MAN DIFF REQ WBC (4.8 - 10.8 /CUMM) 10.1 RBC (4.70 - 6.10 /CUMM) 2.53 L Hgb (14.0 - 18.0 G/DL) 7.3 *L Hct (42 - 52 %) 22.6 L MCV (80.0 - 94.0 FL) 89.1 MCH (27.0 - 31.0 PG) 28.9 MCHC (33.0 - 37.0 G/DL) 32.5 L RDW (11.5 - 14.5 %) 19.0 H Plt Count (130 - 400 /CUMM) 525 H MPV (7.4 - 10.4 FL) 6.6 L Gran % (42.2 - 75.2 %) 82.4 H Lymphocytes % (20.5 - 51.1 %) 10.5 L Monocytes % (1.7 - 9.3 %) 5.6 Eosinophils % (0 - 5 %) 1.2 Basophils % (0.0 - 2.0 %) 0.3 Absolute Granulocytes (1.4 - 6.5 /CUMM) 8.3 H Absolute Lymphocytes (1.2 - 3.4 /CUMM) 1.1 L Absolute Monocytes (0.10 - 0.60 /CUMM) 0.6 Absolute Eosinophils (0.0 - 0.7 /CUMM) 0.1 Absolute Basophils (0.0 - 0.2 /CUMM) 0 02/15 02/15 02/14 0515 0130 2100 Chemistry Sodium (137 - 145 mmol/L) 129 L 129 L Cancelled Potassium (3.5 - 5.1 mmol/L) 3.9 3.9 Cancelled Chloride (98 - 107 mmol/L) 102 102 Cancelled Carbon Dioxide (22 - 30 mmol/L) 17 L 16 L Cancelled Anion Gap (5 - 16) 10 10 Cancelled BUN (9 - 20 mg/dL) 17 19 Cancelled Creatinine (0.7 - 1.2 mg/dL) 1.0 1.1 Cancelled Estimated GFR (>60 ml/min) > 60 > 60 BUN/Creatinine Ratio (7 - 25 %) 17.0 17.3 Cancelled Hematology CBC w Diff MAN DIFF ORDERED WBC (4.8 - 10.8 /CUMM) 10.8 RBC (4.70 - 6.10 /CUMM) 2.70 L Hgb (14.0 - 18.0 G/DL) 7.9 L Hct (42 - 52 %) 24.2 L MCV (80.0 - 94.0 FL) 89.5 MCH (27.0 - 31.0 PG) 29.4 MCHC (33.0 - 37.0 G/DL) 32.9 L RDW (11.5 - 14.5 %) 17.9 H Plt Count (130 - 400 /CUMM) 591 H MPV (7.4 - 10.4 FL) 6.6 L Gran % (42.2 - 75.2 %) 85.6 H Lymphocytes % (20.5 - 51.1 %) 6.1 L Monocytes % (1.7 - 9.3 %) 7.8 Eosinophils % (0 - 5 %) 0.4 Basophils % (0.0 - 2.0 %) 0.1 Absolute Granulocytes (1.4 - 6.5 /CUMM) 9.2 H Segmented Neutrophils (42.2 - 75.2 %) 89 H Band Neutrophils (0.0 - 5.0 %) 1 Absolute Lymphocytes (1.2 - 3.4 /CUMM) 0.7 L Lymphocytes (20.5 - 51.1 %) 5 L Monocytes (1.7 - 9.3 %) 5 Absolute Monocytes (0.10 - 0.60 /CUMM) 0.8 H Absolute Eosinophils (0.0 - 0.7 /CUMM) 0 Absolute Basophils (0.0 - 0.2 /CUMM) 0 Platelet Estimate (ADEQUATE) INCREASED Polychromasia 1+ Hypochromic-Microcytic 1+ Poikilocytosis 1+ Ovalocytes 1+ [place] Cells FEW Other Body Source Fld Total RBCs Counted (%) 100 02/14 02/14 1855 1230 Chemistry Sodium (137 - 145 mmol/L) 127 L 124 L Potassium (3.5 - 5.1 mmol/L) 3.4 L 3.8 Chloride (98 - 107 mmol/L) 100 101 Carbon Dioxide (22 - 30 mmol/L) 14 L 12 L Anion Gap (5 - 16) 13 12 BUN (9 - 20 mg/dL) 21 H 23 H Creatinine (0.7 - 1.2 mg/dL) 1.1 1.2 Estimated GFR (>60 ml/min) > 60 > 60 BUN/Creatinine Ratio (7 - 25 %) 19.1 19.2 Serum Osmolality (285 - 295 MOSM/KG) 263 L Hematology CBC w Diff NO MAN DIFF REQ WBC (4.8 - 10.8 /CUMM) 11.3 H RBC (4.70 - 6.10 /CUMM) 2.68 L Hgb (14.0 - 18.0 G/DL) 7.8 L Hct (42 - 52 %) 23.8 L MCV (80.0 - 94.0 FL) 88.9 MCH (27.0 - 31.0 PG) 29.3 MCHC (33.0 - 37.0 G/DL) 33.0 RDW (11.5 - 14.5 %) 17.9 H Plt Count (130 - 400 /CUMM) 571 H MPV (7.4 - 10.4 FL) 6.7 L Gran % (42.2 - 75.2 %) 93.7 H Lymphocytes % (20.5 - 51.1 %) 5.6 L Monocytes % (1.7 - 9.3 %) 0.1 L Eosinophils % (0 - 5 %) 0.2 Basophils % (0.0 - 2.0 %) 0.4 Absolute Granulocytes (1.4 - 6.5 /CUMM) 10.6 H Absolute Lymphocytes (1.2 - 3.4 /CUMM) 0.6 L Absolute Monocytes (0.10 - 0.60 /CUMM) 0 L Absolute Eosinophils (0.0 - 0.7 /CUMM) 0 Absolute Basophils (0.0 - 0.2 /CUMM) 0.1
--- NOTE | 2018-02-17 11:54 | Transfer of Care Summary ---
Hospital Course Course Hospital Course: Reason for ICU admission:Hyponatremia, [id number] anemia, JOVANY with metabolic acidosis History of presenting illness: Mr. 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 On admit, pt also had JOVANY with metabolic acidosis. Interval events in the ICU: Pt was transfused 4U PRBC to keep Hb>8. EGD+biopsies performed with findings on nonerosive gastritis. JOVANY with metabolic acidosis on admit resolved with IV bicarb, now transitioned to PO. Mechanical ventilation: No NIPPV: No Antibiotics plan: No antibiotics given during his stay in the ICU. Catheters/ Lines plan: No central lines/swann catheters were placed. Things to be followed up in the floor: Hb>8, sodium level. Nutrition: Regular Diet DVT prophylaxis: Enoxaparin 40 mg sq only. Code status: FULL CODE Significant Procedures: Procedure Type: EGD w/biopsy Hearing Stenographer: Alfredo Penaloza MD ASA Classification: III Indications: Melena, anemia. Instrument: diagnostic gastroscope Meds Received: MAC Patient's Tolerance: good Complications: none Extent Reached: second part of duodenum Procedure: After getting written informed consent the patient was placed in the left lateral decubitus position with pulse oximetry, cardiac monitoring, and supplemental oxygen given. A bite block was inserted and IV sedation was given until the desired effect was achieved. A high definition upper Olympus endoscope was then inserted into the mouth and advanced to the second portion of the duodenum with little difficulty. Retroflexed views and photodocumentation was obtained. Findings: Esophagus: The upper esophageal mucosa was grossly normal appearance. At 35 cm from the incisors was a 5 mm erythematous nodule which was biopsied and essentially removed with cold biopsy forceps and was sent to pathology for further evaluation. There were circumferential erythematous changes at the Z line located at 38 cm from the incisors and the mucosa was nodular and irregular in appearance, but there were no obvious masses or strictures appreciated. Biopsies were obtained from the Z line with cold biopsy forceps and were sent to pathology for further valuation. Stomach: The antral mucosa was mildly erythematous and there were a few prominent erosions, but there were no ulcers or masses appreciated. Distention and peristalsis of stomach appeared normal. Retroflexed views revealed a small hiatal hernia. Random biopsies were obtained from the antrum with cold biopsy forceps and were sent to pathology for further evaluation. Duodenum: The duodenal bulb, sweep, and folds were grossly normal in appearance. Impression: 1. Nonerosive reflux disease with possible underlying Raymond's esophagus status post biopsies. 2. Erythematous 5 mm esophageal nodule status post biopsies. 3. Erosive gastritis status post antral biopsies. 4. No active bleeding appreciated. 5. Small hiatal hernia. Recommendations: 1. She placed on oral PPI twice a day for now. 2. He should follow an antireflux regimen. 3. He should follow up the pathology results me as an outpatient. 4. He should avoid [id number] NSAIDs. 5. Based on the results of the pathology consideration will be given to repeat his upper endoscopy 3-6 months to confirm healing of his esophagitis and rule out underlying Raymond's esophagus. Pertinent Lab Results: Laboratory Tests 02/17/18 0354: Anion Gap 9, Estimated GFR > 60, BUN/Creatinine Ratio 13.8, Magnesium 1.6, CBC w Diff NO MAN DIFF REQ, RBC 2.78 L, MCV 89.5, MCH 29.6, MCHC 33.1, RDW 17.7 H, MPV 6.4 L, Gran % 81.6 H, Lymphocytes % 10.8 L, Monocytes % 5.8, Eosinophils % 1.4, Basophils % 0.4, Absolute Granulocytes 9.1 H, Absolute Lymphocytes 1.2, Absolute Monocytes 0.7 H, Absolute Eosinophils 0.2, Absolute Basophils 0 02/16/18 1700: CBC w Diff NO MAN DIFF REQ, RBC 2.94 L, MCV 88.6, MCH 29.2, MCHC 33.0, RDW 16.7 H, MPV 6.6 L, Gran % 80.5 H, Lymphocytes % 11.0 L, Monocytes % 7.0, Eosinophils % 1.2, Basophils % 0.3, Absolute Granulocytes 8.0 H, Absolute Lymphocytes 1.1 L, Absolute Monocytes 0.7 H, Absolute Eosinophils 0.1, Absolute Basophils 0 Vital Signs Date Time Temp Pulse Resp B/P B/P Pulse O2 O2 Flow FiO2 Mean Ox Delivery Rate 02/17 1415 98.1 83 18 104/56 100 Room Air 02/17 0800 96.6 80 20 111/65 100 Room Air 02/17 0400 98 02/17 0000 98 Room Air 02/16 2343 98.2 66 9 112/60 97 Room Air 02/16 2000 98 Room Air Intake & Output 02/17 1600 02/17 0800 07 0000 Intake Total 600 480 920 Output Total 375 275 350 Balance 225 205 570 Intake, Oral 600 480 920 Number 1 Bowel Movements Output, Urine 375 275 350 Assessment/Plan: 62 y/o Mr. 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 Pt with prior admits with same presentation. H/H during admission was 8.3/24.9, likely related to his chronic anemia. His Na at admit was 115, slowly increased to 132 with fluid restriction over 48hrs. Also presented with JOVANY with metabolic acidosis, nephrology was consulted, IV bicarb was replenished and upon improving of acidosis, was transitioned to PO bicarb. GI was consulted due to h/o tarry stools - Pt was taken for an EGD (), biopsies taken and findings consistent of nonerosive reflux disease. Pt received a last unit of PRBC on 02/16 with appropiate increase, now mantaining Hb>8. Wounds were asssessed and debrided by wound care and dressings were put in place B/L on knees and on sacral pressure ulcer. With stable Hb and resolving hyponatremia, pt is transferred to [facility] for continued management. Infection Persistent leukocytosis since admission, likely reactive from multiple inflammatory processes. Afebrile since admission. Close inspection of wounds is warranted. Pt with positive MRSA screen. -Positive MRSA screen -No antibiotics given. -f/u CBC -f/u wound care recommendations Hematology Acute on Chronic Anemia -H/o thalassemia major with h/o tarry stools. -s/p 4U PRBC -keep Hb>8 Metabolic Hyponatremia + JOVANY with metabolic acidosis Pt's admitting Na of 115 was corrected 9 mEq to 124 over 24hr with fluid restriction of 800 mL, now up to 132. Nephrology is following - as per their recommendations, pt was started on IV bicarb then transitioned to PO, with fluids dc'd. -F/u BEP Alimentary Regular diet with multivitamin tabs supplement. GI consulted and EGD done on . Biopsies to be followed as an outpatient. -Omeprazole 20 mg BID as per GI recommendations No Central Lines FULL CODE DVT - enoxaparin 40 mg qDaily, no ALPS
[2018-02-17 14:15] VITALS: BP 104/56
[2018-02-17 21:55] VITALS: BP 110/60
[2018-02-18 07:17] VITALS: BP 136/60
[2018-02-18 14:45] VITALS: BP 140/66
--- NOTE | 2018-02-18 15:03 | PN- Housestaff ---
Subjective Follow-up For: Hyponatremia, general deconditioning Subjective: Patient seen and examined at bedside well dressings are being changed by nursing staff. Patient states that he does not feel too well. Patient states that he has some pain from the sites that were being addressed by nursing. Patient did deny fevers, chills, night sweats, chest pain, abdominal pain, urinary symptoms, systemic signs. Review of Systems Constitutional: Reports: see HPI. Objective Last 24 Hrs of Vital Signs/I&O Vital Signs Date Time Temp Pulse Resp B/P B/P Pulse O2 O2 Flow FiO2 Mean Ox Delivery Rate 02/18 1445 98.4 89 18 140/66 99 Room Air 02/18 1147 84 136/60 02/18 0800 Room Air 02/18 0717 97.7 84 20 136/60 100 / 2155 98.5 88 20 110/60 99 Room Air Intake & Output 02/18 1600 02/18 0800 02/18 0000 Intake Total 460 200 840 Output Total 250 1000 Balance 460 -50 -160 Intake, IV 0 Intake, Oral 460 200 840 Number 1 1 2 Bowel Movements Output, Urine 250 1000 Physical Exam General Appearance: Alert, Oriented X3, Cooperative, No Acute Distress Skin: Tunneling coccyx wound; buttocks decubiti; wound to RLE; wound to BL knees ; erythema left calf Cardiovascular: Regular Rate, Normal S1, Normal S2 Lungs: Clear to Auscultation, Normal Air Movement Abdomen: Soft, No Tenderness Neurological: Normal Speech Extremities: eschars b/l LE Assessment/Plan Assessment: Mr. 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 He was treated in the ICU for management of hyponatremia, was downgraded to general medicine. We are now monitoring his potassium, sodium, and treating his general deconditioning #Necrotic ulcers last CBC was 11.2. Will obtain CBC tomorrow morning #Anemiaresolving is. 4U pRBC. #Acute kidney injuryresolving potassium p.o. twice, and then will be switched to 20 mg p.o. potassium 3 times daily. daily. DVT prophylaxis IV access Regular diet Dispositionlikely to STR Problem List: 1. Chronic wound of extremity 2. JOVANY (acute kidney injury) 3. Symptomatic anemia Pain Ratin Pain Location: Lower extremities Pain Goal: Pain 7 or less Pain Plan: Pain pathway Tomorrow's Labs & Rationales: CBC, BEP, Mg, Phos, Ca per nephro note CBC, BEP, Mg, Phos, Ca per nephro note
--- NOTE | 2018-02-18 15:14 | PN- Att Addend ---
Attending Addendum Attending Brief Note Mr. Jaimes was interviewed and examined. His EMR was reviewed. He is in some discomfort at this time secondary to recent change of his dressings. He has otherwise no complaints. He is afebrile with stable vital signs. Heart, lung, and abdominal exams are benign. WBC is 11,200 and hemoglobin is 8.3. Sodium is 132 and potassium is 3.0. We are continuing his maintenance medications and analgesics. We will supplement his potassium with 40 mg twice daily followed by 20 mg 3 times daily as suggested by Dr. Guerin. We will continue to follow his electrolytes and magnesium.
[2018-02-18 21:30] VITALS: BP 140/68
[2018-02-19 06:29] VITALS: BP 126/56
[2018-02-19 07:59] LABS: ABSOLUTE BASOPHIL COUNT 0 /CUMM (0.0-0.2); ABSOLUTE EOSINOPHIL COUNT 0.2 /CUMM (0.0-0.7); ABSOLUTE GRANULOCYTE CT 7.2 /CUMM (1.4-6.5); ABSOLUTE MONOCYTE COUNT 0.6 /CUMM (0.10-0.60); BASOPHIL % 0.4 % (0.0-2.0); EOSINOPHIL % 1.9 % (0-5); GRANULOCYTE % 79.7 % (42.2-75.2); HEMATOCRIT 26.7 % (42-52); MEAN CORPUSCULAR HGB 29.6 PG (27.0-31.0); MEAN CORPUSCULAR HGB CONC 32.7 G/DL (33.0-37.0); MEAN CORPUSCULAR VOLUME 90.6 FL (80.0-94.0); MEAN PLATELET VOLUME 6.8 FL (7.4-10.4); PLATELET COUNT 426 /CUMM (130-400); RBC DISTRIBUTION WIDTH 17.9 % (11.5-14.5); RED BLOOD CELL CT 2.95 /CUMM (4.70-6.10)
--- NOTE | 2018-02-19 08:28 | PN- Housestaff ---
Subjective Follow-up For: hyponatremia, multiple ulcerations Subjective: Patient seen and examined at bedside well dressings are being changed by nursing staff. Patient states that he still does not feel too well. Patient states that he has a mild cough, which is nonproductive. Patient states that he is trying to eat, and has increase his p.o. intake slightly. Patient did deny fevers, chills, night sweats, chest pain, abdominal pain, urinary symptoms, systemic signs. Review of Systems Constitutional: Reports: see HPI. Objective Last 24 Hrs of Vital Signs/I&O Vital Signs Date Time Temp Pulse Resp B/P B/P Pulse O2 O2 Flow FiO2 Mean Ox Delivery Rate 02/19 1451 98.2 87 18 160/84 99 Room Air 02/19 0929 76 126/56 02/19 0800 Room Air 02/19 0629 98.3 76 20 126/56 99 /14 2130 98.1 89 18 140/68 99 Room Air Intake & Output 02/19 1600 02/19 0800 02/19 0000 Intake Total 460 20 50 Output Total 300 325 725 Balance 160 -305 -675 Intake, IV 0 Intake, Oral 460 20 50 Number 2 Bowel Movements Output, Urine 300 325 725 Physical Exam General Appearance: Alert, Oriented X3, Cooperative, chachectic Skin: Tunnelling coccyx wound; buttocks decubiti; wound to RLE; wound to BL knees, l calf erythema Cardiovascular: Regular Rate, Normal S1, Normal S2 Lungs: Normal Air Movement, rhonchi b/l lower lobes Abdomen: Soft, No Tenderness Neurological: Normal Speech Extremities: eschars b/l LE Assessment/Plan Assessment: Mr. 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 He was treated in the ICU for management of hyponatremia, was downgraded to general medicine. We are now monitoring his potassium, sodium, and treating his general deconditioning #Necrotic ulcers last CBC was 11.2. Currently white count is 9.0 #Anemiaresolving 8.7, increased from February 17 which was 8.3 4U pRBC. #Acute kidney injuryresolved potassium 3 times daily. on 02/18. DVT prophylaxis IV access Regular diet Dispositionlikely to STR Problem List: 1. Hyponatremia 2. Chronic wound of extremity Pain Ratin Pain Location: lower extremities Pain Goal: Pain 4 or less Pain Plan: pathway Tomorrow's Labs & Rationales: BEP monitor electrolytes
--- NOTE | 2018-02-19 12:04 | PN- Att Addend ---
Attending Addendum Attending Brief Note Mr. Jaimes was interviewed and examined. His EMR was reviewed. He has no complaints today. He remains afebrile. Heart rate, respiratory rate, blood pressure, and oxygen saturations were all satisfactory and stable. He is in no acute distress. Physical exam is unchanged. WBC are now 9000 and his H&H is stable. Sodium has improved to 135,potassium is now 3.9, and magnesium is 1.7. We are continuing to monitor the patient's CBC, electrolytes, and renal function. His hyponatremia is improving. We have corrected his hypokalemia. We are continuing his maintenance medications and analgesics.
[2018-02-19 14:51] VITALS: BP 160/84
[2018-02-19 21:38] VITALS: BP 126/65
[2018-02-20 06:27] VITALS: BP 126/60
--- NOTE | 2018-02-20 07:09 | PN- Housestaff ---
Subjective Follow-up For: hyponatremia, multiple ulcers Subjective: Patient seen and examined at bedside. Patient states he feels lousy. Pt states cough has improved, but feels weak overall. Patient did deny fevers, chills, night sweats, chest pain, abdominal pain, urinary symptoms, systemic signs. Review of Systems Constitutional: Reports: see HPI. Objective Last 24 Hrs of Vital Signs/I&O Vital Signs Date Time Temp Pulse Resp B/P B/P Pulse O2 O2 Flow FiO2 Mean Ox Delivery Rate 02/20 1459 97.9 93 20 121/75 99 Room Air 02/20 0759 78 126/60 02/20 0627 97.5 78 20 126/60 99 Room Air 02/19 2138 98.0 87 18 126/65 100 Room Air Intake & Output 02/20 1600 02/20 0800 02/20 0000 Intake Total 620 60 660 Output Total 500 200 350 Balance 120 -140 310 Intake, IV 20 Intake, Oral 600 60 660 Number 1 Bowel Movements Output, Urine 500 200 350 Physical Exam General Appearance: Alert, Oriented X3, Cooperative, No Acute Distress Skin: Tunnelling coccyc wound; buttocks decubiti; wound to RLE; wound to BL knees; l calf erythema Skin Temp/Moisture Exam: Warm/Dry Cardiovascular: Regular Rate, Normal S1, Normal S2 Lungs: Clear to Auscultation, Normal Air Movement Abdomen: Soft, No Tenderness Extremities: b/l eschars Current Medications: Current Medications Sig/Alexus Start time Last Medication Dose Route Stop Time Status Admin Acetaminophen 650 MG Q6P PRN 02/13 2030 AC 02/20 PO 1529 Atorvastatin Calcium 80 MG 02/14 170 AC 02/20 PO 1607 Enoxaparin Sodium 40 MG DAILY 02/16 09 AC 02/20 SC 0759 Fluoxetine HCl 20 MG DAILY 02/16 1735 AC 02/20 PO 0758 Multivitamins 1 TAB DAILY 02/15 0902/20 PO 0758 Omeprazole 20 MG BID 02/15 PO 0759 Oxycodone/ 2 TAB Q6P PRN 02/15 1700 AC 02/20 Acetaminophen PO 1354 Potassium Chloride 20 MEQ TID 02/19 1400 AC 02/20 PO 1354 Sodium Bicarbonate 1,300 MG TID 02/18 2100 02/20 PO 1354 Tamsulosin HCl 0.4 MG DAILY 02/13 2030 AC 02/20 PO 0759 Tramadol HCl 50 MG Q6-PRN PRN 02/13 2030 AC 02/20 PO 1158 Last 24 Hrs of Lab/Lukas Results Last 24 Hrs of Labs/Mics: Laboratory Tests 02/20/18 0550: Anion Gap 8, Estimated GFR > 60, BUN/Creatinine Ratio 14.3 Assessment/Plan Assessment: Mr. 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 He was treated in the ICU for management of hyponatremia, was downgraded to general medicine. We are now monitoring his potassium, sodium, and treating his general deconditioning #Necrotic ulcers last CBC was 9.0 #Anemia 8.7, increased from February 17 which was 8.3 4U pRBC. -Per RN, stool is guaic + on 02/20/18. Will get am CBC to monitor hemoglobin #Acute kidney injuryresolved potassium 3 times daily. on 02/18; per nephro note on 02/20 can discontinue on pt discharge. DVT prophylaxis IV access Regular diet Dispositionlikely to STR, pt eval today; pt is not convinced to go to PT, will have to find if radha lift is available for home Problem List: 1. Chronic wound of extremity Pain Ratin Pain Location: na Pain Goal: Remain pain free Pain Plan: pathway Tomorrow's Labs & Rationales: CBC BEP
--- NOTE | 2018-02-20 11:06 | PN- Att Addend ---
Attending Addendum Attending Brief Note Patient out of the intensive care unit in a special bed murmur no new complains Vital signs are stable, no fever. No major changes on physical exam, her nurse to check the wounds today Sodium 135 today potassium 4.2. Normal. To continue present treatment and also have a PT evaluation to decide what the best disposition will be for the patient, patient does not wish to go to rehabilitation. Intake & Output 02/20 0400 Intake Total 60 660 480 50 660 840 Output Total 200 350 916 249 4571 Balance -140 310 -145 -675 660 -410 Intake, IV 0 0 Intake, Oral 60 660 480 50 660 840 Number 2 1 3 Bowel Movements Output, Urine 200 350 456 930 7402 Current Medications Sig/Alexus Start time Last Medication Dose Route Stop Time Status Admin Acetaminophen 650 MG .STK-MED ONE 02/19 1604 DC PO 02/19 160 Acetaminophen 650 MG Q6P PRN 02/13 2030 AC 02/19 PO 1607 Atorvastatin Calcium 80 MG 1700 02/14 170 AC 02/19 PO 1606 Enoxaparin Sodium 40 MG DAILY 02/16 09 AC 02/20 SC 0759 Fluoxetine HCl 20 MG DAILY 02/16 1735 AC 02/20 PO 0758 Multivitamins 1 TAB DAILY 02/15 09 AC 02/20 PO 0758 Omeprazole 20 MG BID 02/15 2100 AC 02/20 PO 0759 Oxycodone/ 2 TAB Q6P PRN 02/15 170 AC 02/20 Acetaminophen PO 0758 Potassium Chloride 20 MEQ TID 02/19 1400 AC 02/20 PO 0759 Sodium Bicarbonate 1,300 MG TID 02/18 2100 AC 02/20 PO 0758 Tamsulosin HCl 0.4 MG DAILY 02/13 2030 AC 02/20 PO 0759 Tramadol HCl 50 MG Q6-PRN PRN 02/13 2030 AC 02/19 PO 2137 Laboratory Tests 02/20/18 0550: Anion Gap 8, Estimated GFR > 60, BUN/Creatinine Ratio 14.3 02/19/18 0633: Anion Gap 8, Estimated GFR > 60, BUN/Creatinine Ratio 14.3, Calcium 7.9 L, Phosphorus 3.6, Magnesium 1.7, CBC w Diff NO MAN DIFF REQ, RBC 2.95 L, MCV 90.6 , MCH 29.6, MCHC 32.7 L, RDW 17.9 H, MPV 6.8 L, Gran % 79.7 H, Lymphocytes % 11.0 L, Monocytes % 7.0, Eosinophils % 1.9, Basophils % 0.4, Absolute Granulocytes 7.2 H, Absolute Lymphocytes 1.0 L, Absolute Monocytes 0.6, Absolute Eosinophils 0.2, Absolute Basophils 0 Vital Signs Date Time Temp Pulse Resp B/P B/P Pulse O2 O2 Flow FiO2 Mean Ox Delivery Rate 02/20 0759 78 126/60 02/20 0627 97.5 78 20 126/60 99 Room Air 02/19 2138 98.0 87 18 126/65 100 Room Air 02/19 1451 98.2 87 18 160/84 99 Room Air
--- NOTE | 2018-02-20 11:17 | PN- Nephrology ---
Assessment/Plan Nephrology Assessment: Hyponatremia - 2/2 volume depletion - resolved. Met acidosis - resolved - on oral bicarb - not clear he needs to be discharged on this (should f/u with labs after dicharge). JOVANY - 2/2 pre-renal azotemia - resolved. Suggestion: -Can d/c sodium bicarb on discharge - should f/u outpatient labs within 1-2 weeks after discharge Will see PRN Please call [phone] with ?'s Subjective Subjective: Na 135 SCr 0.7 Bicarb 23 Pt reports doing OK Objective Vital Signs and I&Os Vital Signs Date Time Temp Pulse Resp B/P B/P Pulse O2 O2 Flow FiO2 Mean Ox Delivery Rate 02/20 0759 78 126/60 02/20 0627 97.5 78 20 126/60 99 Room Air 02/19 2138 98.0 87 18 126/65 100 Room Air 02/19 1451 98.2 87 18 160/84 99 Room Air Intake & Output 02/20 1600 02/20 0400 02/19 1600 02/19 0400 02/18 1600 02/18 0400 Intake Total 60 660 480 50 660 840 Output Total 200 350 714 022 0579 Balance -140 310 -145 -675 660 -410 Intake, IV 0 0 Intake, Oral 60 660 480 50 660 840 Number 2 1 3 Bowel Movements Output, Urine 200 350 809 819 4408 Physical Exam: Gen - chronically ill appearing HEENT - supple CV - RRR, no m/r/g Chest - clear, no w/r/r Abd - soft, NTND Ext -warm, no edema Neuro -AOX3, grossly nonfocal Current Medications: Current Medications Sig/Alexus Start time Last Medication Dose Route Stop Time Status Admin Acetaminophen 650 MG .STK-MED ONE 02/19 1604 DC PO 02/19 1605 Acetaminophen 650 MG Q6P PRN 02/13 2030 AC 02/19 PO 1607 Atorvastatin Calcium 80 MG 1700 02/14 1700 AC 02/19 PO 1606 Enoxaparin Sodium 40 MG DAILY 02/16 0900 AC 02/20 SC 0759 Fluoxetine HCl 20 MG DAILY 02/16 1735 AC 02/20 PO 0758 Multivitamins 1 TAB DAILY 02/15 0900 AC 02/20 PO 0758 Omeprazole 20 MG BID 02/15 2100 AC 02/20 PO 0759 Oxycodone/ 2 TAB Q6P PRN 02/15 1700 AC 02/20 Acetaminophen PO 0758 Potassium Chloride 20 MEQ TID 02/19 1400 AC 02/20 PO 0759 Sodium Bicarbonate 1,300 MG TID 02/18 2100 AC 02/20 PO 0758 Tamsulosin HCl 0.4 MG DAILY 02/13 2030 AC 02/20 PO 0759 Tramadol HCl 50 MG Q6-PRN PRN 02/13 2030 AC 02/19 PO 2137 Results Pertinent Lab Results: Laboratory Tests 02/20 02/19 0550 0633 Chemistry Sodium (137 - 145 mmol/L) 135 L 135 L Potassium (3.5 - 5.1 mmol/L) 4.2 3.9 Chloride (98 - 107 mmol/L) 104 105 Carbon Dioxide (22 - 30 mmol/L) 23 22 Anion Gap (5 - 16) 8 8 BUN (9 - 20 mg/dL) 10 10 Creatinine (0.7 - 1.2 mg/dL) 0.7 0.7 Estimated GFR (>60 ml/min) > 60 > 60 BUN/Creatinine Ratio (7 - 25 %) 14.3 14.3 Calcium (8.4 - 10.2 mg/dL) 7.9 L Phosphorus (2.5 - 4.5 mg/dL) 3.6 Magnesium (1.6 - 2.3 mg/dL) 1.7 Hematology CBC w Diff NO MAN DIFF REQ WBC (4.8 - 10.8 /CUMM) 9.0 RBC (4.70 - 6.10 /CUMM) 2.95 L Hgb (14.0 - 18.0 G/DL) 8.7 L Hct (42 - 52 %) 26.7 L MCV (80.0 - 94.0 FL) 90.6 MCH (27.0 - 31.0 PG) 29.6 MCHC (33.0 - 37.0 G/DL) 32.7 L RDW (11.5 - 14.5 %) 17.9 H Plt Count (130 - 400 /CUMM) 426 H MPV (7.4 - 10.4 FL) 6.8 L Gran % (42.2 - 75.2 %) 79.7 H Lymphocytes % (20.5 - 51.1 %) 11.0 L Monocytes % (1.7 - 9.3 %) 7.0 Eosinophils % (0 - 5 %) 1.9 Basophils % (0.0 - 2.0 %) 0.4 Absolute Granulocytes (1.4 - 6.5 /CUMM) 7.2 H Absolute Lymphocytes (1.2 - 3.4 /CUMM) 1.0 L Absolute Monocytes (0.10 - 0.60 /CUMM) 0.6 Absolute Eosinophils (0.0 - 0.7 /CUMM) 0.2 Absolute Basophils (0.0 - 0.2 /CUMM) 0
[2018-02-20 14:59] VITALS: BP 121/75
[2018-02-20 22:06] VITALS: BP 124/64; BP 138/60
[2018-02-21 06:41] VITALS: BP 130/70
[2018-02-21 07:50] LABS: ABSOLUTE BASOPHIL COUNT 0.1 /CUMM (0.0-0.2); ABSOLUTE EOSINOPHIL COUNT 0.1 /CUMM (0.0-0.7); ABSOLUTE GRANULOCYTE CT 6.2 /CUMM (1.4-6.5); ABSOLUTE LYMPH COUNT 0.9 /CUMM (1.2-3.4); ABSOLUTE MONOCYTE COUNT 0.5 /CUMM (0.10-0.60); BASOPHIL % 0.7 % (0.0-2.0); EOSINOPHIL % 1.4 % (0-5); GRANULOCYTE % 79.5 % (42.2-75.2); HEMATOCRIT 26.1 % (42-52); MEAN CORPUSCULAR HGB 29.5 PG (27.0-31.0); MEAN CORPUSCULAR HGB CONC 32.6 G/DL (33.0-37.0); MEAN CORPUSCULAR VOLUME 90.4 FL (80.0-94.0); MEAN PLATELET VOLUME 7.2 FL (7.4-10.4); PLATELET COUNT 396 /CUMM (130-400); RBC DISTRIBUTION WIDTH 18.6 % (11.5-14.5); RED BLOOD CELL CT 2.88 /CUMM (4.70-6.10); WHITE BLOOD CELL COUNT 7.8 /CUMM (4.8-10.8)
--- NOTE | 2018-02-21 08:23 | PN- Housestaff ---
Subjective Follow-up For: Hyponatremia, Anemia Subjective: Patient seen and examined at bedside. Overnight, patient was guaiac positive in stool. Patient did deny any axel blood, denied any abdominal pain. Patient states that he is in pain, but this is his baseline. Patient states that his hip hurts especially, which is been stable as he was hoping to get surgery for avascular necrosis of both hips.. Denied any falls. Patient also denied fevers /chills/night sweats/chest pain/urinary symptoms/lower extremity edema. Review of Systems Constitutional: Reports: see HPI. Objective Last 24 Hrs of Vital Signs/I&O Vital Signs Date Time Temp Pulse Resp B/P B/P Pulse O2 O2 Flow FiO2 Mean Ox Delivery Rate 02/21 1051 Room Air 2.0L 02/21 0842 91 130/70 02/21 0800 Room Air 02/21 0641 98.4 91 20 130/70 99 Room Air 02/20 2206 98.1 80 18 124/64 100 Room Air 02/20 1459 97.9 93 20 121/75 99 Room Air Intake & Output 02/21 1600 02/21 0800 02/21 0000 Intake Total 240 250 Output Total 250 400 Balance -250 -160 250 Intake, IV 0 10 Intake, Oral 240 240 Number 2 0 Bowel Movements Output, Urine 250 400 Physical Exam General Appearance: Alert, Oriented X3, Cooperative, No Acute Distress Skin: Tunnelling coccyx wound, buttocks decubiti, wound to RLE, wound to BL knees, L calf erythema Skin Temp/Moisture Exam: Warm/Dry Cardiovascular: Regular Rate, Normal S1, Normal S2 Lungs: Clear to Auscultation, Normal Air Movement Abdomen: Soft, No Tenderness Neurological: Sensation Intact Extremities: b/l eschars Assessment/Plan Assessment: Mr. 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 He was treated in the ICU for management of hyponatremia, was downgraded to general medicine. We are now monitoring his potassium, sodium, and treating his general deconditioning #Necrotic ulcersresolving last CBC was 7.8 #Anemiaresolving 8.7, increased from February 17 which was 8.3 4U pRBC. -Per RN, stool is guaic + on 02/20/18. CBCs showed hemoglobin at 8.5, decreased from last CBCs which was 8.7. #Acute kidney injuryresolved potassium 3 times daily. on 02/18; per nephro note on 02/20 can discontinue on pt discharge. DVT prophylaxis IV access Regular diet Dispositionpatient undoubtedly needs rehab. Patient is averse to going, however will continue try to convince patient. Physical therapy had talked with him yesterday about that, but he climbed therapy. Patient states that if he could get a [employer] at home, he can do his own rehab. I did talk with him and explained to him that physical therapy is highly advised, as home rehab will never outperform rehab by trained specialist. Patient needs to gain enough strength so that he can get surgery for his hips. He likely will not be able to tolerate the surgery in his current state. Problem List: 1. JOVANY (acute kidney injury) 2. Chronic wound of extremity Pain Ratin Pain Location: na Pain Goal: Pain 4 or less Pain Plan: per pathway Tomorrow's Labs & Rationales: CBC monitor hemoglobin
--- NOTE | 2018-02-21 10:11 | PN- Att Addend ---
Attending Addendum Attending Brief Note Patient laying in bed in the special [place] bed. Vital signs are stable no fever. No major changes on physical exam. Labs have normalized. Worse at the side recommending that he should go for physical therapy and rehab patient is resistant to this we will try and convince him that that is the best thing to do and then let the orthopedic surgeon know about the plans and see if we can schedule his elective hip surgery after several weeks. Intake & Output 02/21 040 Intake Total 240 250 680 660 480 50 Output Total 400 700 350 625 725 Balance -160 250 -20 310 -145 -675 Intake, IV 0 10 20 0 Intake, Oral 240 240 660 660 480 50 Number 2 0 1 2 Bowel Movements Output, Urine 400 700 350 625 725 Current Medications Sig/Alexus Start time Last Medication Dose Route Stop Time Status Admin Acetaminophen 650 MG .STK-MED ONE 02/20 1527 DC PO 02/20 152 Acetaminophen 650 MG Q6P PRN 02/13 2030 AC 02/20 PO 1529 Atorvastatin Calcium 80 MG 1700 02/14 170 AC 02/20 PO 1607 Enoxaparin Sodium 40 MG DAILY 02/16 09 AC 02/21 SC 0844 Fluoxetine HCl 20 MG DAILY 02/16 1735 AC 02/21 PO 0843 Multivitamins 1 TAB DAILY 02/15 0900 AC 02/21 PO 0843 Omeprazole 20 MG BID 02/15 2100 AC 02/21 PO 0843 Oxycodone/ 2 TAB Q6P PRN 02/15 170 AC 02/21 Acetaminophen PO 0841 Potassium Chloride 20 MEQ TID 02/19 1400 AC 02/21 PO 0843 Sodium Bicarbonate 1,300 MG TID 02/18 2100 AC 02/21 PO 0842 Tamsulosin HCl 0.4 MG DAILY 02/13 2030 AC 02/21 PO 0842 Tramadol HCl 50 MG Q6-PRN PRN 02/13 2030 AC 02/20 PO 175 Laboratory Tests 02/21/18 06: Anion Gap 7, Estimated GFR > 60, BUN/Creatinine Ratio 12.9, CBC w Diff NO MAN DIFF REQ, RBC 2.88 L, MCV 90.4, MCH 29.5, MCHC 32.6 L, RDW 18.6 H, MPV 7.2 L , Gran % 79.5 H, Lymphocytes % 11.8 L, Monocytes % 6.6, Eosinophils % 1.4, Basophils % 0.7, Absolute Granulocytes 6.2, Absolute Lymphocytes 0.9 L, Absolute Monocytes 0.5, Absolute Eosinophils 0.1, Absolute Basophils 0.1 02/20/18 0550: Anion Gap 8, Estimated GFR > 60, BUN/Creatinine Ratio 14.3 02/19/18 0633: Anion Gap 8, Estimated GFR > 60, BUN/Creatinine Ratio 14.3, Calcium 7.9 L, Phosphorus 3.6, Magnesium 1.7, CBC w Diff NO MAN DIFF REQ, RBC 2.95 L, MCV 90.6 , MCH 29.6, MCHC 32.7 L, RDW 17.9 H, MPV 6.8 L, Gran % 79.7 H, Lymphocytes % 11.0 L, Monocytes % 7.0, Eosinophils % 1.9, Basophils % 0.4, Absolute Granulocytes 7.2 H, Absolute Lymphocytes 1.0 L, Absolute Monocytes 0.6, Absolute Eosinophils 0.2, Absolute Basophils 0 Vital Signs Date Time Temp Pulse Resp B/P B/P Pulse O2 O2 Flow FiO2 Mean Ox Delivery Rate 02/21 0842 91 130/70 02/21 0641 98.4 91 20 130/70 99 Room Air 02/20 2206 98.1 80 18 124/64 100 Room Air 02/20 1459 97.9 93 20 121/75 99 Room Air
[2018-02-21 14:50] VITALS: BP 144/64
[2018-02-21] MEDS ORDERED: KLOR-CON M2020 ME1 PO (20:23)
[2018-02-21] MEDS ORDERED: ONE DAILY MULT1 EAC2 PO (20:23)
[2018-02-21 21:28] VITALS: BP 126/60
[2018-02-22 06:40] VITALS: BP 140/76
[2018-02-22 08:00] LABS: ABSOLUTE BASOPHIL COUNT 0 /CUMM (0.0-0.2); ABSOLUTE EOSINOPHIL COUNT 0.1 /CUMM (0.0-0.7); ABSOLUTE GRANULOCYTE CT 7.6 /CUMM (1.4-6.5); ABSOLUTE LYMPH COUNT 0.8 /CUMM (1.2-3.4); ABSOLUTE MONOCYTE COUNT 0.4 /CUMM (0.10-0.60); BASOPHIL % 0.5 % (0.0-2.0); EOSINOPHIL % 0.8 % (0-5); GRANULOCYTE % 85.6 % (42.2-75.2); HEMATOCRIT 25.6 % (42-52); MEAN CORPUSCULAR HGB 29.9 PG (27.0-31.0); MEAN CORPUSCULAR HGB CONC 33.4 G/DL (33.0-37.0); MEAN CORPUSCULAR VOLUME 89.7 FL (80.0-94.0); MEAN PLATELET VOLUME 7.1 FL (7.4-10.4); PLATELET COUNT 412 /CUMM (130-400); RBC DISTRIBUTION WIDTH 17.6 % (11.5-14.5); RED BLOOD CELL CT 2.85 /CUMM (4.70-6.10)
--- NOTE | 2018-02-22 08:43 | PN- Housestaff ---
Subjective Follow-up For: Hyponatremia, Anemia Subjective: Patient seen and examined at bedside. Patient has no new complaints. Patient is still somewhat averse towards rehab, will continue to try and push the issue. Denied fever/chills/night sweats/chest pain/abdominal pain/urinary symptoms/ lower extremity edema. Review of Systems Constitutional: Reports: see HPI. Objective Last 24 Hrs of Vital Signs/I&O Vital Signs Date Time Temp Pulse Resp B/P B/P Pulse O2 O2 Flow FiO2 Mean Ox Delivery Rate 02/22 0912 90 140/76 02/22 0800 Room Air 02/22 0640 97.5 90 19 140/76 100 Room Air 02/21 2128 98.4 94 17 126/60 94 Room Air 02/21 1450 98.5 90 16 144/64 100 Room Air Intake & Output 02/22 1600 02/22 0800 02/22 0000 Intake Total 480 600 Output Total 275 100 Balance 205 500 Intake, Oral 480 600 Number 2 Bowel Movements Output, Urine 275 100 Physical Exam General Appearance: Alert, Oriented X3, Cooperative, No Acute Distress Skin: Tunnelling coccyx wound, buttocks decubiti, wound to RLE, wound to BL knees, L calf erythema Skin Temp/Moisture Exam: Warm/Dry Cardiovascular: Regular Rate, Normal S1, Normal S2 Lungs: Clear to Auscultation, Normal Air Movement Abdomen: Soft, No Tenderness Neurological: Sensation Intact Extremities: Normal Pulses, b/l heel eschars Current Medications: Current Medications Sig/Alexus Start time Last Medication Dose Route Stop Time Status Admin Acetaminophen 650 MG Q6P PRN 02/13 2030 AC 02/20 PO 1529 Atorvastatin Calcium 80 MG 0 02/14 170 AC 02/21 PO 1730 Enoxaparin Sodium 40 MG DAILY 02/16 09 AC 02/22 SC 0912 Fluoxetine HCl 20 MG DAILY 02/16 1735 AC 02/22 PO 0913 Multivitamins 1 TAB DAILY 02/15 09 AC 02/22 PO 0912 Omeprazole 20 MG BID 02/15 2100 AC 02/22 PO 0913 Oxycodone/ 2 TAB Q6P PRN 02/15 1700 AC 02/22 Acetaminophen PO 1118 Potassium Chloride 20 MEQ TID 02/19 1400 AC 02/22 PO 1344 Sodium Bicarbonate 1,300 MG TID 02/18 2100 AC 02/22 PO 1344 Tamsulosin HCl 0.4 MG DAILY 02/13 2030 AC 02/22 PO 911 Tramadol HCl 50 MG Q6-PRN PRN 02/13 2030 AC 02/22 PO 912 Last 24 Hrs of Lab/Lukas Results Last 24 Hrs of Labs/Mics: Laboratory Tests 02/22/18 1200: Nasal Cellularity Cancelled 02/22/18 0708: Anion Gap 7, Estimated GFR > 60, BUN/Creatinine Ratio 14.3, CBC w Diff NO MAN DIFF REQ, RBC 2.85 L, MCV 89.7, MCH 29.9, MCHC 33.4, RDW 17.6 H, MPV 7.1 L, Gran % 85.6 H, Lymphocytes % 8.6 L, Monocytes % 4.5, Eosinophils % 0.8, Basophils % 0.5, Absolute Granulocytes 7.6 H, Absolute Lymphocytes 0.8 L, Absolute Monocytes 0.4, Absolute Eosinophils 0.1, Absolute Basophils 0 Assessment/Plan Assessment: Mr. 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 He was treated in the ICU for management of hyponatremia, was downgraded to general medicine. We are now monitoring his potassium, sodium, and treating his general deconditioning #Necrotic ulcersresolving last CBC was 7.8 #Anemiaresolving 8.7, increased from February 17 which was 8.3 4U pRBC. -Per RN, stool is guaic + on 02/20/18. CBCs showed hemoglobin at 8.5, stable. Patient has not had any guaiac positive stool recently. #Acute kidney injuryresolved potassium 3 times daily. on 02/18; per nephro note on 02/20 can discontinue on pt discharge. DVT prophylaxis IV access Regular diet Full Code Dispositionper welfare case worker, patient is potentially agreeable to rehab. Patient certainly needs rehab, as he is deconditioned from ICU stay, and will likely not be strong enough for hip surgery. Will follow up, potentially to STR in the next day or two pending acceptance Problem List: 1. JOVANY (acute kidney injury) 2. Symptomatic anemia 3. Chronic wound of extremity Pain Ratin Pain Location: na Pain Goal: Pain 4 or less Pain Plan: pathway Tomorrow's Labs & Rationales: NONE- RESOLVED
[2018-02-22 09:42] LABS: WHITE BLOOD CELL COUNT 8.9 /CUMM (4.8-10.8)
--- NOTE | 2018-02-22 10:08 | PN- Att Addend ---
Attending Addendum Attending Brief Note No new issues. Vital signs are stable no fever no changes on physical still laying down in the [place] bed patient still deciding about going to short- term rehabilitation we strongly recommend that the patient is still not willing. Current Medications Sig/Alexus Start time Last Medication Dose Route Stop Time Status Admin Acetaminophen 650 MG Q6P PRN 02/13 2030 AC 02/20 PO 1529 Atorvastatin Calcium 80 MG 1700 02/14 170 AC 02/21 PO 1730 Enoxaparin Sodium 40 MG DAILY 02/16 09 AC 02/22 SC 0912 Fluoxetine HCl 20 MG DAILY 02/16 173 AC 02/22 PO 0913 Multivitamins 1 TAB DAILY 02/15 09 AC 02/22 PO 09 Omeprazole 20 MG BID 02/15 2100 AC 02/22 PO 09 Oxycodone/ 2 TAB Q6P PRN 02/15 1700 AC 02/22 Acetaminophen PO 0459 Potassium Chloride 20 MEQ TID 02/19 1400 AC 02/22 PO 09 Sodium Bicarbonate 1,300 MG TID 02/18 2100 AC 02/22 PO 0912 Tamsulosin HCl 0.4 MG DAILY 02/13 2030 AC 02/22 PO 0912 Tramadol HCl 50 MG Q6-PRN PRN 02/13 2030 AC 02/22 PO 0913 Laboratory Tests 02/22/18 0708: Anion Gap 7, Estimated GFR > 60, BUN/Creatinine Ratio 14.3, CBC w Diff NO MAN DIFF REQ, RBC 2.85 L, MCV 89.7, MCH 29.9, MCHC 33.4, RDW 17.6 H, MPV 7.1 L, Gran % 85.6 H, Lymphocytes % 8.6 L, Monocytes % 4.5, Eosinophils % 0.8, Basophils % 0.5, Absolute Granulocytes 7.6 H, Absolute Lymphocytes 0.8 L, Absolute Monocytes 0.4, Absolute Eosinophils 0.1, Absolute Basophils 0 02/21/18 0606: Anion Gap 7, Estimated GFR > 60, BUN/Creatinine Ratio 12.9, CBC w Diff NO MAN DIFF REQ, RBC 2.88 L, MCV 90.4, MCH 29.5, MCHC 32.6 L, RDW 18.6 H, MPV 7.2 L , Gran % 79.5 H, Lymphocytes % 11.8 L, Monocytes % 6.6, Eosinophils % 1.4, Basophils % 0.7, Absolute Granulocytes 6.2, Absolute Lymphocytes 0.9 L, Absolute Monocytes 0.5, Absolute Eosinophils 0.1, Absolute Basophils 0.1 02/20/18 0550: Anion Gap 8, Estimated GFR > 60, BUN/Creatinine Ratio 14.3 Vital Signs Date Time Temp Pulse Resp B/P B/P Pulse O2 O2 Flow FiO2 Mean Ox Delivery Rate 02/22 0912 90 140/76 02/22 0640 97.5 90 19 140/76 100 Room Air 02/21 2128 98.4 94 17 126/60 94 Room Air 02/21 1450 98.5 90 16 144/64 100 Room Air 02/21 1051 Room Air 2.0L
[2018-02-22 14:49] VITALS: BP 136/84
--- NOTE | 2018-02-22 15:13 | Discharge Summary ---
Visit Information Visit Dates Admission Date: 02/13/18 Discharge Date: 02/23/18 Hospital Course Course Attending Physician: Stanton Flannery MD Primary Care Physician: Prudencio ROTHMAN,Stanton Hospital Course: 62 y/o Mr. 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 Pt with prior admits with same presentation. H/H during admission was 8.3/24.9, likely related to his chronic anemia. His Na at admit was 115, slowly increased to 132 with fluid restriction over 48hrs. Also presented with JOVANY with metabolic acidosis, nephrology was consulted, IV bicarb was replenished and upon improving of acidosis, was transitioned to PO bicarb. GI was consulted due to h/o tarry stools - Pt was taken for an EGD (), biopsies taken and findings consistent of nonerosive reflux disease. Pt received a last unit of PRBC on 02/16 with appropiate increase, now mantaining Hb>8. Wounds were asssessed and debrided by wound care and dressings were put in place B/L on knees and on sacral pressure ulcer. With stable Hb and resolving hyponatremia, pt transferred to [facility] for continued management. Pts sodium, potassium, and WBC normalized. Pt agreeable to rehab and was discharged to rehab , with potential hip sx scheduled for the end of the month. Leukocytosis - resolved Patient had Positive MRSA screen however no signs of infection. Monitored off ABX. Patient's multiple Decubiti ulcers were dressed, please refer to wound care note. Acute on Chronic Anemia Patient had H/o thalassemia major with h/o tarry stools. During hospital stay, patient received total of 4U PRBC. Recheck of Hgb stablized at 8.5 on discharge Hyponatremia + JOVANY with metabolic acidosis - resolved Pt's admitting Na of 115 was corrected 9 mEq to 124 over 24hr with fluid restriction of 800 mL in the unit. Nephrology is following - as per their recommendations, pt was started on IV bicarb then transitioned to PO, with fluids dc'd. Sodium has now normalized to 137 on latest lab prior discharge. Alimentary Regular diet with multivitamin tabs supplement. GI consulted and EGD done on . Biopsies to be followed as an outpatient. Will continue Omeprazole 20 mg BID as per GI recommendations DVT PPX Lovenox + ALPS Full Code Allergies: Coded Allergies: NO KNOWN ALLERGIES (11/24/11) NKA PER ANTIBIOTIC ORDER SHEET - SJS Significant Procedures: Procedure Date: 02/15/18 Procedure Type: EGD w/biopsy [employer] Project Manager: Alfredo Penaloza MD ASA Classification: III Indications: Melena, anemia. Instrument: diagnostic gastroscope Meds Received: MAC Patient's Tolerance: good Complications: none Extent Reached: second part of duodenum Procedure: After getting written informed consent the patient was placed in the left lateral decubitus position with pulse oximetry, cardiac monitoring, and supplemental oxygen given. A bite block was inserted and IV sedation was given until the desired effect was achieved. A high definition upper Olympus endoscope was then inserted into the mouth and advanced to the second portion of the duodenum with little difficulty. Retroflexed views and photodocumentation was obtained. Impression: 1. Nonerosive reflux disease with possible underlying Raymond's esophagus status post biopsies. 2. Erythematous 5 mm esophageal nodule status post biopsies. 3. Erosive gastritis status post antral biopsies. 4. No active bleeding appreciated. 5. Small hiatal hernia. Recommendations: 1. She placed on oral PPI twice a day for now. 2. He should follow an antireflux regimen. 3. He should follow up the pathology results me as an outpatient. 4. He should avoid [id number] NSAIDs. 5. Based on the results of the pathology consideration will be given to repeat his upper endoscopy 3-6 months to confirm healing of his esophagitis and rule out underlying Raymond's esophagus. Disposition Summary Disposition Principal Diagnosis: #Hypotonic Hyponatremia #Metabolic Acidosis #JOVANY #Hypokalemia #Acute on Chronic Blood Loss Anemia 2/2 GI blood loss and Thalassemia #Chronic debilitation with history of recent falls resulting in multiple ecchymoses and abrasions #Steroid-induced avascular necrosis both hips Additional Diagnosis: as above Discharge Disposition: SNF Discharge Instructions General Discharge Information Code Status: Full Code Patient's Diet: As tolerated Patient's Activity: As tolerated Follow-Up Instructions/Appts: - Please follow up with your primary care physician within 1-2 weeks of discharge. Inform your primary care physician of this admission to [facility]. - Continue your current medications per discharge instructions. -PLEASE CONSULT WOUND CARE NOTE FOR DRESSING CHANGES. ALSO SEE W10. - Please watch for these problems: Fever, Chills, Nausea, Vomiting, Shortness of Breath, Productive Cough, Chest Pain/Discomfort, Abdominal Pain, Active Bleeding or Bloody urine/stool. Medications at Discharge Discharge Medications: Continue taking these medications: Tamsulosin HCl (Flomax) 0.4 MG CAP.ER.24H 1 Capsule ORAL DAILY Comments: Last Taken: 02/23/18 Time: 1030 AM Atorvastatin Calcium (Atorvastatin Calcium) 80 MG TABLET 1 Tablet ORAL 5 PM Qty = 60 Instructions: . Comments: Last Taken: 02/22/18 Time: 5:00 PM Ibuprofen (Ibuprofen) 800 MG TABLET 1 Tablet ORAL TWICE DAILY as needed for pain Qty = 60 Comments: NOT GIVEN IN HOSPITAL Aspirin (Ecotrin*) 81 MG TABLET. 1 Tablet ORAL DAILY Comments: NOT GIVEN IN HOSPITAL Fluoxetine HCl (Fluoxetine HCl) 20 MG CAPSULE 1 Capsule ORAL DAILY Qty = 90 Comments: Last Taken:02/23/18 Time:1030 AM Tramadol HCl (Tramadol HCl) 50 MG TABLET 1 Tablet ORAL EVERY SIX HOURS NEEDED as needed for Hip Pain Qty = 30 Comments: Last Taken:02/22/18 Time:6:30 PM Start taking the following new medications: Potassium Chloride (Klor-Con M20) 20 MEQ TAB.ER.PRT 20 Millequivalent ORAL THREE TIMES DAILY Qty = 60 No Refills Instructions: F/U OUTPT LAB 1-2 WEEKS, WILL CONSIDER D/CING BASED ON ELECTROLYTE Comments: Last Taken:02/23/18 Time:1030 AM Multivitamin (One Daily Multivitamin) 1 EACH TABLET 1 Tablet ORAL DAILY Qty = 30 No Refills Comments: Last Taken:02/23/18 Time:1030 AM Omeprazole (Omeprazole) 40 MG CAPSULE.DR 1 Capsule ORAL DAILY Qty = 30 No Refills Comments: Last Taken:02/23/18 Time:1030 AM Copies To: Prudencio ROTHMAN,Stanton
[2018-02-22 21:48] VITALS: BP 136/80
[2018-02-23 06:00] VITALS: BP 145/77
--- NOTE | 2018-02-23 07:12 | PN- Housestaff ---
See Addendum Subjective Follow-up For: Hyponatremia, Acute Blood loss anemia Subjective: Patient seen and examined at bedside. Patient has no new complaints. Patient agreeable to rehab, will go today as has bed. Denied fever/chills/night sweats/ chest pain/abdominal pain/urinary symptoms/lower extremity edema. Review of Systems Constitutional: Reports: see HPI. Objective Last 24 Hrs of Vital Signs/I&O Vital Signs Date Time Temp Pulse Resp B/P B/P Pulse O2 O2 Flow FiO2 Mean Ox Delivery Rate 02/23 1036 82 145/77 02/23 0600 98.0 82 20 145/77 99 Room Air 02/22 2148 97.6 85 18 136/80 98 Room Air 02/22 1449 97.7 90 18 136/84 98 Room Air Intake & Output 02/23 1600 02/23 0800 02/23 0000 Intake Total 130 450 Output Total 251 Balance -251 130 450 Intake, IV 10 10 Intake, Oral 120 440 Number 1 1 Bowel Movements Output, Stool 1 Output, Urine 250 Physical Exam General Appearance: Alert, Oriented X3, Cooperative, No Acute Distress Skin: tunnelling coccyx wound, buttocks decubiti, wound to RLE, wound to BL knees, L calf erythema Skin Temp/Moisture Exam: Warm/Dry Cardiovascular: Regular Rate, Normal S1, Normal S2 Lungs: Clear to Auscultation, Normal Air Movement Abdomen: Soft, No Tenderness Neurological: Sensation Intact Extremities: b/l eschars Current Medications: Current Medications Sig/Alexus Start time Last Medication Dose Route Stop Time Status Admin Acetaminophen 650 MG Q6P PRN 02/13 2030 AC 02/20 PO 1529 Atorvastatin Calcium 80 MG 1700 02/14 1700 AC 02/22 PO 1654 Enoxaparin Sodium 40 MG DAILY 02/16 09 AC 02/23 SC 1040 Fluoxetine HCl 20 MG DAILY 02/16 1735 AC 02/23 PO 1035 Multivitamins 1 TAB DAILY 02/15 09 AC 02/23 PO 1034 Omeprazole 20 MG BID 02/15 2100 AC 02/23 PO 1036 Oxycodone/ 2 TAB Q6P PRN 02/15 1700 AC 02/23 Acetaminophen PO 1036 Potassium Chloride 20 MEQ TID 02/19 1400 AC 02/23 PO 1034 Sodium Bicarbonate 1,300 MG TID 02/18 2100 AC 02/23 PO 1035 Tamsulosin HCl 0.4 MG DAILY 02/13 2030 AC 02/23 PO 1036 Tramadol HCl 50 MG .STK-MED ONE 02/22 1813 DC PO 02/22 1814 Tramadol HCl 50 MG Q6-PRN PRN 02/13 2030 AC 02/22 PO 1836 Last 24 Hrs of Lab/Lukas Results Last 24 Hrs of Labs/Mics: Laboratory Tests 02/22/18 1200: Nasal Cellularity Cancelled Assessment/Plan Assessment: Mr. 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 He was treated in the ICU for management of hyponatremia, was downgraded to general medicine. We are now monitoring his potassium, sodium, and treating his general deconditioning #Necrotic ulcersresolving last CBC was 7.8 #Anemiaresolving 8.7, increased from February 17 which was 8.3 4U pRBC. -Per RN, stool is guaic + on 02/20/18. CBCs showed hemoglobin at 8.5, stable. Patient has not had any guaiac positive stool recently. #Acute kidney injuryresolved potassium 3 times daily. on 02/18; per nephro note on 02/20 can discontinue on pt discharge. DVT prophylaxis IV access Regular diet Full Code Dispositionper case checker, patient is potentially agreeable to rehab. Patient certainly needs rehab, as he is deconditioned from ICU stay, and will likely not be strong enough for hip surgery. Will follow up, potentially to STR in the next day or two pending acceptance Problem List: 1. JOVANY (acute kidney injury) 2. Chronic wound of extremity Pain Ratin Pain Location: na Pain Goal: Pain 4 or less Pain Plan: pathway Tomorrow's Labs & Rationales: na Discharge Plan Discharge Disposition: STR/NH Stable for Discharge? Yes Anticipated Discharge (Day): today
[2018-02-23 12:21] VITALS: BP 145/77
[2018-02-23] MEDS ORDERED: OMEPRAZOLE40 M1 PO (12:32)
== END 2018-02-23 13:16 | DRG 683 ==
LOC: ERH 18:03 → ERHI 18:23 → CRI 18:23 → ERH 19:02 → ENRESERV 20:19 → ENTRNSPT 20:47 → CMPTRNSPT 21:16 → CRI 21:20 → ENTRNSPT 02-17 13:37 → EDTRNSPT 02-17 13:52 → EDTRNSPTSTS 02-17 13:52 → 2NB 02-17 14:03 → CMPTRNSPT 02-17 14:12 → ENPENDDIS 02-23 11:25 → 2NB 02-23 13:16
PROVIDERS: Internal Medicine; Physical Medicine & Rehabilitation; Student in an Organized Health Care Education/Training Program
PROC: 30233N1 Transfusion of Nonautologous Red Blood Cells into Peripheral Vein, Percutaneous Approach (ICD-10-PCS; 2018-02-13)
PROC: 0DB58ZX Excision of Esophagus, Via Natural or Artificial Opening Endoscopic, Diagnostic (ICD-10-PCS; principal; 2018-02-15)
PROC: 0DB68ZX Excision of Stomach, Via Natural or Artificial Opening Endoscopic, Diagnostic (ICD-10-PCS; principal; 2018-02-15)
PROC: 0HB8XZZ Excision of Buttock Skin, External Approach (ICD-10-PCS; 2018-02-16)
DX: N17.9 Acute kidney failure, unspecified (principal); E87.1 Hypo-osmolality and hyponatremia; D62 Acute posthemorrhagic anemia; M87.152 Osteonecrosis due to drugs, left femur; M87.151 Osteonecrosis due to drugs, right femur; L97.929 Non-pressure chronic ulcer of unspecified part of left lower leg with unspecified severity; L97.919 Non-pressure chronic ulcer of unspecified part of right lower leg with unspecified severity; R64 Cachexia; E87.2 Acidosis; D56.1 Beta thalassemia; L89.151 Pressure ulcer of sacral region, stage 1; L89.310 Pressure ulcer of right buttock, unstageable; L89.320 Pressure ulcer of left buttock, unstageable; K21.9 Gastro-esophageal reflux disease without esophagitis; I87.2 Venous insufficiency (chronic) (peripheral); D50.0 Iron deficiency anemia secondary to blood loss (chronic); E87.6 Hypokalemia; K29.60 Other gastritis without bleeding; F32.9 Major depressive disorder, single episode, unspecified; T38.0X5S Adverse effect of glucocorticoids and synthetic analogues, sequela; D72.829 Elevated white blood cell count, unspecified; Z68.25 Body mass index [BMI] 25.0-25.9, adult; K44.9 Diaphragmatic hernia without obstruction or gangrene; I73.9 Peripheral vascular disease, unspecified; N40.0 Benign prostatic hyperplasia without lower urinary tract symptoms; E86.9 Volume depletion, unspecified; Z99.3 Dependence on wheelchair
CPT/HCPCS: 2NBP; 84133; 84300; CCU; 36415; 36592; 81001; 82436; 82570; 86920; 87070; 99291; G0480; J1650; P9016